=== PATIENT | male | born 1950 | race Caucasian/White ===

== ENCOUNTER → 2018-12-06 15:51 | Outpatient (CLI) | payer OTHER, SELFPAY ==
--- NOTE | 2018-12-06 15:56 | DI.RAD.S_ITS ---
PROCEDURE: XR CHEST 2V INDICATIONS: shortness of breath TECHNIQUE: 2 views of the chest were acquired. COMPARISON: [facility], , CHEST 1 VIEW, 09/29/2017, 18:44. None. FINDINGS: Surgical changes and devices: Dual-lead cardiac pacer is unchanged. Lungs and pleura: No pleural effusions or pneumothorax. Lungs are clear. Mediastinum: Mediastinal contours are normal. Heart size is normal. Bones and chest wall: No suspicious bony abnormalities. Soft tissues appear unremarkable. IMPRESSION: No acute cardiopulmonary findings. Dictated by: Marisabel Blue M.D. on 12/06/2018 at 16:39 Approved by: Marisabel Blue M.D. on 12/06/2018 at 16:39
== END ==
PROVIDERS: Family Provider Internal Medicine; PCP Internal Medicine; Visit Provider Physician Assistant
DX: R06.02 Shortness of breath (principal); R05 Cough; Z95.0 Presence of cardiac pacemaker
CPT/HCPCS: 71046

== ENCOUNTER → 2019-02-05 17:10 | Outpatient (CLI) | payer OTHER, SELFPAY | PROVIDERS: Family Provider Internal Medicine; PCP Internal Medicine; Visit Provider Orthopaedic Surgery | DX: M23.91 Unspecified internal derangement of right knee (principal) ==

== ENCOUNTER → 2019-02-12 10:03 | Outpatient (CLI) | payer OTHER, SELFPAY ==
--- NOTE | 2019-02-12 | DI.CT.S_ITS ---
PROCEDURE: CT LE RT WO CON INDICATIONS: Right knee pain TECHNIQUE: Noncontrast 1-1.5 mm axial sections acquired from the mid-patella to the proximal tibia, with coronal and sagittal reformats. COMPARISON: [facility], CR, XR KNEE ARTHRITIC SERIES RT, 01/30/2019, 10:38. FINDINGS: Image quality: Excellent. Bones: There is moderate tricompartmental periarticular osteophyte formation. Soft tissues: Several intra-articular loose bodies are present within the intercondylar notch, largest of which measures roughly 9 mm. Anterior posterior cruciate ligaments are grossly intact. Extensor mechanism is grossly intact. Medial and lateral collateral ligaments are grossly intact. Small knee joint effusion. Small Edwards's cyst. IMPRESSION: 1. Osteoarthritis. 2. Knee joint effusion and Edwards's cyst. Intra-articular loose bodies. 3. Grossly intact cruciate ligaments. Dictated by: Cherie Holm M.D. on 02/12/2019 at 10:40 Approved by: Cherie Holm M.D. on 02/12/2019 at 10:43
== END ==
PROVIDERS: Family Provider Internal Medicine; PCP Internal Medicine; Visit Provider Orthopaedic Surgery
DX: M25.561 Pain in right knee (principal); M17.11 Unilateral primary osteoarthritis, right knee; M71.21 Synovial cyst of popliteal space [Baker], right knee; M25.461 Effusion, right knee; M23.41 Loose body in knee, right knee
CPT/HCPCS: 73700

== ENCOUNTER → 2019-03-23 08:17 | Outpatient (CLI) | payer OTHER, SELFPAY ==
[2019-03-23 08:59] LABS: Hematocrit 48.7 % (41-53); Hemoglobin 17.1 g/dL (13.5-17.5); Mean Corpuscular HGB Conc 35.1 % (30-36); Mean Corpuscular Hemoglobin 31.5 PG (26-34); Mean Corpuscular Volume 89.8 fL (80-100); Platelet Count 166 X10^3/uL (150-400); Red Blood Cell Count 5.43 X10^6/uL (4.5-5.9); Red Cell Distribution Width 13.3 % (11.6-14.8); White Blood Cell Count 4.8 X10^3/uL (4.5-11.0)
[2019-03-23 09:35] LABS: Blood Urea Nitrogen 24 mg/dL (9-20); Calcium 8.9 mg/dL (8.4-10.2); Carbon Dioxide 26 mmol/L (22-32); Chloride 102 mmol/L (98-107); Estimated Glomerular Filt Rate > 60.0 mL/min (>60); Glucose 105 mg/dL (80-110); HEMOLYSIS < 15 (0-50); Potassium 4.1 mmol/L (3.4-5.1); Sodium 138 mmol/L (137-145)
[2019-03-23 09:42] LABS: Transferrin 240 mg/dL (206-381)
[2019-03-23 09:53] LABS: Bacteria Urine None Seen; RBC Urine None Seen (0-5/HPF); WBC Urine None Seen (0-5/HPF)
[2019-03-23 10:18] LABS: Appearance Urine UA CLEAR; Bilirubin Urine UA NEGATIVE (NEGATIVE); Color Urine UA YELLOW; Glucose Urine UA NEGATIVE (Negative); Ketones Urine UA NEGATIVE (NEGATIVE); Leukocyte Esterase Urine UA NEGATIVE (NEGATIVE); Nitrite Urine UA NEGATIVE (Negative); Occult Blood Urine UA NEGATIVE (Negative); Protein Urine UA NEGATIVE (Negative); Urobilinogen Urine UA 0.2 E.U./dL (0.2); pH Urine UA 5.5 (4.5-8.0)
[2019-03-23 10:32] LABS: Urine Comments Microscopic Normal
== END ==
PROVIDERS: Family Provider Internal Medicine; PCP Internal Medicine; Visit Provider Orthopaedic Surgery
DX: E61.1 Iron deficiency (principal); N39.0 Urinary tract infection, site not specified; R73.9 Hyperglycemia, unspecified; Z01.818 Encounter for other preprocedural examination
CPT/HCPCS: 36415; 80048; 81001; 83036; 84466; 85027

== ENCOUNTER 2019-04-13 07:46 | Inpatient (IN) | payer OTHER, SELFPAY ==
[2019-03-30 09:57] VITALS: BMI 33.3
[2019-04-13] VITALS (15 sets, daily range): BP systolic 101–134; BP diastolic 60–79; PULSE 54–56; RESP 12–16; TEMP 36.1–36.9; O2SAT 92–96; BMI 31.1
--- NOTE | 2019-04-13 08:02 | DI.RAD.S_ITS ---
PROCEDURE: XR KNEE RT 1TO2V INDICATIONS: post operative right total knee TECHNIQUE: 2 view(s) of the knee acquired. COMPARISON: [facility], , KNEE 3V RIGHT, 03/25/2018, 15:59. FINDINGS: Bones: Patient is status post knee joint arthroplasty. Hardware components are in expected positions. Visualized bony structures are intact. Soft tissues: Overlying postoperative changes are noted. IMPRESSION: Expected postoperative appearance. Dictated by: Sandip Antony M.D. on 04/13/2019 at 12:30 Approved by: Sandip Antony M.D. on 04/13/2019 at 12:32
[2019-04-13] MEDS: ACETAMINOPHEN 325 MG TABLET 975 MG PO ×3 (08:44→21:43)
[2019-04-13] MEDS: LACTATED RINGERS 1,000 ML 42 ML IV (08:44)
[2019-04-13] MEDS: PREGABALIN 75 MG CAPSULE PO (08:44)
--- NOTE | 2019-04-13 09:36 | PM.PREOP ---
Pre-operative Note Interval Note History & Physical reviewed/Exam performed by Physician: Yes Changes to H&P: No H&P completed within 30 days and has changed as indicated here:: Recent bout of a fib. Has had this diagnosis previously.
--- NOTE | 2019-04-13 09:42 | PM.OP.1 ---
Operative Date/Time/Diagnoses Date of procedure: 04/13/19 Time of procedure: 11:25 Pre-op diagnosis: Right knee osteoarthritis Post-op diagnosis: same Procedure & Clinicians Procedure: Right total knee replacement Same procedure as scheduled: Yes Indications: The patient has had progressively worsening right knee pain with radiographic changes consistent with arthritis. Non-operative management has failed and the patient has requested total knee replacement. The risks, benefits and alternatives to surgery were discussed with the patient prior to proceeding. Risks discussed included, but were not limited to, failure to relieve pain, stiffness, infection, nerve damage, deep venous thrombosis, pulmonary embolism, stroke, coma, heart attack, permanent paralysis and , as well as the potential need for eventual revision of the prosthetic. Surgeon: Sony Sommer Irrigation Tax Assessor Collector: Nydia Andrews Click Yes if Unassisted: No Anesthesia Type: General, Peripheral nerve block and Local Operative Notes Findings: Severe patellofemoral osteoarthritis with relative preservation of the medial lateral compartments. The patient appeared to have moderately osteoporotic bone and a stable nondisplaced medial tibial plateau fracture was noted after cement setting. Closure Type: primary Specimen(s): none sent Prosthetic devices, grafts, tissues, transplants, or devices: Implants used in this procedure were manufactured by the [employer] and included the BCS II Journey total knee replacement with a size 5 Oxinium femoral component, a size 5 non porous tibial base plate, a 9 mm cross-linked polyethylene tibial insert and a 35 mm oval Rosa Maria II patellar component. Applied: implant(s) Estimated Blood Loss (mL): 50 Blood products transfused: none Tourniquet time (min): 47 Procedure in detail: The patient was seen in the pre-operative area, where the patient identified the right knee as the operative site and this was marked with my initials. The patient received pre-operative antibiotics, and was taken to the operating room and placed on the operative table in the supine position. After satisfactory anesthesia, a dural mechanic out was performed. The right leg was encircled with a tourniquet about the proximal thigh, and the leg was prepared from the toes to the tourniquet with ChloroPrep in the usual fashion and draped through sterile drapes. The leg was elevated and exsanguinated with Eschmark bandage and the tourniquet inflated to 250 mmHg pressure. The knee was approached through an approximately 18 cm incision centered over the patella and carried into the knee through a medial parapatellar arthrotomy. The anterior osteophytes and soft tissues were removed. The rotational landmarks of Jeff's line and the transepicondylar axis were marked on the femur with electrocautery, and intramedullary guide holes for the femur and tibia were created. The distal femoral cut was made in 6 degrees of valgus using the intramedullary guide at the primary cut setting. The proximal tibial cut was then made using the intramedullary guide, taking 9 mm of bone off the less involved side. The extension gap was checked and the rotation of the femoral component confirmed with the gap balancing system. The anterior, posterior and chamfer cuts were then made. The posterior osteophytes and soft tissues were then removed. The posterior capsule was injected with part of a mixture of 60 ml 0.25% Marcaine mixed with 20 ml Exparel and 4 mg of morphine for post-operative pain control. The remainder of this mixture was injected into the capsule and subcutaneous tissues during cement curing. The tibia was prepared with the rotation set by an extra medullary guide. Trial tibial and femoral components were then placed and the intercondylar notch cut through the femoral trial. Range of motion was 0-135 degrees, with good stability throughout the range. The patella was then cut to accommodate the patellar prosthetic. There was no need for a lateral release. The trials were then removed, and the femoral hole plugged with a bone plug. The bone was prepared with pulsatile lavage, and dried with a sponge. Cement was applied and the final prosthetics placed. Excess cement was removed during and after cement curing. During the removal of the cement we noticed a nondisplaced incomplete crack of the medial tibial plateau. This was probed extensively and appeared to be stable. After confirming there was no extruded cement posteriorly, the final tibial insert was placed. The knee was copiously irrigated and the tourniquet deflated. Hemostasis was obtained. The capsule was closed with interrupted # 2 polyester suture. The subcutaneous layer was closed with 3-0 Vicryl, and the skin with a running 3-0 V-Lock suture and SteriStrips. An Aquacel Ag dressing was applied and the patient was taken to recovery having tolerated the procedure well. Complications: other (Nondisplaced stable partial medial tibial plateau fracture.) Condition: stable Disposition: PACU Plan for aftercare: The patient will be maintained on a standard total knee replacement protocol with weight bearing as tolerated. The patient will receive his Xarelto and sequential compression devices for DVT prophylaxis. The patient will be discharged home when safe for the home environment.
[2019-04-13] MEDS: CEFAZOLIN 2 GM/100 ML FROZ.PIGGY IV (10:12)
--- NOTE | 2019-04-13 10:40 | SUR.OPER ---
Supine on padded OR bed. Pillow under head, arms secured on padded armboards <90 degree abduction. Safety belt across torso. Non-operative leg secured with tape over blanket over lower leg. Operative leg secured in DeMayo positioner.
--- NOTE | 2019-04-13 10:44 | PM.PROC.1 ---
Procedures Date/Time Date of procedure: 04/13/19 Time of procedure: 09:10 General Procedure description: Ultrasound guided adductor canal nerve block for post op pain control afterright total knee arthroplasty by . Risk and benefits of procedure discussed with patient. ASA monitoring applied to patient. O2 given via nasal cannula. 1 mg Versed and 50 mcg fentanyl given for procedural sedation. Skin site was prepped with chlorhexidine and allowed to fully dry. Sterile gloves, mask, hat and probe cover were used to maintain sterility. 2% lidocaine and 30ga needle was used to make a small skin wheal at needle insertion site. Under ultrasound guidance, a 21ga 100mm Pajunk needle was directed into the adductor canal near femoral artery and saphenous nerve at the level of mid thigh. Patient reported no parasthesias. After negative aspiration, 20 mL 0.5% ropivicaine and 10mg dexamethasone were injected around saphenous nerve. Patient tolerated procedure well.
[2019-04-13] MEDS: BUPIVACAINE 0.25% W/ EPI 30 ML VIAL 60 ML INJ (10:45)
[2019-04-13] MEDS: BUPIVACAINE LIPOSOME 266 MG/20 ML VIAL INJ (10:45)
[2019-04-13] MEDS: MORPHINE 4 MG/ML INJ INJ (10:46)
[2019-04-13] MEDS: TRANEXAMIC ACID 1,000 MG VIAL 1000 MG INJ ×2 (10:47→11:22)
--- NOTE | 2019-04-13 11:57 | SUR.PREOP ---
Block start time [18] . Monitoring initiated and maintained throughout procedure. Oxygen given per anesthesiologist instructions. Pt medicated by Dr. Roth. Patient remained stable throughout procedure, no adverse reactions noted. Block end time [929].
[2019-04-13] MEDS: LACTATED RINGERS 1,000 ML 125 ML IV ×2 (13:28→19:28)
[2019-04-13] MEDS: RIVAROXABAN 10 MG TABLET 20 MG PO (17:14)
[2019-04-13] MEDS: METOCLOPRAMIDE 10 MG/2 ML INJ IV ×2 (19:23→23:27)
--- NOTE | 2019-04-13 19:31 | PC.NURSE ---
Addendum entered by Elodia Paige, R.N. 04/13/19 22:01: Straight cath done by Janis castelan RN, 450 ml urine output. Patient denies further nausea, has been sleeping since last assessment. Ice cream and crackers provided tonight, he denies further needs/concerns. Call button in reach/alarm active/fall precautions in place. Addendum entered by Elodia Paige R.N. 04/13/19 19:43: Still no void. An hour ago bladder scan done = 575 ml. Since then patient trying to use urinal with no success. 2 person assist to stand him at bedside, he is very unsteady and dizzy, able to bear some weight on right leg. Still no void. Assisted him back into bed. Plan: in & out cath per standing orders. Original Note: Evening note: 1700: O[place]als has complained of dizziness since earlier when physical therapy attempted to sit hip up at side of bed. Pt positioned back into bed. Sat up and ate meal, denied nausea with dizziness. Visited with for a while. Just now sat up and had 900 ml of emesis, brown liquid with some undigested food. IV Reglan given. Instructed patient to call if nausea returns, fresh emesis bag at his side. He is Ox3, VS are stable. RA oxygen 98% Drsg to R knee is CDI, wearing bilateral SCD's. Reports numbness/tingling to RLE, wiggling toes, doing foot pumps 20 times an hour. Pulses are present.
[2019-04-13] MEDS: SOTALOL 80 MG TABLET PO (21:43)
[2019-04-13] MEDS: DOCUSATE 100 MG CAPSULE PO (21:43)
[2019-04-14] VITALS (7 sets, daily range): BP systolic 108–141; BP diastolic 58–71; PULSE 55–58; RESP 16–18; TEMP 36.1–37.2; O2SAT 94–98
--- NOTE | 2019-04-14 | DI.RAD.S_ITS ---
PROCEDURE: XR CHEST 2V INDICATIONS: shortness of breath, crackles TECHNIQUE: 2 views of the chest were acquired. COMPARISON: [facility], CHEST 1 VIEW, 09/29/2017, 18:44. [facility], CHEST 1 VIEW, 05/29/2017, 10:19. [facility], CHEST 2 VIEW, 05/07/2017, 12:20. [facility], XR CHEST 2V, 12/06/2018, 15:58. FINDINGS: Surgical changes and devices: A pacer device is seen. The leads are seen in stable positions. Lungs and pleura: An incomplete inspiratory result is noted, causing a crowded appearance to the lung markings. No focal infiltrates are seen. No pneumothorax or significant pleural effusions are seen. Mediastinum: The cardiac contours are at the upper limits of normal. The aorta demonstrates calcification and tortuosity. Bones and chest wall: Age-appropriate bony degenerative changes are seen. No suspicious bony abnormalities. Soft tissues appear unremarkable. IMPRESSION: Limited study demonstrating no acute abnormality. If there is clinical concern for a developing pulmonary process, a short-term followup chest series (with PA and lateral views, performed in deep inspiration) is suggested for further evaluation. Dictated by: Sabas Glass M.D. on 04/14/2019 at 8:03 Approved by: Sabas Glass M.D. on 04/14/2019 at 8:04
--- NOTE | 2019-04-14 00:41 | PC.NURSE ---
Addendum entered by Deepa Valdes R.N. 04/14/19 06:41: Pt unable to void greater than 20ml, straight cath'd him for 500ml of clear yellow urine. Pt tolerated procedure well, reports that he has a history of needing to go frequently for small volumes, encouraged pt to talk to him doctor. Educated pt that he will still need to be able to void on his own to discharge. Pt acknowledged all teaching. Addendum entered by Deepa Valdes R.N. 04/14/19 06:06: Had another DATABASE TESTER verify bladder scan and determined that the wrong setting had been used. New scan indicated 500ml of urine, pt urinated 40ml out and is attempting to get more out at this time. Addendum entered by Deepa Valdes R.N. 04/14/19 05:18: Second bladder scan revealed a max of 47ml, encouraged pt to continue to drink fluids, prefers cranberry juice and Diamond Oksana to water. Addendum entered by Deepa Valdes R.N. 04/14/19 04:08: Pt has been unable to meet 8 hour post cath void. Bladder scan revealed no urine in the bladder despite multiple views. Encourage pt to drink more fluids, will recheck in an hour. Original Note: Called workers compensation adjuster surgeon Dr Rainey in regards to pt not having any post op antibiotics, new order for 2gm Cefazolin times 2 doses.
[2019-04-14] MEDS: CEFAZOLIN 2 GM/100 ML FROZ.PIGGY IV ×2 (01:26→09:42)
[2019-04-14] MEDS: LACTATED RINGERS 1,000 ML 125 ML IV (04:13)
[2019-04-14] MEDS: OXYCODONE IR 5 MG TABLET PO ×2 (04:16→11:14)
[2019-04-14 05:53] LABS: Hematocrit 46.9 % (41-53); Hemoglobin 15.9 g/dL (13.5-17.5)
[2019-04-14] MEDS: PANTOPRAZOLE 20 MG TABLET PO (06:13)
--- NOTE | 2019-04-14 07:46 | PM.PNPO.1 ---
Subjective Date Patient Seen: 04/14/19 Time Patient Seen: 07:46 Interval history: The patient reports reasonable pain control this morning however he has had significant nausea and has been unable to void, requiring 2 straight caths. Exam Vital Signs (past 8 hours): - 04/14/19 00:00 04/14/19 05:20 Temperature 98.0 F 97.0 F L Pulse Rate 56 L 58 L Respiratory Rate 16 16 Blood Pressure 109/60 118/70 Pulse Oximetry 94 95 Oxygen Delivery Method Room Air Oxygen Flow Rate 0 Narrative Exam Narrative: Right knee wound is dressed with no drainage on the bandage. Calf is soft. Light touch and motion are intact in the right lower extremity. Objective Labs Result Diagrams: 04/14/19 05:33 Labs: Laboratory Results - last 24 hr 04/14/19 05:33 Hgb 15.9 Hct 46.9 Assessment & Plan Post-op Postoperative Procedures Operation Date: 04/13/19 09:45 Actual Procedures Side Surgeon p Total Knee Arthroplasty Right Sony Sommer MD Postoperative day: 1 Postoperative status: doing well, urinary retention and other Postoperative status narrative: From the standpoint of his total knee, the patient is doing well. He does however have urinary retention and significant postoperative nausea. At this point it is unlikely he will be able to go home today. Postoperative plan: routine post-op care, ambulate, advance diet and voiding trials Time Spent With Patient less than 15 minutes Quality VTE Deep Vein Thrombosis/Pulmonary Embolism Present on Admission: No
[2019-04-14] MEDS: SOTALOL 80 MG TABLET PO ×2 (09:42→21:34)
[2019-04-14] MEDS: MELOXICAM 7.5 MG TABLET 15 MG PO (09:42)
[2019-04-14] MEDS: ACETAMINOPHEN 325 MG TABLET 975 MG PO ×3 (09:43→21:34)
[2019-04-14] MEDS: DOCUSATE 100 MG CAPSULE PO ×2 (09:43→21:34)
--- NOTE | 2019-04-14 10:46 | CM.DANOTE ---
DCP/Assessment: Reviewed chart. Patient is a 68yr old male admitted to [facility] for right TKA performed on 04-13-[address] Sommer. PCP is Dr. Lassiter. Primary payor is 1)[facility]. Met with patient explained CM/SW role. Patient reports that he hopes to d/c home today. Patient resides with his spouse and has supportive family/friends. Patient has 4 stairs at residence. Patient followed by therapy and most likely will be doing stair training prior to d/c. Patient has outpatient therapy scheduled and does not anticipate any d/c planning needs. P: Home when medically stable. ROULA Vanessa Discharge Planning/Care Management CM Discharge Assessment Start: 04/14/19 10:44 Freq: Status: Active Protocol: Document 04/14/19 10:44 KJS (Rec: 04/14/19 10:46 KJS [id number]) Discharge Planning Assessment Assigned Activity Director ROULA Vanessa Contact Information Neli Saunders (spouse) [phone] Advance Directives? No: Has paperwork History Provided By Patient Friend Medical Record Prior Living Arrangements House Household Members spouse Type of transporation used prior to Drives own vehicle admit Independent with ADL's Yes Is patient alert and oriented? Yes Caregiver for Another No DME Already Rented / Owned FWW / Walker Cane Bedside Commode Patient/Family Preference OP PT Therapy Barriers to Discharge No Discharge Plan Home Transportation Arrangement Family to provide transport Referrals Initiated None needed Whiteboard Updated in Patient Room with Yes name and ext. # of Activity Director Review Status In Process Next Review Type Continued Stay Review Pre-Anesthesia Assessment Start: 03/30/19 09:57 Freq: Status: Complete Protocol: Document 03/30/19 09:57 CAB (Rec: 03/30/19 10:43 CAB [id number]) Pre-Anesthesia Assessment Patient Also Known As (AKA) [place] Patient Information Reviewed Via Phone Assessment Assessment Completed With Patient Diagnostic Results BMP/CMP CBC Urinalysis Comment Labs 03/23/19 @[facility], EKG w/PCP office scanned to record Primary Care Provider Tino Lassiter Medical Clearance Received Yes Seen Specialist in Last 12 Months Yes Specialist Seen Import Dispatcher Orthopedist Primary Language Latvian Automatic Print Developer Required No Height 172.72 cm Weight 99.337 kg Body Mass Index (BMI) 33.3 Hearing Ability Normal Visual Assist Magnifying Glass Dentition Type Teeth, Natural Present Teeth, Missing Barriers to Learning None Other Aids No Hx Anesthesia Reactions No Hx Family Anesthesia Reaction No Hx Malignant Hyperthermia No Hx Blood Transfusions No Comment History of esophageal spasms Anesthesia Review Requested No Seam Rubber No alcohol intake current alcohol intake frequency a few times a month Smoking Status Never smoker Substance Use Type does not use Pain Present Pain Reported Musculoskeletal Symptoms Abnormal Gait Back Pain Difficulty Walking Joint Pain Muscle Cramps Muscle Spasms History of Falling (Recent or History of No ) Patient is completely paralyzed or No completely immobile Mental Status Oriented to own ability Is patient on oxygen? No Does patient have DUCWKORTH/SOB No Hx Sleep Apnea No Currently Taking a Beta Michael Yes: Sotalol Can You Climb a Flight of Stairs Without No SOB Hx Chest Pain No Hx SOB No Hx Syncope or Dizziness Yes: lightheadedness w/Afib episodes Anti-Coagulant Therapy Yes: Xarelto-pt will hold 5 days prior per PCP Has a Import Dispatcher Yes: Dr. Wang-visit 04/01/19 scanned to record Cardiac Testing Yes: Last ECHO 2016 scanned to record Hx Pacemaker/ICD Yes: SSS, bradycardia. Last device check 01/20/19 scanned to record Pacemaker Rep Required? No: Pacemaker form to surgery folder and scanned to record Diet Type At Home Regular dysphagia No Comment Hx of esophageal spasm Bladder Pattern Nocturia Urinary Catheter Present No Hx Urinary Self Catheterization No Diabetes No HgbA1C 5.0 Date 03/23/19 Hx Drug Resistant Organism No Presence of External or Internal Medical Yes: Pacemaker Devices Have you traveled outside the [facility] in the last 30 days? Marital Status Lives With spouse Prior Living Arrangements House Number of Floors (Floors) 3 or More Floors Support System Spouse Patient Discharge Plan Description Return Home Comment Pt not advised on length of stay per surgeon's office presently Feels Safe in Current Environment Yes Been Physically Hurt or Threatened By a No Person in Current Environment Do you have thoughts of harming yourself None or others? Are you currently considering suicide? No Do you have a plan to hurt yourself or No Plan others? Do You Have Any Spiritual Beliefs That No May Affect Your HC Choices? Do You Have Any Cultural Practices That No May Affect Your HC Choices? Who Can We Speak to About Patient's Care Family, friends Identifying Code for Release of Patient Declines to issue Information Health Care Proxy/Next of Kin Neli () Health Care Proxy Emergency Contact Name Neli () Emergency Contact Advance Directives? No: Has paperwork PAC Instructions Durable medical equipment Medications to take/avoid Nasal antibiotic No ETOH/petroleum product on skin DOS NPO Post-op transportation Pre-surgical wash Sturdy shoes/comfortable clothes Do not bring valuables and remove jewelry
--- NOTE | 2019-04-14 11:20 | PC.NURSE ---
Tawanda reported feeling short of breath this am after taking bedside rescue inhaler without relief. VSS, and O2 sat on RA 95%. Noted to have faint crackles R base, a new finding. IV fluids halted. DIANA Andrews informed. She ordered CXR and RT consult for EKG. CXR unremarkable and EKG showed SR with first degree block. Tawanda states he did not feel any chest pain or feel as if he was in A-Fib during this time. Since then he has been able to participate in PT and sit in the chair. He now reports his breathing feels Better. He is smiling and cracking jokes. He is able to void in amounts of 250 or more each and has not needed to be cathed. His R knee aquacel is clean/dry/intact. He states he has some residual numb feeling in david. feet such as what he had pre-op. He has had no further N/V and is taking a general diet slowly, occasionally plagued by bouts of hiccoughs.
--- NOTE | 2019-04-14 12:06 | PT.IIE ---
Current Diagnoses Unilateral primary osteoarthritis, right knee (04/13/19) Surgery Performed Operation Date: 04/13/19 09:45 Actual Procedures p Total Knee Arthroplasty(Right) - Sony Sommer MD Surgical History (Last Updated 03/30/19 @ 10:15 by Pamela James RN) H/O vasectomy (Acute ~1984) Status post hernia repair Medical History (Last Updated 03/30/19 @ 10:14 by Pamela James RN) Mild intermittent asthma without complication (Chronic 12/04/11) Paroxysmal atrial fibrillation (Chronic) Gastroesophageal reflux disease without esophagitis (Chronic 12/04/11) Diverticulosis of large intestine without perforation or abscess without bleeding (Chronic) 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) H/O acute myocardial infarction (Inactive ~1984) Hemorrhoids (Inactive 12/29/15) Cardiac pacemaker in situ (Inactive ~09/2017) Kidney stone (Acute) Physical Therapy Inpatient Evaluation/Re-Eval M1 PT/OT-IP Prior Functional Status Start: 04/13/19 17:03 Freq: NEEDED Status: Active Protocol: Document 04/14/19 09:41 TIMOTEO (Rec: 04/14/19 09:46 EA [id number]) Medical Review Prior Functional Status Medical History Reviewed Yes Diet/Fluid Consistency Regular Communication normal Mobility and Gait Indep in all mobility with single fall in the last six months due to missed step on his boat. No used of any AD Activities of Daily Living and IADL's Indep Prior Functional Level (Other details) Retired Social History Household Members spouse Living Arrangements House Number of Stairs To Enter/Railing? 4 steps to get up to the masters BR with rail to left side Home Environment Standard Height Toilet Home Equipment Front Wheel Walker Straight Cane Additional Social History Comment Lives with her who would look after him. M2 PT-IP Current Condition Start: 04/13/19 17:03 Freq: NEEDED Status: Active Protocol: Document 04/14/19 09:41 EA (Rec: 04/14/19 09:46 EA [id number]) Physical Therapy Current Condition Current Condition Evaluation Date 04/14/19 Treatment Diagnosis s/p R TKA Onset Date 04/13/19 Weight Bearing Status Weight Bearing Status Weight Bear as Tolerated M3 PT-IP Subjective Start: 04/13/19 17:03 Freq: NEEDED Status: Active Protocol: Document 04/14/19 09:41 EA (Rec: 04/14/19 09:46 EA [id number]) Subjective Physical Therapy Visit Type Type Initial Evaluation Visit Start Time 09:00 Visit Stop Time 09:40 Total Visit Minutes 40 Number of HOTEL MAID Visits 0 Physical Therapy Visit Comments Patient Comments Patient agreeable to mobilize and perform mobility assessment. Therapy Pain Assessment Pain When Pain Assessed At Rest Pain Present Pain Present Pain Reported Location Rt Knee Intensity 3 Scale Used Numeric (1 - 10) Description Acute M4 PT-IP Mobility and Gait Start: 04/13/19 17:03 Freq: NEEDED Status: Active Protocol: Document 04/14/19 09:41 EA (Rec: 04/14/19 09:46 EA [id number]) PT-Bed Mobility Assessment Supine to Sit Supine to Sit Standby Assistance Sit to Supine Sit to Supine Standby Assistance Scooting Scooting to Edge of Bed Standby Assistance PT-Transfer Assessment Sit to and From Stand Sit to and from Stand Contact Guard Assistance Equipment Transfer Assistive Device Gait Belt Front Wheeled Walker Transfers Transfer Destination Bed Chair Toilet Transfer Technique stepping Transfer Ability Level of Assist Contact Guard Assistance Gait Assessment Gait Gait Assistance Required: Contact Guard Assist Distance (Feet) 20 Able to Maintain Weight Bearing Status Yes During Gait Assistive Devices Assistive Device Front Wheeled Walker Gait Deviations General Gait Pattern Antalgic Decreased Stride Length Step-to Gait Factors Limiting Gait Function Factors Limiting Gait Function Decreased Activity Tolerance Decreased Strength Limited Range of Motion Pain Respiratory Distress Comments Gait Comments Requires VC's to ensure foot flat or right foot as patient tends to tip toe step. Requires rest due to SOB. PT-Balance Assessment Sitting Balance and Reactions Static Sitting Balance Ability Normal Dynamic Sitting Balance Ability Good Standing Balance and Reactions Static Standing Balance Ability Good Dynamic Standing Balance Ability Fair M5 PT-IP Objective Assessments Start: 04/13/19 17:03 Freq: NEEDED Status: Active Protocol: Document 04/14/19 09:41 EA (Rec: 04/14/19 09:46 EA [id number]) Orientation Orientation/Cognition Level of Alertness Alert Orientation Name Language Function Ability No Deficits Noted Memory Description No Deficits Noted Gross Range of Motion Upper Extremity ROM Assessment Within Functional Limits Lower Extremity ROM Assessment Right Impaired Impairments 0- 90 knee flexion-ext Strength Upper Extremity Strength Assessment Within Functional Limits Lower Extremity Strength Assessment Right Impaired Knee at least 3+/5 Coordination Assessment Gross Coordination Gross Coordination WNL Sensation Assessment Sensation Gross Sensation WNL Light Touch Intact M6 PT-IP Treatment Start: 04/13/19 17:03 Freq: NEEDED Status: Active Protocol: Document 04/14/19 09:41 EA (Rec: 04/14/19 09:46 EA [id number]) Physical Therapy Treatment Exercises Exercises Ankle Pumps Gluteal Sets Quad Sets Heel Slides Straight Leg Raises Short Arc Quads Passive Knee Extension Hang Seated Knee Flexion/Extension Education Education Provided Precautions Weight Bearing Status Post-Op Packet M7 PT-IP Assessment and Plan Start: 04/13/19 17:03 Freq: NEEDED Status: Active Protocol: Document 04/14/19 09:41 EA (Rec: 04/14/19 09:46 EA [id number]) PT Summary Assessment and Plan Potential Rehabilitation Potential Good Status of Condition at Evaluation Evolving Summary Impairments Pain ROM Strength Balance Bed Mobility Transfers Gait Activity Tolerance Assessment Summary Patient demonstrates decreased tolerance to mobility with slight instability in dynamic mobility due to RLE weakness, pain and respiratory distress. Patent requires assistance in all functional transfers and ambulation at this time. He would benefit with skilled PT to reach functional goals prior to discharge. Goals Bed Mobility Goal Independent Transfer Goal Independent Front Wheeled Walker Gait Goal Independent Front Wheel Walker Gait Distance 100 ft Other Goals 4 steps with SBA using Left handrail Days to Meet Goals 2 Frequency of Treatment Frequency Of Treatment Twice a Day Treatment Plan Physical Therapy Treatment Plan Bed Mobility Training Transfer Training Gait Training Therapeutic Exercise Recommendations To Nursing Amount of Assist Needed 1 Person Assist Discharge Recommendations PT Discharge Recommendations Home with Assistance
--- NOTE | 2019-04-14 14:48 | PT.IPTN ---
Current Diagnoses Unilateral primary osteoarthritis, right knee (04/13/19) Surgery Performed Operation Date: 04/13/19 09:45 Actual Procedures p Total Knee Arthroplasty(Right) - Sony Sommer MD Physical Therapy Treatment Note M2 PT-IP Current Condition Start: 04/13/19 17:03 Freq: NEEDED Status: Active Protocol: Document 04/14/19 09:41 EA (Rec: 04/14/19 09:46 EA [id number]) Physical Therapy Current Condition Current Condition Evaluation Date 04/14/19 Treatment Diagnosis s/p R TKA Onset Date 04/13/19 Weight Bearing Status Weight Bearing Status Weight Bear as Tolerated M3 PT-IP Subjective Start: 04/13/19 17:03 Freq: NEEDED Status: Active Protocol: Document 04/14/19 14:10 CLB (Rec: 04/14/19 14:48 CLB [id number]) Subjective Physical Therapy Visit Type Type Treatment Note Visit Start Time 14:10 Visit Stop Time 14:35 Total Visit Minutes 25 Number of DIRECTOR IT Visits 1 Physical Therapy Visit Comments Patient Comments pt agreeable to do therapy. Therapy Pain Assessment Pain When Pain Assessed At Rest Pain Present Pain Present Pain Reported Location Rt Knee Intensity 2 Scale Used Numeric (1 - 10) M4 PT-IP Mobility and Gait Start: 04/13/19 17:03 Freq: NEEDED Status: Active Protocol: Document 04/14/19 14:10 CLB (Rec: 04/14/19 14:48 CLB [id number]) PT-Bed Mobility Assessment Sit to Supine Sit to Supine Standby Assistance Scooting Scooting to Edge of Bed Standby Assistance PT-Transfer Assessment Sit to and From Stand Sit to and from Stand Contact Guard Assistance Equipment Transfer Assistive Device Gait Belt Front Wheeled Walker Transfers Transfer Destination Bed Chair Transfer Technique stepping Transfer Ability Level of Assist Contact Guard Assistance Comments Mobility Comments Pt able to hook LLE under RLE to assist leg onto bed. Gait Assessment Gait Gait Assistance Required: Contact Guard Assist Distance (Feet) 200 Able to Maintain Weight Bearing Status Yes During Gait Assistive Devices Assistive Device Gait Belt Front Wheeled Walker Gait Deviations General Gait Pattern Antalgic Decreased Stride Length Step-to Gait Factors Limiting Gait Function Factors Limiting Gait Function Decreased Activity Tolerance Decreased Strength Limited Range of Motion Pain Respiratory Distress Comments Gait Comments Pt improved with foot placement with gait. Stair Climbing Assessment Evaluation Level of Assist On Stairs Contact Guard Assistance 1 Person Assistance Devices Stair Climbing Assistive Devices Left Railing Technique/Endurance Stair Climbing Direction Ascend and Descend Stair Climbing Technique Step to Step Number of Steps Climbed 3 Query Text: Stair Climbing Set # Repetitions (reps) 2 Comments Stair Climbing Comments Pt able to climb stairs CGA x2 . M5 PT-IP Objective Assessments Start: 04/13/19 17:03 Freq: NEEDED Status: Active Protocol: Document 04/14/19 09:41 EA (Rec: 04/14/19 09:46 EA [id number]) Orientation Orientation/Cognition Level of Alertness Alert Orientation Name Language Function Ability No Deficits Noted Memory Description No Deficits Noted Gross Range of Motion Upper Extremity ROM Assessment Within Functional Limits Lower Extremity ROM Assessment Right Impaired Impairments 0- 90 knee flexion-ext Strength Upper Extremity Strength Assessment Within Functional Limits Lower Extremity Strength Assessment Right Impaired Knee at least 3+/5 Coordination Assessment Gross Coordination Gross Coordination WNL Sensation Assessment Sensation Gross Sensation WNL Light Touch Intact M6 PT-IP Treatment Start: 04/13/19 17:03 Freq: NEEDED Status: Active Protocol: Document 04/14/19 14:10 CLB (Rec: 04/14/19 14:48 CLB [id number]) Physical Therapy Treatment Exercises Exercises Gluteal Sets Quad Sets Heel Slides Straight Leg Raises Short Arc Quads Passive Knee Extension Hang Education Education Provided Precautions Weight Bearing Status Safety M7 PT-IP Assessment and Plan Start: 04/13/19 17:03 Freq: NEEDED Status: Active Protocol: Document 04/14/19 14:10 CLB (Rec: 04/14/19 14:48 CLB [id number]) PT Summary Assessment and Plan Summary Impairments Pain ROM Strength Balance Bed Mobility Transfers Gait Activity Tolerance Assessment Summary Pt improving with gait quality using flat foot and step to gait pattern. Pt able to climb 3 steps x2. Goals Bed Mobility Goal Independent Transfer Goal Independent Front Wheeled Walker Gait Goal Independent Front Wheel Walker Gait Distance 100 ft Other Goals 4 steps with SBA Days to Meet Goals 2 Frequency of Treatment Frequency Of Treatment Twice a Day Treatment Plan Physical Therapy Treatment Plan Bed Mobility Training Transfer Training Gait Training Therapeutic Exercise Other Recommendations and Next Treatment gait, ther ex., stairs with L Focus rail and SPC on right. Recommendations To Nursing Amount of Assist Needed 1 Person Assist Discharge Recommendations PT Discharge Recommendations Home with Assistance
[2019-04-14] MEDS: OXYCODONE IR 10 MG TABLET PO ×3 (15:37→21:34)
[2019-04-15 00:35] VITALS: BP 113/66; PULSE 55; RESP 16; TEMP 36.6; O2SAT 95
[2019-04-15] MEDS: OXYCODONE IR 10 MG TABLET PO ×3 (01:14→10:08)
[2019-04-15 04:55] VITALS: BP 115/73; PULSE 55; RESP 16; TEMP 36.5; O2SAT 95
[2019-04-15] MEDS: PANTOPRAZOLE 20 MG TABLET PO (06:05)
--- NOTE | 2019-04-15 06:55 | PM.DS.1 ---
History of Present Illness Date Patient Seen: 04/15/19 Time Patient Seen: 06:55 Chief complaint: [id number] Narrative: The history and physical examination are contained in the chart in a previously completed note. Please refer to that note for this information. Discharge Providers Date of admission: 04/13/19 07:46 Discharge Date: 04/15/19 Primary care physician: Tino Lassiter MD Consults: 04/13/19 12:49 Consult to Discharge Planning Routine Comment: Consult to Physical Therapy Evaluate & Treat Comment: Physician Instructions: postop TKA protocol 04/14/19 08:45 Consult to Respiratory Therapy Evaluate & Treat Comment: Physician Instructions: Evaluate and treat Discharge provider: Sony Sommer MD Summary Discharge Diagnosis: 1. Right knee osteoarthritis 2. Nondisplaced medial tibial plateau fracture 3. Postoperative nausea 4. Urinary retention Hospital Course: The patient was admitted to the hospital and taken directly to the operating room on April 13, 2019 where he underwent a right total knee replacement which was complicated by a nondisplaced medial tibial plateau fracture which was stable. Postoperatively he had significant nausea and urinary retention requiring that he remain until postoperative day 2 in the hospital. On postoperative day 2 he was stable and had made excellent progress in physical therapy. Exam Vital Signs (past 8 hours): - 04/15/19 00:35 04/15/19 04:55 Temperature 97.9 F 97.7 F Pulse Rate 55 L 55 L Respiratory Rate 16 16 Blood Pressure 113/66 115/73 Pulse Oximetry 95 95 Oxygen Delivery Method Room Air Oxygen Flow Rate 0 Narrative Exam Narrative: Right knee wound is dressed with no drainage on the bandage. Calf is soft. Light touch and motion are intact in the right lower extremity. Objective Labs Result Diagrams: 04/14/19 05:33 Discharge Plan Discharge Plan Patient Disposition: Home Discharge Med Rec/Prescriptions Prescriptions: New acetaminophen 325 mg Tablet 975 mg PO TID 30 Days Qty: 270 RF: 0 oxycodone 5 mg Tablet 5 mg PO Q3HR PRN (Reason: Pain, Moderate (4-6)) Qty: 40 RF: 0 hydroxyzine pamoate 25 mg Capsule 25 mg PO Q6HR PRN (Reason: Nausea) Qty: 40 RF: 0 Continued albuterol sulfate 90 mcg/actuation HFA aerosol inhaler 1 inh INHALATION Q4-6H PRN (Reason: shortness of breath) Qty: 18 RF: 0 omeprazole 20 MG capsule,delayed release(DR/EC) 20 mg PO QDAY Qty: 0 RF: 0 sotalol 80 mg tablet 80 mg PO BID RF: 0 rivaroxaban [Xarelto] 20 mg tablet 20 mg PO SEEINSTR RF: 0 ibuprofen [Advil Liqui-Gel] 200 mg Capsule 600 mg PO BEDTIME PRN (Reason: pain, sleep) RF: 0 Follow up/Referrals: Tino Lassiter MD [Primary Care Provider] - Sony Sommer MD [Physician] - 3-5 Days Provider Discharge Instructions Diet: Diet as Tolerated and Regular Activity: You may bear weight as tolerated on your right leg. Skin/Wound/Dressing Care Report to your healthcare provider any signs of infection, such as:: chills, fever, night sweats, increased pain, unusual drainage and unusual redness Dressing: You may remove the Param wrap 3 days after surgery and shower normally with the deeper dressing in place. Do not submerge the deeper dressing under water. If the central strip of the deeper dressing gets saturated with either water or blood call the office to have it changed. Visit Report/Discharge Packet Instructions: DI for Knee Replacement Stand Alone Forms: Surgery Discharge Discharge Data Primary Care Provider: Tino Lassiter Attending Provider: Sony Sommer Admit Date/Time: 04/13/19 07:46 Quality VTE Deep Vein Thrombosis/Pulmonary Embolism Present on Admission: No
[2019-04-15 08:00] VITALS: BP 125/69; PULSE 55; RESP 16; TEMP 36.8; O2SAT 95
[2019-04-15] MEDS: DOCUSATE 100 MG CAPSULE PO (09:41)
[2019-04-15] MEDS: SOTALOL 80 MG TABLET PO (09:41)
[2019-04-15] MEDS: POLYETHYLENE GLYCOL 3350 17 GM POWD.PACK PO (09:41)
[2019-04-15] MEDS: MELOXICAM 7.5 MG TABLET 15 MG PO (09:41)
[2019-04-15] MEDS: ACETAMINOPHEN 325 MG TABLET 975 MG PO (09:42)
--- NOTE | 2019-04-15 09:52 | PT.IPTN ---
Current Diagnoses Unilateral primary osteoarthritis, right knee (04/13/19) Surgery Performed Operation Date: 04/13/19 09:45 Actual Procedures p Total Knee Arthroplasty(Right) - Sony Sommer MD Physical Therapy Treatment Note M2 PT-IP Current Condition Start: 04/13/19 17:03 Freq: NEEDED Status: Active Protocol: Document 04/14/19 09:41 EA (Rec: 04/14/19 09:46 EA [id number]) Physical Therapy Current Condition Current Condition Evaluation Date 04/14/19 Treatment Diagnosis s/p R TKA Onset Date 04/13/19 Weight Bearing Status Weight Bearing Status Weight Bear as Tolerated M3 PT-IP Subjective Start: 04/13/19 17:03 Freq: NEEDED Status: Active Protocol: Document 04/15/19 09:45 SA (Rec: 04/15/19 09:52 SA [id number]) Subjective Physical Therapy Visit Type Type Treatment Note Visit Start Time 09:02 Visit Stop Time 09:40 Total Visit Minutes 38 Number of MOTEL KEEPER Visits 2 Physical Therapy Visit Comments Patient Comments Pt up in chair, present and agreeable to PT. Therapy Pain Assessment Pain When Pain Assessed During Mobility Pain Present Pain Present Pain Reported Location Rt Knee Intensity 5 Scale Used Numeric (1 - 10) Pain Management Techniques Apply Cold Re-positioning Timing of Activity with Medications M4 PT-IP Mobility and Gait Start: 04/13/19 17:03 Freq: NEEDED Status: Active Protocol: Document 04/15/19 09:45 SA (Rec: 04/15/19 09:52 SA [id number]) PT-Bed Mobility Assessment Supine to Sit Supine to Sit Standby Assistance Sit to Supine Sit to Supine Standby Assistance Scooting Scooting to Edge of Bed Standby Assistance PT-Transfer Assessment Sit to and From Stand Sit to and from Stand Standby Assistance Contact Guard Assistance 1 Person Assistance Equipment Transfer Assistive Device Gait Belt Front Wheeled Walker Transfers Transfer Destination Bed Chair Transfer Technique stepping Transfer Ability Level of Assist Contact Guard Assistance Comments Mobility Comments CGA-SBa with stand pivot txs using FWW. SBA for bed mobility. Pt reports increased pain today at 5-6/10 with WBing. Gait Assessment Gait Gait Assistance Required: Contact Guard Assist Distance (Feet) 225 Able to Maintain Weight Bearing Status Yes During Gait Assistive Devices Assistive Device Gait Belt Front Wheeled Walker Gait Deviations General Gait Pattern Antalgic Decreased Stride Length Step-to Gait Factors Limiting Gait Function Factors Limiting Gait Function Decreased Activity Tolerance Decreased Strength Limited Range of Motion Pain Respiratory Distress Comments Gait Comments Pt very stiff initially with step to gait pattern and WBing heavily through UEs, able to transition to step through gait with increased WBing on RLE. Stair Climbing Assessment Evaluation Level of Assist On Stairs Minimal Assistance 1 Person Assistance Devices Stair Climbing Assistive Devices Left Railing Right Railing Technique/Endurance Stair Climbing Direction Ascend and Descend Stair Climbing Technique Step to Step Number of Steps Climbed 3 Query Text: Stair Climbing Set # Repetitions (reps) 1 Comments Stair Climbing Comments Pt to use SPC at home in RUE rather than B rails as he only has L ascending rail. Pt reports increased pain/ difficulty with stairs today vs yesterday. Functional Assessments Other Functional Tests Performed Standing postural correction with R leaning to increase RLE Wbing and decreased WBing through UEs/FWW. M5 PT-IP Objective Assessments Start: 04/13/19 17:03 Freq: NEEDED Status: Active Protocol: Document 04/14/19 09:41 EA (Rec: 04/14/19 09:46 EA [id number]) Orientation Orientation/Cognition Level of Alertness Alert Orientation Name Language Function Ability No Deficits Noted Memory Description No Deficits Noted Gross Range of Motion Upper Extremity ROM Assessment Within Functional Limits Lower Extremity ROM Assessment Right Impaired Impairments 0- 90 knee flexion-ext Strength Upper Extremity Strength Assessment Within Functional Limits Lower Extremity Strength Assessment Right Impaired Knee at least 3+/5 Coordination Assessment Gross Coordination Gross Coordination WNL Sensation Assessment Sensation Gross Sensation WNL Light Touch Intact M6 PT-IP Treatment Start: 04/13/19 17:03 Freq: NEEDED Status: Active Protocol: Document 04/15/19 09:45 SA (Rec: 04/15/19 09:52 [id number]) Physical Therapy Treatment Exercises Exercises Gluteal Sets Quad Sets Heel Slides Straight Leg Raises Short Arc Quads Passive Knee Extension Hang Education Education Provided Precautions Weight Bearing Status Safety Equipment Issued Equipment Type and Company Pt has all needed equipment for d/c. M7 PT-IP Assessment and Plan Start: 04/13/19 17:03 Freq: NEEDED Status: Active Protocol: Document 04/15/19 09:45 SA (Rec: 04/15/19 09:52 [id number]) PT Summary Assessment and Plan Summary Impairments Pain ROM Strength Balance Bed Mobility Transfers Gait Activity Tolerance Assessment Summary PT to d/c home today with supportive to assist, has all needed equipment and OP PT set up. Frequency of Treatment Frequency Of Treatment Twice a Day Treatment Plan Physical Therapy Treatment Plan Bed Mobility Training Transfer Training Gait Training Therapeutic Exercise Other Recommendations and Next Treatment gait, ther ex., stairs with L Focus rail and SPC on right. Recommendations To Nursing Amount of Assist Needed 1 Person Assist Discharge Recommendations PT Discharge Recommendations Home with Assistance
[2019-04-15 10:45] VITALS: BP 107/76; PULSE 55; RESP 16; TEMP 37; O2SAT 96
--- NOTE | 2019-04-15 11:24 | PC.NURSE ---
[place] has continued to improve and is ready for disch. to home with . VSS. No complaints this AM of breathing or shortness of air. RA O2 sat 95%. He is eating and drinking and able to void. His aquacel drsg. is clean/dry/intact. No change in neurovascular status.
== END 2019-04-15 11:15 | disposition home or self-care (01) | DRG 470 ==
PROVIDERS: Admitting Provider Orthopaedic Surgery; Family Provider Internal Medicine; PCP Internal Medicine; Visit Provider Orthopaedic Surgery
PROC: 0SRC0JZ Replacement of Right Knee Joint with Synthetic Substitute, Open Approach (ICD-10-PCS; CPT 27447; principal; 2019-04-13 09:45)
DX: M17.11 Unilateral primary osteoarthritis, right knee (principal); M80.861A Other osteoporosis with current pathological fracture, right lower leg, initial encounter for fracture; M96.89 Other intraoperative and postprocedural complications and disorders of the musculoskeletal system; Z95.0 Presence of cardiac pacemaker; R00.1 Bradycardia, unspecified; I48.0 Paroxysmal atrial fibrillation; J45.909 Unspecified asthma, uncomplicated; R11.0 Nausea; R33.9 Retention of urine, unspecified
CPT/HCPCS: 36415; 64447; 71046; 73560; 85014; 85018; 93005; 93010; 94762; 97110; 97116; 97162; 97530; 97535; C1776; C9290; J0690; J1100; J2250; J2270; J2274; J2405; J2704; J2765; J2795; J3010

== ENCOUNTER 2019-04-18 13:57 | Emergency (ER) | payer OTHER, SELFPAY ==
[2019-04-14 16:06] VITALS: BMI 31.1
[2019-04-18 14:10] VITALS: BP 146/92; PULSE 60; RESP 16; TEMP 36.7; O2SAT 96
--- NOTE | 2019-04-18 14:38 | ED.EXTPRO ---
HPI - Extremity Problem General Chief complaint: Extremity Problem,Nontraumatic Stated complaint: RIGHT LEG BLOOD CLOT Time Seen by Provider: 04/18/19 14:21 Source: patient Mode of arrival: ambulatory Limitations: no limitations History of Present Illness HPI Narrative: Patient is a 68-year-old male who presents postoperative day number 5 presenting with increased thigh swelling and pain. He is also complaining of weakness in that leg. His he cannot lift it. He also is having of black tarry stools. He had 1 episode this morning. He was previously on Xarelto for atrial fibrillation. He was taken off Xarelto 2 days ago and started on aspirin. He and state that they have been trying to get him off the Xarelto for the atrial fibrillation. He has not been in atrial fibrillation for some time. He has no shortness of breath with exertion he occasionally has some abdominal cramping but nothing too bad. No nausea or vomiting. He was prescribed meloxicam postoperatively he took 3 doses total occluding 1 today. MD Complaint: extremity pain, extremity swelling and other (GI bleed) Location: right Related Data Home Medications Medication Instructions Recorded Confirmed omeprazole 20 mg PO QDAY #0 06/07/17 04/13/19 rivaroxaban 20 mg tablet 20 mg PO SEEINSTR 12/11/18 04/13/19 sotalol 80 mg tablet 80 mg PO BID 03/06/19 04/13/19 ibuprofen [Advil Liqui-Gel] 600 mg PO BEDTIME PRN 03/30/19 04/13/19 Previous Rx's Medication Instructions Recorded albuterol sulfate HFA 90 1 inh INHALATION Q4-6H PRN #18 gram 12/06/18 mcg/actuation aerosol inhaler acetaminophen 975 mg PO TID 30 Days #270 tab 04/15/19 hydroxyzine pamoate 25 mg PO Q6HR PRN #40 cap 04/15/19 oxycodone 5 mg PO Q3HR PRN #40 tab 04/15/19 omeprazole 40 mg PO BID #30 cap 04/18/19 oxycodone 5 mg PO Q4-6H PRN #10 tab 04/18/19 Allergies Allergy/AdvReac Type Severity Reaction Status Date / Time nifedipine [From Procardia] AdvReac Severe Hypotensive Verified 04/18/19 14:15 Review of Systems Review of Systems ROS Unobtainable: All systems reviewed & are unremarkable except as noted in HPI and below Constitutional Denies chills, Denies fever(s), Denies lethargy and Denies weakness Eyes Denies change in vision, Denies eye discharge, Denies irritation and Denies loss of vision ENT Ears, Nose, Mouth, and Throat: Denies change in voice, Denies neck pain and Denies sore throat Cardiovascular Denies chest pain, Denies irregular heart rhythm, Denies lightheadedness, Denies palpitations, Denies dyspnea, Denies dyspnea on exertion and Denies orthopnea Respiratory Denies cough, Denies dyspnea, Denies dyspnea on exertion and Denies wheezing Gastrointestinal Gastrointestinal: Reports abdominal pain, Reports melena, Denies loose stools, Denies nausea and Denies vomiting Genitourinary Denies hematuria, Denies flank pain, Denies urinary incontinence and Denies urinary urgency Musculoskeletal Reports muscle weakness (Right leg) and Denies neck pain Integumentary/Breasts Denies pruritus, Denies erythema, Denies rash and Denies wounds Neurologic Denies loss of vision and Denies weakness Endocrine Denies palpitations Allergic/Immunologic Denies wheezing [facility] Medical History Mild intermittent asthma without complication (Chronic 12/04/11) Paroxysmal atrial fibrillation (Chronic) Gastroesophageal reflux disease without esophagitis (Chronic 12/04/11) Diverticulosis of large intestine without perforation or abscess without bleeding (Chronic) 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) H/O acute myocardial infarction (Inactive ~1984) Hemorrhoids (Inactive 12/29/15) Cardiac pacemaker in situ (Inactive ~09/2017) Kidney stone (Acute) Surgical History H/O vasectomy (Acute ~1984) Status post hernia repair Social History Smoking Status: Never smoker Social History Smoking Status: Never smoker Exam Initial Vital Signs Initial Vital Signs: Vital Signs Temperature 98.1 F 04/18/19 14:10 Pulse Rate 60 04/18/19 14:10 Respiratory Rate 16 04/18/19 14:10 Blood Pressure 146/92 H 04/18/19 14:10 Pulse Oximetry 96 04/18/19 14:10 GENERAL: Well-appearing, well-nourished and in no acute distress. HEENT: Head atraumatic,EOMI, pupils reactive, face symmetric, moist mucous membranes CARDIOVASCULAR: Regular rate and rhythm without murmurs, rubs or gallops. RESPIRATORY: Breath sounds equal bilaterally, no wheezes rales or rhonchi. ABDOMEN: Soft, nontender. Normoactive bowel sounds all 4 quadrants. No guarding or rebound. RECTAL: Dark brown stool, guaiac positive EXTREMITIES: Normal range of motion, no clubbing or edema. Neurovascularly intact Right leg dressing in place no significant erythema he does have swelling and tenderness in his upper medial thigh. His right leg is weak he is unable to all within offer her NEUROLOGICAL: Alert and oriented x4.Normal gait and speech. Cranial nerves II through XII grossly intact. SKIN: Warm, dry, no laceration, no petechiae, no rashes or lesions. Course Orders Ordered: ED Orders 04/18/19 14:46 US perip venous low extrem rt Stat EKG-12 Lead Stat 04/18/19 15:00 Complete Blood Count AUTO DIFF Stat Comprehensive Metabolic Panel Stat Partial Thromboplastin Time Stat Prothrombin Time INR Stat Discontinued Medications Hydromorphone HCl (Dilaudid) 1 mg IV NOW ONE Stop: 04/18/19 17:09 Last Admin: 04/18/19 17:13 Dose: 1 mg Pantoprazole Sodium (Protonix) 40 mg IV NOW ONE Stop: 04/18/19 16:50 Last Admin: 04/18/19 16:57 Dose: 40 mg Consultations Consultation #1: Dr. Dueñas, surgery, updated patient's symptoms and test results. Would admit her and get scoped. However if patient has good outpatient and close follow-up this can be managed as outpatient Time: 16:00 Consultation #2: Dr. Sommer, ortho has been updated on patient's test results. The patient will need physical therapy to get strength in his legs. Will see patient in clinic for follow-up Time: 16:35 Consultation #3: Dr. Lassiter, patient's PCP, has been updated patient's symptoms and test results. We talked about possible admission versus close outpatient follow-up. At this time patient's hemoglobin hematocrit, is minimally decreased from his preoperative lab. He agrees with close outpatient follow-up. He will see patient on Saturday morning. Time: 16:45 Vital Signs - 8 hr 04/18/19 14:10 04/18/19 15:39 04/18/19 16:44 Temperature 98.1 F Pulse Rate 60 57 L 55 L Respiratory Rate 16 18 16 Blood Pressure 146/92 H Blood Pressure [Left Arm] 126/67 145/74 H Pulse Oximetry 96 97 98 04/18/19 17:26 Temperature Pulse Rate 55 L Respiratory Rate 16 Blood Pressure 139/71 Blood Pressure [Left Arm] Pulse Oximetry 97 MDM - Extremity (Nontraumatic) Lab Data Result diagrams: 04/18/19 15:00 04/18/19 15:00 Lab Results 04/18/19 04/18/19 04/18/19 Range/Units 15:00 15:00 15:00 WBC 6.8 (4.5-11.0) X10^3/uL RBC 4.49 L (4.5-5.9) X10^6/uL Hgb 14.0 (13.5-17.5) g/dL Hct 40.9 L (41-53) % MCV 91.2 (80-100) fL MCH 31.1 (26-34) PG MCHC 34.1 (30-36) % RDW 13.1 (11.6-14.8) % Plt Count 179 (150-400) X10^3/uL Neut % (Auto) 70.5 (50-75) % Lymph % (Auto) 15.5 L (25-40) % [place] % (Auto) 9.9 (3-14) % Eos % (Auto) 3.5 (2-4) % Baso % (Auto) 0.6 (0-2) % Neut # (Auto) 4800 (4899-0454) /uL Lymph # (Auto) 1100 (8982-2161) /uL [place] # (Auto) 700 (0-900) /uL Eos # (Auto) 200 (0-450) /uL Baso # (Auto) 0 (0-100) /uL PT 16.6 H (10.1-12.7) SECONDS INR 1.4 H (0.9-1.3) APTT 31 (26.4-36.2) SECONDS Sodium 137 (137-145) mmol/L Potassium 4.0 (3.4-5.1) mmol/L Chloride 99 (98-107) mmol/L Carbon Dioxide 29 (22-32) mmol/L BUN 23 H (9-20) mg/dL Creatinine 0.90 (0.66-1.25) mg/dL Estimated GFR > 60.0 (>60) mL/min BUN/Creatinine Ratio 25.6 H (6-22) Glucose 98 (80-110) mg/dL Calcium 8.7 (8.4-10.2) mg/dL Total Bilirubin 2.0 H (0.2-1.3) mg/dL AST 28 (17-59) IU/L ALT 38 (21-72) IU/L Alkaline Phosphatase 84 (38-126) U/L Total Protein 6.4 (6.3-8.2) g/dL Albumin 3.5 (3.5-5.0) g/dL Globulin 2.9 (1.7-4.1) g/dL Albumin/Globulin Ratio 1.2 (1.0-2.8) MDM Narrative Medical decision making narrative: I have discussed with patient very specific instructions on when to return to the ED. I have gone over with multiple times and on her paperwork and on discharge instructions which medications to stop and which was to continue. At this time even though he is postop with a knee replacement he is guaiac positive. I would stop his aspirin until he follows up with PCP in 2 days. Recommended omeprazole twice a day he is given a dose with IV in the ED. He overall looks well he has had no further episodes of stool. Hemodynamically stable. Minimal change in hemoglobin and hematocrit. Discharge Plan Departure Patient Disposition: Home Clinical Impression: Acute GI bleeding, Post-operative pain Discharge Date/Time: 04/18/19 17:29 Interventions: ED Discharge Assessment Last Done: 04/18/19 17:26 Activity Restrictions/Additional Instructions: *You have been diagnosed with GI bleeding *What to do: Elevate leg ice, this will help with swelling. You may have 1 or 2 more episodes of black tarry stool however it should decrease. *Continue to take medications as directed STOPPED TAKING MELOXICAM STOPPED TAKING XARELTO STOPPED TAKING ASPIRIN OMEPRAZOLE 40 MG TWICE A DAY OxyContin 5 mg every 4 hours if needed for severe pain-try to taper this medication down *Follow up with your primary care provider in 2-3 days *Return to ER if you should have more than 4 episodes of black tarry stool, increasing abdominal pain, weakness, shortness of breath, fever more than 100.4F or any new, worsening or concerning symptoms Prescriptions: New oxycodone 5 mg tablet 5 mg PO Q4-6H PRN (Reason: pain) Qty: 10 RF: 0 omeprazole 40 mg capsule,delayed release(DR/EC) 40 mg PO BID Qty: 30 RF: 0 No Action albuterol sulfate 90 mcg/actuation HFA aerosol inhaler 1 inh INHALATION Q4-6H PRN (Reason: shortness of breath) Qty: 18 RF: 0 omeprazole 20 MG capsule,delayed release(DR/EC) 20 mg PO QDAY Qty: 0 RF: 0 sotalol 80 mg tablet 80 mg PO BID RF: 0 rivaroxaban [Xarelto] 20 mg tablet 20 mg PO SEEINSTR RF: 0 ibuprofen [Advil Liqui-Gel] 200 mg Capsule 600 mg PO BEDTIME PRN (Reason: pain, sleep) RF: 0 acetaminophen 325 mg Tablet 975 mg PO TID 30 Days Qty: 270 RF: 0 oxycodone 5 mg Tablet 5 mg PO Q3HR PRN (Reason: Pain, Moderate (4-6)) Qty: 40 RF: 0 hydroxyzine pamoate 25 mg Capsule 25 mg PO Q6HR PRN (Reason: Nausea) Qty: 40 RF: 0 Referrals: Tino Lassiter MD [Primary Care Provider] - Sony Sommer MD [Physician] -
--- NOTE | 2019-04-18 14:46 | DI.US.S_ITS ---
PROCEDURE: US PERIPH VENOUS LOW EXTREM RT INDICATIONS: swelling post totatl knee TECHNIQUE: Real-time imaging, as well as color and pulse Doppler interrogation, were performed of the lower extremity deep veins from the inguinal ligament to the popliteal fossa. COMPARISON: None. FINDINGS: The common femoral, femoral and popliteal veins are normally compressible, and free of intraluminal thrombus. Color and pulse Doppler demonstrate normal phasic intraluminal flow. There is normal augmentation response to distal compression maneuver. However, please note that a small portion of the superficial femoral vein within the mid to lower thigh was not adequately seen. Normal augmentation is identified below this region. A Edwards's cyst is noted within the popliteal fossa. IMPRESSION: No evidence of occlusive deep vein thrombosis within the right lower extremity. (A small portion of the lower superficial femoral vein was not adequately visualized and the possibility of a nonocclusive thrombus cannot be excluded.) Dictated by: Jared Chisholm M.D. on 04/18/2019 at 15:00 Approved by: Jared Chisholm M.D. on 04/18/2019 at 15:01
[2019-04-18 15:11] LABS: Add Manual Diff / Slide Review NO; Basophils Absolute Auto 0 /uL (0-100); Basophils Percent Auto 0.6 % (0-2); Eosinophils Absolute Auto 200 /uL (0-450); Eosinophils Percent Auto 3.5 % (2-4); Hematocrit 40.9 % (41-53); Lymphocytes Absolute Auto 1100 /uL (1100-4500); Lymphocytes Percent Auto 15.5 % (25-40); Mean Corpuscular HGB Conc 34.1 % (30-36); Mean Corpuscular Hemoglobin 31.1 PG (26-34); Mean Corpuscular Volume 91.2 fL (80-100); Monocytes Absolute Auto 700 /uL (0-900); Monocytes Percent Auto 9.9 % (3-14); Neutrophils Absolute Auto 4800 /uL (1500-7000); Neutrophils Percent Auto 70.5 % (50-75); Platelet Count 179 X10^3/uL (150-400); Red Blood Cell Count 4.49 X10^6/uL (4.5-5.9); Red Cell Distribution Width 13.1 % (11.6-14.8); White Blood Cell Count 6.8 X10^3/uL (4.5-11.0)
[2019-04-18 15:21] LABS: INR 1.4 (0.9-1.3); Prothrombin Time 16.6 SECONDS (10.1-12.7)
[2019-04-18 15:23] LABS: PTT Partial Thromboplastin Tim 31 SECONDS (26.4-36.2)
[2019-04-18 15:25] LABS: Alanine Aminotransferase 38 IU/L (21-72); Albumin 3.5 g/dL (3.5-5.0); Albumin Globulin Ratio 1.2 (1.0-2.8); Alkaline Phosphatase 84 U/L (38-126); Aspartate Aminotransferase 28 IU/L (17-59); BUN Creatinine Ratio 25.6 (6-22); Blood Urea Nitrogen 23 mg/dL (9-20); Calcium 8.7 mg/dL (8.4-10.2); Carbon Dioxide 29 mmol/L (22-32); Chloride 99 mmol/L (98-107); Estimated Glomerular Filt Rate > 60.0 mL/min (>60); Globulin 2.9 g/dL (1.7-4.1); Glucose 98 mg/dL (80-110); HEMOLYSIS < 15 (0-50); Sodium 137 mmol/L (137-145); Total Protein 6.4 g/dL (6.3-8.2)
[2019-04-18 15:39] VITALS: BP 126/67; PULSE 57; RESP 18; O2SAT 97
[2019-04-18 16:44] VITALS: BP 145/74; PULSE 55; RESP 16; O2SAT 98
[2019-04-18] MEDS: PANTOPRAZOLE 40 MG VIAL IV (16:57)
[2019-04-18] MEDS: HYDROMORPHONE 1 MG INJ IV (17:13)
[2019-04-18 17:26] VITALS: BP 139/71; PULSE 55; RESP 16; O2SAT 97
== END 2019-04-18 17:29 | disposition home or self-care (01) ==
PROVIDERS: Emergency Provider Emergency Medicine; PCP Internal Medicine
DX: K92.2 Gastrointestinal hemorrhage, unspecified (principal); G89.18 Other acute postprocedural pain; R06.02 Shortness of breath; M62.81 Muscle weakness (generalized); Z96.651 Presence of right artificial knee joint
CPT/HCPCS: 36591; 80053; 85025; 85610; 85730; 93005; 93010; 93971; 96374; 96375; 99282; 99285; C9113; J1170

== ENCOUNTER → 2019-04-20 11:35 | Outpatient (CLI) | payer OTHER, SELFPAY ==
[2019-04-14 16:06] VITALS: BMI 31.1
[2019-04-20 12:16] LABS: Hematocrit 43.6 % (41-53); Hemoglobin 14.7 g/dL (13.5-17.5)
== END ==
PROVIDERS: PCP Internal Medicine; Visit Provider Internal Medicine
DX: K92.2 Gastrointestinal hemorrhage, unspecified (principal)
CPT/HCPCS: 36415; 85014; 85018

== ENCOUNTER → 2019-05-19 09:38 | Outpatient (CLI) | payer OTHER, SELFPAY ==
[2019-04-14 16:06] VITALS: BMI 31.1
== END ==
PROVIDERS: PCP Internal Medicine; Visit Provider Internal Medicine
DX: M85.851 Other specified disorders of bone density and structure, right thigh (principal)
CPT/HCPCS: 77080

== ENCOUNTER → 2019-10-28 13:07 | Outpatient (CLI) | payer OTHER, SELFPAY ==
[2019-04-14 16:06] VITALS: BMI 31.1
[2019-10-28 13:37] LABS: Add Manual Diff / Slide Review NO; Basophils Absolute Auto 0 /uL (0-100); Basophils Percent Auto 0.7 % (0-2); Eosinophils Absolute Auto 300 /uL (0-450); Eosinophils Percent Auto 4.6 % (2-4); Hematocrit 45.7 % (41-53); Lymphocytes Absolute Auto 1300 /uL (1100-4500); Lymphocytes Percent Auto 22.8 % (25-40); Mean Corpuscular HGB Conc 34.9 % (30-36); Mean Corpuscular Hemoglobin 31.9 PG (26-34); Mean Corpuscular Volume 91.5 fL (80-100); Monocytes Absolute Auto 600 /uL (0-900); Monocytes Percent Auto 10.2 % (3-14); Neutrophils Absolute Auto 3600 /uL (1500-7000); Neutrophils Percent Auto 61.7 % (50-75); Platelet Count 167 X10^3/uL (150-400); Red Blood Cell Count 4.99 X10^6/uL (4.5-5.9); White Blood Cell Count 5.9 X10^3/uL (4.5-11.0)
[2019-10-28 14:07] LABS: Alanine Aminotransferase 23 IU/L (<50); Albumin Globulin Ratio 1.4 (1.0-2.8); Alkaline Phosphatase 98 U/L (38-126); Aspartate Aminotransferase 26 IU/L (17-59); Bilirubin Total 0.8 mg/dL (0.2-1.3); Bilirubin Unconjugated 0.6 mg/dL (0.0-1.1); Globulin 2.8 g/dL (1.7-4.1); HEMOLYSIS < 15 (0-50); Total Protein 6.8 g/dL (6.3-8.2)
[2019-10-28 14:39] LABS: Thyroid Stimulating Hormone 1.54 uIU/mL (0.47-4.68)
[2019-10-28 15:05] LABS: Free T4, Direct Thyroxine 1.01 ng/dL (0.78-2.19)
[2019-10-28 17:17] LABS: Hep C Virus Ab w/Reflex Quant NEGATIVE s/c (NEGATIVE)
[2019-11-02 17:29] LABS: Anti Gliadin IgG Ab 2 Units (<20); Gliadin Gluten IgA 8 Units (<20)
== END ==
PROVIDERS: Family Provider Internal Medicine; PCP Internal Medicine; Visit Provider Dermatology
DX: L30.9 Dermatitis, unspecified (principal)
CPT/HCPCS: 36415; 80076; 83516; 84439; 84443; 85025; 86255; 86803

== ENCOUNTER → 2020-02-25 11:31 | Outpatient (CLI) | payer OTHER, SELFPAY ==
[2019-04-14 16:06] VITALS: BMI 31.1
[2020-02-25 12:21] LABS: Add Manual Diff / Slide Review NO; Basophils Absolute Auto 100 /uL (0-100); Eosinophils Absolute Auto 400 /uL (0-450); Eosinophils Percent Auto 6.8 % (2-4); Hemoglobin 16.9 g/dL (13.5-17.5); Lymphocytes Absolute Auto 1200 /uL (1100-4500); Lymphocytes Percent Auto 22.1 % (25-40); Mean Corpuscular HGB Conc 34.5 % (30-36); Mean Corpuscular Hemoglobin 31.3 PG (26-34); Mean Corpuscular Volume 90.5 fL (80-100); Monocytes Absolute Auto 500 /uL (0-900); Monocytes Percent Auto 9.5 % (3-14); Neutrophils Absolute Auto 3400 /uL (1500-7000); Neutrophils Percent Auto 60.6 % (50-75); Platelet Count 162 X10^3/uL (150-400); Red Blood Cell Count 5.41 X10^6/uL (4.5-5.9); Red Cell Distribution Width 13.7 % (11.6-14.8); White Blood Cell Count 5.6 X10^3/uL (4.5-11.0)
[2020-02-25 13:03] LABS: Erythrocyte Sedimentation Rate 2 MM/HR (0-15)
[2020-02-25 13:08] LABS: Alanine Aminotransferase 23 IU/L (<50); Albumin 4.3 g/dL (3.5-5.0); Albumin Globulin Ratio 1.5 (1.0-2.8); Alkaline Phosphatase 81 U/L (38-126); Aspartate Aminotransferase 28 IU/L (17-59); BUN Creatinine Ratio 27.5 (6-22); Bilirubin Total 0.8 mg/dL (0.2-1.3); Blood Urea Nitrogen 25 mg/dL (9-20); C-Reactive Protein Quant 0.9 mg/dL (<1.0); Calcium 9.7 mg/dL (8.4-10.2); Carbon Dioxide 25 mmol/L (22-32); Chloride 105 mmol/L (98-107); Estimated Glomerular Filt Rate > 60.0 mL/min (>60); Globulin 2.9 g/dL (1.7-4.1); Glucose 90 mg/dL (80-110); HEMOLYSIS 16 (0-50); Potassium 4.5 mmol/L (3.4-5.1); Sodium 139 mmol/L (137-145); Total Protein 7.2 g/dL (6.3-8.2)
[2020-02-25 13:22] LABS: Free T4, Direct Thyroxine 1.01 ng/dL (0.78-2.19)
[2020-02-25 13:36] LABS: Thyroid Stimulating Hormone 0.72 uIU/mL (0.47-4.68)
== END ==
PROVIDERS: Family Provider Internal Medicine; PCP Internal Medicine; Referring Provider Internal Medicine; Visit Provider Internal Medicine
DX: I10 Essential (primary) hypertension (principal); I48.0 Paroxysmal atrial fibrillation; K22.4 Dyskinesia of esophagus
CPT/HCPCS: 36415; 80053; 84439; 84443; 85025; 85651; 86140

== ENCOUNTER → 2020-09-28 14:22 | Outpatient (CLI) | payer OTHER, SELFPAY ==
[2019-04-14 16:06] VITALS: BMI 31.1
[2020-09-28 14:39] LABS: Add Manual Diff / Slide Review NO; Basophils Absolute Auto 100 /uL (0-100); Basophils Percent Auto 0.9 % (0-2); Eosinophils Absolute Auto 200 /uL (0-450); Eosinophils Percent Auto 2.6 % (2-4); Hematocrit 51.9 % (41-53); Hemoglobin 17.4 g/dL (13.5-17.5); Lymphocytes Absolute Auto 1500 /uL (1100-4500); Lymphocytes Percent Auto 21.5 % (25-40); Mean Corpuscular HGB Conc 33.5 % (30-36); Mean Corpuscular Hemoglobin 30.8 PG (26-34); Monocytes Absolute Auto 500 /uL (0-900); Monocytes Percent Auto 7.8 % (3-14); Neutrophils Absolute Auto 4600 /uL (1500-7000); Neutrophils Percent Auto 67.2 % (50-75); Platelet Count 194 X10^3/uL (150-400); Red Blood Cell Count 5.65 X10^6/uL (4.5-5.9); Red Cell Distribution Width 14.1 % (11.6-14.8); White Blood Cell Count 6.8 X10^3/uL (4.5-11.0)
[2020-09-28 15:20] LABS: Alanine Aminotransferase 30 IU/L (<50); Albumin 4.3 g/dL (3.5-5.0); Albumin Globulin Ratio 1.4 (1.0-2.8); Alkaline Phosphatase 81 U/L (38-126); Aspartate Aminotransferase 36 IU/L (17-59); BUN Creatinine Ratio 24.2 (6-22); Bilirubin Total 0.7 mg/dL (0.2-1.3); Blood Urea Nitrogen 22 mg/dL (9-20); Calcium 9.1 mg/dL (8.4-10.2); Carbon Dioxide 27 mmol/L (22-32); Chloride 105 mmol/L (98-107); Estimated Glomerular Filt Rate > 60.0 mL/min (>60); Globulin 3.1 g/dL (1.7-4.1); Glucose 101 mg/dL (80-110); HEMOLYSIS 18 (0-50); Potassium 3.9 mmol/L (3.4-5.1); Sodium 141 mmol/L (137-145); Total Protein 7.4 g/dL (6.3-8.2)
== END ==
PROVIDERS: Family Provider Internal Medicine; PCP Internal Medicine; Referring Provider Internal Medicine Cardiovascular Disease; Visit Provider Internal Medicine Cardiovascular Disease
DX: Z79.01 Long term (current) use of anticoagulants (principal)
CPT/HCPCS: 36415; 80053; 85025

== ENCOUNTER → 2021-01-16 14:03 | Outpatient (CLI) | payer OTHER, SELFPAY ==
[2019-04-14 16:06] VITALS: BMI 31.1
--- NOTE | 2021-01-16 14:19 | DI.RAD.S_ITS ---
PROCEDURE: XR CHEST 2V INDICATIONS: SOB TECHNIQUE: 2 views of the chest were acquired. COMPARISON: [facility], CR, XR CHEST 2V, 04/14/2019, 8:49. [facility], CR, XR CHEST 2V, 12/06/2018, 15:58. FINDINGS: Surgical changes and devices: Pacemaker in normal position. Lungs and pleura: Lungs are clear. No pleural effusions or pneumothorax. Mediastinum: Mediastinal contours are normal. Heart size is normal. Bones and chest wall: No suspicious bony abnormalities. Soft tissues appear unremarkable. IMPRESSION: Pacemaker in normal position, reduced inspiratory volume on the frontal view, no source of shortness of breath is seen. Dictated by: Cuco Das M.D. on 01/16/2021 at 15:00 Approved by: Cuco Das M.D. on 01/16/2021 at 15:00
[2021-01-16 14:25] LABS: Add Manual Diff / Slide Review NO; Basophils Absolute Auto 100 /uL (0-100); Basophils Percent Auto 0.7 % (0-2); Eosinophils Absolute Auto 0 /uL (0-450); Eosinophils Percent Auto 0.3 % (2-4); Hematocrit 50.5 % (41-53); Hemoglobin 17.2 g/dL (13.5-17.5); Lymphocytes Absolute Auto 700 /uL (1100-4500); Lymphocytes Percent Auto 8.4 % (25-40); Mean Corpuscular HGB Conc 34.1 % (30-36); Mean Corpuscular Hemoglobin 31.6 PG (26-34); Mean Corpuscular Volume 92.7 fL (80-100); Monocytes Absolute Auto 300 /uL (0-900); Monocytes Percent Auto 2.8 % (3-14); Neutrophils Absolute Auto 7800 /uL (1500-7000); Neutrophils Percent Auto 87.8 % (50-75); Platelet Count 165 X10^3/uL (150-400); Red Blood Cell Count 5.45 X10^6/uL (4.5-5.9); Red Cell Distribution Width 13.8 % (11.6-14.8); White Blood Cell Count 8.9 X10^3/uL (4.5-11.0)
[2021-01-16 14:35] LABS: D Dimer 247 ng/mL (<230)
[2021-01-16 14:36] LABS: Alanine Aminotransferase 34 IU/L (<50); Albumin 4.3 g/dL (3.5-5.0); Albumin Globulin Ratio 1.4 (1.0-2.8); Alkaline Phosphatase 89 U/L (38-126); Aspartate Aminotransferase 29 IU/L (17-59); BUN Creatinine Ratio 32.3 (6-22); Bilirubin Total 0.6 mg/dL (0.2-1.3); Blood Urea Nitrogen 31 mg/dL (9-20); Calcium 9.1 mg/dL (8.4-10.2); Carbon Dioxide 24 mmol/L (22-32); Chloride 105 mmol/L (98-107); Estimated Glomerular Filt Rate > 60.0 mL/min (>60); Glucose 181 mg/dL (80-110); HEMOLYSIS < 15 (0-50); Potassium 4.5 mmol/L (3.4-5.1); Sodium 137 mmol/L (137-145); Total Protein 7.3 g/dL (6.3-8.2)
[2021-01-16 14:45] LABS: NT-proBNP (BNP-Adult 18+) 194 pg/mL (<125)
== END ==
PROVIDERS: Family Provider Internal Medicine; PCP Internal Medicine; Referring Provider Internal Medicine; Visit Provider Internal Medicine
DX: I48.0 Paroxysmal atrial fibrillation (principal); R06.02 Shortness of breath; J45.20 Mild intermittent asthma, uncomplicated
CPT/HCPCS: 36415; 71046; 80053; 83880; 85025; 85379

== ENCOUNTER → 2021-01-27 08:38 | Outpatient (CLI) | payer OTHER, SELFPAY ==
[2019-04-14 16:06] VITALS: BMI 31.1
--- NOTE | 2021-01-27 08:39 | DI.CT.S_ITS ---
PROCEDURE: CT ANGIO CHEST PE PROTOCOL INDICATIONS: Dyspnea TECHNIQUE: After the administration of intravenous contrast, 2 mm thick sections acquired from the pulmonary apices to the posterior costophrenic angles. 3-dimensional maximum intensity projection (MIP) coronal and sagittal reformats were then acquired through the thorax. For radiation dose reduction, the following was used: automated exposure control, adjustment of mA and/or kV according to patient size. COMPARISON: [facility], CR, XR CHEST 2V, 04/14/2019, 8:49. [facility], CR, XR CHEST 2V, 01/16/2021, 14:28. FINDINGS: Image quality: Excellent. Pulmonary arteries: Pulmonary arteries are normal in size, and demonstrate no intraluminal filling defects to suggest central pulmonary embolism. Lungs and pleura: There are a few lung nodules as listed below: Nodule 1: 4 mm; right lower lobe; image 6/165. Nodule 2: 3 mm; left upper lobe; series 6, image 76. Nodule 3: 2 mm; lingula; series 6, image 137. Lungs are otherwise clear. No pleural effusions or pneumothorax. Central and peripheral airways are patent. Mediastinum: Heart size is mildly increased, without pericardial effusion. There is mild coronary artery calcification. A cardiac pacemaker is noted. No mediastinal or hilar adenopathy. Thoracic aorta is normal in caliber and enhancement. Esophagus is normal in caliber, without hiatal hernia. Bones and chest wall: There is a cardiac pacemaker. No suspicious bony lesions. Ribs and thoracic spine appear intact throughout. Thyroid gland is normal. No axillary or supraclavicular adenopathy. Abdomen: Visualized upper abdominal solid organs appear normal in the early arterial phase of enhancement. IMPRESSION: 1. No evidence for pulmonary embolism. 2. Mild cardiomegaly. 3. A few small lung nodules. Please see enclosed follow-up recommendation. Fleischner Society criteria for SOLID lung nodule followup. Nodule size (mm)Low-risk patientHigh-risk patient?4No follow-up neededFollow-up at 12 mo; if no change, no further follow-up>8-3Arffjz-za CT at 12 mo; if no change, no further follow-up needed.Initial follow-up CT at 6-12 mo, then 18-24 mo if no change. >6-8Initial follow-up CT at 6-12 mo, then 18-24 mo if no change. Initial follow-up CT at 3-6 mo, then 9-12 mo and 24 mo if no change. >8Follow-up CT at 3, 9, 24 mo. Or PET and/or biopsy.Same as for low-risk pts. Dictated by: Jonathan Hogan M.D. on 01/27/2021 at 11:03 Approved by: Jonathan Hogan M.D. on 01/27/2021 at 11:15
== END ==
PROVIDERS: Family Provider Internal Medicine; PCP Internal Medicine; Referring Provider Internal Medicine; Visit Provider Internal Medicine
DX: R06.00 Dyspnea, unspecified (principal); R91.8 Other nonspecific abnormal finding of lung field; I48.0 Paroxysmal atrial fibrillation; I25.10 Atherosclerotic heart disease of native coronary artery without angina pectoris; I51.7 Cardiomegaly; Z95.0 Presence of cardiac pacemaker
CPT/HCPCS: 71275; Q9967

== ENCOUNTER → 2021-02-13 07:39 | Outpatient (CLI) | payer MEDICARE, SELFPAY ==
[2019-04-14 16:06] VITALS: BMI 31.1
[2021-02-13] MEDS: COVID-19 VACC, Ad26(JANSSEN)/PF 0.5 ML IM (07:44)
== END ==
PROVIDERS: Family Provider Internal Medicine; PCP Internal Medicine; Visit Provider Internal Medicine
DX: Z23 Encounter for immunization (principal)
CPT/HCPCS: 0031A; 91303

== ENCOUNTER → 2021-02-22 08:02 | Outpatient (CLI) | payer OTHER, SELFPAY ==
[2019-04-14 16:06] VITALS: BMI 31.1
--- NOTE | 2021-02-22 08:03 | DI.ECHO.S_ITS ---
[facility] +---------+ : : [address] : [address] : : : : [id number] : : : : Phone: [phone]+ Echocardiogram Report + + :Name: KESHA HARVEY Study Date: 02/22/2021 Height: 69 in : :[facility] ReadingLocation: Weight: 206 lb : : Gender: Male BSA: 2.1 m2 : :: 1950 Age: 70 yrs BP: 139/85 mmHg: :Reason For Study: DYSPNEA : :Ordering Physician: SAMMIE, : :NUHA Self Performed By: Toma Alegria : :Referring: NUHA COCHRAN : + + Interpretation Summary The left ventricle is normal in size. Left ventricular systolic function is low normal. The ejection fraction is estimated to be 50-55%. Diastolic parameters suggest a relaxation abnormality of the left ventricle, consistent with probable normal filling pressures. The right ventricle is normal in size and function. There is a pacemaker lead in the right ventricle. Pulmonary artery pressures cannot be estimated because of the lack of a measurable TR jet velocity but the IVC suggests a CVP of around 3 mmHg. The left atrium is mildly dilated. Right atrial size is normal. There is no significant valvular heart disease. The aortic root is borderline dilated. Procedure: A two-dimensional transthoracic echocardiogram with color flow and Doppler was performed. The study quality was technically adequate. Comparison is made with the echocardiogram of 11/30/2019. A contrast injection of Definity was performed to improve assessment of LV function. The heart rate ranged between 55-60 bpm during the study. Left Ventricle: The left ventricle is normal in size. There is moderate asymmetric left ventricular hypertrophy. Left ventricular systolic function is low normal. The ejection fraction is estimated to be 50-55%. Diastolic parameters suggest a relaxation abnormality of the left ventricle, consistent with probable normal filling pressures. Right Ventricle: The right ventricle is normal in size and function. There is a pacemaker lead in the right ventricle. Atria: The left atrium is mildly dilated. Right atrial size is normal. There is a catheter/pacemaker lead seen in the right atrium. There is no Doppler evidence for an interatrial shunt. Mitral Valve: The mitral valve is normal in structure and function. There is trace mitral regurgitation. Aortic Valve: The aortic valve is trileaflet. The aortic valve is slightly calcified. The aortic valve opens well. There is no aortic valve stenosis. No aortic regurgitation is present. Tricuspid Valve: The tricuspid valve is not well visualized, but is grossly normal. There is trace tricuspid regurgitation. Pulmonary artery pressures cannot be estimated because of the lack of a measurable TR jet velocity but the IVC suggests a CVP of around 3 mmHg. Pulmonic Valve: The pulmonic valve leaflets are thin and pliable; valve motion is normal. There is no pulmonic valvular regurgitation. There is no significant valvular heart disease. Great Vessels: The aortic root is borderline dilated. The dimensions of the ascending aorta are normal. The IVC is of normal diameter and collapses greater than 50% with a sniff. This suggests a low right atrial pressure of 3 mm Hg. Pericardium/ Pleura There is no pericardial effusion. There is no pleural effusion. MMode/2D Measurements & Calculations LVIDd: 4.4 cm LVOT diam: 1.9 cm LVIDs: 2.9 cm Ao root diam: 3.9 cm FS: 34.0 % Ao Arch Diam (Prox Trans): 3.3 cm EPSS: 0.86 cm IVSd: 1.6 cm LVPWd: 0.89 cm LV agrawal. diameter/BSA (cm/m^2): 2.1 LV sys. diameter/BSA (cm/m^2): 1.4 LA A2 area: 25.2 cm2 RA long axis: 5.2 cm LA A4 area: 21.3 cm2 RA area: 18.9 cm2 LA length (vol): 6.3 cm RA vol: 58.3 ml LA vol: 72.2 ml RA : 27.9 ml/m2 LA vol index: 34.5 ml/m2 IVC diam: 1.4 cm RVD1 (basal): 3.2 cm TAPSE: 1.7 cm Doppler Measurements & Calculations Ao V2 max: 109.1 cm/sec LVOT Max Theron: 103.8 cm/sec Ao V2 mean: 77.6 cm/sec LV V1 max P.3 mmHg Ao max P.8 mmHg LV V1 VTI: 20.2 cm Ao mean P.7 mmHg LAURA(I,D): 2.2 cm2 Ao V2 VTI: 25.4 cm LAURA(V,D): 2.7 cm2 sev ratio: 0.79 LAURA indexed to BSA (cm^2/m^2): 1.1 MV E max theron: 45.2 cm/sec PA V2 max: 85.8 cm/sec MV A max theron: 51.5 cm/sec PA V2 mean: 55.8 cm/sec MV E/A: 0.88 PA mean P.5 mmHg Med Peak E' Theron: 4.0 cm/sec PA pr(Accel): 44.7 mmHg E/E' med: 11.2 Lat Peak E' Theron: 6.9 cm/sec E/E' lat: 6.5 E/e' average: 8.9 MV dec time: 0.37 sec SV(LVOT): 56.9 ml Reading Physician:04:52 PM
== END ==
PROVIDERS: Family Provider Internal Medicine; PCP Internal Medicine; Referring Provider Internal Medicine; Visit Provider Internal Medicine
DX: I48.0 Paroxysmal atrial fibrillation (principal); R06.00 Dyspnea, unspecified; Z95.0 Presence of cardiac pacemaker
CPT/HCPCS: 93306; Q9957

== ENCOUNTER → 2021-06-21 15:28 | Outpatient (CLI) | payer OTHER, SELFPAY ==
[2019-04-14 16:06] VITALS: BMI 31.1
[2021-06-21 16:21] LABS: Add Manual Diff / Slide Review NO; Basophils Absolute Auto 0 /uL (0-100); Basophils Percent Auto 0.6 % (0-2); Eosinophils Absolute Auto 600 /uL (0-450); Eosinophils Percent Auto 7.5 % (2-4); Hematocrit 50.5 % (41-53); Hemoglobin 17.4 g/dL (13.5-17.5); Lymphocytes Absolute Auto 1200 /uL (1100-4500); Lymphocytes Percent Auto 15.4 % (25-40); Mean Corpuscular HGB Conc 34.5 % (30-36); Mean Corpuscular Hemoglobin 31.3 PG (26-34); Mean Corpuscular Volume 90.7 fL (80-100); Monocytes Absolute Auto 600 /uL (0-900); Monocytes Percent Auto 8.5 % (3-14); Neutrophils Absolute Auto 5100 /uL (1500-7000); Platelet Count 170 X10^3/uL (150-400); Red Blood Cell Count 5.57 X10^6/uL (4.5-5.9); Red Cell Distribution Width 13.4 % (11.6-14.8); White Blood Cell Count 7.5 X10^3/uL (4.5-11.0)
[2021-06-21 16:38] LABS: Alanine Aminotransferase 34 IU/L (<50); Albumin 4.2 g/dL (3.5-5.0); Albumin Globulin Ratio 1.3 (1.0-2.8); Alkaline Phosphatase 96 U/L (38-126); Aspartate Aminotransferase 39 IU/L (17-59); BUN Creatinine Ratio 22.1 (6-22); Bilirubin Total 0.9 mg/dL (0.2-1.3); Blood Urea Nitrogen 21 mg/dL (9-20); Calcium 8.9 mg/dL (8.4-10.2); Carbon Dioxide 25 mmol/L (22-32); Chloride 105 mmol/L (98-107); Estimated Glomerular Filt Rate > 60.0 mL/min (>60); Globulin 3.2 g/dL (1.7-4.1); Glucose 110 mg/dL (80-110); HEMOLYSIS 31 (0-50); Potassium 4.3 mmol/L (3.4-5.1); Sodium 140 mmol/L (137-145); Total Protein 7.4 g/dL (6.3-8.2)
== END ==
PROVIDERS: Family Provider Internal Medicine; PCP Internal Medicine; Referring Provider Internal Medicine Cardiovascular Disease; Visit Provider Internal Medicine Cardiovascular Disease
DX: Z79.01 Long term (current) use of anticoagulants (principal)
CPT/HCPCS: 36415; 80053; 85025

== ENCOUNTER → 2021-07-17 09:16 | Outpatient (CLI) | payer OTHER, SELFPAY ==
[2019-04-14 16:06] VITALS: BMI 31.1
[2021-07-17 10:18] LABS: Add Manual Diff / Slide Review NO; Basophils Absolute Auto 0 /uL (0-100); Basophils Percent Auto 0.5 % (0-2); Eosinophils Absolute Auto 400 /uL (0-450); Eosinophils Percent Auto 5.1 % (2-4); Hematocrit 49.5 % (41-53); Hemoglobin 16.7 g/dL (13.5-17.5); Lymphocytes Absolute Auto 1100 /uL (1100-4500); Lymphocytes Percent Auto 14.2 % (25-40); Mean Corpuscular HGB Conc 33.7 % (30-36); Mean Corpuscular Hemoglobin 31.1 PG (26-34); Mean Corpuscular Volume 92.4 fL (80-100); Monocytes Absolute Auto 500 /uL (0-900); Neutrophils Absolute Auto 5800 /uL (1500-7000); Neutrophils Percent Auto 74.2 % (50-75); Platelet Count 140 X10^3/uL (150-400); Red Blood Cell Count 5.36 X10^6/uL (4.5-5.9); Red Cell Distribution Width 14.6 % (11.6-14.8); White Blood Cell Count 7.9 X10^3/uL (4.5-11.0)
[2021-07-17 10:52] LABS: Alanine Aminotransferase 29 IU/L (<50); Albumin 3.8 g/dL (3.5-5.0); Albumin Globulin Ratio 1.4 (1.0-2.8); Alkaline Phosphatase 78 U/L (38-126); Aspartate Aminotransferase 25 IU/L (17-59); BUN Creatinine Ratio 20.6 (6-22); Bilirubin Total 0.9 mg/dL (0.2-1.3); Blood Urea Nitrogen 21 mg/dL (9-20); Carbon Dioxide 28 mmol/L (22-32); Chloride 105 mmol/L (98-107); Estimated Glomerular Filt Rate > 60.0 mL/min (>60); Globulin 2.8 g/dL (1.7-4.1); Glucose 111 mg/dL (80-110); HEMOLYSIS < 15 (0-50); Potassium 3.3 mmol/L (3.4-5.1); Sodium 138 mmol/L (137-145); Total Protein 6.6 g/dL (6.3-8.2)
== END ==
PROVIDERS: Family Provider Internal Medicine; PCP Internal Medicine; Referring Provider Dermatology; Visit Provider Dermatology
DX: L30.9 Dermatitis, unspecified (principal); I48.0 Paroxysmal atrial fibrillation
CPT/HCPCS: 36415; 80053; 85025

== ENCOUNTER → 2021-08-11 11:51 | Outpatient (CLI) | payer OTHER, SELFPAY ==
[2019-04-14 16:06] VITALS: BMI 31.1
[2021-08-14 09:41] LABS: Cat Dander IgE 1.69 kU/L (Class III)
[2021-08-15 01:51] LABS: Immunoglobulin E 364 IU/mL (6-495)
== END ==
PROVIDERS: Family Provider Internal Medicine; PCP Internal Medicine; Referring Provider Internal Medicine Critical Care Medicine; Visit Provider Internal Medicine Critical Care Medicine
DX: J45.40 Moderate persistent asthma, uncomplicated (principal)
CPT/HCPCS: 36415; 82785; 86003

== ENCOUNTER → 2021-08-18 10:48 | Outpatient (CLI) | payer OTHER, SELFPAY ==
[2019-04-14 16:06] VITALS: BMI 31.1
[2021-08-18 13:28] LABS: Alanine Aminotransferase 25 IU/L (<50); Albumin 4.3 g/dL (3.5-5.0); Albumin Globulin Ratio 1.5 (1.0-2.8); Alkaline Phosphatase 89 U/L (38-126); Aspartate Aminotransferase 26 IU/L (17-59); Bilirubin Total 0.7 mg/dL (0.2-1.3); Blood Urea Nitrogen 20 mg/dL (9-20); Calcium 9.4 mg/dL (8.4-10.2); Carbon Dioxide 28 mmol/L (22-32); Chloride 103 mmol/L (98-107); Estimated Glomerular Filt Rate > 60.0 mL/min (>60); Globulin 2.8 g/dL (1.7-4.1); Glucose 123 mg/dL (80-110); HEMOLYSIS < 15 (0-50); Potassium 4.1 mmol/L (3.4-5.1); Sodium 138 mmol/L (137-145); Total Protein 7.1 g/dL (6.3-8.2)
== END ==
PROVIDERS: Family Provider Internal Medicine; PCP Internal Medicine; Referring Provider Dermatology; Visit Provider Dermatology
DX: L20.89 Other atopic dermatitis (principal)
CPT/HCPCS: 36415; 80053

== ENCOUNTER → 2021-08-18 10:59 | Outpatient (CLI) | payer OTHER, SELFPAY ==
[2019-04-14 16:06] VITALS: BMI 31.1
--- NOTE | 2021-08-18 11:00 | DI.RAD.S_ITS ---
PROCEDURE: XR KNEE RT 3V INDICATIONS: Right Knee Pain TECHNIQUE: 3 views of the knee were acquired. COMPARISON: [facility], , XR KNEE RT 1TO2V, 04/13/2019, 11:58. FINDINGS: Bones: There is prior right total knee arthroplasty with anatomic right knee alignment. No gross hardware loosening or failure. No fractures or dislocations. No suspicious bony lesions. Soft tissues: No joint effusion. No suspicious soft tissue calcifications. IMPRESSION: Anatomic right knee alignment. No evidence of hardware complication. No fracture or dislocation. No significant joint effusion. Dictated by: Narayan Forde M.D. on 08/18/2021 at 12:02 Approved by: Narayan Forde M.D. on 08/18/2021 at 12:03
== END ==
PROVIDERS: Family Provider Internal Medicine; PCP Internal Medicine; Referring Provider Internal Medicine; Visit Provider Internal Medicine
DX: M25.561 Pain in right knee (principal)
CPT/HCPCS: 73562

== ENCOUNTER → 2021-09-09 09:37 | Outpatient (CLI) | payer OTHER, SELFPAY ==
[2019-04-14 16:06] VITALS: BMI 31.1
[2021-09-09 10:10] LABS: Hematocrit 51.1 % (41-53); Hemoglobin 17.1 g/dL (13.5-17.5); Mean Corpuscular HGB Conc 33.4 % (30-36); Mean Corpuscular Hemoglobin 30.7 PG (26-34); Platelet Count 161 X10^3/uL (150-400); Red Blood Cell Count 5.56 X10^6/uL (4.5-5.9); Red Cell Distribution Width 13.9 % (11.6-14.8)
[2021-09-09 10:40] LABS: Monocytes Percent Auto 6.3 % (3-14); Neutrophils Percent Auto 74.9 % (50-75)
[2021-09-09 10:41] LABS: Add Manual Diff / Slide Review NO; Basophils Absolute Auto 0 /uL (0-100); Basophils Percent Auto 0.8 % (0-2); Eosinophils Absolute Auto 0 /uL (0-450); Lymphocytes Absolute Auto 1 /uL (1100-4500); Monocytes Absolute Auto 0 /uL (0-900); Neutrophils Absolute Auto 4 /uL (1500-7000)
== END ==
PROVIDERS: Family Provider Internal Medicine; PCP Internal Medicine; Referring Provider Dermatology; Visit Provider Dermatology
DX: L20.89 Other atopic dermatitis (principal)
CPT/HCPCS: 85025

== ENCOUNTER 2021-10-17 21:16 | Inpatient (IN) | payer OTHER, SELFPAY ==
[2019-04-14 16:06] VITALS: BMI 31.1
[2021-10-17] VITALS (7 sets, daily range): BP systolic 134–178; BP diastolic 63–92; PULSE 86–97; RESP 15–25; TEMP 36.9; O2SAT 93–98; BMI 38.4
--- NOTE | 2021-10-17 21:31 | DI.RAD.S_ITS ---
PROCEDURE: XR CHEST 1V INDICATIONS: suspected sepsis TECHNIQUE: One view of the chest was acquired. COMPARISON: [facility], CR, XR CHEST 2V, 01/16/2021, 14:28. FINDINGS: Surgical changes and devices: Dual lead cardiac pacer. Lungs and pleura: Scattered subsegmental atelectasis and/or scarring. No focal consolidation. No pleural effusion or pneumothorax. Mediastinum: Mediastinal contours appear normal. Heart size is normal. Bones and chest wall: No suspicious bony lesions. Overlying soft tissues appear unremarkable. IMPRESSION: Scattered subsegmental atelectasis and/or scarring. No focal consolidation. Dictated by: Sandip Antony M.D. on 10/17/2021 at 21:48 Approved by: Sandip Antony M.D. on 10/17/2021 at 21:49
[2021-10-17 21:46] LABS: COVID19 -Nasal RAPID Negative (Negative)
[2021-10-17] MEDS: SODIUM CHLORIDE 0.9% 1,000 ML 1000 ML IV (21:58)
[2021-10-17 22:13] LABS: Alanine Aminotransferase 33 IU/L (<50); Albumin 4.6 g/dL (3.5-5.0); Albumin Globulin Ratio 1.4 (1.0-2.8); Alkaline Phosphatase 100 U/L (38-126); Aspartate Aminotransferase 38 IU/L (17-59); BUN Creatinine Ratio 25.5 (6-22); Blood Urea Nitrogen 28 mg/dL (9-20); Calcium 9.3 mg/dL (8.4-10.2); Carbon Dioxide 30 mmol/L (22-32); Chloride 101 mmol/L (98-107); Estimated Glomerular Filt Rate > 60.0 mL/min (>60); Globulin 3.2 g/dL (1.7-4.1); Glucose 114 mg/dL (80-110); HEMOLYSIS 19 (0-50); Lactate (Lactic Acid) 1.4 mmol/L (0.7-2.1); Lipase 35 U/L (23-300); Potassium 3.8 mmol/L (3.4-5.1); Sodium 141 mmol/L (137-145); Total Protein 7.8 g/dL (6.3-8.2)
[2021-10-17 22:16] LABS: Add Manual Diff / Slide Review NO; Basophils Absolute Auto 0 /uL (0-100); Basophils Percent Auto 0.3 % (0-2); Eosinophils Absolute Auto 100 /uL (0-450); Eosinophils Percent Auto 0.8 % (2-4); Hematocrit 52.3 % (41-53); Hemoglobin 17.6 g/dL (13.5-17.5); Lymphocytes Absolute Auto 500 /uL (1100-4500); Lymphocytes Percent Auto 3.9 % (25-40); Mean Corpuscular HGB Conc 33.6 % (30-36); Mean Corpuscular Hemoglobin 30.1 PG (26-34); Mean Corpuscular Volume 89.4 fL (80-100); Monocytes Absolute Auto 200 /uL (0-900); Monocytes Percent Auto 1.7 % (3-14); Neutrophils Absolute Auto 11500 /uL (1500-7000); Neutrophils Percent Auto 93.3 % (50-75); Platelet Count 160 X10^3/uL (150-400); Red Blood Cell Count 5.85 X10^6/uL (4.5-5.9); Red Cell Distribution Width 13.7 % (11.6-14.8); White Blood Cell Count 12.3 X10^3/uL (4.5-11.0)
[2021-10-17] MEDS: ALBUTEROL/IPRATROPIUM 3 ML AMPUL INH (22:21)
[2021-10-17 22:30] LABS: Procalcitonin 0.42 ng/mL (<0.5)
[2021-10-17 22:44] LABS: Bacteria Urine Occasional (0-1); Culture Indicated Urine Cult Not Indicated; RBC Urine None Seen (0-5/HPF); Squamous Epithelial Cell Urine 0-1 /HPF (0-5/HPF); WBC Urine None Seen (0-5/HPF)
[2021-10-18] VITALS (22 sets, daily range): BP systolic 89–130; BP diastolic 50–81; PULSE 75–102; RESP 12–26; TEMP 36–38; O2SAT 92–98; BMI 32.0
--- NOTE | 2021-10-18 01:08 | ED.SEPSIS ---
HPI - Sepsis General Chief Complaint: Shortness of Breath/Dyspnea Mode of arrival: Ambulatory Source: patient Limitations: no limitations Evaluation Sepsis Screen: No Definite Risk Sepsis Infection Criteria Present: None Narrative: This is a 71-year-old male who states this evening he just started feeling cold in his legs, shaky generally unwell that started suddenly today.. He states he had a little bit chest pain, some shortness of breath. Some nausea but no vomiting. He denies any diarrhea constipation. No new low back pain but has had chronic back pain. He denies any cough cold or congestion. He has had myalgias. Patient has not had any urinary symptoms. No dysuria urgency or frequency. No severe headaches. No fevers he is aware of. 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 He is on Xarelto as well as flecainide b.i.d. and has a pacemaker for slow heart rate. He is on omeprazole for esophageal spasms and medications for asthma. He has a daily inhaler as well as daily steroid inhaler. 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 He has 1 other allergy to a cardiac medications make some hypotensive. His primary care is Dr. Lassiter. No tobacco but quite a bit of secondhand exposure as a child growing up in his parent's home. Rare ETOH. No illicit. 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) Gastroesophageal reflux disease without esophagitis (12/04/11) H/O acute myocardial infarction (~1984) Hemorrhoids (12/29/15) Kidney stone Mild intermittent asthma without complication (12/04/11) Paroxysmal atrial fibrillation Surgical History H/O vasectomy (~1984) Status post hernia repair Social History household members: spouse Smoking Status: Never smoker alcohol intake: current Smoking Status: Never smoker alcohol intake frequency: holidays/special occasions only Substance Use Type: does not use Exam Narrative Exam Narrative: GEN: well nourished, well appearing male, alert and oriented x 3, patient appears to be in mild distress. HEENT: Atraumatic, pupils are equal round reactive to light, extraocular movements are intact, nares are clear, TMs are clear with no fluid, there is no conjunctival pallor. Throat is clear without any exudates, erythema, tonsillar enlargement or uvular deviation HEART: Regular rate and rhythm without murmur, clicks, rubs. No JVD. Mild bilateral 1+ edema. LUNGS:Lungs clear to auscultation, no wheezes, rales, crackles, chest moves symmetrically, no tachypnea accessory muscle use. Patient has received DuoNeb prior to evaluation. ABD:bowel sounds normal, soft, non-tender, no guarding, rebound, rigidity, no masses noted, no hepatosplenomegaly :No CVA tenderness MSCL: Non-tender, no muscle atrophy, full range of motion, normal gait NEURO:CN 2-12 intact, sensation normal Initial Vital Signs Initial Vital Signs: Vital Signs Temperature 98.5 F 10/17/21 21:22 Pulse Rate 95 H 10/17/21 21:22 Respiratory Rate 25 H 10/17/21 21:22 Blood Pressure 178/92 H 10/17/21 21:22 Pulse Oximetry 95 10/17/21 21:22 Course Orders Ordered: ED Orders 10/18/21 01:09 BNP [NT-proBNP (BNP-Adult 18+)] Stat Troponin & CK Cardiac Panel Stat 10/18/21 01:28 D Dimer Stat 10/18/21 02:11 Troponin I Stat 10/18/21 03:48 Respiratory Panel (Film Array) Stat Acetaminophen (Acetaminophen 325 Mg Tablet) 650 mg PO Q6HR PRN PRN Reason: Fever/Mild Pain (1-3) Last Admin: 10/18/21 06:14 Dose: 650 mg Documented by: LETY Acetaminophen (Acetaminophen 325 Mg Tablet) 650 mg PO Q4H PRN PRN Reason: Pain, Mild (1-3) Albuterol (Albuterol 2.5 Mg/3 Ml Neb (Adult)) 2.5 mg INH Q4H PRN PRN Reason: shortness of breath Flecainide Acetate (Flecainide 100 Mg Tablet) 50 mg PO DAILY [facility] Sodium Chloride (Normal Saline 0.9%) 1,000 mls @ 125 mls/hr IV CONT GÓMEZ Last Admin: 10/18/21 06:16 Dose: 125 mls/hr Documented by: LETY Ondansetron HCl (Ondansetron 4 Mg/2 Ml Inj) 4 mg IV Q4HR PRN PRN Reason: Nausea And Vomiting Pantoprazole Sodium (Pantoprazole Dr 40 Mg Tablet) 40 mg PO 0600 GÓMEZ Last Admin: 10/18/21 07:03 Dose: 40 mg Documented by: LETY Rivaroxaban (Rivaroxaban 10 Mg Tablet) 20 mg PO DAILY [facility] Discontinued Medications Albuterol/Ipratropium (Albuterol/Ipratropium 3 Ml Ampul) 3 ml INH NOW ONE Stop: 10/17/21 22:20 Last Admin: 10/17/21 22:21 Dose: 3 ml Documented by: [email or web address] Albuterol/Ipratropium (Albuterol/Ipratropium 3 Ml Ampul) 3 ml INH NOW ONE Stop: 10/18/21 01:08 Last Admin: 10/18/21 01:09 Dose: 3 ml Documented by: [email or web address] Sodium Chloride (Normal Saline 0.9%) 1,000 mls @ 1,000 mls/hr IV BOLUS ONE Stop: 10/17/21 22:30 Last Infusion: 10/17/21 23:53 Dose: 0 mls/hr Documented by: Admin: 10/17/21 21:58 Dose: 1,000 mls/hr Documented by: TREY Sodium Chloride (Normal Saline 0.9%) 1,000 mls @ 1,000 mls/hr IV BOLUS ONE Stop: 10/18/21 03:37 Last Infusion: 10/18/21 05:20 Dose: 0 mls/hr Documented by: Admin: 10/18/21 02:55 Dose: 1,000 mls/hr Documented by: OLE Methylprednisolone (Methylprednisolone 125 Mg/2 Ml Vial) 125 mg IV NOW ONE Stop: 10/18/21 03:34 Last Admin: 10/18/21 04:00 Dose: 125 mg Documented by: CRISPIN Vital Signs Vital signs: Vital Signs - 8 hr 10/17/21 23:30 10/18/21 00:00 10/18/21 00:30 Pulse Rate 97 H 92 H 101 H Respiratory Rate 26 H 23 Blood Pressure 142/70 H 119/58 L 125/70 Pulse Oximetry 93 92 97 10/18/21 01:00 10/18/21 01:12 10/18/21 01:30 Pulse Rate 97 H 102 H Respiratory Rate 19 15 Blood Pressure 130/69 106/57 L Pulse Oximetry 95 96 96 10/18/21 02:00 10/18/21 02:30 10/18/21 02:35 Pulse Rate 101 H 93 H 95 H Respiratory Rate 25 H 20 16 Blood Pressure 112/81 92/50 L 95/50 L Pulse Oximetry 93 96 96 10/18/21 03:00 10/18/21 03:30 10/18/21 04:00 Pulse Rate 94 H 96 H 91 H Respiratory Rate 15 16 12 Blood Pressure 102/58 L 93/58 L 101/59 L Pulse Oximetry 94 93 96 Sepsis Guideline Criteria Level 1 - Infection Sepsis Infection Criteria Present: None Treatment Initiated Antibiotics:: IV antimicrobials will be initiated as soon as possible after recognition of sepsis state and within one hour for both sepsis and septic shock. MDM - Sepsis Lab Data Result diagrams: 10/17/21 21:50 10/17/21 21:50 Labs: Lab Results 10/17/21 10/17/21 10/17/21 Range/Units 21:28 21:50 21:50 WBC 12.3 H (4.5-11.0) X10^3/uL RBC 5.85 (4.5-5.9) X10^6/uL Hgb 17.6 H (13.5-17.5) g/dL Hct 52.3 (41-53) % MCV 89.4 (80-100) fL MCH 30.1 (26-34) PG MCHC 33.6 (30-36) % RDW 13.7 (11.6-14.8) % Plt Count 160 (150-400) X10^3/uL Neut % (Auto) 93.3 H (50-75) % Lymph % (Auto) 3.9 L (25-40) % [place] % (Auto) 1.7 L (3-14) % Eos % (Auto) 0.8 L (2-4) % Baso % (Auto) 0.3 (0-2) % Neut # (Auto) 27547 H (8146-4007) /uL Lymph # (Auto) 500 L (5966-3512) /uL [place] # (Auto) 200 (0-900) /uL Eos # (Auto) 100 (0-450) /uL Baso # (Auto) 0 (0-100) /uL D-Dimer (<230) ng/mL Sodium 141 (137-145) mmol/L Potassium 3.8 (3.4-5.1) mmol/L Chloride 101 (98-107) mmol/L Carbon Dioxide 30 (22-32) mmol/L BUN 28 H (9-20) mg/dL Creatinine 1.10 (0.66-1.25) mg/dL Estimated GFR > 60.0 (>60) mL/min BUN/Creatinine Ratio 25.5 H (6-22) Glucose 114 H (80-110) mg/dL Lactate (0.7-2.1) mmol/L Calcium 9.3 (8.4-10.2) mg/dL Total Bilirubin 1.0 (0.2-1.3) mg/dL AST 38 (17-59) IU/L ALT 33 (<50) IU/L Alkaline Phosphatase 100 (38-126) U/L Total Creatine Kinase (55-170) U/L CK-MB (CK-2) (<2.37) ng/mL CK-MB (CK-2) Rel Index (1.5-5.0) % Troponin I (0.01-0.034) ng/mL NT-Pro-B Natriuret Pep (<125) pg/mL Total Protein 7.8 (6.3-8.2) g/dL Albumin 4.6 (3.5-5.0) g/dL Globulin 3.2 (1.7-4.1) g/dL Albumin/Globulin Ratio 1.4 (1.0-2.8) Lipase 35 (23-300) U/L Procalcitonin 0.42 (<0.5) ng/mL Urine RBC (0-5/HPF) Urine WBC (0-5/HPF) Ur Squamous Epith Cells (0-5/HPF) Urine Bacteria (None) Ur Culture Indicated? Chlamy pneumoniae PCR (Not Detect) Adenovirus (PCR) (Not Detect) B. pertussis DNA (PCR) (Not Detecte) B.parapertussis DNA PCR (Not Detecte) Coronavirus OC43 (PCR) (Not Detect) Coronavirus HKU1 (PCR) (Not Detect) Coronavirus 229E (PCR) (Not Detect) SARS-CoV-2 (PCR) Negative (Negative) Coronavirus NL63 (PCR) (Not Detect) Human Metapneumovir PCR (Not Detect) Influenza Type A (PCR) (Not Detect) Influenza Type B (PCR) (Not Detect) M. pneumoniae (PCR) (Not Detect) Parainfluenza 1 (PCR) (Not Detect) Parainfluenza 2 (PCR) (Not Detect) Parainfluenza 3 (PCR) (Not Detect) Parainfluenza 4 (PCR) (Not Detect) RSV (PCR) (Not Detect) Entero/Rhino (PCR) (Not Detect) 10/17/21 10/17/21 10/17/21 Range/Units 21:50 21:50 21:50 WBC (4.5-11.0) X10^3/uL RBC (4.5-5.9) X10^6/uL Hgb (13.5-17.5) g/dL Hct (41-53) % MCV (80-100) fL MCH (26-34) PG MCHC (30-36) % RDW (11.6-14.8) % Plt Count (150-400) X10^3/uL Neut % (Auto) (50-75) % Lymph % (Auto) (25-40) % [place] % (Auto) (3-14) % Eos % (Auto) (2-4) % Baso % (Auto) (0-2) % Neut # (Auto) (7699-8671) /uL Lymph # (Auto) (8961-6046) /uL [place] # (Auto) (0-900) /uL Eos # (Auto) (0-450) /uL Baso # (Auto) (0-100) /uL D-Dimer 298 H (<230) ng/mL Sodium (137-145) mmol/L Potassium (3.4-5.1) mmol/L Chloride (98-107) mmol/L Carbon Dioxide (22-32) mmol/L BUN (9-20) mg/dL Creatinine (0.66-1.25) mg/dL Estimated GFR (>60) mL/min BUN/Creatinine Ratio (6-22) Glucose (80-110) mg/dL Lactate 1.4 (0.7-2.1) mmol/L Calcium (8.4-10.2) mg/dL Total Bilirubin (0.2-1.3) mg/dL AST (17-59) IU/L ALT (<50) IU/L Alkaline Phosphatase (38-126) U/L Total Creatine Kinase 225 H (55-170) U/L CK-MB (CK-2) 6.98 H (<2.37) ng/mL CK-MB (CK-2) Rel Index 3.1 (1.5-5.0) % Troponin I 0.016 (0.01-0.034) ng/mL NT-Pro-B Natriuret Pep 233 H (<125) pg/mL Total Protein (6.3-8.2) g/dL Albumin (3.5-5.0) g/dL Globulin (1.7-4.1) g/dL Albumin/Globulin Ratio (1.0-2.8) Lipase (23-300) U/L Procalcitonin (<0.5) ng/mL Urine RBC (0-5/HPF) Urine WBC (0-5/HPF) Ur Squamous Epith Cells (0-5/HPF) Urine Bacteria (None) Ur Culture Indicated? Chlamy pneumoniae PCR (Not Detect) Adenovirus (PCR) (Not Detect) B. pertussis DNA (PCR) (Not Detecte) B.parapertussis DNA PCR (Not Detecte) Coronavirus OC43 (PCR) (Not Detect) Coronavirus HKU1 (PCR) (Not Detect) Coronavirus 229E (PCR) (Not Detect) SARS-CoV-2 (PCR) (Negative) Coronavirus NL63 (PCR) (Not Detect) Human Metapneumovir PCR (Not Detect) Influenza Type A (PCR) (Not Detect) Influenza Type B (PCR) (Not Detect) M. pneumoniae (PCR) (Not Detect) Parainfluenza 1 (PCR) (Not Detect) Parainfluenza 2 (PCR) (Not Detect) Parainfluenza 3 (PCR) (Not Detect) Parainfluenza 4 (PCR) (Not Detect) RSV (PCR) (Not Detect) Entero/Rhino (PCR) (Not Detect) 10/17/21 10/18/21 10/18/21 Range/Units 22:25 02:11 03:48 WBC (4.5-11.0) X10^3/uL RBC (4.5-5.9) X10^6/uL Hgb (13.5-17.5) g/dL Hct (41-53) % MCV (80-100) fL MCH (26-34) PG MCHC (30-36) % RDW (11.6-14.8) % Plt Count (150-400) X10^3/uL Neut % (Auto) (50-75) % Lymph % (Auto) (25-40) % [place] % (Auto) (3-14) % Eos % (Auto) (2-4) % Baso % (Auto) (0-2) % Neut # (Auto) (9028-3983) /uL Lymph # (Auto) (9597-3101) /uL [place] # (Auto) (0-900) /uL Eos # (Auto) (0-450) /uL Baso # (Auto) (0-100) /uL D-Dimer (<230) ng/mL Sodium (137-145) mmol/L Potassium (3.4-5.1) mmol/L Chloride (98-107) mmol/L Carbon Dioxide (22-32) mmol/L BUN (9-20) mg/dL Creatinine (0.66-1.25) mg/dL Estimated GFR (>60) mL/min BUN/Creatinine Ratio (6-22) Glucose (80-110) mg/dL Lactate (0.7-2.1) mmol/L Calcium (8.4-10.2) mg/dL Total Bilirubin (0.2-1.3) mg/dL AST (17-59) IU/L ALT (<50) IU/L Alkaline Phosphatase (38-126) U/L Total Creatine Kinase (55-170) U/L CK-MB (CK-2) (<2.37) ng/mL CK-MB (CK-2) Rel Index (1.5-5.0) % Troponin I 0.025 (0.01-0.034) ng/mL NT-Pro-B Natriuret Pep (<125) pg/mL Total Protein (6.3-8.2) g/dL Albumin (3.5-5.0) g/dL Globulin (1.7-4.1) g/dL Albumin/Globulin Ratio (1.0-2.8) Lipase (23-300) U/L Procalcitonin (<0.5) ng/mL Urine RBC None seen (0-5/HPF) Urine WBC None seen (0-5/HPF) Ur Squamous Epith Cells 0-1 /hpf (0-5/HPF) Urine Bacteria Occasional (0-1) (None) Ur Culture Indicated? Cult not indicated Chlamy pneumoniae PCR Not detected (Not Detect) Adenovirus (PCR) Not detected (Not Detect) B. pertussis DNA (PCR) Not detected (Not Detecte) B.parapertussis DNA PCR Not detected (Not Detecte) Coronavirus OC43 (PCR) Not detected (Not Detect) Coronavirus HKU1 (PCR) Not detected (Not Detect) Coronavirus 229E (PCR) Not detected (Not Detect) SARS-CoV-2 (PCR) Not detected (Negative) Coronavirus NL63 (PCR) Not detected (Not Detect) Human Metapneumovir PCR Not detected (Not Detect) Influenza Type A (PCR) Not detected (Not Detect) Influenza Type B (PCR) Not detected (Not Detect) M. pneumoniae (PCR) Not detected (Not Detect) Parainfluenza 1 (PCR) Not detected (Not Detect) Parainfluenza 2 (PCR) Not detected (Not Detect) Parainfluenza 3 (PCR) Not detected (Not Detect) Parainfluenza 4 (PCR) Not detected (Not Detect) RSV (PCR) Not detected (Not Detect) Entero/Rhino (PCR) Not detected (Not Detect) Urine Dip Bedside Urine Glucose Negative Bedside Urine Bilirubin - Negative Bedside Urine Ketone - Negative Urine Specific [place] 1.020 Bedside Urine Occult Blood - Negative Bedside Urine pH 6.0 Bedside Urine Protein +/- 15 Bedside Urine Urobilinogen +/- 1mg Bedside Urine Nitrite - Negative Bedside Urine Leukocytes - Negative Esterase Imaging Data Chest x-ray: Radiologist's Impression: [place] [id number] [place] [id number] XRay Report Signed Patient: Goldy Brennan MR#: [id number] : 1950 Acct:[id number] Age/Sex: 71 / M Date of Service: 10/17/21 Loc: ED Accession Number: [id number] ?? Procedure: XR chest 1V Ordering Provider: Shirley Lomeli D.O. PROCEDURE:? XR CHEST 1V ? INDICATIONS:? suspected sepsis ? TECHNIQUE:? One view of the chest was acquired.? ? COMPARISON:? [facility], CR, XR CHEST 2V, 01/16/2021, 14:28. ? FINDINGS:? ? Surgical changes and devices:? Dual lead cardiac pacer. ? Lungs and pleura:? Scattered subsegmental atelectasis and/or scarring. No focal consolidation.? No pleural effusion or pneumothorax.? ? Mediastinum:? Mediastinal contours appear normal.? Heart size is normal.? ? Bones and chest wall:? No suspicious bony lesions.? Overlying soft tissues appear unremarkable.? ? IMPRESSION:? Scattered subsegmental atelectasis and/or scarring. No focal consolidation.? Dictated by: Sandip Antony M.D. on 10/17/2021 at 21:48 ? ? Approved by: Sandip Antony M.D. on 10/17/2021 at 21:49?? ECG Data Attestation: I personally reviewed and interpreted this ECG as follows: Prior ECG tracings: available for review Interpretation: Rate 83, P are 268 QRS of 90 QTC of 411. No acute ST elevation or depression appreciated. Patient has prior from 04/18/2019 which appears similar. MDM Narrative Medical decision making narrative: 71-year-old male who comes in with multiple complaints seem most consistent with infection. No clear source was found patient has been intermittently hypotensive, slightly tachycardic in the 90s to 100 range. And appears unwell. Discussed with hospitalist service who kindly accepts for admission. We discussed COVID as a possibility as patient's symptoms have been short ranging but initial swabs are both negative. As well as possible bacteremia or other causes cultures are pending. Discharge Plan Departure Patient Disposition: Admitted as Observation Clinical Impression: Chest pain, Leukocytosis Admit Date/Time: 10/18/21 04:15 Admit Provider: Tino Lassiter
[2021-10-18] MEDS: ALBUTEROL/IPRATROPIUM 3 ML AMPUL INH (01:09)
[2021-10-18 01:24] LABS: Creatine Kinase 225 U/L (55-170)
[2021-10-18 01:38] LABS: NT-proBNP (BNP-Adult 18+) 233 pg/mL (<125); Troponin I 0.016 ng/mL (0.01-0.034)
[2021-10-18 01:39] LABS: D Dimer 298 ng/mL (<230)
[2021-10-18 01:40] LABS: CKMB % Relative Index 3.1 % (1.5-5.0); Creatine Kinase MB 6.98 ng/mL (<2.37)
[2021-10-18 02:51] LABS: Troponin I 0.025 ng/mL (0.01-0.034)
[2021-10-18] MEDS: SODIUM CHLORIDE 0.9% 1,000 ML 1000 ML IV (02:55)
[2021-10-18] MEDS: methylPREDNISolone 125 MG/2 ML VIAL IV (04:00)
[2021-10-18 04:52] LABS: Adenovirus Not Detected (Not Detect); B. parapertussis Not Detected (Not Detecte); Bordetella pertussis Not Detected (Not Detecte); Chlamydophila pneumoniae Not Detected (Not Detect); Coronavirus 229E Not Detected (Not Detect); Coronavirus HKU1 Not Detected (Not Detect); Coronavirus NL 63 Not Detected (Not Detect); Coronavirus OC43 Not Detected (Not Detect); Human Metapneumovirus Not Detected (Not Detect); Human Rhinovirus/Enterovirus Not Detected (Not Detect); Influenza A Not Detected (Not Detect); Influenza B Not Detected (Not Detect); Mycoplasma pneumoniae Not Detected (Not Detect); Parainfluenza Virus 1 Not Detected (Not Detect); Parainfluenza Virus 2 Not Detected (Not Detect); Parainfluenza Virus 3 Not Detected (Not Detect); Parainfluenza Virus 4 Not Detected (Not Detect); Respiratory Syncytial Virus Not Detected (Not Detect); SARS- CoV-2 Not Detected (Not Detecte)
[2021-10-18] MEDS: ACETAMINOPHEN 325 MG TABLET 650 MG PO (06:14)
[2021-10-18] MEDS: SODIUM CHLORIDE 0.9% 1,000 ML 125 ML IV ×3 (06:16→22:07)
--- NOTE | 2021-10-18 06:50 | PC.ADMIT ---
Patient admitted to room 208 from ER per stretcher. Assisted into bed and complained of dizziness during transfer and was very weak and unsteady. Is alert and oriented. Breath sounds diminished but CTA with RA sat of 94%. Patient complains of feeling SOB both at rest and with activity so placed on oxygen at 2L/min per NC for comfort. HR irregular w/hx of afib and telemetry reading was afib CVR; has a pacemaker. BP is low at 94/55. Denied nausea. BT hypoactive but abdomen is soft and non tender. Does have area around umbilicus that is outpouched; possible hernia. States he has chronic urinary urgency and frequency but denies dysuria. Is able to turn himself in bed. 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 States it causes a lot of itchiness and he has been seeing a site superintendent and attempted several different medications with minimal success. Temp elevated at 100.4 so medicated with Tylenol. States he has chronic back and bilateral shoulder pain but states he is able to tolerate up to 8/10 pain. SCD's not ordered at this time. States he has chronic numbness in bilateral feet but is able to feel pain. Reports having fallen several times in past 3 months most recently in September so fall risk score is high and bed alarm is activated. Oriented to call light and bed controls. Reviewed plan of care with patient. [id number] [facility] [address] Admission Note: The patient,Goldy Brennan,71 y/o, was given written information regarding hospital policies, unit procedures and contact persons. Patient's smoking status: Never smoker. Vital Signs - 8 hr 10/17/21 23:00 10/17/21 23:30 10/18/21 00:00 Temperature Pulse Rate 91 H 97 H 92 H Respiratory Rate 15 26 H Blood Pressure 136/68 142/70 H 119/58 L Pulse Oximetry 95 93 92 10/18/21 00:30 10/18/21 01:00 10/18/21 01:12 Temperature Pulse Rate 101 H 97 H Respiratory Rate 23 19 Blood Pressure 125/70 130/69 Pulse Oximetry 97 95 96 10/18/21 01:30 10/18/21 02:00 10/18/21 02:30 Temperature Pulse Rate 102 H 101 H 93 H Respiratory Rate 15 25 H 20 Blood Pressure 106/57 L 112/81 92/50 L Pulse Oximetry 96 93 96 10/18/21 02:35 10/18/21 03:00 10/18/21 03:30 Temperature Pulse Rate 95 H 94 H 96 H Respiratory Rate 16 15 16 Blood Pressure 95/50 L 102/58 L 93/58 L Pulse Oximetry 96 94 93 10/18/21 04:00 10/18/21 04:30 10/18/21 05:00 Temperature Pulse Rate 91 H 93 H 92 H Respiratory Rate 12 25 H 23 Blood Pressure 101/59 L 108/62 89/53 L Pulse Oximetry 96 95 93 10/18/21 05:11 10/18/21 06:14 Temperature 100.4 F H Pulse Rate 96 H Respiratory Rate 24 Blood Pressure 94/55 L Pulse Oximetry 94
[2021-10-18] MEDS: PANTOPRAZOLE DR 40 MG TABLET PO (07:03)
--- NOTE | 2021-10-18 08:36 | P.HP_ITS ---
History of Present Illness History of Present Illness Date Patient Seen: 10/18/21 Time Patient Seen: 08:37 Chief complaint: cold, shakey Narrative: 71-year-old male who presented to the [facility] Emergency Department with ongoing rigors. Was in his normal state health as he got up and left the home on the morning of the 17 of October. Had been experiencing a sense of coldness in both legs from the knee down. This had been occurring over several days prior to this. Upon returning home in the afternoon/evening of October 17 had much more s ignificant coldness of his lower extremities to the point where he felt like they were ?freezing ?. Then developed ongoing rigors. Went into the house had something to eat got into a hot bath tub but under the warm covers and seemed to help a little bit than the rigors return. Finally just began to feel so miserable he came to emergency department He also has been experiencing some increased shortness of breath consistent with his asthma which has a tightness and or pressure sensation across his chest. He got a couple of nebulizer treatments in the ED which made a big difference on his sense of dyspnea and also relieve the chest tightness at the same time. Denies any real cough follows had a tiny bit of a cough since admission. No headache. No GI symptoms maybe some mild nausea when he was having severe rigors. No diarrhea. Chest pain is central and sort of a squeezing since it seems to him to be associated with his breathing difficulty as it got worse when his breathing got worse and got better when his breathing got better. No urinary tract symptoms whatsoever ER evaluation [place] [address] with a slight left shift. Lactate and procalcitonin are normal. Chemistries are normal. Testing for COVID 19 is negative x2 and patient is fully vaccinated. He was also found to be somewhat hypotensive in seem to respond some to IV fluids. M inimally tachycardic at times but in a sinus rhythm. (does have a history of atrial tachycardia/atrial fibrillation) CPK elevated but troponin negative x2 and MB fraction actually normal. Negative D-dimer negative BNP chest x-ray unremarkable Patient has struggled with right knee pain ever since knee replacement surgery and he has also had significant rashes. There is a general sense the maybe reacting to 1 of the components of his total knee. He has been on off various immunosuppressive drugs including Dupixent and CellCept. Most recently was on CellCept but has been off of that for probably a month. Knee continues to be swollen painful and there is some evidence of malalignment now in the lower foot etcetera. Seeing multiple orthopedic and Allergy and Dermatology and Rheumatol ogy specialist. 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) Gastroesophageal reflux disease without esophagitis (12/04/11) H/O acute myocardial infarction (~1984) Hemorrhoids (12/29/15) Kidney stone Mild intermittent asthma without complication (12/04/11) Paroxysmal atrial fibrillation Surgical History H/O vasectomy (~1984) Status post hernia repair Family & Social History Social History: household members spouse Prior Living Arrangements House Safety & Behavioral: Feels Safe in Current Yes Environment Been Physically Hurt or No Threatened By a Person Suicidal Ideation Description None Suicide Plan Description No Plan Tobacco & Substance use: Smoking Status Never smoker alcohol intake current alcohol intake frequency holiday/special occasion Substance Use Type does not use Meds Home Medications and Allergies Home Medications Medication Instructions Recorded Confirmed Type clindamycin phosphate 1 % lotion 1 applictn TOP DAILY 10/23/19 09/05/21 History clobetasol 0.05 % topical ointment 1 applictn TOP BID 10/23/19 09/05/21 History rivaroxaban 20 mg tablet (Xarelto) 20 mg PO DAILY 10/23/19 09/05/21 History acetaminophen 325 mg tablet 650 mg PO Q4-6H PRN tab 02/25/20 09/05/21 History (Tylenol) flecainide 50 mg tablet 50 mg PO DAILY tab 03/21/20 09/05/21 History triamcinolone acetonide 0.1 % 1 applictn TOP DAILY PRN gram 09/29/20 09/05/21 History topical cream omeprazole 40 mg capsule,delayed 40 mg PO .QOTHERDAY cap 01/16/21 09/05/21 History release albuterol sulfate 90 mcg/actuation 1 inh INHALATION Q4-6H PRN #18 gram 02/14/21 09/05/21 Rx aerosol inhaler mycophenolate mofetil 500 mg tablet 1,000 mg PO BID tab 09/05/21 09/05/21 History Allergies Allergy/AdvReac Type Severity Reaction Status Date / Time nifedipine [From Procardia] AdvReac Severe Hypotensive Verified 09/05/21 13:43 Review of Systems Constitutional Constitutional: Denies excessive sweating, Denies fever(s), Denies headache(s), Reports weakness, Denies weight gain and Denies weight loss Eyes Eyes: Denies change in vision, Denies itchy eyes, Denies loss of vision and Denies other visual disturbances ENT Ears, Nose, Mouth, and Throat: No change in voice, No dysphagia, No dizziness, No otalgia, No headache(s), No hoarseness, No lip swelling, No neck pain, No sore throat, No throat swelling and No tongue swelling Cardiovascular Cardiovascular: Reports chest pain, Denies syncope, Denies rapid heart rate, Denies irregular heart rhythm, Denies palpitations, Reports dyspnea, Denies dyspnea on exertion and Denies slow heart rate Respiratory Respiratory: Denies chest congestion, Denies cough, Denies hemoptysis, Reports dyspnea, Denies dyspnea on exertion, Denies stridor and Reports wheezing Gastrointestinal Gastrointestinal: Denies abdominal pain, Denies bloating, Denies change in bowel habits, Denies change in stool character, Denies dysphagia, Reports nausea, Denies vomiting and Denies hematemesis Genitourinary Genitourinary: Denies hematuria, Denies difficulty urinating and Denies urinary frequency Musculoskeletal Musculoskeletal: Denies abnormal gait, Denies myalgias, Denies arthralgias, Denies limited range of motion and Denies neck pain Integumentary/Breasts Skin/Breast: Denies bleeding lesions, Denies change in pigmentation, Denies changing lesions, Denies new lesions, Denies rash, Denies skin swelling, Denies sores and Denies jaundice Neurologic Neurologic: Denies abnormal speech, Denies abnormal gait, Denies behavioral changes, Denies confusion, Denies dizziness, Denies syncope, Denies headache(s), Denies loss of vision, Denies memory loss, Denies seizure-like activity, Denies paresthesias and Reports weakness Psychiatric Psychiatric: Denies behavioral changes, Denies change in appetite, Denies confusion, Denies difficulty concentrating, Denies auditory hallucinations, Denies memory loss, Denies mood swings and Denies suicidal ideation Endocrine Endocrine: Denies excessive sweating, Denies flushing, Denies polyuria and Denies palpitations Hematologic/Lymphatic Hematologic/Lymphatic: Denies easy bleeding, Denies easy bruising and Denies l ymphadenopathy Allergic/Immunologic Allergic/Immunologic: Denies urticaria, Denies itchy eyes, Denies lip swelling, Denies throat swelling, Denies tongue swelling and Reports wheezing Exam Vital Signs (past 8 hours): - 10/18/21 01:00 10/18/21 01:12 10/18/21 01:30 Temperature Pulse Rate 97 H 102 H Respiratory Rate 19 15 Blood Pressure 130/69 106/57 L Pulse Oximetry 95 96 96 10/18/21 02:00 10/18/21 02:30 10/18/21 02:35 Temperature Pulse Rate 101 H 93 H 95 H Respiratory Rate 25 H 20 16 Blood Pressure 112/81 92/50 L 95/50 L Pulse Oximetry 93 96 96 10/18/21 03:00 10/18/21 03:30 10/18/21 04:00 Temperature Pulse Rate 94 H 96 H 91 H Respiratory Rate 15 16 12 Blood Pressure 102/58 L 93/58 L 101/59 L Pulse Oximetry 94 93 96 10/18/21 04:30 10/18/21 05:00 10/18/21 05:11 Temperature Pulse Rate 93 H 92 H 96 H Respiratory Rate 25 H 23 24 Blood Pressure 108/62 89/53 L 94/55 L Pulse Oximetry 95 93 94 10/18/21 05:45 10/18/21 06:14 Temperature 100.4 F H 100.4 F H Pulse Rate 98 H Respiratory Rate 19 Blood Pressure 112/65 Pulse Oximetry 95 Oxygen Delivery Method Room Air Oxygen Flow Rate 0 Narrative Exam Narrative: Middle-aged elderly male in no obvious distress lying in hospital bed but obvio us diaphoresis specially of his lower extremities HEENT-normocephalic atraumatic Neck-no lymphadenopathy no bruits Lungs-good breath sounds no wheezes no crackles Heart-regular rate and rhythm no murmur Abdomen-soft nontender nondistended Extremities-good capillary refill diaphoresis noted in lower extremities, no rashes present, and minimal to trace edema at the ankles Objective Imaging Chest x-ray: Radiologist's impression: PROCEDURE:? XR CHEST 1V ? INDICATIONS:? suspected sepsis ? TECHNIQUE:? One view of the chest was acquired.? ? COMPARISON:? [facility], CR, XR CHEST 2V, 01/16/2021, 14:28. ? FINDINGS:? ? Surgical changes and devices:? Dual lead cardiac pacer. ? Lungs and pleura:? Scattered subsegmental atelectasis and/or scarring. No focal consolidation.? No pleural effusion or pneumothorax.? ? Mediastinum:? Mediastinal contours appear normal.? Heart size is normal.? ? Bones and chest wall:? No suspicious bony lesions.? Overlying soft tissues appear unremarkable.? ? IMPRESSION:? Scattered subsegmental atelectasis and/or scarring. No focal consolidation.? Labs Result Diagrams: 10/17/21 21:50 10/17/21 21:50 Labs: Laboratory Results - last 24 hr 10/17/21 10/17/21 10/17/21 21:28 21:50 21:50 WBC 12.3 H RBC 5.85 Hgb 17.6 H Hct 52.3 MCV 89.4 MCH 30.1 MCHC 33.6 RDW 13.7 Plt Count 160 Neut % (Auto) 93.3 H Lymph % (Auto) 3.9 L [place] % (Auto) 1.7 L Eos % (Auto) 0.8 L Baso % (Auto) 0.3 Neut # (Auto) 80899 H Lymph # (Auto) 500 L [place] # (Auto) 200 Eos # (Auto) 100 Baso # (Auto) 0 D-Dimer Sodium 141 Potassium 3.8 Chloride 101 Carbon Dioxide 30 BUN 28 H Creatinine 1.10 Estimated GFR > 60.0 BUN/Creatinine Ratio 25.5 H Glucose 114 H Lactate Calcium 9.3 Total Bilirubin 1.0 AST 38 ALT 33 Alkaline Phosphatase 100 Total Creatine Kinase CK-MB (CK-2) CK-MB (CK-2) Rel Index Troponin I NT-Pro-B Natriuret Pep Total Protein 7.8 Albumin 4.6 Globulin 3.2 Albumin/Globulin Ratio 1.4 Lipase 35 Procalcitonin 0.42 Urine RBC Urine WBC Ur Squamous Epith Cells Urine Bacteria Ur Culture Indicated? Chlamy pneumoniae PCR Adenovirus (PCR) B. pertussis DNA (PCR) B.parapertussis DNA PCR Coronavirus OC43 (PCR) Coronavirus HKU1 (PCR) Coronavirus 229E (PCR) SARS-CoV-2 (PCR) Negative Coronavirus NL63 (PCR) Human Metapneumovir PCR Influenza Type A (PCR) Influenza Type B (PCR) M. pneumoniae (PCR) Parainfluenza 1 (PCR) Parainfluenza 2 (PCR) Parainfluenza 3 (PCR) Parainfluenza 4 (PCR) RSV (PCR) Entero/Rhino (PCR) 10/17/21 10/17/21 10/17/21 21:50 21:50 21:50 WBC RBC Hgb Hct MCV MCH MCHC RDW Plt Count Neut % (Auto) Lymph % (Auto) [place] % (Auto) Eos % (Auto) Baso % (Auto) Neut # (Auto) Lymph # (Auto) [place] # (Auto) Eos # (Auto) Baso # (Auto) D-Dimer 298 H Sodium Potassium Chloride Carbon Dioxide BUN Creatinine Estimated GFR BUN/Creatinine Ratio Glucose Lactate 1.4 Calcium Total Bilirubin AST ALT Alkaline Phosphatase Total Creatine Kinase 225 H CK-MB (CK-2) 6.98 H CK-MB (CK-2) Rel Index 3.1 Troponin I 0.016 NT-Pro-B Natriuret Pep 233 H Total Protein Albumin Globulin Albumin/Globulin Ratio Lipase Procalcitonin Urine RBC Urine WBC Ur Squamous Epith Cells Urine Bacteria Ur Culture Indicated? Chlamy pneumoniae PCR Adenovirus (PCR) B. pertussis DNA (PCR) B.parapertussis DNA PCR Coronavirus OC43 (PCR) Coronavirus HKU1 (PCR) Coronavirus 229E (PCR) SARS-CoV-2 (PCR) Coronavirus NL63 (PCR) Human Metapneumovir PCR Influenza Type A (PCR) Influenza Type B (PCR) M. pneumoniae (PCR) Parainfluenza 1 (PCR) Parainfluenza 2 (PCR) Parainfluenza 3 (PCR) Parainfluenza 4 (PCR) RSV (PCR) Entero/Rhino (PCR) 10/17/21 10/18/21 10/18/21 22:25 02:11 03:48 WBC RBC Hgb Hct MCV MCH MCHC RDW Plt Count Neut % (Auto) Lymph % (Auto) [place] % (Auto) Eos % (Auto) Baso % (Auto) Neut # (Auto) Lymph # (Auto) [place] # (Auto) Eos # (Auto) Baso # (Auto) D-Dimer Sodium Potassium Chloride Carbon Dioxide BUN Creatinine Estimated GFR BUN/Creatinine Ratio Glucose Lactate Calcium Total Bilirubin AST ALT Alkaline Phosphatase Total Creatine Kinase CK-MB (CK-2) CK-MB (CK-2) Rel Index Troponin I 0.025 NT-Pro-B Natriuret Pep Total Protein Albumin Globulin Albumin/Globulin Ratio Lipase Procalcitonin Urine RBC None seen Urine WBC None seen Ur Squamous Epith Cells 0-1 /hpf Urine Bacteria Occasional (0-1) Ur Culture Indicated? Cult not indicated Chlamy pneumoniae PCR Not detected Adenovirus (PCR) Not detected B. pertussis DNA (PCR) Not detected B.parapertussis DNA PCR Not detected Coronavirus OC43 (PCR) Not detected Coronavirus HKU1 (PCR) Not detected Coronavirus 229E (PCR) Not detected SARS-CoV-2 (PCR) Not detected Coronavirus NL63 (PCR) Not detected Human Metapneumovir PCR Not detected Influenza Type A (PCR) Not detected Influenza Type B (PCR) Not detected M. pneumoniae (PCR) Not detected Parainfluenza 1 (PCR) Not detected Parainfluenza 2 (PCR) Not detected Parainfluenza 3 (PCR) Not detected Parainfluenza 4 (PCR) Not detected RSV (PCR) Not detected Entero/Rhino (PCR) Not detected Assessment & Plan Assessment & Plan narrative: 1. ID-patient with symptoms consistent with some sort of infection with rigors now low-grade fever minimal leukocytosis with left shift. Source of infection not at all clear at this point. Patient has a negative chest x-ray negative urinalysis etcetera. Has had exposure to immunosuppressive drugs but has been off of that for least a month. I would suppose his most active symptoms really does have to do with his respiratory tract and I am concerned about pneumonia atypical pneumonias etcetera. 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 May be worth repeating COVID testing tomorrow Cultures have been drawn. I have held off on giving antibiotics at this point. Plan to repeat CBC and check cultures in the next 24 hours. 2. Cardiovascular-patient is somewhat hypotensive upon presentation. Continue with IV fluids for now. His rhythm is stable continue him on his usual meds including his flecainide. Continue to monitor for his supraventricular dysrhythmias. 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 Elevated CPK but normal troponin and CK MB fraction and EKG. 3. Asthma-continue with intermittent nebulizers. Did receive a single dose of IV steroids in the emergency department. Do not plan to continue that at this time. Patient does report shortness of breath but he has never been hypoxic despite the fact the oxygen does seem to make a difference in helping with his breathing 4. Orthopedic-patient with significant issues with her right knee that have been long-term chronic. Does not appear to be acutely different at this time. Doubt this is involved except perhaps maybe 1 of the treatments for his potential allergic reaction to knee components etcetera. 5. VTE prophylaxis-patient is chronically anticoagulated with a direct oral anticoagulant due to his paroxysmal atrial fibrillation. No need for any additional anticoagulation for VTE risk reduction. 6. Code status-patient should be full code in the event of a sudden cardiac or r espiratory arrest which is not anticipated but patient is in agreement as is his spouse is with him in the room this morning Time Spent With Patient Critical Care time: I spent a total of [] minutes of critical care time on this patient's care today; this time is exclusive of procedural time.
[2021-10-18] MEDS: RIVAROXABAN 10 MG TABLET 20 MG PO (10:02)
[2021-10-18] MEDS: FLECAINIDE 100 MG TABLET 50 MG PO ×2 (10:02→22:15)
[2021-10-18 11:26] LABS: Acinetobacter baumannii Not Detected (Not Detect); Candida albicans Not Detected (Not Detect); Candida glabrata Not Detected (Not Detect); E. coli Not Detected (Not Detect); Enterobacter cloacae complex Not Detected (Not Detect); Enterobacteriaceae species Not Detected (Not Detect); Enterococcus species Not Detected (Not Detect); Haemophilus influenzae Not Detected (Not Detect); Listeria monocytogenes Not Detected (Not Detect); Neisseria meningitidis Not Detected (Not Detect); Proteus species Not Detected (Not Detect); Pseudomonas aeruginosa Not Detected (Not Detect); Serratia marcescens Not Detected (Not Detect); Staphylococcus species Not Detected (Not Detect); Streptococcus agalactiae (Gr B Detected (Not Detect); Streptococcus pneumonia Not Detected (Not Detect); Streptococcus pyogenes (Gr A) Not Detected (Not Detect); Streptococcus species Detected (Not Detect)
[2021-10-18 11:27] LABS: Candida krusei Not Detected (Not Detect); Candida parapsilosis Not Detected (Not Detect); Candida tropicalis Not Detected (Not Detect)
[2021-10-18] MEDS: CEFAZOLIN 1 GM VIAL 2 GM IV ×2 (12:50→22:07)
--- NOTE | 2021-10-18 15:33 | CM.IDA ---
Initial DCP Assessment Note Pt is a 71 yo male, resident of [place], arrives to the ER d/t ongoing shakiness, rigors, and a sense of coldness in both legs from the knee down. H/o knee replacement and complication including full body rash. Seeing multiple orthopedic and Allergy and Dermatology and migration specialist. According to Dr Lassiter's notes; patient growing group B strep from blood cultures done in the ED and has been started on IV cephalosporin. Source of infection unknown at this time. PCP: Tino Lassiter Payer: Tay RUBIN Reviewed chart, met w/patient this morning, introduced role. Patient lives w/supportive spouse and has two adult daughters, both of whom visit patient/spouse often. Patient anticipates returning home w/family when medically cleared. Patient reviews past medical complications, dating back to his 30s and becomes tearful. Patient admits to this SUSTAINABILITY ENGINEER that he has been struggling w/depression and wonders what to do about it. Provided listening support and suggested that patient may be suffering from situational depression, which should be discussed w/PCP. Explained further that if medication management is not right for patient; one to one therapy is a very effective intervention in treating mild/mod anxiety and depression, for most people. This SUSTAINABILITY ENGINEER agreed to assist patient in next steps, investigate counseling options w/Tay RUBIN and report back to patient, patient appreciative Plan: DC home w/supportive family is expected when medically cleared. Following closely in case any DC needs or concerns arise. ROULA Avila Discharge Planning/Care Management CM Discharge Assessment Start: 10/18/21 15:25 Freq: Status: Active Protocol: Document 10/18/21 15:25 JASON (Rec: 10/18/21 15:36 [id number]) Discharge Planning Assessment Assigned Environmental Professional ROULA Rollins DPOA/Assigned Designee Name Neli Saunders, Contact Information [phone], cell , home Advance Directives? No: Has paperwork History Provided By Patient Prior Living Arrangements House Household Members spouse Type of transporation used prior to Drives own vehicle admit Independent with ADL's Yes Is patient alert and oriented? 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 Tearful, admits to struggling for awhile d/t multiple medical complications that has diminished quality of life Discharge Plan Home Transportation Arrangement Family to provide transport Referrals Initiated None needed Additional Comment At this time Whiteboard Updated in Patient Room with Yes name and ext. # of Environmental Professional
[2021-10-18] MEDS: ALBUTEROL 2.5 MG/3 ML NEB (ADULT) INH (19:13)
[2021-10-19] VITALS (8 sets, daily range): BP systolic 117–146; BP diastolic 69–100; PULSE 67–84; RESP 18–69; TEMP 36.5–37.7; O2SAT 94–98
[2021-10-19] MEDS: CEFAZOLIN 1 GM VIAL 2 GM IV ×3 (03:53→20:14)
[2021-10-19] MEDS: PANTOPRAZOLE DR 40 MG TABLET PO (05:25)
[2021-10-19 06:36] LABS: Add Manual Diff / Slide Review NO; Basophils Absolute Auto 0 /uL (0-100); Basophils Percent Auto 0.1 % (0-2); Eosinophils Absolute Auto 0 /uL (0-450); Hematocrit 44.1 % (41-53); Hemoglobin 14.7 g/dL (13.5-17.5); Lymphocytes Absolute Auto 600 /uL (1100-4500); Lymphocytes Percent Auto 4.9 % (25-40); Mean Corpuscular HGB Conc 33.3 % (30-36); Mean Corpuscular Volume 90.1 fL (80-100); Monocytes Absolute Auto 700 /uL (0-900); Monocytes Percent Auto 5.8 % (3-14); Neutrophils Absolute Auto 10100 /uL (1500-7000); Neutrophils Percent Auto 89.2 % (50-75); Platelet Count 122 X10^3/uL (150-400); Red Cell Distribution Width 14.3 % (11.6-14.8); White Blood Cell Count 11.3 X10^3/uL (4.5-11.0)
[2021-10-19] MEDS: SODIUM CHLORIDE 0.9% 1,000 ML 125 ML IV (06:42)
[2021-10-19 06:48] LABS: Alanine Aminotransferase 21 IU/L (<50); Albumin 3.3 g/dL (3.5-5.0); Albumin Globulin Ratio 1.2 (1.0-2.8); Alkaline Phosphatase 59 U/L (38-126); Aspartate Aminotransferase 20 IU/L (17-59); BUN Creatinine Ratio 24.7 (6-22); Bilirubin Total 0.4 mg/dL (0.2-1.3); Blood Urea Nitrogen 23 mg/dL (9-20); Calcium 8.1 mg/dL (8.4-10.2); Carbon Dioxide 22 mmol/L (22-32); Chloride 107 mmol/L (98-107); Estimated Glomerular Filt Rate > 60.0 mL/min (>60); Globulin 2.8 g/dL (1.7-4.1); Glucose 127 mg/dL (80-110); HEMOLYSIS < 15 (0-50); Potassium 3.9 mmol/L (3.4-5.1); Sodium 138 mmol/L (137-145); Total Protein 6.1 g/dL (6.3-8.2)
--- NOTE | 2021-10-19 08:21 | PM.PN.1 ---
Subjective Subjective Date Patient Seen: 10/19/21 Time Patient Seen: 08:21 Interval history: Patient generally feeling better overall. Blood cultures began growing group B Streptococcus from all bottles yesterday. He was medially placed on IV antibiotics. Patient's maximum temperature after antibiotic therapy was instituted has been 100.1. Blood pressures been a bit more stable although still on the lower side for this patient. His asthma is still up and down although that is kind of his baseline. Patient does take antibiotic prophylaxis due to his artificial joint before going to the dentist which he did several weeks ago. Exam Vital Signs (past 8 hours): - 10/19/21 00:25 10/19/21 04:00 Temperature 98.3 F 99.8 F H Pulse Rate 69 Respiratory Rate 69 H Blood Pressure 117/69 Pulse Oximetry 94 Oxygen Delivery Method Nasal Cannula Oxygen Flow Rate 0 Objective Labs Result Diagrams: 10/19/21 06:08 10/19/21 06:08 Labs: Laboratory Results - last 24 hr 10/17/21 10/19/21 10/19/21 21:50 06:08 06:08 WBC 11.3 H RBC 4.90 Hgb 14.7 Hct 44.1 MCV 90.1 MCH 30.0 MCHC 33.3 RDW 14.3 Plt Count 122 L Neut % (Auto) 89.2 H Lymph % (Auto) 4.9 L [place] % (Auto) 5.8 Eos % (Auto) 0.0 L Baso % (Auto) 0.1 Neut # (Auto) 96939 H Lymph # (Auto) 600 L [place] # (Auto) 700 Eos # (Auto) 0 Baso # (Auto) 0 Sodium 138 Potassium 3.9 Chloride 107 Carbon Dioxide 22 BUN 23 H Creatinine 0.93 Estimated GFR > 60.0 BUN/Creatinine Ratio 24.7 H Glucose 127 H Calcium 8.1 L Total Bilirubin 0.4 AST 20 ALT 21 Alkaline Phosphatase 59 Total Protein 6.1 L Albumin 3.3 L Globulin 2.8 Albumin/Globulin Ratio 1.2 A. baumannii (PCR) Not detected [place] albicans (PCR) Not detected C. glabrata (PCR) Not detected C. krusei (PCR) Not detected C. parapsilosis (PCR) Not detected C. tropicalis (PCR) Not detected Enterobacteriac sp PCR Not detected E. cloacae complex PCR Not detected Enterococcus sp PCR Not detected E. coli (PCR) Not detected H. influenzae (PCR) Not detected Klebsiella oxytoca PCR Not detected Klebsiella pneumoniae Not detected List. monocytogenes PCR Not detected N. meningitidis (PCR) Not detected Proteus species (PCR) Not detected Serratia marcescens PCR Not detected Staphylococcus sp PCR Not detected Staph aureus (PCR) Not detected mecA-Methicil Res Gene Not Reportable Streptococcus sp PCR Detected H Group A Strep (PCR) Not detected Strep agalactiae (PCR) Detected H Strep pneumoniae (PCR) Not detected P. aeruginosa (PCR) Not detected Marcos/B-Vanco Res Genes Not Reportable KPC-Carbap Res Gene PCR Not Reportable 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 ID-patient growing group B strep and was medially placed on a 1st generation cephalosporin intravenously. Would like to protect his total knee on the right side. Unclear as to etiology seems unlikely to be oral or dental in origin given his antibiotic prophylaxis around that and that was a few weeks in the past. Does have rash with open skin at times that he itches and scratches perhaps that is the source of infection In any event I think he should have at least if not perhaps longer 24 hours of parental antibiotics again in part because of his marked bacteremia and his total joint. Given the bacteremia it seems increasingly unlikely this is COVID or anything like that I do not think an additional test is necessary today even though I certainly mentioned it in my note yesterday 2. Asthma-patient's asthma is poorly controlled which is why he has been seen by Pulmonary Medicine. Some recent changes in his inhalers have started to make a difference he says and will continue with his usual inhalers and medications. I do not think he needs a burst of oral steroids at this time although that is a possibility that occurred to me as I was examining him 3. Cardiovascular-patient's rhythm is been stable. He is back on his usual meds. No changes for now. Blood pressures are somewhat improved and no need to make any changes in my opinion Patient likely ready for discharge home to continue course of outpatient oral antibiotic sometime in the next 24-48 hours Note: Greater than 20 minutes total time was spent on day of service, evaluating the patient on the floor, including examining the patient, discussing clinical course with clinical and nursing staff, reviewing clinical course in the computer, preparing documentation and writing orders for continued management of care, discussing status with family as appropriate, reviewing plans for the next 24 hours with both patient/family and nursing staff as appropriate. Time Spent With Patient Critical Care time: I spent a total of [] minutes of critical care time on this patient's care today; this time is exclusive of procedural time.
[2021-10-19] MEDS: ALBUTEROL 2.5 MG/3 ML NEB (ADULT) INH ×3 (08:23→19:53)
[2021-10-19] MEDS: RIVAROXABAN 10 MG TABLET 20 MG PO (09:09)
[2021-10-19] MEDS: FLECAINIDE 100 MG TABLET 50 MG PO ×2 (09:20→22:06)
--- NOTE | 2021-10-19 12:24 | DI.RAD.S_ITS ---
PROCEDURE: XR CHEST 2V INDICATIONS: dyspnea TECHNIQUE: 2 views of the chest were acquired. COMPARISON: [facility], CR, XR CHEST 1V, 10/17/2021, 21:26. [facility], CR, XR CHEST 2V, 01/16/2021, 14:28. FINDINGS: Surgical changes and devices: There is a cardiac pacemaker with leads in appropriate position. Lungs and pleura: Increased pulmonary vascularity. Small pleural effusions are present bilaterally. Left lower lobe opacity may be consolidation or atelectasis. No pneumothorax. Mediastinum: Mediastinal contours are normal. Heart size is normal. Bones and chest wall: No suspicious bony abnormalities. Soft tissues appear unremarkable. IMPRESSION: 1. Increased pulmonary vascularity and small bilateral pleural effusions, suspicious for CHF. 2. Left basilar consolidation or atelectasis. Dictated by: Jonathan Hogan M.D. on 10/19/2021 at 13:27 Approved by: Jonathan Hogan M.D. on 10/19/2021 at 13:29
--- NOTE | 2021-10-19 12:27 | DI.ECHO.S_ITS ---
[facility]---------+ [facility] +---------+ : : [address] : [address] : : : : [id number] : : : : Phone: [phone]+ Echocardiogram Report + + :Name: KESHA HARVEY Study Date: 10/19/2021 Height: 69 in : :[facility] ReadingLocation: Weight: 219 lb : : Gender: Male BSA: 2.1 m2 : :: 1950 Age: 71 yrs BP: 117/69 mmHg: :Reason For Study: ENDOCARDITIS/ DYSPNEA : :Ordering Physician: SAMMIE, : :NUHA Self Performed By: Toma Alegria : :Referring: NUHA COCHRAN : + + Interpretation Summary The left ventricle is normal in size. Left ventricular systolic function is mildly reduced. The ejection fraction is estimated to be 45-50%. Left ventricular function has slightly worsened compared to the previous exam. Regional wall motion abnormalities cannot be excluded due to limited visualization. Diastolic parameters suggest probable normal left ventricular diastolic function and normal filling pressures. The right ventricle is not well visualized. The right ventricular systolic function is normal. Pulmonary artery pressures cannot be estimated because of the lack of a measurable TR jet velocity but the IVC suggests a CVP of around 8 mmHg. The left atrium is moderately dilated. Right atrial size is normal. There is no significant valvular heart disease. No obvious endocarditis. The aortic root is normal size. Procedure: A two-dimensional transthoracic echocardiogram with color flow and Doppler was performed. The study quality was technically difficult. A contrast injection of Definity was performed to improve assessment of LV function. Comparison is made with the echocardiogram of 02/22/2021. The patient was in sinus rhythm with heart rates between 74-82 bpm during the exam. Left Ventricle: The left ventricle is normal in size. There is mild concentric left ventricular hypertrophy. Left ventricular systolic function is mildly reduced. The ejection fraction is estimated to be 45-50%. Left ventricular function has slightly worsened compared to the previous exam. Regional wall motion abnormalities cannot be excluded due to limited visualization. Diastolic parameters suggest probable normal left ventricular diastolic function and normal filling pressures. Right Ventricle: The right ventricle is not well visualized. The right ventricular systolic function is normal. Atria: The left atrium is moderately dilated. Right atrial size is normal. There is no Doppler evidence for an interatrial shunt. Mitral Valve: The mitral valve leaflets appear mildly thickened, but open well. There is mild mitral regurgitation. Aortic Valve: The aortic valve is slightly calcified. There is no aortic valve stenosis. No aortic regurgitation is present. Tricuspid Valve: The tricuspid valve is not well visualized, but is grossly normal. There is a trace or physiologic amount of tricuspid regurgitation. Pulmonary artery pressures cannot be estimated because of the lack of a measurable TR jet velocity but the IVC suggests a CVP of around 8 mmHg. Pulmonic Valve: The pulmonic valve leaflets are thin and pliable; valve motion is normal. There is no pulmonic valvular regurgitation. There is no significant valvular heart disease. Great Vessels: The aortic root is normal size. The ascending aorta is at the upper limits of normal in size. The IVC is dilated (diameter is greater than 2.1 cm) yet it collapses greater than 50% with a sniff. This suggests a right atrial pressure of 8 mm Hg. Pericardium/ Pleura There is no pericardial effusion. There is no pleural effusion. MMode/2D Measurements & Calculations LVIDd: 5.1 cm LVOT diam: 2.1 cm LVIDs: 3.9 cm Ao root diam: 3.9 cm FS: 22.7 % asc Aorta Diam: 3.6 cm IVSd: 1.1 cm Ao Arch Diam (Prox Trans): 3.6 cm LVPWd: 1.00 cm LV agrawal. diameter/BSA (cm/m^2): 2.4 LV sys. diameter/BSA (cm/m^2): 1.8 LA A2 area: 28.3 cm2 RA long axis: 5.9 cm LA A4 area: 26.5 cm2 RA area: 20.6 cm2 LA length (vol): 6.6 cm RA vol: 61.3 ml LA vol: 97.2 ml RA : 28.6 ml/m2 LA vol index: 45.3 ml/m2 IVC diam: 2.3 cm TAPSE: 2.7 cm Doppler Measurements & Calculations Ao V2 max: 125.1 cm/sec LVOT Max Theron: 92.2 cm/sec Ao V2 mean: 89.7 cm/sec LV V1 max P.4 mmHg Ao max P.3 mmHg LV V1 VTI: 19.3 cm Ao mean P.6 mmHg LAURA(I,D): 2.7 cm2 Ao V2 VTI: 25.6 cm LAURA(V,D): 2.6 cm2 sev ratio: 0.75 LAURA indexed to BSA (cm^2/m^2): 1.2 MV E max theron: 68.7 cm/sec PA V2 max: 96.7 cm/sec MV A max theron: 50.5 cm/sec PA V2 mean: 65.1 cm/sec MV E/A: 1.4 PA mean P.9 mmHg Med Peak E' Theron: 7.4 cm/sec PA pr(Accel): 19.1 mmHg E/E' med: 9.3 Lat Peak E' Theron: 10.2 cm/sec E/E' lat: 6.7 E/e' average: 8.0 MV dec time: 0.22 sec SV(LVOT): 68.4 ml Reading Physician:05:58 PM
[2021-10-19] MEDS: methylPREDNISolone 125 MG/2 ML VIAL 80 MG IV (12:47)
[2021-10-19] MEDS: FUROSEMIDE 20 MG/2 ML VIAL IV (14:24)
[2021-10-19] MEDS: LORazepam 2 MG/ML INJ 1 MG IV (15:20)
[2021-10-20] VITALS: BP 128/80; PULSE 70; RESP 16; TEMP 36.4; O2SAT 98
[2021-10-20] MEDS: CEFAZOLIN 1 GM VIAL 2 GM IV (03:28)
[2021-10-20 04:00] VITALS: BP 128/75; PULSE 63; RESP 18; TEMP 36.8; O2SAT 94
[2021-10-20] MEDS: PANTOPRAZOLE DR 40 MG TABLET PO (06:10)
[2021-10-20 06:36] LABS: BUN Creatinine Ratio 23.1 (6-22); Blood Urea Nitrogen 21 mg/dL (9-20); Calcium 8.8 mg/dL (8.4-10.2); Carbon Dioxide 26 mmol/L (22-32); Chloride 106 mmol/L (98-107); Estimated Glomerular Filt Rate > 60.0 mL/min (>60); Glucose 141 mg/dL (80-110); HEMOLYSIS < 15 (0-50); Magnesium 2.1 mg/dL (1.6-2.3); Potassium 4.3 mmol/L (3.4-5.1); Sodium 139 mmol/L (137-145)
[2021-10-20 06:44] LABS: NT-proBNP (BNP-Adult 18+) 3400 pg/mL (<125)
[2021-10-20 07:45] VITALS: BP 117/82; PULSE 63; RESP 16; TEMP 36.2; O2SAT 95
--- NOTE | 2021-10-20 08:14 | P.DS_ITS ---
History of Present Illness History of Present Illness Date Patient Seen: 10/20/21 Time Patient Seen: 08:14 Chief complaint: cold, shakey Narrative: 71-year-old male who presented to the [facility] Emergency Department with ongoing rigors. Was in his normal state health as he got up and left the home on the morning of the 17 of October. Had been experiencing a sense of coldness in both legs from the knee down. This had been occurring over several days prior to this. Upon returning home in the afternoon/evening of October 17 had much more s ignificant coldness of his lower extremities to the point where he felt like they were ?freezing ?. Then developed ongoing rigors. Went into the house had something to eat got into a hot bath tub but under the warm covers and seemed to help a little bit than the rigors return. Finally just began to feel so miserable he came to emergency department He also has been experiencing some increased shortness of breath consistent with his asthma which has a tightness and or pressure sensation across his chest. He got a couple of nebulizer treatments in the ED which made a big difference on his sense of dyspnea and also relieve the chest tightness at the same time. Denies any real cough follows had a tiny bit of a cough since admission. No headache. No GI symptoms maybe some mild nausea when he was having severe rigors. No diarrhea. Chest pain is central and sort of a squeezing since it seems to him to be associated with his breathing difficulty as it got worse when his breathing got worse and got better when his breathing got better. No urinary tract symptoms whatsoever ER evaluation [place] [address] with a slight left shift. Lactate and procalcitonin are normal. Chemistries are normal. Testing for COVID 19 is negative x2 and patient is fully vaccinated. He was also found to be somewhat hypotensive in seem to respond some to IV fluids. M inimally tachycardic at times but in a sinus rhythm. (does have a history of atrial tachycardia/atrial fibrillation) CPK elevated but troponin negative x2 and MB fraction actually normal. Negative D-dimer negative BNP chest x-ray unremarkable Patient has struggled with right knee pain ever since knee replacement surgery and he has also had significant rashes. There is a general sense the maybe reacting to 1 of the components of his total knee. He has been on off various immunosuppressive drugs including Dupixent and CellCept. Most recently was on CellCept but has been off of that for probably a month. Knee continues to be swollen painful and there is some evidence of malalignment now in the lower foot etcetera. Seeing multiple orthopedic and Allergy and Dermatology and Rheumatol ogy specialist. Discharge Providers Provider Date of admission: 10/19/21 11:07 Discharge Date: 10/20/21 Primary care physician: Tino Lassiter MD Discharge provider: Tino Lassiter MD Summary Hospital Course Discharge Diagnosis: 1. Bacteremia with group B strep 2. Leukocytosis 3. Pulmonary edema, resolved 4. Hypotension, resolved 5. Paroxysmal atrial fibrillation 6. Chronic long-term anticoagulation with direct oral anticoagulant 7. Cardiomyopathy, ischemic 8. Mild intermittent asthma Hospital Course: Patient was admitted to the hospital after being evaluated emergency department. Is felt as though he most likely had some sort of systemic infection and indeed blood cultures grew group B strep almost immediately. Source of this infection was not clearly identified. Patient had echocardiogram done looking for evidence of endocarditis which was not present on transthoracic echocardiogram. He also had this done because of evidence of volume overload and congestive heart failure. Indeed his left ventricular ejection fraction is minimally reduced which it has been in the past Patient was started on 1st generation cephalosporin parenterally when when blood cultures became positive, and subsequently switched to an oral 1st generation cephalosporin upon discharge. Patient had no recurrent fevers an vital signs etcetera stabilize Source of patient's infection was not clearly identified but most likely culprit would be skin as he has ongoing skin issues open lesions at times etcetera Patient also developed some element of volume overload. This is likely secondary to the fluid resuscitation he received emergency department because of his hypotension. He was treated with a single dose of IV Lasix with significant improvement in his respiratory status. Is also given a dose of IV corticosteroids in effort to reverse any sort inflammatory process related to asthma but in the and after imaging and response to Lasix it was felt as though he had more pulmonary edema than flare of an obstructive lung disease or asthma Patient was much much improved by time of discharge stable for discharge home off oxygen. Only new medication will be antibiotics for his bacteremia Exam Vital Signs (past 8 hours): - 10/20/21 04:00 Temperature 98.3 F Pulse Rate 63 Respiratory Rate 18 Blood Pressure 128/75 Pulse Oximetry 94 Oxygen Delivery Method Nasal Cannula Oxygen Flow Rate 2 Objective Labs Result Diagrams: 10/19/21 06:08 10/20/21 06:02 Labs: Laboratory Results - last 24 hr 10/20/21 06:02 Sodium 139 Potassium 4.3 Chloride 106 Carbon Dioxide 26 BUN 21 H Creatinine 0.91 Estimated GFR > 60.0 BUN/Creatinine Ratio 23.1 H Glucose 141 H Calcium 8.8 Magnesium 2.1 NT-Pro-B Natriuret Pep 3400 H [facility] Medical History Cardiac pacemaker in situ (~09/2017) Diverticulosis of large intestine without perforation or abscess without bleeding 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) Gastroesophageal reflux disease without esophagitis (12/04/11) H/O acute myocardial infarction (~1984) Hemorrhoids (12/29/15) Kidney stone Mild intermittent asthma without complication (12/04/11) Paroxysmal atrial fibrillation Surgical History H/O vasectomy (~1984) Status post hernia repair Social History household members: spouse Smoking Status: Never smoker alcohol intake: current Discharge Assessment & Plan Assessment and Plan Plan of Treatment: Home on usual meds plus cephalexin Follow-up with PCP in clinic in approximately 10-14 days time Discharge Plan Discharge Plan Patient Disposition: Home Discharge orders & Medications Prescriptions: New cephalexin 500 mg capsule 500 mg PO QID Qty: 40 0RF Continued albuterol sulfate 90 mcg/actuation HFA aerosol inhaler 1 inh INHALATION Q4-6H PRN (Reason: shortness of breath) Qty: 18 11RF acetaminophen [Tylenol] 325 mg tablet 650 mg PO Q4-6H PRN (Reason: Allergic Reaction) 0RF omeprazole 40 mg capsule,delayed release(DR/EC) 40 mg PO .QOTHERDAY 0RF clindamycin phosphate 1 % lotion 1 applictn TOP DAILY 0RF clobetasol 0.05 % ointment 1 applictn TOP BID 0RF Xarelto 20 mg tablet 20 mg PO DAILY 0RF flecainide 50 mg tablet 50 mg PO BID 0RF triamcinolone acetonide 0.1 % cream 1 applictn TOP DAILY PRN (Reason: Rash) 0RF Rx Instructions: Uses on lower legs as needed for itching occurs. fluticasone propion-salmeterol 500-50 mcg/dose blister with device See Rx Instructions .ROUTE .COMPLEX 0RF Label Comments: inhale 1 puff by mouth and INTO THE LUNGS every 12 hours Rinse mouth after use Rx Instructions: inhale into lungs every 12 hours-rinse mouth after use Follow up/Referrals: Tino Lassiter MD [Primary Care Provider] - 2 Weeks Discharge Health Status Multidrug resistant organism: No MDRO Diet/Activity/Treatments Diet: Diet as Tolerated Discharge Data Primary Care Provider: Tino Lassiter
[2021-10-20] MEDS: FLECAINIDE 100 MG TABLET 50 MG PO (08:51)
[2021-10-20] MEDS: RIVAROXABAN 10 MG TABLET 20 MG PO (08:52)
--- NOTE | 2021-10-20 10:59 | PC.NURSE ---
Pt is A&Ox3 this a.m. VSS, afebrile, weaned to RA and tolerating well with mobility. He reports feeling much better and denies feeling SOB with activity, some labored breathing with activity but he reports he feels back to baseline. MD at bedside clearing patient for discharge on po antibiotics at home. Pt denies any pain, or palpitations, or dizziness. He verbalizes understanding of medications, follow up instructions. An appointment made for 2 week follow up. He is discharged with all of his belongings and inhaler with RN via w/ch to private vehicle with . He informed RN they will sheepskin pickler cephalexin at [employer] on their transport home.
--- NOTE | 2021-10-21 08:58 | CM.DPNOTE ---
DC Note Late Entry Spoke w/patient and spouse upon DC; patient still interested in counselor/psychiatrist provider list, [facility] in network. Placed call to [facility] customer service; after multiple call transfers, was able to provide patient the following via email: As we discussed today; below you?ll see a link that takes you to the [facility] approved provider directory for Psychiatrists. These professionals can provide both medication management (if you become interested in this option) and talk therapy. [email or web address]:10,%22radius%22:%2250%22,%[email or web address]%22:%22is_gh_provider%20desc,%20distance%20asc,%20random%[email or web address]?network_[email or web address] In addition, the [facility] rep I spoke with suggested you contact their [facility] for additional questions and/or to get assistance in calling providers to help you get scheduled P# [phone] JW
--- NOTE | 2021-10-21 09:02 | CM.DPNOTE ---
Patient's email: [email or web address]
== END 2021-10-20 10:15 | disposition home or self-care (01) | DRG 871 ==
LOC: ED 10-18 03:34 → AC 10-18 04:17
PROVIDERS: Admitting Provider Internal Medicine; Emergency Provider Emergency Medicine; Family Provider Internal Medicine; PCP Internal Medicine; Referring Provider Emergency Medicine; Visit Provider Internal Medicine
DX: R78.81 Bacteremia (principal); J81.0 Acute pulmonary edema; B95.1 Streptococcus, group B, as the cause of diseases classified elsewhere; I48.0 Paroxysmal atrial fibrillation; I25.5 Ischemic cardiomyopathy; I95.9 Hypotension, unspecified; L08.9 Local infection of the skin and subcutaneous tissue, unspecified; K21.9 Gastro-esophageal reflux disease without esophagitis; J45.909 Unspecified asthma, uncomplicated; Z20.822 Contact with and (suspected) exposure to COVID-19; Z79.01 Long term (current) use of anticoagulants; Z95.0 Presence of cardiac pacemaker
CPT/HCPCS: 36415; 71045; 71046; 80048; 80053; 81003; 81015; 82550; 82553; 83605; 83690; 83735; 83880; 84145; 84484; 85025; 85379; 87040; 87150; 87186; 87205; 87633; 87635; 93005; 93010; 93306; 94640; 96361; 96374; 99219; 99232; 99238; 99285; C9803; G0378; J0690; J1940; J2060; J2930; J7613

== ENCOUNTER → 2022-03-28 11:20 | Outpatient (CLI) | payer OTHER, SELFPAY ==
[2021-10-18 05:44] VITALS: BMI 32.0
[2022-03-28 11:59] LABS: Specimen Label KIT TEST
== END ==
PROVIDERS: Family Provider Internal Medicine; PCP Internal Medicine; Referring Provider Internal Medicine; Visit Provider Internal Medicine
DX: Z13.89 Encounter for screening for other disorder (principal)
CPT/HCPCS: 36415

== ENCOUNTER → 2022-05-18 13:57 | Outpatient (CLI) | payer OTHER, SELFPAY ==
[2021-10-18 05:44] VITALS: BMI 32.0
--- NOTE | 2022-05-18 14:00 | DI.RAD.S_ITS ---
PROCEDURE: XR SHOULDER LT MIN 2V INDICATIONS: assess jt space, anticipate Ortho input TECHNIQUE: 3 views of the shoulder were acquired. COMPARISON: [facility], CR, XR CHEST 2V, 10/19/2021, 12:18. FINDINGS: Bones: No fractures or dislocations. No suspicious bony lesions. Mild acromioclavicular and glenohumeral joint degeneration. Downsloping acromion with narrowing of the subacromial space. Visualized ribs appear intact. Soft tissues: No suspicious soft tissue calcifications. A cardiac pacemaker is noted. IMPRESSION: 1. Mild degenerative joint disease. 2. Downsloping acromion and narrowing of the subacromial space. If there is clinical symptoms for rotator cuff tendon impingement, MRI would be helpful. Dictated by: Jonathan Hogan M.D. on 05/18/2022 at 17:27 Approved by: Jonathan Hogan M.D. on 05/18/2022 at 17:30
== END ==
PROVIDERS: Family Provider Internal Medicine; PCP Internal Medicine; Referring Provider Pediatrics; Visit Provider Pediatrics
DX: M19.012 Primary osteoarthritis, left shoulder (principal); M25.512 Pain in left shoulder; G89.29 Other chronic pain; I25.5 Ischemic cardiomyopathy; M35.3 Polymyalgia rheumatica; Z95.0 Presence of cardiac pacemaker
CPT/HCPCS: 73030

== ENCOUNTER → 2022-05-31 11:02 | Outpatient (CLI) | payer OTHER, SELFPAY ==
[2021-10-18 05:44] VITALS: BMI 32.0
--- NOTE | 2022-05-31 | DI.CT.S_ITS ---
PROCEDURE: CT UE LT WO CON INDICATIONS: Pain in left shoulder TECHNIQUE: Noncontrast 1-1.5 mm thick sections acquired from the acromioclavicular joint to the inferior scapula, with coronal and sagittal reformatting. COMPARISON: None. FINDINGS: Image quality: Excellent. Bones: Moderate acromioclavicular joint osteoarthritic changes are seen with joint space narrowing, subchondral sclerosis and downward osteophyte formation depressing the musculotendinous junction of supraspinatus. Mild to moderate glenohumeral joint osteoarthritic changes also seen with joint space narrowing and subchondral sclerosis. Slight superior migration of humeral head in relation to glenoid is seen with decreased subacromial space. No fracture or dislocation is seen. No suspicious intraosseous lesion. Visualized left upper ribs are intact. Soft tissues: There is no full-thickness rotator cuff tendon rupture. No abnormal soft tissue calcifications. No significant glenohumeral joint effusion is seen, no intra-articular loose bodies. Mild supraspinatus muscle atrophy is seen on sagittal images. IMPRESSION: 1. Moderate acromioclavicular joint osteoarthritis and [id number] glenohumeral joint osteoarthritis. No fracture or dislocation. No suspicious intraosseous lesion. 2. No full-thickness rotator cuff tendon rupture. Mild supraspinatus muscle atrophy is noted on sagittal images. 3. Slight superior migration of humeral head in relation to glenoid with narrowing of the subacromial space concerning for shoulder impingement. Dictated by: Narayan Forde M.D. on 05/31/2022 at 16:24 Approved by: Narayan Forde M.D. on 05/31/2022 at 16:27
== END ==
PROVIDERS: Family Provider Internal Medicine; PCP Internal Medicine; Referring Provider Pediatrics; Visit Provider Pediatrics
DX: M25.512 Pain in left shoulder (principal); M19.012 Primary osteoarthritis, left shoulder
CPT/HCPCS: 73200

== ENCOUNTER → 2022-08-09 08:35 | Outpatient (CLI) | payer OTHER, SELFPAY ==
[2021-10-18 05:44] VITALS: BMI 32.0
--- NOTE | 2022-08-09 08:37 | DI.CT.S_ITS ---
PROCEDURE: CT SHOULDER LEFT WITH CON INDICATIONS: poss tear on xray TECHNIQUE: After the intra-articular administration of 12 mL of dilute non-ionic contrast, 1-1.5 mm thick sections acquired from the acromioclavicular joint to the inferior scapula, with coronal and sagittal reformatting. COMPARISON: None. FINDINGS: Image quality: Excellent. Bones: Moderate acromioclavicular joint osteoarthritic changes are seen with joint space narrowing, subchondral sclerosis and prominent downward osteophyte formation depressing the musculotendinous junction of supraspinatus. Mild to moderate glenohumeral joint osteoarthritic changes also seen with joint space narrowing and subchondral sclerosis. No fracture or dislocation. No suspicious bony lesion. No gross abnormality is seen in visualized left upper ribs. Soft tissues: There is suggestion of full-thickness rupture of distal supraspinatus at its insertion on the humeral head with up to 4 cm medial retraction of torn tendon fibers to the level of acromioclavicular joint. Moderate grade articular surface partial-thickness tear involving distal infraspinatus is also seen. Distal subscapularis tendon is intact. Sagittal images shows moderate supraspinatus muscle atrophy. No intra-articular loose bodies. No definite focal labral tear is seen. IMPRESSION: 1. Full-thickness rupture of distal supraspinatus at its insertion on the humeral head with up to 4 cm medial retraction of torn tendon fibers to the level of acromioclavicular joint. Low to moderate grade articular surface partial-thickness tear involving distal infraspinatus. Moderate supraspinatus muscle atrophy. 2. Moderate acromioclavicular joint osteoarthritis and [id number] glenohumeral joint osteoarthritis. No fracture or dislocation. 3. No intra-articular loose bodies. No abnormal soft tissue calcifications. Dictated by: Narayan Forde M.D. on 08/09/2022 at 11:51 Approved by: Narayan Forde M.D. on 08/09/2022 at 11:54
--- NOTE | 2022-08-09 08:45 | DI.RAD.S_ITS ---
PROCEDURE: FL SHOULDER INJECTION MR/CT LT INDICATIONS: LEFT ROTATOR CUFF TEAR COMPARISON: [facility] [place], CR, XR SHOULDER 2+ VIEWS LEFT, 06/26/2022, 10:29. TECHNIQUE: The indications, alternatives, benefits, risks, and complications of the procedure were explained to the patient. Written informed consent was obtained and placed in the chart. The shoulder was examined fluoroscopically and a site for needle placement chosen for entry into the glenohumeral joint from an anterior approach. The skin was prepped and draped in a sterile fashion, and 1% lidocaine infiltrated from skin down to joint capsule. A spinal needle was inserted into the glenohumeral joint, and a small amount of iodinated contrast media injected to confirm intra-articular placement of the needle tip. This was followed by approximately 12 mL of iodinated contrast. The needle was removed and a dressing was applied. The patient was given postprocedural instructions and sent to the CT suite for imaging. FINDINGS: A single fluoroscopic spot image demonstrates intra-articular location of injected iodinated contrast. IMPRESSION: Successful fluoroscopically guided administration of iodinated contrast solution into the shoulder joint for CT arthrogram. Dictated by: Jonatahn Hogan M.D. on 08/09/2022 at 10:03 Approved by: Jonathan Hogan M.D. on 08/09/2022 at 10:04
== END ==
PROVIDERS: Family Provider Internal Medicine; PCP Internal Medicine; Referring Provider Orthopaedic Surgery; Visit Provider Orthopaedic Surgery
DX: M75.122 Complete rotator cuff tear or rupture of left shoulder, not specified as traumatic (principal); M25.512 Pain in left shoulder; M19.012 Primary osteoarthritis, left shoulder
CPT/HCPCS: 23350; 73201

== ENCOUNTER → 2022-10-02 12:18 | Outpatient (CLI) | payer OTHER, SELFPAY ==
[2021-10-18 05:44] VITALS: BMI 32.0
[2022-10-02 13:13] LABS: COVID19 -Nasal RAPID Negative (Negative)
== END ==
PROVIDERS: Family Provider Internal Medicine; PCP Internal Medicine; Referring Provider Orthopaedic Surgery; Visit Provider Orthopaedic Surgery
DX: Z20.822 Contact with and (suspected) exposure to COVID-19 (principal)
CPT/HCPCS: 87635; C9803

== ENCOUNTER 2022-10-04 06:10 | Day surgery (SDC) | payer OTHER, SELFPAY ==
[2021-10-18 05:44] VITALS: BMI 32.0
[2022-10-01 07:48] VITALS: BMI 31.8
[2022-10-04] VITALS (7 sets, daily range): BP systolic 133–157; BP diastolic 86–101; PULSE 56–86; RESP 12–17; TEMP 36.2–36.4; O2SAT 92–98; BMI 31.8
--- NOTE | 2022-10-04 07:26 | P.HP_ITS ---
History of Present Illness History of Present Illness Date Patient Seen: 10/04/22 Time Patient Seen: 07:20 Chief complaint: Lt Shoulder Arthroscopic Subacromial Decompressio Narrative: 72-year-old gentleman with left shoulder pain and weakness as well as a diagnosi s left rotator tear. 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) Gastroesophageal reflux disease without esophagitis (12/04/11) H/O acute myocardial infarction (~1984) Hemorrhoids (12/29/15) Ischemic cardiomyopathy Kidney stone Mild intermittent asthma without complication (12/04/11) Paroxysmal atrial fibrillation Surgical History H/O vasectomy (~1984) History of surgery History of total right knee replacement (04/13/19) Status post hernia repair Family & Social History Social History: household members spouse Tobacco & Substance use: Smoking Status Never smoker alcohol intake current alcohol intake frequency holiday/special occasion Substance Use Type does not use Meds Home Medications and Allergies Home Medications Medication Instructions Recorded Confirmed Type rivaroxaban 20 mg tablet (Xarelto) 20 mg PO DAILY 10/23/19 10/04/22 History flecainide 50 mg tablet 50 mg PO BID 03/21/20 10/04/22 History omeprazole 40 mg capsule,delayed 40 mg PO .QOTHERDAY 01/16/21 10/04/22 History release fluticasone 500 mcg-salmeterol 50 See Rx Instructions .Route 10/19/21 10/01/22 History mcg/dose blistr powdr for .COMPLEX asthma inhalation dupilumab 300 mg/2 mL subcutaneous 300 mg SUBCUT Q2W 01/30/22 10/04/22 History pen injector (Dupixent) albuterol sulfate 90 mcg/actuation 1 inh inhalation Q4-6H PRN 04/02/22 10/04/22 Rx aerosol inhaler shortness of breath #18 grams prednisone 10 mg tablet 10 mg PO DAILY 09/25/22 10/04/22 History Allergies Allergy/AdvReac Type Severity Reaction Status Date / Time nifedipine [From Procardia] AdvReac Severe Hypotensive Verified 10/04/22 06:51 Exam Narrative Exam Narrative: Physical exam, patient is alert and oriented x3. No apparent distress. Patient has difficulty with range of motion of the left shoulder due to a combination of pain as well as weakness. No sign of any glenohumeral joint instability or crepitus. Pain and weakness in supraspinatus strength testing but normal strength in infraspinatus and subscapularis. Assessment & Plan Assessment & Plan narrative: Patient with a left rotator cuff tear that is been unresponsive to conservative treatment. Due to this fact, patient is interested in surgical treatment. This would involve an arthroscopic as well as possibly open rotator cuff repair. All of the patient's questions and concerns were answered to his full satisfaction. Patient fully understands the risk and limitations associated with the procedure. The risk, benefits, alternatives, possible complications, operative course, and postop outcomes were discussed. Complications including but not limiting to bleeding, infection, fracture, nerve injury, continued pain postoperatively or instability postoperatively were discussed in detail. Medical complications including but not limited to deep venous thrombosis event, anesthesia complications with excessive bleeding, vascular events or cardiac events and other possible complications were discussed in detail. Need for postoperative rehabilitation and anticipated hospital stay and clinical course were discussed in detail. Patient acknowledges understanding and elects to proceed with surgery. Time Spent With Patient Critical Care time: I spent a total of [] minutes of critical care time on this patient's care today; this time is exclusive of procedural time.
--- NOTE | 2022-10-04 07:29 | PM.PREOP ---
Pre-operative Note Interval Note History & Physical reviewed/Exam performed by Physician: Yes Changes to H&P: No
[2022-10-04] MEDS: LACTATED RINGERS 1,000 ML 42 ML IV ×2 (07:33→10:06)
[2022-10-04] MEDS: CEFAZOLIN 2 GM/100 ML PREMIX 100 ML IV (08:40)
--- NOTE | 2022-10-04 09:07 | SUR.OPER ---
Addendum entered by Franca Steinberg R.N. 10/04/22 09:08: Gel pad under heels. Original Note: Beach chair with Maquet shoulder positioner. Lower body on padded OR bed. Head in foam padded head cradle, secured with straps. Non-operative arm secured <90 degrees abduction. Pillow under knees. Safety belt at thigh. Cloth tape over blanket over lower legs.
[2022-10-04] MEDS: BUPIVACAINE 0.5% W/ EPI (PF) 30 ML VIAL INJ (09:20)
[2022-10-04] MEDS: SODIUM CHLORIDE IRRIG SOLUTION 3,000 ML, EPINEPHrine 1 MG IRR (10:01)
--- NOTE | 2022-10-04 10:35 | P.OP_ITS ---
Operative Date/Time/Diagnoses Date of procedure: 10/04/22 Time of procedure: 08:45 Pre-op diagnosis: Left rotator cuff tear Post-op diagnosis: same Procedure & Clinicians Procedure: Left arthroscopic rotator cuff repair with distal clavicle excision and subacromial decompression as well as extensive debridement CPT code 88344, 71368, 30115, 59078. Same procedure as scheduled: Yes Indications: Large rotator cuff tear Surgeon: Usama Samuel Associate Merchandiser: Anisa Esteban Anesthesia Type: General and Peripheral nerve block Operative Notes Findings: Very large tear involving the supraspinatus with retraction to the rim of the glenoid. Arthritic changes to the glenohumeral joint with degenerative changes throughout the labrum. Some partial tearing to the infraspinatus but no sign of any high-grade partial tears or full-thickness tears. Synovitis and bursitis in the subacromial and subdeltoid space. Signs of AC joint arthritis as well as impingement. Closure Type: primary Specimen(s): none sent Applied: implant(s) (Arthrex SpeedBridge) Estimated Blood Loss (mL): 10 Procedure in detail: On date of service, Patient was met in the holding area. The operative site was signed and witnessed by the OR staff. The surgeries once again discussed with the patient and any remaining questions they had were answered fully. Patient was taken back to the operating theater and placed on the operating table in a supine position. Great care was taken to ensure that all bony prominences were properly padded. Patient was then placed into the beach chair position. The head and neck were properly positioned and secured. A timeout was performed verifying patient's name, procedure, and the operative site. The upper extremity was then prepped and draped in the normal sterile fashion. Previously, the bony anatomy and portal sites were marked out as well as injected with Marcaine with epinephrine. An 11 blade was used to make an incision in the posterior aspect of the shoulder. The camera was placed, and a diagnostic shoulder scope was performed. Findings listed above. Next under direct visualization, a anterior portal was made. Shaver was brought in and extensive debridement of the degenerative changes to the labrum was performed. Shaver was also used to debride the arthritic changes to both the glenoid as well as the humeral head. Shaver was also used to debride the articular surface of the infraspinatus which had some partial tearing. Biceps was free of any significant tearing or synovitis. Next the camera was placed into the subacromial space. A lateral portal was obtained under direct visualization. A combination of the shaver and vapor wand, a debridement of the inflamed tissue as well as inflamed bursa was performed. Shaver was used to remove inflamed bursal tissue as well as signs of synovitis in the subacromial as well as subdeltoid space. The lateral gutter was also cleaned out. There was a significant amount of bursitis and synovitis in both the subacromial and subdeltoid space. After this was all cleaned out, This gave us good visualization of the bursal aspect of the rotator cuff as well as the acromial arch. There was an obvious impingement lesion in the acromial arch. Next we turned our attention to the subacromial decompression. Next, a mechanical rasp was then used to do a subacromial decompression. This allowed us to convert the acromion to a type I acromial. This also allowed us to shave d own the bony lesion in the acromial space. The rasp was placed into the lateral portal as well as the anterior portal in order to do a complete subacromial decompression. We next turned our attention to the distal clavicle. Using the shaver in the vapor wand we were able to clean out all the soft tissue around the distal clavicle as well as into the a.c. joint. This gave us good visualization of the arthritic changes to the distal clavicle as well as good of the a.c. joint allowing us to assess our distal clavicle excision. Of the inferior osteophytes coming off the distal clavicle. Using the mechanical rasp in the anterior portal, we were able to remove the inferior osteophytes as well as do a distal clavicle excision. The camera was then placed into the anterior portal which gave us a direct visualization of the a.c. joint allowing us to assess the distal clavicle excision. We then turned our attention to the rotator cuff tear. Patient had a very large tear involving the rotator cuff. The entire supraspinatus extending some into the infraspinatus was torn with retraction to the glenoid rim. The tear was relatively chronic and a combination of the shaver and liberator were used to remove any scarring allowing us to improve the overall excursion of the tendon tissue.. Using the bur, the rotator cuff footprint was decorticated down to bleeding bone. Next, 2 medial anchors were placed. One anteriorly 1 posteriorly. Each anchor had 2 strands of fiber tape for a speed bridge repair. The sutures from the posterior anchor were passed through the posterior asp ect of the rotator cuff tear. Then the sutures from the anterior anchor was passed through the anterior aspect of the supraspinatus. When pulling on the sutures we were able to reduce the tear back to its footprint. Next, a punch was used to make a hole in the bone for the 2 medial anchors. This was done also anteriorly and posteriorly. A single suture from the anterior medial anchor and a single suture from the posterior medial anchor were placed into the anterior lateral anchor allowing us to tenodesis the rotator cuff across the rotator cuff footprint for the supraspinatus. This was then repeated with the remaining suture both anteriorly and posteriorly. And these 2 sutures were placed into the posterior medial anchor and tenodesis posteriorly providing a crisscross pattern providing a secure repair of the rotator cuff tear. Before the row repair most of the humeral head was exposed. After the repair there was good coverage of the entire humeral head and a very secure rep air of the rotator cuff. Shoulder was taken through range of motion and there was no sign of any other tearing. No sign of any impingement lesions. Camera and cannulas were removed. Portal sites were closed. Patient's shoulder was cleaned, dried, and dressed. Patient was extubated and taken to the PACU in stable condition. Complications: none Post-operative Condition: stable Disposition: PACU Plan for aftercare: Patient will follow our postoperative protocol for rotator cuff repair.
[2022-10-04] MEDS: OXYCODONE IR 5 MG TABLET PO (11:10)
== END 2022-10-04 11:50 | disposition home or self-care (01) ==
PROVIDERS: Family Provider Internal Medicine; PCP Internal Medicine; Referring Provider Orthopaedic Surgery; Visit Provider Orthopaedic Surgery
PROC: (CPT 29827; principal; 2022-10-04 07:45)
DX: M75.102 Unspecified rotator cuff tear or rupture of left shoulder, not specified as traumatic (principal); M75.42 Impingement syndrome of left shoulder; M19.012 Primary osteoarthritis, left shoulder; Z95.0 Presence of cardiac pacemaker; J45.909 Unspecified asthma, uncomplicated; I48.0 Paroxysmal atrial fibrillation; M65.812 Other synovitis and tenosynovitis, left shoulder; M75.52 Bursitis of left shoulder
CPT/HCPCS: 29827; 29826; 29824; 29823; 64415; J0171; J0690; J1100; J2250; J2405; J2704; J3010

== ENCOUNTER → 2023-05-31 10:18 | Outpatient (CLI) | payer OTHER, SELFPAY ==
[2021-10-18 05:44] VITALS: BMI 32.0
[2023-05-31 11:29] LABS: Alanine Aminotransferase 26 IU/L (<50); Albumin 3.9 g/dL (3.5-5.0); Albumin Globulin Ratio 1.3 (1.0-2.8); Alkaline Phosphatase 87 U/L (38-126); Aspartate Aminotransferase 28 IU/L (17-59); BUN Creatinine Ratio 26.4 (6-22); Bilirubin Total 1.2 mg/dL (0.2-1.3); Blood Urea Nitrogen 28 mg/dL (9-20); Calcium 8.6 mg/dL (8.4-10.2); Carbon Dioxide 24 mmol/L (22-32); Chloride 104 mmol/L (98-107); Cholesterol 214 mg/dL (140-199); Estimated Glomerular Filt Rate > 60 mL/min (>60); Glucose 123 mg/dL (80-110); HDL Cholesterol 40 mg/dL (40-60); HEMOLYSIS < 15 (0-50); LDL Cholesterol Calculated 132 mg/dL (<100); Sodium 138 mmol/L (137-145); Total Protein 6.9 g/dL (6.3-8.2); Triglycerides 209 mg/dL (35-150)
== END ==
PROVIDERS: Family Provider Internal Medicine; PCP Internal Medicine; Referring Provider Internal Medicine; Visit Provider Internal Medicine
DX: I25.10 Atherosclerotic heart disease of native coronary artery without angina pectoris (principal); I25.5 Ischemic cardiomyopathy
CPT/HCPCS: 36415; 80053; 80061

== ENCOUNTER 2023-11-11 15:50 | Emergency (ER) | payer OTHER, SELFPAY ==
[2021-10-18 05:44] VITALS: BMI 32.0
--- NOTE | 2023-11-11 16:35 | DI.US.S_ITS ---
PROCEDURE: US PERIP VENOUS LOW EXTREM RT INDICATIONS: PAIN TECHNIQUE: Real-time imaging, as well as color and pulse Doppler interrogation, were performed of the lower extremity deep veins from the inguinal ligament to the popliteal fossa, with documentation of the visualized calf veins. COMPARISON: [facility], , [facility] VENOUS LOW EXTREM RT, 04/18/2019, 15:19. FINDINGS: The common femoral, femoral, popliteal, and the visualized calf veins are normally compressible, and free of intraluminal thrombus. Color and pulse Doppler demonstrate normal phasic intraluminal flow. There is normal augmentation response to distal compression maneuver. IMPRESSION: No evidence of DVT in visualized right lower extremity veins. Dictated by: Narayan Forde M.D. on 11/11/2023 at 17:06 Approved by: Narayan Forde M.D. on 11/11/2023 at 17:06
[2023-11-11 16:36] VITALS: BP 152/76; PULSE 65; RESP 17; TEMP 36.6; O2SAT 95; BMI 31.8
--- NOTE | 2023-11-11 17:24 | ED.EXTPRO ---
HPI - Extremity Problem <Renae Sloan PA-C - Last Filed: 11/12/23 12:19> General Chief complaint: Extremity Problem,Nontraumatic Stated complaint: rule out DVT-was told to come by his doctor Time Seen by Provider: 11/11/23 16:55 History of Present Illness HPI Narrative: 73-year-old male with past medical history polymyalgia rheumatica, hyperlipidemia, CAD, asthma, AFib, GERD presents to the ED with right-sided knee pain. Patient recently had a right knee revision surgery on 10/31/2023. Patient's pain was poorly controlled initially, switched to hydrocodone with acetaminophen 2 days ago which was giving him sufficient relief. However, patient states that his pain flared up again today which caused him to come into the ED. Patient's orthopedic surgeon dislocated in [place] and patient has been able to contact him today. Patient's surgeon will see him tomorrow in the [place] office to potentially tap the knee for infectious sources. Patient's surgeon in the meanwhile wanted patient to get a DVT study of the right leg, which is why the patient is here in the ED today. In triage, nursing noted possible yellowing of the skin and eyes and patient noted dark urine. However, patient and patient's deny that there have been any changes in skin or eye color. Patient states that his urine has been dark, however denies dysuria, urinary frequency, urinary urgency. Patient also denies fever, chills, chest pain, shortness of breath. Related Data Home Medications Medication Instructions Recorded Confirmed rivaroxaban 20 mg tablet (Xarelto) 20 mg PO DAILY 10/23/19 08/12/23 flecainide 50 mg tablet 50 mg PO BID 03/21/20 08/12/23 omeprazole 40 mg capsule,delayed 40 mg PO .QOTHERDAY 01/16/21 08/12/23 release fluticasone 500 mcg-salmeterol 50 See Rx Instructions .Route 10/19/21 08/12/23 mcg/dose blistr powdr for .COMPLEX asthma inhalation dupilumab 300 mg/2 mL subcutaneous 300 mg SUBCUT Q2W 01/30/22 08/12/23 pen injector ([employer]) Previous Rx's Medication Instructions Recorded albuterol sulfate 90 mcg/actuation 1 inh inhalation Q4-6H PRN 04/02/22 aerosol inhaler shortness of breath #18 grams atorvastatin 20 mg tablet 20 mg PO DAILY #90 tabs 06/07/23 prednisone 10 mg tablet 5 - 10 mg (0.5 - 1 x 10 mg) PO 08/12/23 DAILY #90 tabs tramadol 50 mg tablet 50 mg PO TID PRN pain #90 tabs 08/12/23 Allergies Allergy/AdvReac Type Severity Reaction Status Date / Time nifedipine [From Procardia] AdvReac Severe Hypotensive Verified 11/11/23 16:40 Review of Systems <Renae Sloan PA-C - Last Filed: 11/12/23 12:19> Constitutional Constitutional: Denies chills, Denies fatigue, Denies fever(s), Denies frequent falls, Denies lethargy and Denies weakness Eyes Eyes: Denies change in vision, Denies eye discharge, Denies irritation and Denies loss of vision ENT Ears, Nose, Mouth, and Throat: Denies change in voice, Denies dizziness, Denies neck pain, Denies sore throat and Denies throat swelling Cardiovascular Cardiovascular: Denies chest pain, Denies irregular heart rhythm, Denies lightheadedness, Denies palpitations, Denies dyspnea, Denies dyspnea on exertion and Denies orthopnea Respiratory Respiratory: Denies cough, Denies dyspnea, Denies dyspnea on exertion and Denies wheezing Gastrointestinal Gastrointestinal: Denies abdominal pain, Denies change in bowel habits, Denies diarrhea, Denies nausea and Denies vomiting Musculoskeletal Musculoskeletal: Denies neck pain and Denies numbness Comments: Right knee pain and swelling Integumentary/Breasts Skin/Breast: Denies pruritus, Denies erythema, Denies rash and Denies wounds Neurologic Neurologic: Denies behavioral changes, Denies confusion, Denies dizziness, Denies frequent falls, Denies loss of vision, Denies numbness and Denies weakness Psychiatric Psychiatric: Denies anxiety, Denies behavioral changes, Denies confusion, Denies depression, Denies homicidal ideation and Denies suicidal ideation Endocrine Endocrine: Denies fatigue, Denies flushing and Denies palpitations Hematologic/Lymphatic Hematologic/Lymphatic: Denies easy bruising Allergic/Immunologic Allergic/Immunologic: Denies urticaria, Denies throat swelling and Denies wheezing Patient History <Renae Sloan PA-C - Last Filed: 11/12/23 12:19> Medical History (Updated 11/11/23 @ 18:24 by Renae Sloan PA-C) Polymyalgia rheumatica Mixed hyperlipidemia Coronary artery disease Colon polyp, hyperplastic Ischemic cardiomyopathy Kidney stone H/O acute myocardial infarction (~1984) Paroxysmal atrial fibrillation Cardiac pacemaker in situ (~09/2017) Hemorrhoids (12/29/15) 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) Diverticulosis of large intestine without perforation or abscess without bleeding Gastroesophageal reflux disease without esophagitis (12/04/11) Mild intermittent asthma without complication (12/04/11) Surgical History History of surgery History of total right knee replacement (04/13/19) H/O vasectomy (~1984) Status post hernia repair Social History household members: spouse Smoking Status: Never smoker alcohol intake: current Smoking Status: Never smoker alcohol intake frequency: holidays/special occasions only Substance Use Type: does not use Exam <Renae Sloan PA-C - Last Filed: 11/12/23 12:19> Narrative Exam Narrative: Const General:?cooperative, healthy appearing and comfortable [facility] Head:?normal to inspection Ears:?hearing grossly normal bilaterally Nose:?external nose normal Face and sinus:?normal facial exam and sinuses nontender Mouth:?oral mucosae normal Throat:?posterior oropharynx normal Eyes General:?appearance normal, both eyes and all related structures Neck Neck:?normal visual inspection and no lymphadenopathy noted Resp Effort & Inspection:?normal respiratory effort Auscultation:?clear to auscultation bilaterally Cardio Rate:?regular rate Rhythm:?regular rhythm Musculoskeletal Surgical incision covered with tape on the front of the right knee. There is some surrounding erythema, knee feels warm to touch. No discharge noted on exam. Range of motion is limited with pain. No new numbness, tingling, weakness. Patient appears neurovascularly intact. Neuro General:?patient alert, patient awake and patient oriented x3 Initial Vital Signs Initial Vital Signs: Vital Signs Temperature 98 F 11/11/23 16:36 Pulse Rate 65 11/11/23 16:36 Respiratory Rate 17 11/11/23 16:36 Blood Pressure 152/76 H 11/11/23 16:36 Pulse Oximetry 95 11/11/23 16:36 Oxygen Delivery Method Room Air 11/11/23 16:36 <Shirley Lomeli DO - Last Filed: 11/12/23 14:53> Initial Vital Signs Initial Vital Signs: Vital Signs Temperature 98 F 11/11/23 16:36 Pulse Rate 65 11/11/23 16:36 Respiratory Rate 17 11/11/23 16:36 Blood Pressure 152/76 H 11/11/23 16:36 Pulse Oximetry 95 11/11/23 16:36 Oxygen Delivery Method Room Air 11/11/23 16:36 Course <Renae Sloan PA-C - Last Filed: 11/12/23 12:19> Orders Ordered: Discontinued Medications Hydrocodone Bitart/Acetaminophen (Hydrocodone/Acet 10/325 Tablet) 1 tab PO NOW ONE Stop: 11/11/23 18:21 Last Admin: 11/11/23 18:27 Dose: 1 tab Documented By: TOOTIE Vital Signs Vital signs: Vital Signs - 8 hr 11/11/23 16:36 Temperature 98 F Pulse Rate 65 Respiratory Rate 17 Blood Pressure 152/76 H Pulse Oximetry 95 Oxygen Delivery Method Room Air <Shirley Lomeli DO - Last Filed: 11/12/23 14:53> Orders Ordered: Discontinued Medications Hydrocodone Bitart/Acetaminophen (Hydrocodone/Acet 10/325 Tablet) 1 tab PO NOW ONE Stop: 11/11/23 18:21 Last Admin: 11/11/23 18:27 Dose: 1 tab Documented By: TOOTIE Vital Signs Vital signs: Vital Signs - 8 hr 11/11/23 16:36 Temperature 98 F Pulse Rate 65 Respiratory Rate 17 Blood Pressure 152/76 H Pulse Oximetry 95 Oxygen Delivery Method Room Air MDM - Extremity (Nontraumatic) <Renae Sloan PA-C - Last Filed: 11/12/23 12:19> Lab Data 11/11/23 17:15 11/11/23 17:15 Labs: Lab Results 11/11/23 Range/Units 17:15 WBC 6.0 (4.5-11.0) X10^3/uL RBC 4.52 (4.5-5.9) X10^6/uL Hgb 14.1 (13.5-17.5) g/dL Hct 41.0 (41-53) % MCV 90.8 (80-100) fL MCH 31.2 (26-34) PG MCHC 34.4 (30-36) % RDW 13.5 (11.6-14.8) % Plt Count 219 (150-400) X10^3/uL Neut % (Auto) 68.3 (50-75) % Lymph % (Auto) 15.0 L (25-40) % Roberts % (Auto) 11.1 (3-14) % Eos % (Auto) 4.8 H (2-4) % Baso % (Auto) 0.8 (0-2) % Neut # (Auto) 4100 (8632-8147) /uL Lymph # (Auto) 900 L (4810-1705) /uL Roberts # (Auto) 700 (0-900) /uL Eos # (Auto) 300 (0-450) /uL Baso # (Auto) 100 (0-100) /uL Sodium 136 L (137-145) mmol/L Potassium 4.1 (3.4-5.1) mmol/L Chloride 102 (98-107) mmol/L Carbon Dioxide 27 (22-32) mmol/L BUN 25 H (9-20) mg/dL Creatinine 0.80 (0.66-1.25) mg/dL Estimated GFR > 60 (>60) mL/min BUN/Creatinine Ratio 31.3 H (6-22) Glucose 99 (80-110) mg/dL Calcium 9.1 (8.4-10.2) mg/dL Total Bilirubin 1.3 (0.2-1.3) mg/dL AST 29 (17-59) IU/L ALT 25 (<50) IU/L Alkaline Phosphatase 180 H (38-126) U/L Total Protein 6.7 (6.3-8.2) g/dL Albumin 3.5 (3.5-5.0) g/dL Globulin 3.2 (1.7-4.1) g/dL Albumin/Globulin Ratio 1.1 (1.0-2.8) MDM Narrative Medical decision making narrative: 73-year-old male with past medical history polymyalgia rheumatica, hyperlipidemia, CAD, asthma, AFib, GERD presents to the ED with right-sided knee pain. Ultrasound of the right leg was obtained with no acute findings. The knee does appear somewhat swollen and warm to touch. Labs were obtained, all within normal limits. AST 29, ALT 25 within normal limits. WBC 6.2 also within normal limits. It is reassuring that patient does not have any DVTs today, labs within normal limits. Patient was given a dose of the hydrocodone with acetaminophen in the ED. it is reassuring that patient has a appointment with his surgeon tomorrow for close follow-up. ED return precautions were discussed with patient. Patient verbalized understanding. Medical records reviewed: Yes <Shirley Lomeli DO - Last Filed: 11/12/23 14:53> Lab Data Labs: Lab Results 11/11/23 Range/Units 17:15 WBC 6.0 (4.5-11.0) X10^3/uL RBC 4.52 (4.5-5.9) X10^6/uL Hgb 14.1 (13.5-17.5) g/dL Hct 41.0 (41-53) % MCV 90.8 (80-100) fL MCH 31.2 (26-34) PG MCHC 34.4 (30-36) % RDW 13.5 (11.6-14.8) % Plt Count 219 (150-400) X10^3/uL Neut % (Auto) 68.3 (50-75) % Lymph % (Auto) 15.0 L (25-40) % Roberts % (Auto) 11.1 (3-14) % Eos % (Auto) 4.8 H (2-4) % Baso % (Auto) 0.8 (0-2) % Neut # (Auto) 4100 (7174-7180) /uL Lymph # (Auto) 900 L (0590-7136) /uL Roberts # (Auto) 700 (0-900) /uL Eos # (Auto) 300 (0-450) /uL Baso # (Auto) 100 (0-100) /uL Sodium 136 L (137-145) mmol/L Potassium 4.1 (3.4-5.1) mmol/L Chloride 102 (98-107) mmol/L Carbon Dioxide 27 (22-32) mmol/L BUN 25 H (9-20) mg/dL Creatinine 0.80 (0.66-1.25) mg/dL Estimated GFR > 60 (>60) mL/min BUN/Creatinine Ratio 31.3 H (6-22) Glucose 99 (80-110) mg/dL Calcium 9.1 (8.4-10.2) mg/dL Total Bilirubin 1.3 (0.2-1.3) mg/dL AST 29 (17-59) IU/L ALT 25 (<50) IU/L Alkaline Phosphatase 180 H (38-126) U/L Total Protein 6.7 (6.3-8.2) g/dL Albumin 3.5 (3.5-5.0) g/dL Globulin 3.2 (1.7-4.1) g/dL Albumin/Globulin Ratio 1.1 (1.0-2.8) Discharge Plan Departure Patient Disposition: Home Clinical Impression: Knee pain Qualifiers: Chronicity: acute Laterality: right Qualified Code(s): M25.561 - Pain in right knee Instructions: DI for Knee Pain Activity Restrictions/Additional Instructions: You were evaluated in the ED today for right-sided knee pain. The ultrasound of the knee did not show any blood clots or DVTs. Your labs were normal with no signs of infection. Please follow-up with your ortho specialist as scheduled tomorrow. You may continue to take the hydrocodone for pain relief as needed. Return to the ED if you have worsening symptoms, numbness, tingling, weakness. Prescriptions: No Action albuterol sulfate 90 mcg/actuation HFA aerosol inhaler 1 inh INHALATION Q4-6H PRN (Reason: shortness of breath) Qty: 18 11RF prednisone 10 mg tablet 5 - 10 mg PO DAILY Qty: 90 1RF omeprazole 40 mg capsule,delayed release(DR/EC) 40 mg PO .QOTHERDAY Xarelto 20 mg tablet 20 mg PO DAILY flecainide 50 mg tablet 50 mg PO BID Dupixent Pen 300 mg/2 mL pen injector 300 mg SUBCUT Q2W atorvastatin 20 mg tablet 20 mg PO DAILY Qty: 90 3RF tramadol 50 mg tablet 50 mg PO TID PRN (Reason: pain) Qty: 90 0RF fluticasone propion-salmeterol 500-50 mcg/dose blister with device See Rx Instructions .ROUTE .COMPLEX Patient Comments: inhale 1 puff by mouth and INTO THE LUNGS every 12 hours Rinse mouth after use Rx Instructions: inhale into lungs every 12 hours-rinse mouth after use Referrals: Tino Lassiter MD [Primary Care Provider] - Stand Alone Forms: Patient Portal/API ED Sign-out <Shirley Lomeli DO - Last Filed: 11/12/23 14:53> Cosign ED Attending Cosholdenature Attestation: I was immediately available in the department for consultation.
[2023-11-11 17:39] LABS: Add Manual Diff / Slide Review NO; Basophils Absolute Auto 100 /uL (0-100); Basophils Percent Auto 0.8 % (0-2); Eosinophils Absolute Auto 300 /uL (0-450); Eosinophils Percent Auto 4.8 % (2-4); Hemoglobin 14.1 g/dL (13.5-17.5); Lymphocytes Absolute Auto 900 /uL (1100-4500); Mean Corpuscular HGB Conc 34.4 % (30-36); Mean Corpuscular Hemoglobin 31.2 PG (26-34); Mean Corpuscular Volume 90.8 fL (80-100); Monocytes Absolute Auto 700 /uL (0-900); Monocytes Percent Auto 11.1 % (3-14); Neutrophils Absolute Auto 4100 /uL (1500-7000); Neutrophils Percent Auto 68.3 % (50-75); Platelet Count 219 X10^3/uL (150-400); Red Blood Cell Count 4.52 X10^6/uL (4.5-5.9); Red Cell Distribution Width 13.5 % (11.6-14.8)
[2023-11-11 17:51] LABS: Alanine Aminotransferase 25 IU/L (<50); Albumin 3.5 g/dL (3.5-5.0); Albumin Globulin Ratio 1.1 (1.0-2.8); Alkaline Phosphatase 180 U/L (38-126); Aspartate Aminotransferase 29 IU/L (17-59); BUN Creatinine Ratio 31.3 (6-22); Bilirubin Total 1.3 mg/dL (0.2-1.3); Blood Urea Nitrogen 25 mg/dL (9-20); Calcium 9.1 mg/dL (8.4-10.2); Carbon Dioxide 27 mmol/L (22-32); Chloride 102 mmol/L (98-107); Estimated Glomerular Filt Rate > 60 mL/min (>60); Globulin 3.2 g/dL (1.7-4.1); Glucose 99 mg/dL (80-110); HEMOLYSIS < 15 (0-50); Potassium 4.1 mmol/L (3.4-5.1); Sodium 136 mmol/L (137-145); Total Protein 6.7 g/dL (6.3-8.2)
[2023-11-11] MEDS: HYDROCODONE/ACET 10/325 TABLET 1 TAB PO (18:27)
[2023-11-11 18:30] VITALS: BP 157/72; PULSE 60; RESP 18; O2SAT 99
== END 2023-11-11 18:30 | disposition home or self-care (01) ==
PROVIDERS: Emergency Medicine; Emergency Provider Student in an Organized Health Care Education/Training Program; Family Provider Internal Medicine; PCP Internal Medicine
DX: M25.561 Pain in right knee (principal)
CPT/HCPCS: 36415; 80053; 85025; 93971; 99283; 99284

== ENCOUNTER 2024-02-07 19:51 | Observation (INO) | payer OTHER, SELFPAY ==
[2021-10-18 05:44] VITALS: BMI 32.0
[2024-02-07] VITALS (12 sets, daily range): BP systolic 120–152; BP diastolic 59–87; PULSE 60–87; RESP 13–19; TEMP 36.6–36.8; O2SAT 95–97; BMI 31.0; BMI 33.5
--- NOTE | 2024-02-07 20:50 | ED.DIZZY ---
HPI - Dizziness General Chief Complaint: Dizziness Stated Complaint: esophagus spasm, dizziness, weakness Time Seen by Provider: 02/07/24 20:14 Source: patient Mode of arrival: Ambulatory History of Present Illness HPI Narrative: 73-year-old female with history of esophageal stricture presents by private vehicle for esophageal spasm. Patient states that at noon today he was eating a cheese anterolateral with a friend when he felt it get stuck. He states that occasionally he will get food stuck in his throat, but he is usually able to drink a glass of cold water and that resolves the issue. He has tried multiple glasses of water but is unable to keep anything down. He was not even able to swallow his saliva without regurgitating it. Related Data Home Medications Medication Instructions Recorded Confirmed rivaroxaban 20 mg tablet (Xarelto) 10 mg PO DAILY 10/23/19 02/08/24 flecainide 50 mg tablet 50 mg PO BID 03/21/20 02/07/24 omeprazole 40 mg capsule,delayed 40 mg PO .QOTHERDAY 01/16/21 02/08/24 release fluticasone 500 mcg-salmeterol 50 See Rx Instructions .Route 10/19/21 02/08/24 mcg/dose blistr powdr for .COMPLEX PRN asthma inhalation montelukast 10 mg tablet 10 mg PO ONCE PM 02/07/24 02/07/24 albuterol sulfate 90 mcg/actuation 2 puff inhalation QID PRN asthma 02/08/24 02/08/24 aerosol inhaler (Ventolin HFA) Previous Rx's Medication Instructions Recorded albuterol sulfate 90 mcg/actuation 1 inh inhalation Q4-6H PRN 04/02/22 aerosol inhaler shortness of breath #18 grams atorvastatin 20 mg tablet 20 mg PO DAILY #90 tabs 06/07/23 furosemide 20 mg tablet 20 mg PO DAILY #90 tabs 12/10/23 potassium chloride 10 mEq 10 meq PO DAILY #90 tabs 12/10/23 tablet,extended release tramadol 50 mg tablet 50 mg PO TID PRN pain #90 tabs 12/10/23 Allergies Allergy/AdvReac Type Severity Reaction Status Date / Time nifedipine [From Procardia] AdvReac Severe Hypotensive Verified 12/10/23 13:33 Review of Systems Review of Systems Narrative: Otherwise negative Patient History Medical History Polymyalgia rheumatica Mixed hyperlipidemia Coronary artery disease Colon polyp, hyperplastic Ischemic cardiomyopathy Kidney stone H/O acute myocardial infarction (~1984) Paroxysmal atrial fibrillation Cardiac pacemaker in situ (~09/2017) Hemorrhoids (12/29/15) 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) Diverticulosis of large intestine without perforation or abscess without bleeding Gastroesophageal reflux disease without esophagitis (12/04/11) Mild intermittent asthma without complication (12/04/11) Surgical History History of surgery History of total right knee replacement (04/13/19) H/O vasectomy (~1984) Status post hernia repair Social History household members: spouse Smoking Status: Never smoker alcohol intake: current Smoking Status: Never smoker alcohol intake frequency: holidays/special occasions only Substance Use Type: does not use Exam Initial Vital Signs Initial Vital Signs: Vital Signs Temperature 98.2 F 02/07/24 19:56 Pulse Rate 77 02/07/24 19:56 Respiratory Rate 18 02/07/24 19:56 Blood Pressure 122/71 02/07/24 19:56 Pulse Oximetry 96 02/07/24 19:56 Oxygen Delivery Method Room Air 02/07/24 19:56 Const: Awake, alert, no acute distress, nontoxic appearing Cardiac: regular rate, regular rhythm RESP: unlabored, clear bilaterally, no wheezing GI: Atraumatic, soft, nontender, nondistended, no rebound, no guarding MSK: Atraumatic, full range of motion, pulses equal Skin: Warm, Dry, intact, no rashes Neuro: AO x3, CN II-XII grossly intact, moves all extremities Course Orders Ordered: ED Orders 02/07/24 20:30 CBC Auto Diff [Complete Blood Count AUTO DIFF] Stat CMP [Comprehensive Metabolic Panel] Stat 02/07/24 21:38 Chest [XR chest 1V] Stat 02/07/24 22:04 Consult to General Surgery Stat Albuterol (Albuterol Hfa Mdi 60 Puff/8 Gm Inhaler) 1 puff INH RTQ4HR PRN PRN Reason: Shortness Of Breath Albuterol (Albuterol 2.5 Mg/3 Ml Neb (Adult)) 2.5 mg INH Q4HRWA [facility] Budesonide (Budesonide 0.5 Mg/2 Ml Neb) 0.5 mg INH RTBID [facility] Lactated Ringer's (Lactated Ringers) 1,000 mls @ 75 mls/hr IV CONT [facility] Last Admin: 02/07/24 23:50 Dose: 75 mls/hr Documented By: SH Morphine Sulfate (Morphine 4 Mg/Ml Inj) 3 mg IV Q2HR [facility] Last Admin: 02/08/24 03:49 Dose: Not Given Documented By: Admin: 02/08/24 01:32 Dose: Not Given Documented By: Admin: 02/08/24 00:26 Dose: 3 mg Documented By: SH Naloxone HCl (Naloxone 0.4 Mg/Ml Vial) 0.2 mg IV Q2MIN PRN PRN Reason: Opiate Reversal Non-Formulary Medication (Dupilumab [Dupixent Pen]) 300 mg SUBCUT Q2W [facility] Last Admin: 02/08/24 01:26 Dose: Not Given Documented By: JONA Pantoprazole Sodium (Pantoprazole 40 Mg Vial) 20 mg IV DAILY [facility] Promethazine HCl (Promethazine 12.5 Mg Supp) 12.5 mg MI Q6HR PRN PRN Reason: Nausea And Vomiting Discontinued Medications Glucagon (Glucagon,Human Recombinant 1 Mg/Ml Vial) 2 mg IV NOW ONE Stop: 02/07/24 21:05 Last Admin: 02/07/24 21:26 Dose: 2 mg Documented By: ELIZABETH Nitroglycerin (Nitroglycerin 0.4 Mg Sl Tab) 0.4 mg SL [id number] PRN PRN Reason: Chest Pain Last Admin: 02/07/24 21:00 Dose: 0.4 mg Documented By: Admin: 02/07/24 20:55 Dose: 0.4 mg Documented By: JOSE E Non-Formulary Medication (Fluticasone Propion-Salmeterol) 0 inhalation .ROUTE .COMPLEX [facility] Vital Signs Vital signs: Vital Signs - 8 hr 02/07/24 20:30 02/07/24 20:33 02/07/24 20:33 Pulse Rate 81 77 Respiratory Rate 13 18 Blood Pressure 143/87 H Pulse Oximetry 96 96 02/07/24 20:54 02/07/24 20:54 02/07/24 20:58 Pulse Rate 74 80 Respiratory Rate 16 19 Blood Pressure 152/79 H Pulse Oximetry 97 96 02/07/24 20:58 02/07/24 21:00 02/07/24 21:00 Pulse Rate 82 Respiratory Rate 18 Blood Pressure 141/86 H 140/80 Pulse Oximetry 95 02/07/24 21:30 02/07/24 21:30 02/07/24 22:00 Pulse Rate 87 Respiratory Rate 16 Blood Pressure 120/73 120/66 Pulse Oximetry 95 02/07/24 22:00 02/07/24 22:30 02/07/24 22:30 Pulse Rate 78 73 Respiratory Rate 16 18 Blood Pressure 123/59 L Pulse Oximetry 96 96 MDM - Dizziness Lab Data 02/08/24 03:13 02/08/24 03:13 Labs: Lab Results 02/07/24 Range/Units 20:30 WBC 7.9 (4.5-11.0) X10^3/uL RBC 5.21 (4.5-5.9) X10^6/uL Hgb 16.5 (13.5-17.5) g/dL Hct 48.6 (41-53) % MCV 93.3 (80-100) fL MCH 31.7 (26-34) PG MCHC 34.0 (30-36) % RDW 14.5 (11.6-14.8) % Plt Count 163 (150-400) X10^3/uL Neut % (Auto) 76.1 H (50-75) % Lymph % (Auto) 12.7 L (25-40) % Divide % (Auto) 8.2 (3-14) % Eos % (Auto) 2.4 (2-4) % Baso % (Auto) 0.6 (0-2) % Neut # (Auto) 6000 (9225-6271) /uL Lymph # (Auto) 1000 L (6628-0191) /uL Divide # (Auto) 600 (0-900) /uL Eos # (Auto) 200 (0-450) /uL Baso # (Auto) 0 (0-100) /uL Sodium 140 (137-145) mmol/L Potassium 4.0 (3.4-5.1) mmol/L Chloride 108 H (98-107) mmol/L Carbon Dioxide 27 (22-32) mmol/L BUN 20 (9-20) mg/dL Creatinine 0.91 (0.66-1.25) mg/dL Estimated GFR > 60 (>60) mL/min BUN/Creatinine Ratio 22.0 (6-22) Glucose 105 (80-110) mg/dL Calcium 9.3 (8.4-10.2) mg/dL Total Bilirubin 1.3 (0.2-1.3) mg/dL AST 28 (17-59) IU/L ALT 30 (<50) IU/L Alkaline Phosphatase 116 (38-126) U/L Total Protein 7.5 (6.3-8.2) g/dL Albumin 4.2 (3.5-5.0) g/dL Globulin 3.3 (1.7-4.1) g/dL Albumin/Globulin Ratio 1.3 (1.0-2.8) MDM Narrative Medical decision making narrative: Nontoxic patient presenting for esophageal stricture versus food bolus. Patient unable to tolerate saliva. Attempted to give fussy soft drinks, glucagon, nitroglycerin to help pharmacologically alleviate the obstruction, however these measures were unsuccessful. Spoke with Dr. Freitas of General surgery, who requested admission to Medicine Service and oncoming surgeon can scope the patient in the morning. Discharge Plan Departure Patient Disposition: Admitted as Observation Clinical Impression: Food bolus obstruction of intestine Admit Date/Time: 02/07/24 22:39 Admit Provider: French Mao
[2024-02-07] MEDS: NITROGLYCERIN 0.4 MG SL TAB SL ×2 (20:55→21:00)
[2024-02-07] MEDS: GLUCAGON,HUMAN RECOMBINANT 1 MG/ML VIAL 2 MG IV (21:26)
--- NOTE | 2024-02-07 21:38 | DI.RAD.S_ITS ---
PROCEDURE: XR CHEST 1V INDICATIONS: FOOD BOLUS TECHNIQUE: One view of the chest was acquired. COMPARISON: [facility], , XR CHEST 2V, 10/19/2021, 12:18. FINDINGS: Surgical changes and devices: Left chest wall pacemaker leads are in the region of right atrium and right ventricle. Postsurgical changes are seen in left shoulder joint. Lungs and pleura: Blunting of left costophrenic angle is seen suggestive of trace left pleural effusion. No definite focal infiltrate. No pneumothorax.. Mediastinum: Mediastinal contours appear normal. Heart size is enlarged. Bones and chest wall: No suspicious bony lesions. Overlying soft tissues appear unremarkable. IMPRESSION: Trace left pleural effusion and cardiomegaly. No definite focal infiltrate. No gross pneumothorax. Dictated by: Narayan Forde M.D. on 02/07/2024 at 22:05 Approved by: Narayan Forde M.D. on 02/07/2024 at 22:06
[2024-02-07 22:19] LABS: Add Manual Diff / Slide Review NO; Basophils Absolute Auto 0 /uL (0-100); Basophils Percent Auto 0.6 % (0-2); Eosinophils Absolute Auto 200 /uL (0-450); Eosinophils Percent Auto 2.4 % (2-4); Hematocrit 48.6 % (41-53); Hemoglobin 16.5 g/dL (13.5-17.5); Lymphocytes Absolute Auto 1000 /uL (1100-4500); Lymphocytes Percent Auto 12.7 % (25-40); Mean Corpuscular Hemoglobin 31.7 PG (26-34); Mean Corpuscular Volume 93.3 fL (80-100); Monocytes Absolute Auto 600 /uL (0-900); Monocytes Percent Auto 8.2 % (3-14); Neutrophils Absolute Auto 6000 /uL (1500-7000); Neutrophils Percent Auto 76.1 % (50-75); Platelet Count 163 X10^3/uL (150-400); Red Blood Cell Count 5.21 X10^6/uL (4.5-5.9); Red Cell Distribution Width 14.5 % (11.6-14.8); White Blood Cell Count 7.9 X10^3/uL (4.5-11.0)
[2024-02-07 22:23] LABS: Alanine Aminotransferase 30 IU/L (<50); Albumin 4.2 g/dL (3.5-5.0); Albumin Globulin Ratio 1.3 (1.0-2.8); Alkaline Phosphatase 116 U/L (38-126); Aspartate Aminotransferase 28 IU/L (17-59); Bilirubin Total 1.3 mg/dL (0.2-1.3); Blood Urea Nitrogen 20 mg/dL (9-20); Calcium 9.3 mg/dL (8.4-10.2); Carbon Dioxide 27 mmol/L (22-32); Chloride 108 mmol/L (98-107); Estimated Glomerular Filt Rate > 60 mL/min (>60); Globulin 3.3 g/dL (1.7-4.1); Glucose 105 mg/dL (80-110); HEMOLYSIS 23 (0-50); Sodium 140 mmol/L (137-145); Total Protein 7.5 g/dL (6.3-8.2)
--- NOTE | 2024-02-07 23:12 | PC.NURSE ---
Admission assessment completed in the emergency department.
[2024-02-07] MEDS: LACTATED RINGERS 1,000 ML 75 ML IV (23:50)
[2024-02-08] VITALS (19 sets, daily range): BP systolic 113–152; BP diastolic 50–91; PULSE 72–90; RESP 14–21; TEMP 36.5–36.8; O2SAT 93–99
--- NOTE | 2024-02-08 | PATH_ITS ---
[facility] Accession Number: [id number] No. of containers..01 Tissue . 01 Material submitted: . esophagus, E-G Junction - GE JUNCTION . 01 Diagnosis: GE JUNCTION: Gastroesophageal junction mucosa with ulceration. No goblet cell metaplasia, dysplasia, fungal organisms, or viral cytopathic changes identified. See comment. . Specimen Comments: Reflux or pill esophagitis are differential considerations. There is nonspecific bacterial colonization of the ulcer, but no other infectious organisms are seen. No fungal organisms are seen with an AB/PAS stain, and no HSV virus is seen with an immunostain. All controls stain appropriately. [facility] 02/13/2024 1707 Local . 01 Electronically signed: . Aron nAgulo MD, Pathologist NPI- [id number] . 01 Gross description: . GE JUNCTION: Received in formalin are 3 fragment(s) of jensen, soft tissue measuring 0.1 x 0.1 x 0.1 cm to 0.2 x 0.2 x 0.2 cm submitted entirely in 1 cassette(s) /TANESHA 02/13/2024 1701 Local . 01 Pathologist provided ICD-10: K22.10 . 01 CPT . 362973, [id number], [id number] Specimen Comment: A courtesy copy of this report has been sent to [phone] Performed at: 01 [facility] [address] [place] [address], [place], [place] [id number] MD Aron Angulo MD Phone: [phone]
[2024-02-08] MEDS: MORPHINE 4 MG/ML INJ 3 MG IV ×3 (00:26→11:43)
[2024-02-08 03:39] LABS: Add Manual Diff / Slide Review NO; Basophils Absolute Auto 0 /uL (0-100); Basophils Percent Auto 0.4 % (0-2); Eosinophils Absolute Auto 200 /uL (0-450); Eosinophils Percent Auto 2.4 % (2-4); Hematocrit 46.5 % (41-53); Hemoglobin 16.1 g/dL (13.5-17.5); Lymphocytes Absolute Auto 1000 /uL (1100-4500); Lymphocytes Percent Auto 13.7 % (25-40); Mean Corpuscular HGB Conc 34.6 % (30-36); Mean Corpuscular Hemoglobin 32.3 PG (26-34); Mean Corpuscular Volume 93.4 fL (80-100); Monocytes Absolute Auto 600 /uL (0-900); Monocytes Percent Auto 8.2 % (3-14); Neutrophils Absolute Auto 5300 /uL (1500-7000); Neutrophils Percent Auto 75.3 % (50-75); Platelet Count 152 X10^3/uL (150-400); Red Blood Cell Count 4.98 X10^6/uL (4.5-5.9); Red Cell Distribution Width 14.6 % (11.6-14.8)
[2024-02-08 03:58] LABS: Alanine Aminotransferase 25 IU/L (<50); Albumin Globulin Ratio 1.3 (1.0-2.8); Alkaline Phosphatase 106 U/L (38-126); Aspartate Aminotransferase 24 IU/L (17-59); BUN Creatinine Ratio 26.1 (6-22); Bilirubin Total 1.3 mg/dL (0.2-1.3); Blood Urea Nitrogen 23 mg/dL (9-20); Carbon Dioxide 29 mmol/L (22-32); Chloride 108 mmol/L (98-107); Estimated Glomerular Filt Rate > 60 mL/min (>60); Globulin 3.1 g/dL (1.7-4.1); Glucose 105 mg/dL (80-110); HEMOLYSIS < 15 (0-50); Potassium 3.9 mmol/L (3.4-5.1); Sodium 143 mmol/L (137-145); Total Protein 7.1 g/dL (6.3-8.2)
--- NOTE | 2024-02-08 05:55 | PC.ADMIT ---
[id number] [facility] Admission Note: Patient admitted to ACU from ED at 23:37, transferred by stretcher, and SBA to bed. Alert and oriented x 4, cooperative. Oriented to room and call light. Bed in low/locked position, bed alarm on and call light within reach. The patient,Goldy Brennan,73 y/o, was given written information regarding hospital policies, unit procedures and contact persons. Patient's smoking status: Never smoker. Vital Signs - 8 hr 02/07/24 22:00 02/07/24 22:00 02/07/24 22:30 Temperature Pulse Rate 78 73 Respiratory Rate 16 18 Blood Pressure 120/66 Pulse Oximetry 96 96 Oxygen Delivery Method 02/07/24 22:30 02/07/24 22:47 02/07/24 23:00 Temperature Pulse Rate Respiratory Rate Blood Pressure 123/59 L 147/72 H Pulse Oximetry Oxygen Delivery Method Room Air 02/07/24 23:00 02/07/24 23:37 02/08/24 04:28 Temperature 97.9 F 98.0 F Pulse Rate 70 60 72 Respiratory Rate 16 18 17 Blood Pressure 136/78 152/91 H Pulse Oximetry 95 97 95 Oxygen Delivery Method Room Air
[2024-02-08] MEDS: ALBUTEROL 2.5 MG/3 ML NEB (ADULT) INH ×5 (07:26→22:44)
[2024-02-08] MEDS: BUDESONIDE 0.5 MG/2 ML NEB INH ×2 (07:26→20:10)
--- NOTE | 2024-02-08 09:47 | PM.CN ---
History of Present Illness Consult details Date Patient Seen: 02/08/24 Time Patient Seen: 09:47 Chief complaint: esophagus spasm, dizziness, weakness Narrative: Goldy is a 73-year-old man who presented with a sensation of esophageal spasm after eating some cheese enchilada yesterday. He has been unable to swallow anything including his own secretions. He felt as if something broke loose a few times but he continues to be unable to swallow his saliva. He has never had an EGD before. Meds Home Medications and Allergies Home Medications Medication Instructions Recorded Confirmed Type rivaroxaban 20 mg tablet (Xarelto) 10 mg PO DAILY 10/23/19 02/08/24 History flecainide 50 mg tablet 50 mg PO BID 03/21/20 02/07/24 History omeprazole 40 mg capsule,delayed 40 mg PO .QOTHERDAY 01/16/21 02/08/24 History release fluticasone 500 mcg-salmeterol 50 See Rx Instructions .Route 10/19/21 02/08/24 History mcg/dose blistr powdr for .COMPLEX PRN asthma inhalation albuterol sulfate 90 mcg/actuation 1 inh inhalation Q4-6H PRN 04/02/22 02/07/24 Rx aerosol inhaler shortness of breath #18 grams atorvastatin 20 mg tablet 20 mg PO DAILY #90 tabs 06/07/23 02/07/24 Rx furosemide 20 mg tablet 20 mg PO DAILY #90 tabs 12/10/23 02/07/24 Rx potassium chloride 10 mEq 10 meq PO DAILY #90 tabs 12/10/23 02/08/24 Rx tablet,extended release tramadol 50 mg tablet 50 mg PO TID PRN pain #90 tabs 12/10/23 02/08/24 Rx montelukast 10 mg tablet 10 mg PO ONCE PM 02/07/24 02/07/24 History albuterol sulfate 90 mcg/actuation 2 puff inhalation QID PRN asthma 02/08/24 02/08/24 History aerosol inhaler (Ventolin HFA) Allergies Allergy/AdvReac Type Severity Reaction Status Date / Time nifedipine [From Procardia] AdvReac Severe Hypotensive Verified 12/10/23 13:33 Exam Vital Signs (past 8 hours): - 02/08/24 04:28 02/08/24 07:00 02/08/24 07:00 Temperature 98.0 F Pulse Rate 72 Respiratory Rate 17 Blood Pressure 152/91 H Pulse Oximetry 95 95 Oxygen Delivery Method Room Air Room Air Oxygen Flow Rate 0 Fraction of Inspired Oxygen 02/08/24 07:27 02/08/24 08:00 Temperature 98.3 F Pulse Rate 74 72 Respiratory Rate 16 16 Blood Pressure 149/83 H Pulse Oximetry 95 95 Oxygen Delivery Method Room Air Oxygen Flow Rate 0 0 Fraction of Inspired Oxygen 21 Fraction of Inspired Oxygen 21 SaO2/FiO2 Ratio 452 Oxygen Delivery Method Room Air Oxygen Flow Rate 0 Const General: No acute distress Resp Effort & Inspection: normal respiratory effort Objective Labs 02/08/24 03:13 02/08/24 03:13 Labs: Laboratory Results - last 24 hr 02/07/24 02/08/24 20:30 03:13 WBC 7.9 7.0 RBC 5.21 4.98 Hgb 16.5 16.1 Hct 48.6 46.5 MCV 93.3 93.4 MCH 31.7 32.3 MCHC 34.0 34.6 RDW 14.5 14.6 Plt Count 163 152 Neut % (Auto) 76.1 H 75.3 H Lymph % (Auto) 12.7 L 13.7 L [place] % (Auto) 8.2 8.2 Eos % (Auto) 2.4 2.4 Baso % (Auto) 0.6 0.4 Neut # (Auto) 6000 5300 Lymph # (Auto) 1000 L 1000 L [place] # (Auto) 600 600 Eos # (Auto) 200 200 Baso # (Auto) 0 0 Sodium 140 143 Potassium 4.0 3.9 Chloride 108 H 108 H Carbon Dioxide 27 29 BUN 20 23 H Creatinine 0.91 0.88 Estimated GFR > 60 > 60 BUN/Creatinine Ratio 22.0 26.1 H Glucose 105 105 Calcium 9.3 9.0 Total Bilirubin 1.3 1.3 AST 28 24 ALT 30 25 Alkaline Phosphatase 116 106 Total Protein 7.5 7.1 Albumin 4.2 4.0 Globulin 3.3 3.1 Albumin/Globulin Ratio 1.3 1.3 [facility] Medical History Polymyalgia rheumatica Mixed hyperlipidemia Coronary artery disease Colon polyp, hyperplastic Ischemic cardiomyopathy Kidney stone H/O acute myocardial infarction (~1984) Paroxysmal atrial fibrillation Cardiac pacemaker in situ (~09/2017) Hemorrhoids (12/29/15) 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) Diverticulosis of large intestine without perforation or abscess without bleeding Gastroesophageal reflux disease without esophagitis (12/04/11) Mild intermittent asthma without complication (12/04/11) Surgical History History of surgery History of total right knee replacement (04/13/19) H/O vasectomy (~1984) Status post hernia repair Social History household members: spouse Tobacco & Substance Use Smoking Status: Never smoker alcohol intake: current Assessment & Plan Assessment and plan (1) Esophageal obstruction due to food impaction: Status: Acute Plan We reviewed the risks and benefits of esophagogastroduodenoscopy for a suspected esophageal food bolus. It was also possible the food bolus has spontaneously dislodged but he continues to have mucosal edema making it hard to swallow. He would like to proceed.
[2024-02-08] MEDS: LACTATED RINGERS 1,000 ML 42 ML IV (10:39)
--- NOTE | 2024-02-08 10:42 | PM.OP.EGD ---
Operative Date/Time/Diagnoses Date of procedure: 02/08/24 Time of procedure: 10:43 Pre-op diagnosis: Esophageal food impaction Post-op diagnosis: other (Esophagitis) Procedure & Clinicians Study performed: Esophagogastroduodenoscopy Same procedure as scheduled: Yes Surgeon: David Hand Procedure Notes Procedure in detail: Surgeon: David Hand MD Anesthesia: Charlotte Tapia DO A timeout was performed. A bite blocked was placed. The patient was positioned in the left lateral decubitus position. Anesthesia was administered. The endoscope was inserted through the bite block and passed through the esophagus. There was no food impaction but there was some contusion, inflammation and edema in the distal esophagus near the GE junction. The scope was then advanced into the stomach and duodenum. The duodenal mucosa appeared normal. The scope was withdrawn into the stomach. No abnormalities were seen. The scope was retroflexed and inflammatory changes were seen around the GE junction. Biopsies were taken with cold forceps from the inflammatory change at the GE junction. The scope was withdrawn into the esophagus and no other abnormalities were seen. The remainder of the esophagus was normal. The scope was withdrawn. The patient was awakened and brought to recovery. Sedation time: 8 minutes Findings: Contusion, edema and inflammation at the GE junction consistent with the suspicion of an esophageal food impaction that recently passed. Plan: The patient can start clear liquids advance diet as tolerates. If he continues to have dysphagia the EGD should be repeated in a few weeks when the inflammation has down to make sure there is no underlying pathology of the distal esophagus.
--- NOTE | 2024-02-08 10:58 | P.HP_ITS ---
History of Present Illness History of Present Illness Date Patient Seen: 02/08/24 Time Patient Seen: 10:59 Date of Onset of Symptoms: 02/07/24 Chief complaint: esophagus spasm, dizziness, weakness Narrative: Patient is a 73-year-old male patient of Dr. Lassiter who I am cross covering for who presents with acute onset of unable to swallow. Patient apparently was eating a enchilada yesterday at lunch when he just felt like he could not swallow. He tried drinking he tried swallowing and was unable to get it up. Was unable to swallow his saliva. It persists and was not getting better and he was starting to feel somewhat lightheaded and basically came to the emergency room. He has never had anything like this before. Never had any problem with swallowing. Never had any previous EGD in the past. No history of stricture. Patient had no fevers no chills no cough. 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) Diverticulosis of large intestine without perforation or abscess without bleeding Gastroesophageal reflux disease without esophagitis (12/04/11) Mild intermittent asthma without complication (12/04/11) Surgical History History of surgery History of total right knee replacement (04/13/19) H/O vasectomy (~1984) Status post hernia repair Social History household members: spouse Smoking Status: Never smoker alcohol intake: current Meds Home Medications and Allergies Home Medications Medication Instructions Recorded Confirmed Type rivaroxaban 20 mg tablet (Xarelto) 10 mg PO DAILY 10/23/19 02/08/24 History flecainide 50 mg tablet 50 mg PO BID 03/21/20 02/07/24 History omeprazole 40 mg capsule,delayed 40 mg PO .QOTHERDAY 01/16/21 02/08/24 History release fluticasone 500 mcg-salmeterol 50 See Rx Instructions .Route 10/19/21 02/08/24 History mcg/dose blistr powdr for .COMPLEX PRN asthma inhalation albuterol sulfate 90 mcg/actuation 1 inh inhalation Q4-6H PRN 04/02/22 02/07/24 Rx aerosol inhaler shortness of breath #18 grams atorvastatin 20 mg tablet 20 mg PO DAILY #90 tabs 06/07/23 02/07/24 Rx furosemide 20 mg tablet 20 mg PO DAILY #90 tabs 12/10/23 02/07/24 Rx potassium chloride 10 mEq 10 meq PO DAILY #90 tabs 12/10/23 02/08/24 Rx tablet,extended release tramadol 50 mg tablet 50 mg PO TID PRN pain #90 tabs 12/10/23 02/08/24 Rx montelukast 10 mg tablet 10 mg PO ONCE PM 02/07/24 02/07/24 History albuterol sulfate 90 mcg/actuation 2 puff inhalation QID PRN asthma 02/08/24 02/08/24 History aerosol inhaler (Ventolin HFA) Allergies Allergy/AdvReac Type Severity Reaction Status Date / Time nifedipine [From Procardia] AdvReac Severe Hypotensive Verified 12/10/23 13:33 Review of Systems Review of Systems Narrative: All negative except above Exam Vital Signs (past 8 hours): - 02/08/24 04:28 02/08/24 07:00 02/08/24 07:00 Temperature 98.0 F Pulse Rate 72 Respiratory Rate 17 Blood Pressure 152/91 H Pulse Oximetry 95 95 Oxygen Delivery Method Room Air Room Air Oxygen Flow Rate 0 Fraction of Inspired Oxygen 02/08/24 07:27 02/08/24 08:00 02/08/24 10:22 Temperature 98.3 F 98 F Pulse Rate 74 72 82 Respiratory Rate 16 16 17 Blood Pressure 149/83 H 139/87 Pulse Oximetry 95 95 97 Oxygen Delivery Method Room Air Room Air Oxygen Flow Rate 0 0 Fraction of Inspired Oxygen 21 02/08/24 10:27 02/08/24 10:32 02/08/24 10:37 Temperature Pulse Rate 80 85 74 Respiratory Rate 21 17 16 Blood Pressure 138/86 143/82 H 143/82 H Pulse Oximetry 96 94 99 Oxygen Delivery Method Room Air Room Air Room Air Oxygen Flow Rate Fraction of Inspired Oxygen 02/08/24 10:50 Temperature 97.9 F Pulse Rate 82 Respiratory Rate 16 Blood Pressure 136/78 Pulse Oximetry 95 Oxygen Delivery Method Oxygen Flow Rate 0 Fraction of Inspired Oxygen Fraction of Inspired Oxygen 21 SaO2/FiO2 Ratio 452 Oxygen Delivery Method Room Air Oxygen Flow Rate 0 Narrative Exam Narrative: Alert elderly male fatigued in appearance in no acute distress. Mucous membranes moist. Neck supple without adenopathy. Lungs are clear heart is regular rate and rhythm without murmurs clicks rubs or gallops abdomen is soft positive bowel sounds nontender extremities right knee somewhat irritated secondary to previous surgery otherwise unremarkable. Skin without rash. Neurologic exam is nonfocal Objective Labs 02/08/24 03:13 02/08/24 03:13 Labs: Laboratory Results - last 24 hr 02/07/24 02/08/24 20:30 03:13 WBC 7.9 7.0 RBC 5.21 4.98 Hgb 16.5 16.1 Hct 48.6 46.5 MCV 93.3 93.4 MCH 31.7 32.3 MCHC 34.0 34.6 RDW 14.5 14.6 Plt Count 163 152 Neut % (Auto) 76.1 H 75.3 H Lymph % (Auto) 12.7 L 13.7 L [place] % (Auto) 8.2 8.2 Eos % (Auto) 2.4 2.4 Baso % (Auto) 0.6 0.4 Neut # (Auto) 6000 5300 Lymph # (Auto) 1000 L 1000 L [place] # (Auto) 600 600 Eos # (Auto) 200 200 Baso # (Auto) 0 0 Sodium 140 143 Potassium 4.0 3.9 Chloride 108 H 108 H Carbon Dioxide 27 29 BUN 20 23 H Creatinine 0.91 0.88 Estimated GFR > 60 > 60 BUN/Creatinine Ratio 22.0 26.1 H Glucose 105 105 Calcium 9.3 9.0 Total Bilirubin 1.3 1.3 AST 28 24 ALT 30 25 Alkaline Phosphatase 116 106 Total Protein 7.5 7.1 Albumin 4.2 4.0 Globulin 3.3 3.1 Albumin/Globulin Ratio 1.3 1.3 Assessment & Plan Assessment & Plan narrative: Esophageal obstruction secondary to food bolus. Actually resolve this morning. EGD was discussed with Dr. Hand. Patient had a lot of irritation but no definitive stricture and biopsies were done. At this point will continue his PPI. Clear liquids which can be advanced to full if the day goes well and will see how things go. Tomorrow can advance to a soft diet and if he does well he can go home. Will need possible repeat EGD in 6 weeks. Depending on biopsies. And how he does. Discussed with and him. No evidence of aspiration. But will watch closely. History of coronary artery disease. Appears stable with no significant symptoms. Asthma history. Breathing well. Has not been an issue throughout his course. Will continue his usual inhalers and montelukast. History of reflux. Patient has been taking every other day omeprazole. Probably needs to do daily. Secondary to above. Discussed with why she understands. Atrial fibrillation. Has been under well control. We would held his anticoagulation last night will start today and his flecainide follow from there. Code status full. Disposition. Hope tolerates clear liquids full liquids tonight and soft in the morning and he can go home. 60 minutes spent with patient consult nursing chart review orders dictation Quality VTE Deep Vein Thrombosis/Pulmonary Embolism Present on Admission: No
--- NOTE | 2024-02-08 16:19 | CM.DANOTE ---
DCP Assessment Note Pt is a 73yo M here following esophagus spasm/dizziness/weakness under OBS status. Had EGD with Dr. Hand Sat 3.9.24 for blockage- on clear liquid diet now. PCP Sravani RUBIN and self pay HORTICULTURAL MANAGER reviewed EMR. Per provider PN, if pt can tolerate advancing diet anticipate dc home tomorrow with spouse and no additional needs. Per RN, pt ambulating indep. Per chart review, pt lives with spouse in [place]. Per RN, no obvious or anticipated CM needs. Plan: anticipate home tomorrow with spouse if tolerate advancing diet. No CM needs identified from chart review/RN report. CM team will continue to follow as needed. ROULA Greenwood Discharge Planning/Care Management CM Discharge Assessment Start: 02/08/24 16:17 Freq: Status: Active Protocol: Document 02/08/24 16:17 (Rec: 02/08/24 16:18 SL [id number]) Discharge Planning Assessment Assigned Coating Technician ROULA Ruiz DPOA/Assigned Designee Name SpouseNeli Contact Information [phone] Advance Directives? No History Provided By Patient,Medical Record Prior Living Arrangements House Household Members spouse Independent with ADL's Yes Is patient alert and oriented? Yes Discharge Plan Home Transportation Arrangement Family to provide transport Referrals Initiated None needed Additional Comment At this time Whiteboard Updated in Patient Room with No name and ext. # of Coating Technician Review Status In Process Next Review Type Continued Stay Review
[2024-02-08] MEDS: MONTELUKAST 10 MG TABLET PO (18:14)
[2024-02-08] MEDS: FLECAINIDE 100 MG TABLET 50 MG PO (20:41)
[2024-02-09] MEDS: LACTATED RINGERS 1,000 ML 42 ML IV (00:33)
[2024-02-09 05:00] VITALS: BP 114/56; PULSE 63; RESP 17; TEMP 36.6; O2SAT 95
[2024-02-09] MEDS: PANTOPRAZOLE DR 40 MG TABLET PO (05:20)
[2024-02-09 07:00] VITALS: O2SAT 94
[2024-02-09 08:00] VITALS: BP 130/66; PULSE 57; RESP 16; TEMP 36.1; O2SAT 94
[2024-02-09] MEDS: RIVAROXABAN 10 MG TABLET 20 MG PO (08:38)
[2024-02-09] MEDS: ATORVASTATIN 20 MG TABLET PO (08:38)
[2024-02-09] MEDS: FUROSEMIDE 20 MG TABLET PO (08:38)
[2024-02-09] MEDS: FLECAINIDE 100 MG TABLET 50 MG PO (08:38)
[2024-02-09] MEDS: POTASSIUM CHLORIDE 10 MEQ TAB PO (08:39)
--- NOTE | 2024-02-09 10:47 | P.DS_ITS ---
History of Present Illness History of Present Illness Chief complaint: esophagus spasm, dizziness, weakness Narrative: Patient is a 73-year-old male patient of Dr. Lassiter who I am cross covering for who presents with acute onset of unable to swallow. Patient apparently was eating a enchilada yesterday at lunch when he just felt like he could not swallow. He tried drinking he tried swallowing and was unable to get it up. Was unable to swallow his saliva. It persists and was not getting better and he was starting to feel somewhat lightheaded and basically came to the emergency room. He has never had anything like this before. Never had any problem with swallowing. Never had any previous EGD in the past. No history of stricture. Patient had no fevers no chills no cough. Discharge Providers Provider Date of admission: 02/07/24 22:39 Discharge Date: 02/09/24 Primary care physician: Tino Lassiter MD Consults: 02/07/24 22:04 Consult to General Surgery Stat Comment: Consulting Provider: Osman Freitas Reason for consultation: food bolus/stricture Has provider been notified: Yes 02/07/24 23:47 Consult to Physician Routine Comment: Consulting Provider: Osman Freitas Reason for consultation: esophogeal obtruction Has provider been notified: Yes Discharge provider: French Mao MD Summary Hospital Course Discharge Diagnosis: Esophageal obstruction History of coronary artery disease History of reflux Atrial fibrillation Hospital Course: Esophageal obstruction. Patient was admitted and was unable to swallow even his saliva until the morning when he felt like he could feel it pass. EGD was done by Dr. Hand which showed extremely irritated esophageal mucosa distal and biopsies were done. Patient was continued on PPI. Clear liquids then full liquids and patient was feeling fine on day of discharge. He will slowly increase his diet and he will follow up with Dr. Lassiter recommendation was be for a 2nd EGD at 6 weeks depending on biopsies patient is to take his PPI consistently daily. History of coronary artery disease. Not an issue at time of discharge. Asthma. Stable. Using usual inhalers. No other change. History of reflux. As above. Continue PPI. Atrial fibrillation stable throughout course. We did hold his anticoagulation and his amiodarone on admission but was restarted shortly after EGD. Patient has done well without problem. Patient will be sent home. 38 minutes spent with the patient and nursing social service discharge dictation and orders Exam Vital Signs (past 8 hours): - 02/09/24 05:00 02/09/24 07:00 02/09/24 08:00 Temperature 98 F 97.0 F L Pulse Rate 63 57 L Respiratory Rate 17 16 Blood Pressure 114/56 L 130/66 Pulse Oximetry 95 94 94 Oxygen Delivery Method Room Air Oxygen Flow Rate 0 0 Fraction of Inspired Oxygen 21 SaO2/FiO2 Ratio 457 Oxygen Delivery Method Room Air Oxygen Flow Rate 0 Objective Labs 02/08/24 03:13 02/08/24 03:13 [facility]LY [facility], LAT[facility] Medical History Polymyalgia rheumatica Mixed hyperlipidemia Coronary artery disease Colon polyp, hyperplastic Ischemic cardiomyopathy Kidney stone H/O acute myocardial infarction (~1984) Paroxysmal atrial fibrillation Cardiac pacemaker in situ (~09/2017) Hemorrhoids (12/29/15) 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) Diverticulosis of large intestine without perforation or abscess without bleeding Gastroesophageal reflux disease without esophagitis (12/04/11) Mild intermittent asthma without complication (12/04/11) Surgical History History of surgery History of total right knee replacement (04/13/19) H/O vasectomy (~1984) Status post hernia repair Social History household members: spouse Smoking Status: Never smoker alcohol intake: current Discharge Plan Discharge orders & Medications Discharge Orders: Discharge (Order); Ordered 02/09/24 Ordered By: French Mao Prescriptions: New dupilumab 300 mg/2 mL Pen Injector 300 mg SUBCUT Q2W Qty: 3 0RF Continued albuterol sulfate 90 mcg/actuation HFA aerosol inhaler 1 inh INHALATION Q4-6H PRN (Reason: shortness of breath) Qty: 18 11RF omeprazole 40 mg capsule,delayed release(DR/EC) 40 mg PO .QOTHERDAY Xarelto 20 mg tablet 10 mg PO DAILY flecainide 50 mg tablet 50 mg PO BID atorvastatin 20 mg tablet 20 mg PO DAILY Qty: 90 3RF furosemide 20 mg tablet 20 mg PO DAILY Qty: 90 3RF potassium chloride 10 mEq tablet extended release 10 meq PO DAILY Qty: 90 3RF tramadol 50 mg tablet 50 mg PO TID PRN (Reason: pain) Qty: 90 0RF fluticasone propion-salmeterol 500-50 mcg/dose blister with device See Rx Instructions .ROUTE .COMPLEX PRN (Reason: asthma) Patient Comments: inhale 1 puff by mouth and INTO THE LUNGS every 12 hours Rinse mouth after use Rx Instructions: inhale into lungs every 12 hours-rinse mouth after use montelukast 10 mg tablet 10 mg PO ONCE PM albuterol sulfate [Ventolin HFA] 90 mcg/actuation Hfa Aerosol Inhaler 2 puff INHALATION QID PRN (Reason: asthma) Follow up/Referrals: Tino Lassiter MD [Primary Care Provider] - 2 Weeks Discharge Health Status Multidrug resistant organism: No MDRO Diet/Activity/Treatments Diet: Diet as Tolerated Diet comment: Slowly increase diet. Start soft. Activity: As tolerated Skin/Wound/Dressing Care Report to your healthcare provider any signs of infection, such as:: chills, fever Visit Report/Discharge Packet Instructions: DI for Esophagitis Stand Alone Forms: Patient Portal/API, Stroke Signs & Symptoms Discharge Data Primary Care Provider: Tino Lassiter Attending Provider: French Mao Admit Date/Time: 02/07/24 22:39 Quality VTE Deep Vein Thrombosis/Pulmonary Embolism Present on Admission: No
== END 2024-02-09 11:00 | disposition home or self-care (01) ==
LOC: ED 22:20 → AC 22:40
PROVIDERS: Surgery; Admitting Provider Family Medicine; Emergency Provider Emergency Medicine; Family Provider Internal Medicine; PCP Internal Medicine; Visit Provider Family Medicine
PROC: 0DJ08ZZ Inspection of Upper Intestinal Tract, Via Natural or Artificial Opening Endoscopic (ICD-10-PCS; CPT 43235; principal; 2024-02-08 10:15)
DX: K20.90 Esophagitis, unspecified without bleeding (principal); R42 Dizziness and giddiness; R53.1 Weakness; I48.91 Unspecified atrial fibrillation
CPT/HCPCS: 43239; 36415; 71045; 80053; 85025; 94640; 94760; 94762; 96374; 96375; 96376; 99232; 99284; G0378; A9270; J1100; J1610; J2270; J2405; J2704; J7613

== ENCOUNTER 2024-04-20 13:15 | Day surgery (SDC) | payer OTHER, SELFPAY ==
--- NOTE | 2024-04-20 | PATH_ITS ---
[facility] Accession Number: [id number] No. of containers..04 Tissue . 01 Material submitted: . PART A: stomach - ANTRUM PART B: gastrointestinal site - GASTRIC POLYPS PART C: esophagus, E-G Junction - GEJ BIOPSY PART D: esophagus - MID ESOPHAGUS BIOPSY . 01 Diagnosis: Part A: ANTRUM: Gastric mucosa with mild chronic inflammation. No Helicobacter organisms identified. No intestinal metaplasia, dysplasia, or malignancy identified. . Part B: GASTRIC POLYPS: Fundic gland polyps. No Helicobacter organisms identified on H/E stain. No intestinal metaplasia, dysplasia, or malignancy identified. . Part C: GEJ BIOPSY: Gastroesophageal junction mucosa with mild chronic inflammation. No goblet cell metaplasia, dysplasia, or malignancy identified. . Part D: MID ESOPHAGUS BIOPSY: Squamous mucosa with no diagnostic alterations. Eosinophils are not increased. [facility] 04/24/2024 1749 Local . 01 Electronically signed: . Aron Angulo MD, Pathologist NPI- [id number] . 01 Gross description: . Part A: ANTRUM: Received in formalin is 1 fragment(s) of jensen, soft tissue measuring 0.3 x 0.2 x 0.2 cm submitted entirely in 1 cassette(s) . Part B: GASTRIC POLYPS: Received in formalin are 2 fragment(s) of jensen, soft tissue measuring 0.1 x 0.1 x 0.1 cm to 0.3 x 0.2 x 0.2 cm submitted entirely in 1 cassette(s) . Part C: GEJ BIOPSY: Received in formalin is 1 fragment(s) of jensen, soft tissue measuring 0.3 x 0.2 x 0.2 cm submitted entirely in 1 cassette(s) . Part D: MID ESOPHAGUS BIOPSY: Received in formalin is 1 fragment(s) of jensen, soft tissue measuring 0.3 x 0.2 x 0.2 cm submitted entirely in 1 cassette(s) /TANESHA 04/24/2024 1749 Local . 01 Microscopic: . Part A: ANTRUM: An immunohistochemical stain was performed to evaluate for Helicobacter organisms and is negative. The control stains appropriately. * This test was developed and its performance characteristics determined by [employer] ([facility]). It has not been cleared or approved by the U.S. Food and Drug Administration. The FDA has determined that such clearance or approval is not necessary. This test is used for clinical purposes. It should not be regarded as investigational or for research. . 01 Pathologist provided ICD-10: K20.90, K29.50, K31.7, R13.19 . 01 CPT . 497397, 890483, 891824, 117098, Q07908 Specimen Comment: A courtesy copy of this report has been sent to [phone] Performed at: [address] [address], [place], [place] [id number] MD Aron Angulo MD Phone: [phone]
--- NOTE | 2024-04-20 13:55 | P.HP_ITS ---
History of Present Illness History of Present Illness Date Patient Seen: 04/20/24 Time Patient Seen: 13:55 Chief complaint: EGD Narrative: 73-year-old male recently seen in clinic by . No significant changes. He feels asymptomatic at present. He is currently using omeprazole every other day. Denies any symptoms. He reiterated what is described in the recent clinic note which indeed sounds like intermittent spasm. The EGD from January of this year is noted. 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) Diverticulosis of large intestine without perforation or abscess without bleeding Gastroesophageal reflux disease without esophagitis (12/04/11) Mild intermittent asthma without complication (12/04/11) Surgical History History of surgery History of total right knee replacement (04/13/19) H/O vasectomy (~1984) Status post hernia repair Social History household members: spouse Smoking Status: Never smoker alcohol intake: current Meds Home Medications and Allergies Home Medications Medication Instructions Recorded Confirmed Type rivaroxaban 20 mg tablet (Xarelto) 10 mg PO DAILY 10/23/19 03/10/24 History flecainide 50 mg tablet 50 mg PO BID 03/21/20 04/20/24 History omeprazole 40 mg capsule,delayed 40 mg PO .QOTHERDAY 01/16/21 04/20/24 History release fluticasone 500 mcg-salmeterol 50 See Rx Instructions .Route 10/19/21 03/10/24 History mcg/dose blistr powdr for .COMPLEX PRN asthma inhalation albuterol sulfate 90 mcg/actuation 1 inh inhalation Q4-6H PRN 04/02/22 04/20/24 Rx aerosol inhaler shortness of breath #18 grams atorvastatin 20 mg tablet 20 mg PO DAILY #90 tabs 06/07/23 04/20/24 Rx potassium chloride 10 mEq 10 meq PO DAILY #90 tabs 12/10/23 03/10/24 Rx tablet,extended release montelukast 10 mg tablet 10 mg PO ONCE PM 02/07/24 04/20/24 History albuterol sulfate 90 mcg/actuation 2 puff inhalation QID PRN asthma 02/08/24 03/10/24 History aerosol inhaler (Ventolin HFA) tramadol 50 mg tablet 50 mg PO TID PRN pain #90 tabs 03/10/24 03/10/24 Rx Allergies Allergy/AdvReac Type Severity Reaction Status Date / Time nifedipine [From Procardia] AdvReac Severe Hypotensive Verified 03/10/24 13:30 Review of Systems Review of Systems ROS: Yes All systems reviewed with the patient and are negative except as otherwise documented Exam Const General: cooperative HENMT Head: normal to inspection Eyes General: appearance normal, both eyes and all related structures Neck Neck: normal visual inspection Chest Chest: normal inspection of the chest Resp Effort & Inspection: normal respiratory effort Cardio Rate: regular rate GI Inspection: normal to inspection Skin General: no rashes or lesions noted Neuro General: patient alert and patient awake Extrem General: normal to inspection and no pedal edema Psych Appearance: grossly normal Assessment & Plan Assessment & Plan narrative: 73-year-old male with intermittent reflux and dysphagia likely function of spasm going on for the last few years. He is off his Xarelto for 2 days. Diagnostic repeat EGD is pursued today.
--- NOTE | 2024-04-20 13:57 | PM.PREOP ---
Pre-operative Note Interval Note History & Physical reviewed/Exam performed by Physician: Yes Changes to H&P: No ASA Class (for procedural sedation): III
[2024-04-20 14:42] VITALS: BP 134/74; PULSE 77; RESP 16; O2SAT 98
--- NOTE | 2024-04-20 15:06 | P.OP.EGD_ITS ---
Operative Date/Time/Diagnoses Date of procedure: 04/20/24 Time of procedure: 15:06 Pre-op diagnosis: Dysphagia Post-op diagnosis: same Procedure & Clinicians Study performed: EGD with biopsies Same procedure as scheduled: Yes Indications: Dysphagia Surgeon: Braxton Lundberg Procedure Notes SCOAP/Timeout: Done Procedure in detail: After the risks and benefits were explained, written and verbal informed consent was obtained. The patient was brought into the procedure room and placed into the left lateral decubitus position. Please see anesthesia note for sedation details. The scope was introduced into the mouth through the bite block and advanced under direct visualization to the 2nd portion of the duodenum. The scope was slowly withdrawn carefully examining the mucosa for any defects or lesions. Retroflexed views were accomplished in the stomach. The stomach was decompressed, the scope was then removed from the patient who tolerated the procedure well. Sedation minutes: 9 Complications: none Impression: 1. Duodenal: No significant pathology appreciated from the bulb through to the 2nd portion. 2. Stomach: Patient had some mild scattered patchy erythema in the antrum and biopsies were acquired for exclusion of H pylori. There were several scattered small benign-appearing polyps in the gastric body. A couple of these were sampled for histopathologic analysis. Otherwise retroflexed views of the LES were unremarkable. 3. Esophagus: The squamocolumnar junction correlated with the top of the ximena martha folds. GEJ was at 39 cm from the incisors. There was no evidence of inflammation. No evidence of any stricture nor stenosis. I did not appreciate any significant spasm of the LES segment during our examination. Biopsy was acquired from the GE junction and then a separate set of biopsies from the midesophagus were acquired to exclude the possibility of eosinophilic esophagitis. That said, I did not appreciate any overt features of eosinophilic esophagitis visually. Endoscopic diagnosis 1. Mild gastropathy 2. Diminutive gastric polyps 3. Otherwise visually unremarkable EGD Post-procedure Plan for aftercare: 1. Await histology. 2. Continue anti-reflux therapy. Disposition: PACU
[2024-04-20 15:10] VITALS: BP 137/77; PULSE 65; RESP 16; TEMP 36.2; O2SAT 98
[2024-04-20 15:18] VITALS: BP 135/81; PULSE 64; RESP 16; TEMP 36.2; O2SAT 98
[2024-04-20 15:24] VITALS: BP 135/75; PULSE 68; RESP 16; O2SAT 98
[2024-04-20 15:30] VITALS: BP 135/74; PULSE 85; RESP 16; TEMP 36.8; O2SAT 98
== END 2024-04-20 15:38 | disposition home or self-care (01) ==
PROVIDERS: Family Provider Internal Medicine; PCP Internal Medicine; Referring Provider Internal Medicine Gastroenterology; Visit Provider Internal Medicine Gastroenterology
PROC: 0DJ08ZZ Inspection of Upper Intestinal Tract, Via Natural or Artificial Opening Endoscopic (ICD-10-PCS; CPT 43239; principal; 2024-04-20 14:00)
DX: R13.10 Dysphagia, unspecified (principal); K31.9 Disease of stomach and duodenum, unspecified; K31.7 Polyp of stomach and duodenum; K29.50 Unspecified chronic gastritis without bleeding
CPT/HCPCS: 43239; J2704

== ENCOUNTER 2024-06-12 09:11 | Emergency (ER) | payer OTHER, SELFPAY ==
[2024-06-12] VITALS (14 sets, daily range): BP systolic 121–176; BP diastolic 57–93; PULSE 87–95; RESP 14–29; TEMP 37.1–37.3; O2SAT 93–98; BMI 31.0
--- NOTE | 2024-06-12 09:29 | DI.RAD.S_ITS ---
PROCEDURE: XR CHEST 1V INDICATIONS: Shortness of breath TECHNIQUE: One view of the chest was acquired. COMPARISON: [facility], CR, XR CHEST 1V, 02/07/2024, 21:40. FINDINGS: Surgical changes and devices: Pacemaker Lungs and pleura: Lungs are clear. No pleural effusions or pneumothorax. Chronic elevation of left hemidiaphragm Mediastinum: Mediastinal contours appear normal. Heart size is normal. Bones and chest wall: No suspicious bony lesions. Overlying soft tissues appear unremarkable. IMPRESSION: Unchanged cardiomegaly. No evidence acute pulmonary process. Dictated by: Al Swann M.D. on 06/12/2024 at 10:04 Approved by: Al Swann M.D. on 06/12/2024 at 10:05
[2024-06-12 09:50] LABS: Add Manual Diff / Slide Review NO; Basophils Absolute Auto 0 /uL (0-100); Basophils Percent Auto 0.2 % (0-2); Eosinophils Absolute Auto 0 /uL (0-450); Eosinophils Percent Auto 0.4 % (2-4); Hemoglobin 17.2 g/dL (13.5-17.5); Lymphocytes Absolute Auto 500 /uL (1100-4500); Lymphocytes Percent Auto 4.2 % (25-40); Mean Corpuscular HGB Conc 33.8 % (30-36); Mean Corpuscular Volume 91.9 fL (80-100); Monocytes Absolute Auto 500 /uL (0-900); Neutrophils Absolute Auto 11600 /uL (1500-7000); Neutrophils Percent Auto 91.2 % (50-75); Platelet Count 145 X10^3/uL (150-400); Red Blood Cell Count 5.55 X10^6/uL (4.5-5.9); White Blood Cell Count 12.7 X10^3/uL (4.5-11.0)
--- NOTE | 2024-06-12 09:51 | EKG_ITS ---
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
--- NOTE | 2024-06-12 09:58 | PC.NURSE ---
SOB starting this a/m. Took inhaler w/ little to no relief. Lung sounds clear and equal bilaterally anteriorly and posteriorly.
[2024-06-12 09:59] LABS: INR 2.3 (0.9-1.3); Prothrombin Time 26.5 SECONDS (9.4-12.5)
[2024-06-12 10:08] LABS: Lactate (Lactic Acid) 3.2 mmol/L (0.7-2.1)
[2024-06-12 10:19] LABS: NT-proBNP (BNP-Adult 18+) 436 pg/mL (<450); Troponin I 0.033 ng/mL (0.01-0.034)
[2024-06-12 10:20] LABS: Alanine Aminotransferase 30 IU/L (<50); Albumin 4.5 g/dL (3.5-5.0); Albumin Globulin Ratio 1.4 (1.0-2.8); Alkaline Phosphatase 113 U/L (38-126); Aspartate Aminotransferase 30 IU/L (17-59); BUN Creatinine Ratio 22.8 (6-22); Bilirubin Total 1.7 mg/dL (0.2-1.3); Blood Urea Nitrogen 23 mg/dL (9-20); Calcium 9.1 mg/dL (8.4-10.2); Carbon Dioxide 24 mmol/L (22-32); Chloride 103 mmol/L (98-107); Estimated Glomerular Filt Rate > 60 mL/min (>60); Globulin 3.3 g/dL (1.7-4.1); Glucose 130 mg/dL (80-110); HEMOLYSIS 21 (0-50); Sodium 137 mmol/L (137-145); Total Protein 7.8 g/dL (6.3-8.2)
--- NOTE | 2024-06-12 10:42 | ED_ITS ---
HPI - SOB/Dyspnea General Chief Complaint: Shortness of Breath/Dyspnea Stated Complaint: leg swelling, low back pain, diff breathing, cold Time Seen by Provider: 06/12/24 10:37 Source: patient Mode of arrival: Family Vehicle Limitations: no limitations History of Present Illness HPI Narrative: Patient 73-year-old male history of hyperlipidemia coronary artery disease ischemic cardiomyopathy, EF 45-50% in 2020, pacemaker in 2016 mild intermittent asthma small presents today with increasing shortness of breath. He says he was doing well yesterday however in the middle of the night he felt like his legs were more swollen and today he has body aches all over. He denies any sort of fever. He says that his kidneys hurt. He thought it was most breath last night. He does continue to take Xarelto. Related Data Home Medications Medication Instructions Recorded Confirmed rivaroxaban 20 mg tablet (Xarelto) 10 mg PO DAILY 10/23/19 04/23/24 flecainide 50 mg tablet 50 mg PO BID 03/21/20 04/23/24 montelukast 10 mg tablet 10 mg PO ONCE PM 02/07/24 04/23/24 albuterol sulfate 90 mcg/actuation 2 puff inhalation QID PRN asthma 02/08/24 04/23/24 aerosol inhaler (Ventolin HFA) omeprazole 40 mg capsule,delayed 40 mg PO DAILY 04/23/24 04/23/24 release Previous Rx's Medication Instructions Recorded albuterol sulfate 90 mcg/actuation 1 inh inhalation Q4-6H PRN 04/02/22 aerosol inhaler shortness of breath #18 grams potassium chloride 10 mEq 10 meq PO DAILY #90 tabs 12/10/23 tablet,extended release tramadol 50 mg tablet 50 mg PO TID PRN pain #90 tabs 03/10/24 prednisone 10 mg tablet 10 mg PO DIRECTED #90 tabs 04/23/24 atorvastatin 20 mg tablet 20 mg PO DAILY #90 tabs 05/18/24 Allergies Allergy/AdvReac Type Severity Reaction Status Date / Time nifedipine [From Procardia] AdvReac Severe Hypotensive Verified 04/23/24 13:29 Patient History Medical History Polymyalgia rheumatica Mixed hyperlipidemia Coronary artery disease Colon polyp, hyperplastic Ischemic cardiomyopathy Kidney stone H/O acute myocardial infarction (~1984) Paroxysmal atrial fibrillation Cardiac pacemaker in situ (~09/2017) Hemorrhoids (12/29/15) 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) Diverticulosis of large intestine without perforation or abscess without bleeding Gastroesophageal reflux disease without esophagitis (12/04/11) Mild intermittent asthma without complication (12/04/11) Surgical History History of surgery History of total right knee replacement (04/13/19) H/O vasectomy (~1984) Status post hernia repair Social History household members: spouse Smoking Status: Never smoker alcohol intake: current Smoking Status: Never smoker alcohol intake frequency: holidays/special occasions only Substance Use Type: does not use Exam Initial Vital Signs Initial Vital Signs: Vital Signs Temperature 98.8 F 06/12/24 09:16 Pulse Rate 90 06/12/24 09:16 Respiratory Rate 24 06/12/24 09:16 Blood Pressure 163/93 H 06/12/24 09:16 Pulse Oximetry 97 06/12/24 09:16 Oxygen Delivery Method Room Air 06/12/24 09:16 GENERAL: Alert 73-year-old male appears to be weak and in no acute distress. HEENT: Head atraumatic,EOMI, pupils reactive, face symmetric, moist mucous membranes CARDIOVASCULAR: Regular rate and rhythm without murmurs, rubs or gallops. RESPIRATORY: Breath sounds equal bilaterally, no wheezes rales or rhonchi. ABDOMEN: Soft, nontender. Normoactive bowel sounds all 4 quadrants. No guarding or rebound. EXTREMITIES: Normal range of motion, no clubbing or edema. Neurovascularly intact NEUROLOGICAL: Alert and oriented x4.Normal gait and speech. SKIN: Right lower extremity erythematous with a small wound however patient says it was is that way not any worse. Wound is scabbed over no significant drainage Course Orders Ordered: ED Orders 06/12/24 10:40 Respiratory Panel (Film Array) Stat 06/12/24 10:55 Blood Culture Stat 06/12/24 12:20 Trop I [Troponin I] Stat Discontinued Medications Albuterol (Albuterol 2.5 Mg/3 Ml Neb (Adult)) 2.5 mg INH NOW ONE Stop: 06/12/24 10:46 Last Admin: 06/12/24 11:01 Dose: 2.5 mg Documented By: MONCHO Sodium Chloride (Normal Saline 0.9%) 500 mls @ 1,000 mls/hr IV BOLUS ONE Stop: 06/12/24 12:39 Last Infusion: 06/12/24 13:25 Dose: Infused Documented By: Admin: 06/12/24 12:16 Dose: 1,000 mls/hr Documented By: KRISTY Methylprednisolone (Methylprednisolone 125 Mg/2 Ml Vial) 125 mg IV NOW ONE Stop: 06/12/24 12:11 Last Admin: 06/12/24 12:16 Dose: 125 mg Documented By: KRISTY Vital Signs Vital signs: Vital Signs - 8 hr 06/12/24 11:00 06/12/24 11:03 06/12/24 11:30 Temperature Pulse Rate 89 92 H 91 H Respiratory Rate 20 22 Blood Pressure Pulse Oximetry 98 96 98 Oxygen Delivery Method Room Air 06/12/24 12:00 06/12/24 12:30 06/12/24 13:00 Temperature Pulse Rate 95 H 87 91 H Respiratory Rate 21 Blood Pressure Pulse Oximetry 96 96 95 Oxygen Delivery Method 06/12/24 13:22 06/12/24 13:22 Temperature 99.1 F Pulse Rate 90 Respiratory Rate 22 Blood Pressure 121/57 L Pulse Oximetry 93 Oxygen Delivery Method MDM - SOB/Dyspnea Lab Data 06/12/24 09:37 06/12/24 09:37 Labs: Lab Results 06/12/24 06/12/24 06/12/24 Range/Units 09:37 10:40 11:30 WBC 12.7 H (4.5-11.0) X10^3/uL RBC 5.55 (4.5-5.9) X10^6/uL Hgb 17.2 (13.5-17.5) g/dL Hct 51.0 (41-53) % MCV 91.9 (80-100) fL MCH 31.0 (26-34) PG MCHC 33.8 (30-36) % RDW 14.0 (11.6-14.8) % Plt Count 145 L (150-400) X10^3/uL Neut % (Auto) 91.2 H (50-75) % Lymph % (Auto) 4.2 L (25-40) % [place] % (Auto) 4.0 (3-14) % Eos % (Auto) 0.4 L (2-4) % Baso % (Auto) 0.2 (0-2) % Neut # (Auto) 81230 H (2756-7723) /uL Lymph # (Auto) 500 L (4738-6030) /uL [place] # (Auto) 500 (0-900) /uL Eos # (Auto) 0 (0-450) /uL Baso # (Auto) 0 (0-100) /uL PT 26.5 H (9.4-12.5) SECONDS INR 2.3 H (0.9-1.3) Sodium 137 (137-145) mmol/L Potassium 4.0 (3.4-5.1) mmol/L Chloride 103 (98-107) mmol/L Carbon Dioxide 24 (22-32) mmol/L BUN 23 H (9-20) mg/dL Creatinine 1.01 (0.66-1.25) mg/dL Estimated GFR > 60 (>60) mL/min BUN/Creatinine Ratio 22.8 H (6-22) Glucose 130 H (80-110) mg/dL Lactate 3.2 H 2.0 (0.7-2.1) mmol/L Calcium 9.1 (8.4-10.2) mg/dL Total Bilirubin 1.7 H (0.2-1.3) mg/dL AST 30 (17-59) IU/L ALT 30 (<50) IU/L Alkaline Phosphatase 113 (38-126) U/L Troponin I 0.033 (0.01-0.034) ng/mL NT-Pro-B Natriuret Pep 436 (<450) pg/mL Total Protein 7.8 (6.3-8.2) g/dL Albumin 4.5 (3.5-5.0) g/dL Globulin 3.3 (1.7-4.1) g/dL Albumin/Globulin Ratio 1.4 (1.0-2.8) Procalcitonin 0.147 (<0.5) ng/mL Chlamy pneumoniae PCR Not detected (Not Detect) Adenovirus (PCR) Not detected (Not Detect) B.parapertussis DNA PCR Not detected (Not Detecte) Coronavirus OC43 (PCR) Not detected (Not Detect) Coronavirus HKU1 (PCR) Not detected (Not Detect) Coronavirus 229E (PCR) Not detected (Not Detect) SARS-CoV-2 (PCR) Not detected (Not Detecte) Coronavirus NL63 (PCR) Not detected (Not Detect) Human Metapneumovir PCR Not detected (Not Detect) Influenza Type A (PCR) Not detected (Not Detect) Influenza Type B (PCR) Not detected (Not Detect) M. pneumoniae (PCR) Not detected (Not Detect) Parainfluenza 1 (PCR) Not detected (Not Detect) Parainfluenza 2 (PCR) Not detected (Not Detect) Parainfluenza 3 (PCR) Not detected (Not Detect) Parainfluenza 4 (PCR) Not detected (Not Detect) RSV (PCR) Not detected (Not Detect) Entero/Rhino (PCR) Not detected (Not Detect) 06/12/24 Range/Units 12:20 WBC (4.5-11.0) X10^3/uL RBC (4.5-5.9) X10^6/uL Hgb (13.5-17.5) g/dL Hct (41-53) % MCV (80-100) fL MCH (26-34) PG MCHC (30-36) % RDW (11.6-14.8) % Plt Count (150-400) X10^3/uL Neut % (Auto) (50-75) % Lymph % (Auto) (25-40) % [place] % (Auto) (3-14) % Eos % (Auto) (2-4) % Baso % (Auto) (0-2) % Neut # (Auto) (2283-3889) /uL Lymph # (Auto) (1009-7711) /uL [place] # (Auto) (0-900) /uL Eos # (Auto) (0-450) /uL Baso # (Auto) (0-100) /uL PT (9.4-12.5) SECONDS INR (0.9-1.3) Sodium (137-145) mmol/L Potassium (3.4-5.1) mmol/L Chloride (98-107) mmol/L Carbon Dioxide (22-32) mmol/L BUN (9-20) mg/dL Creatinine (0.66-1.25) mg/dL Estimated GFR (>60) mL/min BUN/Creatinine Ratio (6-22) Glucose (80-110) mg/dL Lactate (0.7-2.1) mmol/L Calcium (8.4-10.2) mg/dL Total Bilirubin (0.2-1.3) mg/dL AST (17-59) IU/L ALT (<50) IU/L Alkaline Phosphatase (38-126) U/L Troponin I 0.039 H (0.01-0.034) ng/mL NT-Pro-B Natriuret Pep (<450) pg/mL Total Protein (6.3-8.2) g/dL Albumin (3.5-5.0) g/dL Globulin (1.7-4.1) g/dL Albumin/Globulin Ratio (1.0-2.8) Procalcitonin (<0.5) ng/mL Chlamy pneumoniae PCR (Not Detect) Adenovirus (PCR) (Not Detect) B.parapertussis DNA PCR (Not Detecte) Coronavirus OC43 (PCR) (Not Detect) Coronavirus HKU1 (PCR) (Not Detect) Coronavirus 229E (PCR) (Not Detect) SARS-CoV-2 (PCR) (Not Detecte) Coronavirus NL63 (PCR) (Not Detect) Human Metapneumovir PCR (Not Detect) Influenza Type A (PCR) (Not Detect) Influenza Type B (PCR) (Not Detect) M. pneumoniae (PCR) (Not Detect) Parainfluenza 1 (PCR) (Not Detect) Parainfluenza 2 (PCR) (Not Detect) Parainfluenza 3 (PCR) (Not Detect) Parainfluenza 4 (PCR) (Not Detect) RSV (PCR) (Not Detect) Entero/Rhino (PCR) (Not Detect) Urine Dip Bedside Urine Glucose Negative Bedside Urine Bilirubin - Negative Bedside Urine Ketone - Negative Urine Specific [place] 1.015 Bedside Urine Occult Blood - Negative Bedside Urine pH 5.5 Bedside Urine Protein - Negative Bedside Urine Urobilinogen - Negative Bedside Urine Nitrite - Negative Bedside Urine Leukocytes - Negative Esterase Imaging Data Chest x-ray: Radiologist's Impression: PROCEDURE: XR CHEST 1V INDICATIONS: Shortness of breath TECHNIQUE: One view of the chest was acquired. COMPARISON: [facility], CR, XR CHEST 1V, 02/07/2024, 21:40. FINDINGS: Surgical changes and devices: Pacemaker Lungs and pleura: Lungs are clear. No pleural effusions or pneumothorax. Chronic elevation of left hemidiaphragm Mediastinum: Mediastinal contours appear normal. Heart size is normal. Bones and chest wall: No suspicious bony lesions. Overlying soft tissues appear unremarkable. IMPRESSION: Unchanged cardiomegaly. No evidence acute pulmonary process. Dictated by: Al Swann M.D. on 06/12/2024 at 10:04 Approved by: Al Swann M.D. on 06/12/2024 at 10:05 ECG Data Attestation: I personally reviewed and interpreted this ECG as follows: Prior ECG tracings: available for review Interpretation: Normal sinus rhythm rate 80 LA interval 266 QRS [address] changes MDM Narrative Medical decision making narrative: Patient 73-year-old male history of intermittent asthma, polymyalgia rheumatica chronically on prednisone he actually states that he is tapering down his prednisone presenting today with increasing shortness of breath and body aches. Blood work has been reviewed mild leukocytosis of 12.7 is currently on prednisone, lactate 3.2 with repeat of 2.0, INR 2.3, sodium 137, potassium 4.0 chloride 103 carbon dioxide 24 BUN 23, creatinine 1, T bili 1.7, AST 30, ALT 30, alk-phos 113, troponin 0.033, with repeat 0.039 thought to be in significant change, BNP 436, procalcitonin 0.147 Urinalysis negative Respiratory panel negative Chest x-ray reviewed no acute cardiopulmonary process EKGs does not show any acute ischemic changes Concerned that patient may have an underlying infection sounds like he has had some body aches and chills. He does have mild leukocytosis but unknown if this is due to prednisone he has not had a elevated lactate at 3.2 which actually resolved without fluids. No sores or evidence of infection no need for antibiotics at this time. Blood cultures are pending. Patient was having shortness of breath he does have a history of asthma he was given albuterol treatment Solu-Medrol and actually says that he feels significantly better. This time does not meet any admission criteria discussion with patient and about returning if symptoms continue or worsen Discharge Plan Departure Patient Disposition: Home Clinical Impression: Asthma Instructions: DI for Asthma -- Adult Activity Restrictions/Additional Instructions: *You have been diagnosed with asthma *What to do: At this time unclear exactly what is going on. I do think he might be coming down with some sort of viral illness. Your inhalers as needed *Continue to take medications as directed *Follow up with your primary care provider in 2-3 days or call [phone] *Return to ER if you should have increasing shortness of breath confusion body aches or any new, worsening or concerning symptoms Prescriptions: No Action albuterol sulfate 90 mcg/actuation HFA aerosol inhaler 1 inh INHALATION Q4-6H PRN (Reason: shortness of breath) Qty: 18 11RF atorvastatin 20 mg tablet 20 mg PO DAILY Qty: 90 3RF omeprazole 40 mg capsule,delayed release(DR/EC) 40 mg PO DAILY prednisone 10 mg tablet 10 mg PO DIRECTED Qty: 90 1RF Rx Instructions: see taper instructions Xarelto 20 mg tablet 10 mg PO DAILY flecainide 50 mg tablet 50 mg PO BID potassium chloride 10 mEq tablet extended release 10 meq PO DAILY Qty: 90 3RF tramadol 50 mg tablet 50 mg PO TID PRN (Reason: pain) Qty: 90 0RF montelukast 10 mg tablet 10 mg PO ONCE PM albuterol sulfate [Ventolin HFA] 90 mcg/actuation Hfa Aerosol Inhaler 2 puff INHALATION QID PRN (Reason: asthma) Referrals: Tino Lassiter MD [Primary Care Provider] - Stand Alone Forms: Patient Portal/API
[2024-06-12] MEDS: ALBUTEROL 2.5 MG/3 ML NEB (ADULT) INH (11:01)
[2024-06-12 11:08] LABS: Procalcitonin 0.147 ng/mL (<0.5)
[2024-06-12 11:17] LABS: Reflexed Lactate in 2 Hours Y
[2024-06-12 11:42] LABS: Adenovirus Not Detected (Not Detect); B. parapertussis Not Detected (Not Detecte); Bordetella pertussis Not Detected (Not Detect); Chlamydophila pneumoniae Not Detected (Not Detect); Coronavirus 229E Not Detected (Not Detect); Coronavirus HKU1 Not Detected (Not Detect); Coronavirus NL 63 Not Detected (Not Detect); Coronavirus OC43 Not Detected (Not Detect); Human Metapneumovirus Not Detected (Not Detect); Human Rhinovirus/Enterovirus Not Detected (Not Detect); Influenza A Not Detected (Not Detect); Influenza B Not Detected (Not Detect); Mycoplasma pneumoniae Not Detected (Not Detect); Parainfluenza Virus 1 Not Detected (Not Detect); Parainfluenza Virus 2 Not Detected (Not Detect); Parainfluenza Virus 3 Not Detected (Not Detect); Parainfluenza Virus 4 Not Detected (Not Detect); Respiratory Syncytial Virus Not Detected (Not Detect); SARS- CoV-2 Not Detected (Not Detecte)
[2024-06-12] MEDS: SODIUM CHLORIDE 0.9% 500 ML 1000 ML IV (12:16)
[2024-06-12] MEDS: methylPREDNISolone 125 MG/2 ML VIAL IV (12:16)
[2024-06-12 12:56] LABS: Troponin I 0.039 ng/mL (0.01-0.034)
--- NOTE | 2024-06-12 13:42 | PC.NURSE ---
Pt reports improvement in symptoms
== END 2024-06-12 13:43 | disposition home or self-care (01) ==
PROVIDERS: Emergency Provider Emergency Medicine; Family Provider Internal Medicine; PCP Internal Medicine
DX: J45.909 Unspecified asthma, uncomplicated (principal); D72.829 Elevated white blood cell count, unspecified; R60.9 Edema, unspecified; Z95.0 Presence of cardiac pacemaker; Z79.01 Long term (current) use of anticoagulants
CPT/HCPCS: 36415; 71045; 80053; 81003; 83605; 83880; 84145; 84484; 85025; 85610; 87040; 87077; 87147; 87633; 93005; 94640; 99284; J2919; J7613

== ENCOUNTER 2024-06-14 10:49 | Inpatient (IN) | payer OTHER, SELFPAY ==
[2024-06-14] VITALS (19 sets, daily range): BP systolic 114–153; BP diastolic 57–103; PULSE 71–97; RESP 16–24; TEMP 36.2–37.4; O2SAT 92–98; BMI 31.7
--- NOTE | 2024-06-14 11:13 | ED_ITS ---
HPI - General Adult General Chief complaint: Recheck/Abnormal Lab/Rx Stated complaint: not feeling better Time Seen by Provider: 06/14/24 10:52 Source: patient Mode of arrival: Wheelchair Limitations: no limitations History of Present Illness HPI narrative: Patient is a 73-year-old male has a history of paroxysmal AFib. Is on anticoagulation. Also has a history of asthma. History of polymyalgia rheumatica and a history of coronary artery disease with ischemic cardiomyopathy. Was seen here in the emergency department approximately 48 hours ago after having about 12 hours of generally not feeling very well and chills and shortness of breath. Was seen here in the emergency department. Had a workup to include a leukocytosis and a lactate which improved without any fluids. Patient states that after his evaluation here in the ER he was feeling somewhat better except for continued discomfort in his right knee and lower leg. He was discharged home without a definitive diagnosis. Was not placed on any antibiotics. Cultures resulted today showing a group G Streptococcus in 1 anaerobic bottle. The aerobic bottle and that set of cultures had no growth and the 2nd set of blood cultures had no growth. We contacted the patient. He stated that overall he was feeling somewhat better but he has had continued discomfort and swelling to his right knee and lower leg. He was advised to return to the emergency department. Here in the ER he reports no chest pain, shortness of breath, abdominal pain, headache, neck pain, sore throat. He was continued pain and swelling to his right knee and lower leg. He has had 2 right knee total replacement done. The last surgery was in September of 2023. He reports no trauma. Related Data Home Medications Medication Instructions Recorded Confirmed rivaroxaban 20 mg tablet (Xarelto) 10 mg PO DAILY 10/23/19 04/23/24 flecainide 50 mg tablet 50 mg PO BID 03/21/20 04/23/24 montelukast 10 mg tablet 10 mg PO ONCE PM 02/07/24 04/23/24 albuterol sulfate 90 mcg/actuation 2 puff inhalation QID PRN asthma 02/08/24 04/23/24 aerosol inhaler (Ventolin HFA) omeprazole 40 mg capsule,delayed 40 mg PO DAILY 04/23/24 04/23/24 release Previous Rx's Medication Instructions Recorded albuterol sulfate 90 mcg/actuation 1 inh inhalation Q4-6H PRN 04/02/22 aerosol inhaler shortness of breath #18 grams potassium chloride 10 mEq 10 meq PO DAILY #90 tabs 12/10/23 tablet,extended release tramadol 50 mg tablet 50 mg PO TID PRN pain #90 tabs 03/10/24 prednisone 10 mg tablet 10 mg PO DIRECTED #90 tabs 04/23/24 atorvastatin 20 mg tablet 20 mg PO DAILY #90 tabs 05/18/24 Allergies Allergy/AdvReac Type Severity Reaction Status Date / Time nifedipine [From Procardia] AdvReac Severe Hypotensive Verified 06/14/24 11:14 Review of Systems Review of Systems ROS Unobtainable: All systems reviewed & are unremarkable except as noted in HPI and below Patient History Medical History Polymyalgia rheumatica Mixed hyperlipidemia Coronary artery disease Colon polyp, hyperplastic Ischemic cardiomyopathy Kidney stone H/O acute myocardial infarction (~1984) Paroxysmal atrial fibrillation Cardiac pacemaker in situ (~09/2017) Hemorrhoids (12/29/15) 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) Diverticulosis of large intestine without perforation or abscess without bleeding Gastroesophageal reflux disease without esophagitis (12/04/11) Mild intermittent asthma without complication (12/04/11) Surgical History History of surgery History of total right knee replacement (04/13/19) H/O vasectomy (~1984) Status post hernia repair Social History household members: spouse Smoking Status: Never smoker alcohol intake: current Smoking Status: Never smoker alcohol intake frequency: holidays/special occasions only Substance Use Type: does not use Exam Initial Vital Signs Initial Vital Signs: Vital Signs Temperature 99.3 F 06/14/24 10:50 Pulse Rate 87 06/14/24 10:50 Respiratory Rate 16 06/14/24 10:50 Blood Pressure 145/78 H 06/14/24 10:50 Pulse Oximetry 96 06/14/24 10:50 Oxygen Delivery Method Room Air 06/14/24 10:50 Const General: cooperative, comfortable and No ill appearing HENMT Head: normal to inspection and normocephalic Resp Effort & Inspection: normal respiratory effort Auscultation: clear to auscultation bilaterally Cardio Rate: regular rate Rhythm: regular rhythm GI Inspection: normal to inspection and non-distended Skin Other: Patient with redness with what appears to be petechiae in his right lower extremity from his knee down to his ankle. His right foot is unremarkable. He does have swelling with some erythema over the right knee. No vesicles. No pustules. Neuro General: patient alert, patient awake and patient oriented x3 Sensory Exam: no sensory deficits noted Extrem Other: Has significant swelling to the right knee with an effusion. Procedures Joint Aspiration Joint Asp./Inject. 1: Side of body: right Joint Aspirated: knee Ultrasound Guidance: No Skin Prep: Chlorhexidine Local Anesthetic: lidocaine 1% and with epi Amount of anesthesia used (mL): 2 Needle Size Used: 18G Fluid Obtained: bloody Total fluid obtained (mL): 50 Patient Tolerated Procedure: Well Complications: none Course Orders Ordered: ED Orders 06/14/24 11:00 Complete Blood Count AUTO DIFF Stat Erythrocyte Sedimentation Rate Stat Lactate (Lactic Acid) Stat 06/14/24 11:14 Body Fluid Culture Stat Cell Count w Diff Body Fluid Stat 06/14/24 11:17 XR knee RT 3V Stat 06/14/24 11:21 Blood Culture Stat 06/14/24 12:00 C-Reactive Protein Quant Stat Comprehensive Metabolic Panel Stat Lipase Stat Procalcitonin Stat 06/14/24 16:36 Consult to Orthopedic Surgery Stat Acetaminophen (Acetaminophen 325 Mg Tablet) 650 mg PO Q6H PRN PRN Reason: Fever/Mild Pain (1-3) Al Hydrox/Mg Hydrox/Simethicone (Mag Hydrox/Alum/Simeth 30 Ml Udc) 30 ml PO Q6HR PRN PRN Reason: Dyspepsia Albuterol (Albuterol 2.5 Mg/3 Ml Neb (Adult)) 2.5 mg INH [id number] GÓMEZ Albuterol (Albuterol 2.5 Mg/3 Ml Neb (Adult)) 2.5 mg INH RTQ2HR PRN PRN Reason: shortness of breath Atorvastatin Calcium (Atorvastatin 20 Mg Tablet) 20 mg PO DAILY GÓMEZ Bisacodyl (Bisacodyl 10 Mg Supp) 10 mg ME DAILY PRN PRN Reason: Constipation Calcium Carbonate (Calcium Carbonate 500 Mg Tab) 1,000 mg PO Q4HR PRN PRN Reason: Dyspepsia Flecainide Acetate (Flecainide 100 Mg Tablet) 50 mg PO BID GÓMEZ Sodium Chloride (Normal Saline 0.9%) 1,000 mls @ 125 mls/hr IV CONT GÓMEZ Last Admin: 06/14/24 12:15 Dose: 125 mls/hr Documented By: KRISTY Vancomycin HCl (Vancomycin) 1,250 mg in 250 mls @ 250 mls/hr IV Q18H GÓMEZ Ceftriaxone Sodium 1,000 mg/ (Sodium Chloride) 100 mls @ 200 mls/hr IV Q24H GMÓEZ Magnesium Hydroxide (Magnesium Hydroxide 30 Ml Udc) 30 ml PO DAILY PRN PRN Reason: Constipation Montelukast Sodium (Montelukast 10 Mg Tablet) 10 mg PO BEDTIME [facility] Naloxone HCl (Naloxone 0.4 Mg/Ml Vial) 0.2 mg IV Q2MIN PRN PRN Reason: Opiate Reversal Non-Formulary Medication (Prednisone) 10 mg PO DIRECTED [facility] Ondansetron HCl (Ondansetron 4 Mg/2 Ml Inj) 4 mg IV Q8HR PRN PRN Reason: Nausea And Vomiting Oxycodone HCl (Oxycodone Ir 5 Mg Tablet) 5 mg PO Q3H PRN PRN Reason: Pain, Moderate (4-6) Pantoprazole Sodium (Pantoprazole Dr 40 Mg Tablet) 40 mg PO 0600 [facility] Potassium Chloride (Potassium Chloride 10 Meq Tab) 10 meq PO DAILY [facility] Vancomycin HCl (Vancomycin Trough) 1 request MISC NOW ONE Stop: 06/16/24 19:31 Vancomycin HCl (Vancomycin Peak) 1 request MISC NOW ONE Stop: 06/16/24 22:01 Discontinued Medications Hydrocodone Bitart/Acetaminophen (Hydrocodone/Acet 5/325 Tablet) 1 tab PO NOW ONE Stop: 06/14/24 11:41 Last Admin: 06/14/24 12:15 Dose: 1 tab Documented By: KRISTY Albuterol (Albuterol Hfa Mdi 60 Puff/8 Gm Inhaler) 2 puff INH QID PRN PRN Reason: asthma Ceftriaxone Sodium 1,000 mg/ (Sodium Chloride) 100 mls @ 200 mls/hr IV NOW ONE Stop: 06/14/24 13:26 Last Infusion: 06/14/24 14:00 Dose: Infused Documented By: Admin: 06/14/24 13:39 Dose: 200 mls/hr Documented By: MASON Vancomycin HCl (Vancomycin) 1,000 mg in 200 mls @ 200 mls/hr IV NOW ONE Stop: 06/14/24 14:24 Last Infusion: 06/14/24 15:05 Dose: Infused Documented By: Admin: 06/14/24 14:01 Dose: 200 mls/hr Documented By: MASON Vancomycin HCl (Vancomycin) 1,250 mg in 250 mls @ 250 mls/hr IV Q18H [facility] Vancomycin HCl (Vancomycin Per Pharmacy) 1 request MISC NOW ONE Stop: 06/14/24 17:31 Vital Signs Vital signs: Vital Signs - 8 hr 06/14/24 10:50 06/14/24 10:58 06/14/24 11:00 Temperature 99.3 F Pulse Rate 87 97 H 87 Respiratory Rate 16 Blood Pressure 145/78 H Pulse Oximetry 96 92 96 Oxygen Delivery Method Room Air 06/14/24 11:00 06/14/24 11:30 06/14/24 11:30 Temperature Pulse Rate 82 Respiratory Rate 24 Blood Pressure 148/78 H 141/71 H Pulse Oximetry 96 Oxygen Delivery Method 06/14/24 12:00 06/14/24 12:00 06/14/24 12:30 Temperature Pulse Rate 84 86 Respiratory Rate Blood Pressure 131/102 H Pulse Oximetry 95 94 Oxygen Delivery Method 06/14/24 12:30 06/14/24 13:00 06/14/24 13:00 Temperature Pulse Rate 82 Respiratory Rate Blood Pressure 134/103 H 118/57 L Pulse Oximetry 95 Oxygen Delivery Method 06/14/24 13:30 06/14/24 13:30 06/14/24 14:00 Temperature Pulse Rate 93 H 82 Respiratory Rate Blood Pressure 118/62 Pulse Oximetry 94 94 Oxygen Delivery Method 06/14/24 14:00 06/14/24 14:30 06/14/24 14:30 Temperature Pulse Rate 85 Respiratory Rate Blood Pressure 114/62 123/74 Pulse Oximetry 95 Oxygen Delivery Method 06/14/24 15:00 06/14/24 15:00 06/14/24 15:30 Temperature Pulse Rate 88 83 Respiratory Rate Blood Pressure 121/58 L Pulse Oximetry 96 95 Oxygen Delivery Method 06/14/24 15:30 06/14/24 16:00 06/14/24 16:01 Temperature Pulse Rate 77 79 Respiratory Rate Blood Pressure 153/73 H Pulse Oximetry 94 94 Oxygen Delivery Method 06/14/24 16:01 06/14/24 16:30 06/14/24 16:30 Temperature Pulse Rate 82 Respiratory Rate Blood Pressure 126/69 130/68 Pulse Oximetry 95 Oxygen Delivery Method Medical Decision Making Lab Data Lab results reviewed: Yes I reviewed the patient's lab results. 06/14/24 11:00 06/14/24 12:00 Labs: Lab Results 06/14/24 06/14/24 06/14/24 Range/Units 11:00 11:14 12:00 WBC 11.9 H (4.5-11.0) X10^3/uL RBC 5.21 (4.5-5.9) X10^6/uL Hgb 16.5 (13.5-17.5) g/dL Hct 48.5 (41-53) % MCV 92.9 (80-100) fL MCH 31.6 (26-34) PG MCHC 34.0 (30-36) % RDW 14.2 (11.6-14.8) % Plt Count 163 (150-400) X10^3/uL Neut % (Auto) 89.8 H (50-75) % Lymph % (Auto) 4.7 L (25-40) % [place] % (Auto) 5.0 (3-14) % Eos % (Auto) 0.3 L (2-4) % Baso % (Auto) 0.2 (0-2) % Neut # (Auto) 04021 H (5100-2965) /uL Lymph # (Auto) 600 L (9828-7344) /uL [place] # (Auto) 600 (0-900) /uL Eos # (Auto) 0 (0-450) /uL Baso # (Auto) 0 (0-100) /uL ESR 4 (0-15) MM/HR Sodium 133 L (137-145) mmol/L Potassium 4.0 (3.4-5.1) mmol/L Chloride 100 (98-107) mmol/L Carbon Dioxide 29 (22-32) mmol/L BUN 36 H (9-20) mg/dL Creatinine 1.22 (0.66-1.25) mg/dL Estimated GFR > 60 (>60) mL/min BUN/Creatinine Ratio 29.5 H (6-22) Glucose 125 H (80-110) mg/dL Lactate 2.4 H (0.7-2.1) mmol/L Calcium 8.4 (8.4-10.2) mg/dL Total Bilirubin 2.0 H (0.2-1.3) mg/dL AST 23 (17-59) IU/L ALT 20 (<50) IU/L Alkaline Phosphatase 93 (38-126) U/L C-Reactive Protein 29.7 H (<1.0) mg/dL Total Protein 6.8 (6.3-8.2) g/dL Albumin 3.6 (3.5-5.0) g/dL Globulin 3.2 (1.7-4.1) g/dL Albumin/Globulin Ratio 1.1 (1.0-2.8) Lipase 20 L (23-300) U/L Procalcitonin 3.28 H (<0.5) ng/mL Fluid Color Yellow Fluid Appearance Turbid Fluid RBC < 1000 /uL Fld Tot Nucleated Cell 519145 /uL Fluid Neutrophils % 70 % Fluid Lymphocytes % 13 % Fluid Meso/Macro/[place] % 17 % Body Fluid Clot No clots present 06/14/24 Range/Units 13:02 WBC (4.5-11.0) X10^3/uL RBC (4.5-5.9) X10^6/uL Hgb (13.5-17.5) g/dL Hct (41-53) % MCV (80-100) fL MCH (26-34) PG MCHC (30-36) % RDW (11.6-14.8) % Plt Count (150-400) X10^3/uL Neut % (Auto) (50-75) % Lymph % (Auto) (25-40) % [place] % (Auto) (3-14) % Eos % (Auto) (2-4) % Baso % (Auto) (0-2) % Neut # (Auto) (7440-6172) /uL Lymph # (Auto) (8567-2879) /uL [place] # (Auto) (0-900) /uL Eos # (Auto) (0-450) /uL Baso # (Auto) (0-100) /uL ESR (0-15) MM/HR Sodium (137-145) mmol/L Potassium (3.4-5.1) mmol/L Chloride (98-107) mmol/L Carbon Dioxide (22-32) mmol/L BUN (9-20) mg/dL Creatinine (0.66-1.25) mg/dL Estimated GFR (>60) mL/min BUN/Creatinine Ratio (6-22) Glucose (80-110) mg/dL Lactate 1.0 (0.7-2.1) mmol/L Calcium (8.4-10.2) mg/dL Total Bilirubin (0.2-1.3) mg/dL AST (17-59) IU/L ALT (<50) IU/L Alkaline Phosphatase (38-126) U/L C-Reactive Protein (<1.0) mg/dL Total Protein (6.3-8.2) g/dL Albumin (3.5-5.0) g/dL Globulin (1.7-4.1) g/dL Albumin/Globulin Ratio (1.0-2.8) Lipase (23-300) U/L Procalcitonin (<0.5) ng/mL Fluid Color Fluid Appearance Fluid RBC /uL Fld Tot Nucleated Cell /uL Fluid Neutrophils % % Fluid Lymphocytes % % Fluid Meso/Macro/[place] % % Body Fluid Clot Imaging Data Extremity x-ray #1: Radiologist's Impression: PROCEDURE: XR KNEE RT 3V INDICATIONS: swelling and pain TECHNIQUE: 3 views of the knee were acquired. COMPARISON: [facility], , XR KNEE RT 1TO2V, 04/13/2019, 11:58. [facility], , XR KNEE RT 3V, 08/18/2021, 10:56. FINDINGS: Bones: No fractures or dislocations. No suspicious bony lesions. Right knee arthroplasty hardware is seen, without susan findings of failure or loosening. Soft tissues: Generalized soft tissue swelling is seen. There is a moderate right knee joint effusion. No suspicious soft tissue calcifications. IMPRESSION: Generalized soft tissue swelling, with a moderate joint effusion. No over complication of the right knee arthroplasty hardware can be seen. [facility] Narrative Medical decision making narrative: Concern for septic joint/bursitis given his presentation today. Labs were reordered. Lactate initially elevated but then improved. X-ray is relatively unremarkable. I did discuss the case with Dr. Samuel on-call for Orthopedic surgery who recommended that the patient be transferred back to facility that did his initial knee revision. This was done with [facility]. I did discuss the case with the [facility] provider. There are no beds available. Patient reports improvement of symptoms after the arthrocentesis and he was nontoxic appearing. I then discussed the case again with Dr. Samuel. The plan will be to admit to our hospital. [facility] is aware and will continue to follow on and potentially help transfer if needed. I then discussed the case with Dr. Crockett hospitalist on-call for the patient's primary doctor who will admit. Discussed the need for admission with the patient. He expressed understanding and agreement with plan. Discharge Plan Departure Patient Disposition: Admitted As Inpatient Clinical Impression: Septic joint, Bacteremia Admit Date/Time: 06/14/24 16:51 Admit Provider: Kim Crockett
--- NOTE | 2024-06-14 11:17 | DI.RAD.S_ITS ---
PROCEDURE: XR KNEE RT 3V INDICATIONS: swelling and pain TECHNIQUE: 3 views of the knee were acquired. COMPARISON: Located [facility], CR, XR KNEE RT 1TO2V, 04/13/2019, 11:58. Located Within [facility], CR, XR KNEE RT 3V, 08/18/2021, 10:56. FINDINGS: Bones: No fractures or dislocations. No suspicious bony lesions. Right knee arthroplasty hardware is seen, without susan findings of failure or loosening. Soft tissues: Generalized soft tissue swelling is seen. There is a moderate right knee joint effusion. No suspicious soft tissue calcifications. IMPRESSION: Generalized soft tissue swelling, with a moderate joint effusion. No over complication of the right knee arthroplasty hardware can be seen. Dictated by: Sabas Glass M.D. on 06/14/2024 at 10:33 Approved by: Sabas Glass M.D. on 06/14/2024 at 10:34
[2024-06-14 11:31] LABS: Add Manual Diff / Slide Review NO; Basophils Absolute Auto 0 /uL (0-100); Basophils Percent Auto 0.2 % (0-2); Eosinophils Absolute Auto 0 /uL (0-450); Eosinophils Percent Auto 0.3 % (2-4); Hematocrit 48.5 % (41-53); Hemoglobin 16.5 g/dL (13.5-17.5); Lymphocytes Absolute Auto 600 /uL (1100-4500); Lymphocytes Percent Auto 4.7 % (25-40); Mean Corpuscular Hemoglobin 31.6 PG (26-34); Mean Corpuscular Volume 92.9 fL (80-100); Monocytes Absolute Auto 600 /uL (0-900); Neutrophils Absolute Auto 10700 /uL (1500-7000); Neutrophils Percent Auto 89.8 % (50-75); Platelet Count 163 X10^3/uL (150-400); Red Blood Cell Count 5.21 X10^6/uL (4.5-5.9); Red Cell Distribution Width 14.2 % (11.6-14.8); White Blood Cell Count 11.9 X10^3/uL (4.5-11.0)
[2024-06-14 11:51] LABS: Lactate (Lactic Acid) 2.4 mmol/L (0.7-2.1)
[2024-06-14 11:54] LABS: Body Fluid Tot Nucleated Cells 190621 /uL
[2024-06-14 11:58] LABS: Erythrocyte Sedimentation Rate 4 MM/HR (0-15)
[2024-06-14 12:11] LABS: Body Fluid Appearance TURBID; Body Fluid Clotted? NO CLOTS PRESENT; Body Fluid Color YELLOW
[2024-06-14 12:12] LABS: Body Fluid Red Blood Cells < 1000 /uL
[2024-06-14] MEDS: SODIUM CHLORIDE 0.9% 1,000 ML 125 ML IV ×2 (12:15→20:31)
[2024-06-14] MEDS: HYDROCODONE/ACET 5/325 TABLET 1 TAB PO (12:15)
[2024-06-14 12:25] LABS: Alanine Aminotransferase 20 IU/L (<50); Albumin 3.6 g/dL (3.5-5.0); Albumin Globulin Ratio 1.1 (1.0-2.8); Alkaline Phosphatase 93 U/L (38-126); Aspartate Aminotransferase 23 IU/L (17-59); BUN Creatinine Ratio 29.5 (6-22); Blood Urea Nitrogen 36 mg/dL (9-20); Calcium 8.4 mg/dL (8.4-10.2); Carbon Dioxide 29 mmol/L (22-32); Chloride 100 mmol/L (98-107); Estimated Glomerular Filt Rate > 60 mL/min (>60); Globulin 3.2 g/dL (1.7-4.1); Glucose 125 mg/dL (80-110); Lipase 20 U/L (23-300); Sodium 133 mmol/L (137-145); Total Protein 6.8 g/dL (6.3-8.2)
[2024-06-14 12:38] LABS: Procalcitonin 3.28 ng/mL (<0.5)
[2024-06-14 12:39] LABS: Lymphocytes Body Fluid 13 %; MESO/MACRO/MONO Body Fluid 17 %; Neutrophils Body Fluid 70 %
[2024-06-14 12:46] LABS: Reflexed Lactate in 2 Hours Y
[2024-06-14 13:05] LABS: HEMOLYSIS 17 (0-50)
[2024-06-14 13:07] LABS: C-Reactive Protein Quant 29.7 mg/dL (<1.0)
[2024-06-14] MEDS: cefTRIAXone 1,000 MG in SODIUM CHLORIDE 0.9% 100 ML 200 MG IV (13:39)
[2024-06-14] MEDS: VANCOMYCIN 1,000 MG/200 ML PIGGYBACK 200 MG IV (14:01)
[2024-06-14] MEDS: ACETAMINOPHEN 325 MG TABLET 650 MG PO (18:16)
[2024-06-14] MEDS: OXYCODONE IR 5 MG TABLET PO (18:17)
--- NOTE | 2024-06-14 18:30 | ED.RECABL ---
HPI - Recheck/Abnormal Lab/Rx General Chief Complaint: Recheck/Abnormal Lab/Rx Stated Complaint: not feeling better Time Seen by Provider: 06/14/24 10:52 Source: patient Mode of arrival: Wheelchair Limitations: no limitations History of Present Illness HPI narrative: Patient is a 73 yo M with PMH a fib, PMR, asthma, CAD who presented to the ER for bacteremia. He presented to ER 06/12 for general unwell feeling. Daisy SOB and LE swelling as well as myalgias. Work up largely reassuring including CBC, CMP, troponin, UA, CXR and EKG. WBC was 12.7 and lactate initially 3.2 but repeat down to 2.0 with IVF. Blood cultures collected and patient sent home. Patient called back today for + blood cultures for group G Strep. Patient's inital symptoms had resolved but started to note R LE swelling of knee and erythema of lower leg and knee. No fevers at home. Pain mostly with WB and movement. H/o right knee replacement 2018, revision Presented to the ER - Labs - WBC 11.9, lactate 2.4 Arthrocentesis performed and repeat blood cultures collected. XRay showed - generalized soft tissue swelling, with a moderate joint effusion. Discussed with ortho - Dr. Samuel, recommended transfer back to [place] Related Data Home Medications Medication Instructions Recorded Confirmed rivaroxaban 20 mg tablet (Xarelto) 10 mg PO DAILY 10/23/19 06/14/24 flecainide 50 mg tablet 50 mg PO BID 03/21/20 06/14/24 montelukast 10 mg tablet 10 mg PO ONCE PM 02/07/24 06/14/24 albuterol sulfate 90 mcg/actuation 2 puff inhalation QID PRN asthma 02/08/24 06/14/24 aerosol inhaler (Ventolin HFA) omeprazole 40 mg capsule,delayed 40 mg PO DAILY 04/23/24 06/14/24 release Previous Rx's Medication Instructions Recorded albuterol sulfate 90 mcg/actuation 1 inh inhalation Q4-6H PRN 04/02/22 aerosol inhaler shortness of breath #18 grams potassium chloride 10 mEq 10 meq PO DAILY #90 tabs 12/10/23 tablet,extended release tramadol 50 mg tablet 50 mg PO TID PRN pain #90 tabs 03/10/24 prednisone 10 mg tablet 10 mg PO DIRECTED #90 tabs 04/23/24 atorvastatin 20 mg tablet 20 mg PO DAILY #90 tabs 05/18/24 Allergies Allergy/AdvReac Type Severity Reaction Status Date / Time nifedipine [From Procardia] AdvReac Severe Hypotensive Verified 06/14/24 11:14 Patient History Medical History Polymyalgia rheumatica Mixed hyperlipidemia Coronary artery disease Colon polyp, hyperplastic Ischemic cardiomyopathy Kidney stone H/O acute myocardial infarction (~1984) Paroxysmal atrial fibrillation Cardiac pacemaker in situ (~09/2017) Hemorrhoids (12/29/15) 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) Diverticulosis of large intestine without perforation or abscess without bleeding Gastroesophageal reflux disease without esophagitis (12/04/11) Mild intermittent asthma without complication (12/04/11) Surgical History History of surgery History of total right knee replacement (04/13/19) H/O vasectomy (~1984) Status post hernia repair Social History household members: spouse Smoking Status: Never smoker alcohol intake: current Smoking Status: Never smoker alcohol intake frequency: holidays/special occasions only Substance Use Type: does not use Exam Initial Vital Signs Initial Vital Signs: Vital Signs Temperature 99.3 F 06/14/24 10:50 Pulse Rate 87 06/14/24 10:50 Respiratory Rate 16 06/14/24 10:50 Blood Pressure 145/78 H 06/14/24 10:50 Pulse Oximetry 96 06/14/24 10:50 Oxygen Delivery Method Room Air 06/14/24 10:50 Course Orders Ordered: ED Orders 06/14/24 11:00 Complete Blood Count AUTO DIFF Stat Erythrocyte Sedimentation Rate Stat Lactate (Lactic Acid) Stat 06/14/24 11:14 Body Fluid Culture Stat Cell Count w Diff Body Fluid Stat 06/14/24 11:17 XR knee RT 3V Stat 06/14/24 11:21 Blood Culture Stat 06/14/24 12:00 C-Reactive Protein Quant Stat Comprehensive Metabolic Panel Stat Lipase Stat Procalcitonin Stat 06/14/24 16:36 Consult to Orthopedic Surgery Stat Acetaminophen (Acetaminophen 325 Mg Tablet) 650 mg PO Q6H PRN PRN Reason: Fever/Mild Pain (1-3) Last Admin: 06/14/24 18:16 Dose: 650 mg Documented By: SWETA Al Hydrox/Mg Hydrox/Simethicone (Mag Hydrox/Alum/Simeth 30 Ml Udc) 30 ml PO Q6HR PRN PRN Reason: Dyspepsia Albuterol (Albuterol 2.5 Mg/3 Ml Neb (Adult)) 2.5 mg INH [id number] GÓMEZ Albuterol (Albuterol 2.5 Mg/3 Ml Neb (Adult)) 2.5 mg INH RTQ2HR PRN PRN Reason: shortness of breath Atorvastatin Calcium (Atorvastatin 20 Mg Tablet) 20 mg PO DAILY GÓMEZ Bisacodyl (Bisacodyl 10 Mg Supp) 10 mg AK DAILY PRN PRN Reason: Constipation Calcium Carbonate (Calcium Carbonate 500 Mg Tab) 1,000 mg PO Q4HR PRN PRN Reason: Dyspepsia Flecainide Acetate (Flecainide 100 Mg Tablet) 50 mg PO BID [facility] Sodium Chloride (Normal Saline 0.9%) 1,000 mls @ 125 mls/hr IV CONT GÓMEZ Last Admin: 06/14/24 12:15 Dose: 125 mls/hr Documented By: KRISTY Vancomycin HCl (Vancomycin) 1,250 mg in 250 mls @ 250 mls/hr IV Q18H GÓMEZ Ceftriaxone Sodium 1,000 mg/ (Sodium Chloride) 100 mls @ 200 mls/hr IV Q24H GÓMEZ Magnesium Hydroxide (Magnesium Hydroxide 30 Ml Udc) 30 ml PO DAILY PRN PRN Reason: Constipation Montelukast Sodium (Montelukast 10 Mg Tablet) 10 mg PO BEDTIME [facility] Naloxone HCl (Naloxone 0.4 Mg/Ml Vial) 0.2 mg IV Q2MIN PRN PRN Reason: Opiate Reversal Non-Formulary Medication (Prednisone) 10 mg PO DIRECTED [facility] Ondansetron HCl (Ondansetron 4 Mg/2 Ml Inj) 4 mg IV Q8HR PRN PRN Reason: Nausea And Vomiting Oxycodone HCl (Oxycodone Ir 5 Mg Tablet) 5 mg PO Q3H PRN PRN Reason: Pain, Moderate (4-6) Last Admin: 06/14/24 18:17 Dose: 5 mg Documented By: SWETA Pantoprazole Sodium (Pantoprazole Dr 40 Mg Tablet) 40 mg PO 0600 [facility] Potassium Chloride (Potassium Chloride 10 Meq Tab) 10 meq PO DAILY GÓMEZ Vancomycin HCl (Vancomycin Trough) 1 request MISC NOW ONE Stop: 06/16/24 19:31 Vancomycin HCl (Vancomycin Peak) 1 request MISC NOW ONE Stop: 06/16/24 22:01 Discontinued Medications Hydrocodone Bitart/Acetaminophen (Hydrocodone/Acet 5/325 Tablet) 1 tab PO NOW ONE Stop: 06/14/24 11:41 Last Admin: 06/14/24 12:15 Dose: 1 tab Documented By: KRISTY Albuterol (Albuterol Hfa Mdi 60 Puff/8 Gm Inhaler) 2 puff INH QID PRN PRN Reason: asthma Ceftriaxone Sodium 1,000 mg/ (Sodium Chloride) 100 mls @ 200 mls/hr IV NOW ONE Stop: 06/14/24 13:26 Last Infusion: 06/14/24 14:00 Dose: Infused Documented By: Admin: 06/14/24 13:39 Dose: 200 mls/hr Documented By: MASON Vancomycin HCl (Vancomycin) 1,000 mg in 200 mls @ 200 mls/hr IV NOW ONE Stop: 06/14/24 14:24 Last Infusion: 06/14/24 15:05 Dose: Infused Documented By: Admin: 06/14/24 14:01 Dose: 200 mls/hr Documented By: MASON Vancomycin HCl (Vancomycin) 1,250 mg in 250 mls @ 250 mls/hr IV Q18H GÓMEZ Vancomycin HCl (Vancomycin Per Pharmacy) 1 request MISC NOW ONE Stop: 06/14/24 17:31 Vital Signs Vital signs: Vital Signs - 8 hr 06/14/24 10:50 06/14/24 10:58 06/14/24 11:00 Temperature 99.3 F Pulse Rate 87 97 H 87 Respiratory Rate 16 Blood Pressure 145/78 H Pulse Oximetry 96 92 96 Oxygen Delivery Method Room Air 06/14/24 11:00 06/14/24 11:30 06/14/24 11:30 Temperature Pulse Rate 82 Respiratory Rate 24 Blood Pressure 148/78 H 141/71 H Pulse Oximetry 96 Oxygen Delivery Method 06/14/24 12:00 06/14/24 12:00 06/14/24 12:30 Temperature Pulse Rate 84 86 Respiratory Rate Blood Pressure 131/102 H Pulse Oximetry 95 94 Oxygen Delivery Method 06/14/24 12:30 06/14/24 13:00 06/14/24 13:00 Temperature Pulse Rate 82 Respiratory Rate Blood Pressure 134/103 H 118/57 L Pulse Oximetry 95 Oxygen Delivery Method 06/14/24 13:30 06/14/24 13:30 06/14/24 14:00 Temperature Pulse Rate 93 H 82 Respiratory Rate Blood Pressure 118/62 Pulse Oximetry 94 94 Oxygen Delivery Method 06/14/24 14:00 06/14/24 14:30 06/14/24 14:30 Temperature Pulse Rate 85 Respiratory Rate Blood Pressure 114/62 123/74 Pulse Oximetry 95 Oxygen Delivery Method 06/14/24 15:00 06/14/24 15:00 06/14/24 15:30 Temperature Pulse Rate 88 83 Respiratory Rate Blood Pressure 121/58 L Pulse Oximetry 96 95 Oxygen Delivery Method 06/14/24 15:30 06/14/24 16:00 06/14/24 16:01 Temperature Pulse Rate 77 79 Respiratory Rate Blood Pressure 153/73 H Pulse Oximetry 94 94 Oxygen Delivery Method 06/14/24 16:01 06/14/24 16:30 06/14/24 16:30 Temperature Pulse Rate 82 Respiratory Rate Blood Pressure 126/69 130/68 Pulse Oximetry 95 Oxygen Delivery Method MDM - Recheck/Abnormal Lab/Rx Lab Data 06/14/24 11:00 06/14/24 12:00 Labs: Lab Results 06/14/24 06/14/24 06/14/24 Range/Units 11:00 11:14 12:00 WBC 11.9 H (4.5-11.0) X10^3/uL RBC 5.21 (4.5-5.9) X10^6/uL Hgb 16.5 (13.5-17.5) g/dL Hct 48.5 (41-53) % MCV 92.9 (80-100) fL MCH 31.6 (26-34) PG MCHC 34.0 (30-36) % RDW 14.2 (11.6-14.8) % Plt Count 163 (150-400) X10^3/uL Neut % (Auto) 89.8 H (50-75) % Lymph % (Auto) 4.7 L (25-40) % [place] % (Auto) 5.0 (3-14) % Eos % (Auto) 0.3 L (2-4) % Baso % (Auto) 0.2 (0-2) % Neut # (Auto) 46733 H (6243-7242) /uL Lymph # (Auto) 600 L (4210-1146) /uL Owen # (Auto) 600 (0-900) /uL Eos # (Auto) 0 (0-450) /uL Baso # (Auto) 0 (0-100) /uL ESR 4 (0-15) MM/HR Sodium 133 L (137-145) mmol/L Potassium 4.0 (3.4-5.1) mmol/L Chloride 100 (98-107) mmol/L Carbon Dioxide 29 (22-32) mmol/L BUN 36 H (9-20) mg/dL Creatinine 1.22 (0.66-1.25) mg/dL Estimated GFR > 60 (>60) mL/min BUN/Creatinine Ratio 29.5 H (6-22) Glucose 125 H (80-110) mg/dL Lactate 2.4 H (0.7-2.1) mmol/L Calcium 8.4 (8.4-10.2) mg/dL Total Bilirubin 2.0 H (0.2-1.3) mg/dL AST 23 (17-59) IU/L ALT 20 (<50) IU/L Alkaline Phosphatase 93 (38-126) U/L C-Reactive Protein 29.7 H (<1.0) mg/dL Total Protein 6.8 (6.3-8.2) g/dL Albumin 3.6 (3.5-5.0) g/dL Globulin 3.2 (1.7-4.1) g/dL Albumin/Globulin Ratio 1.1 (1.0-2.8) Lipase 20 L (23-300) U/L Procalcitonin 3.28 H (<0.5) ng/mL Fluid Color Yellow Fluid Appearance Turbid Fluid RBC < 1000 /uL Fld Tot Nucleated Cell [id number] /uL Fluid Neutrophils % 70 % Fluid Lymphocytes % 13 % Fluid Meso/Macro/Owen % 17 % Body Fluid Clot No clots present 06/14/24 Range/Units 13:02 WBC (4.5-11.0) X10^3/uL RBC (4.5-5.9) X10^6/uL Hgb (13.5-17.5) g/dL Hct (41-53) % MCV (80-100) fL MCH (26-34) PG MCHC (30-36) % RDW (11.6-14.8) % Plt Count (150-400) X10^3/uL Neut % (Auto) (50-75) % Lymph % (Auto) (25-40) % Owen % (Auto) (3-14) % Eos % (Auto) (2-4) % Baso % (Auto) (0-2) % Neut # (Auto) (8130-8350) /uL Lymph # (Auto) (5066-8995) /uL Owen # (Auto) (0-900) /uL Eos # (Auto) (0-450) /uL Baso # (Auto) (0-100) /uL ESR (0-15) MM/HR Sodium (137-145) mmol/L Potassium (3.4-5.1) mmol/L Chloride (98-107) mmol/L Carbon Dioxide (22-32) mmol/L BUN (9-20) mg/dL Creatinine (0.66-1.25) mg/dL Estimated GFR (>60) mL/min BUN/Creatinine Ratio (6-22) Glucose (80-110) mg/dL Lactate 1.0 (0.7-2.1) mmol/L Calcium (8.4-10.2) mg/dL Total Bilirubin (0.2-1.3) mg/dL AST (17-59) IU/L ALT (<50) IU/L Alkaline Phosphatase (38-126) U/L C-Reactive Protein (<1.0) mg/dL Total Protein (6.3-8.2) g/dL Albumin (3.5-5.0) g/dL Globulin (1.7-4.1) g/dL Albumin/Globulin Ratio (1.0-2.8) Lipase (23-300) U/L Procalcitonin (<0.5) ng/mL Fluid Color Fluid Appearance Fluid RBC /uL Fld Tot Nucleated Cell /uL Fluid Neutrophils % % Fluid Lymphocytes % % Fluid Meso/Macro/Owen % % Body Fluid Clot Discharge Plan Departure Patient Disposition: Admitted As Inpatient Clinical Impression: Septic joint, Bacteremia Admit Date/Time: 06/14/24 16:51 Admit Provider: Kim Crockett
--- NOTE | 2024-06-14 18:43 | PM.HP.1 ---
History of Present Illness History of Present Illness Chief complaint: not feeling better Narrative: Patient is a 73 yo M with PMH a fib, PMR, asthma, CAD who presented to the ER for bacteremia. He presented to ER 06/12 for general unwell feeling. [place] SOB and LE swelling as well as myalgias. Work up largely reassuring including CBC, CMP, troponin, UA, CXR and EKG. WBC was 12.7 and lactate initially 3.2 but repeat down to 2.0 with IVF. Blood cultures collected and patient sent home. Patient called back today for + blood cultures for group G Strep. Patient's inital symptoms had resolved but started to note R LE swelling of knee and erythema of lower leg and knee. No fevers at home. Pain mostly with WB and movement. H/o right knee replacement 2018, revision in Oct 2023. Presented to the ER - Labs - WBC 11.9, lactate 2.4 Arthrocentesis performed and repeat blood cultures collected. XRay showed - generalized soft tissue swelling, with a moderate joint effusion. Discussed with ortho - Dr. 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) Diverticulosis of large intestine without perforation or abscess without bleeding Gastroesophageal reflux disease without esophagitis (12/04/11) Mild intermittent asthma without complication (12/04/11) Surgical History History of surgery History of total right knee replacement (04/13/19) H/O vasectomy (~1984) Status post hernia repair Social History household members: spouse Smoking Status: Never smoker alcohol intake: current Meds Home Medications and Allergies Home Medications Medication Instructions Recorded Confirmed Type rivaroxaban 20 mg tablet (Xarelto) 10 mg PO DAILY 10/23/19 06/14/24 History flecainide 50 mg tablet 50 mg PO BID 03/21/20 06/14/24 History albuterol sulfate 90 mcg/actuation 1 inh inhalation Q4-6H PRN 04/02/22 06/14/24 Rx aerosol inhaler shortness of breath #18 grams potassium chloride 10 mEq 10 meq PO DAILY #90 tabs 12/10/23 06/14/24 Rx tablet,extended release montelukast 10 mg tablet 10 mg PO ONCE PM 02/07/24 06/14/24 History albuterol sulfate 90 mcg/actuation 2 puff inhalation QID PRN asthma 02/08/24 06/14/24 History aerosol inhaler (Ventolin HFA) tramadol 50 mg tablet 50 mg PO TID PRN pain #90 tabs 03/10/24 06/14/24 Rx omeprazole 40 mg capsule,delayed 40 mg PO DAILY 04/23/24 06/14/24 History release prednisone 10 mg tablet 10 mg PO DIRECTED #90 tabs 04/23/24 06/14/24 Rx atorvastatin 20 mg tablet 20 mg PO DAILY #90 tabs 05/18/24 06/14/24 Rx Allergies Allergy/AdvReac Type Severity Reaction Status Date / Time nifedipine [From Procardia] AdvReac Severe Hypotensive Verified 06/14/24 11:14 Review of Systems Review of Systems Narrative: as above Exam Vital Signs (past 8 hours): - 06/14/24 10:50 06/14/24 10:58 06/14/24 11:00 Temperature 99.3 F Pulse Rate 87 97 H 87 Respiratory Rate 16 Blood Pressure 145/78 H Pulse Oximetry 96 92 96 Oxygen Delivery Method Room Air Oxygen Flow Rate 06/14/24 11:00 06/14/24 11:30 06/14/24 11:30 Temperature Pulse Rate 82 Respiratory Rate 24 Blood Pressure 148/78 H 141/71 H Pulse Oximetry 96 Oxygen Delivery Method Oxygen Flow Rate 06/14/24 12:00 06/14/24 12:00 06/14/24 12:30 Temperature Pulse Rate 84 86 Respiratory Rate Blood Pressure 131/102 H Pulse Oximetry 95 94 Oxygen Delivery Method Oxygen Flow Rate 06/14/24 12:30 06/14/24 13:00 06/14/24 13:00 Temperature Pulse Rate 82 Respiratory Rate Blood Pressure 134/103 H 118/57 L Pulse Oximetry 95 Oxygen Delivery Method Oxygen Flow Rate 06/14/24 13:30 06/14/24 13:30 06/14/24 14:00 Temperature Pulse Rate 93 H 82 Respiratory Rate Blood Pressure 118/62 Pulse Oximetry 94 94 Oxygen Delivery Method Oxygen Flow Rate 06/14/24 14:00 06/14/24 14:30 06/14/24 14:30 Temperature Pulse Rate 85 Respiratory Rate Blood Pressure 114/62 123/74 Pulse Oximetry 95 Oxygen Delivery Method Oxygen Flow Rate 06/14/24 15:00 06/14/24 15:00 06/14/24 15:30 Temperature Pulse Rate 88 83 Respiratory Rate Blood Pressure 121/58 L Pulse Oximetry 96 95 Oxygen Delivery Method Oxygen Flow Rate 06/14/24 15:30 06/14/24 16:00 06/14/24 16:01 Temperature Pulse Rate 77 79 Respiratory Rate Blood Pressure 153/73 H Pulse Oximetry 94 94 Oxygen Delivery Method Oxygen Flow Rate 06/14/24 16:01 06/14/24 16:30 06/14/24 16:30 Temperature Pulse Rate 82 Respiratory Rate Blood Pressure 126/69 130/68 Pulse Oximetry 95 Oxygen Delivery Method Oxygen Flow Rate 06/14/24 17:00 06/14/24 17:00 06/14/24 17:32 Temperature Pulse Rate 83 80 Respiratory Rate 18 Blood Pressure 122/69 138/74 Pulse Oximetry 96 95 Oxygen Delivery Method Room Air Oxygen Flow Rate 06/14/24 17:33 06/14/24 17:45 Temperature 97.2 F L Pulse Rate 74 Respiratory Rate 16 Blood Pressure 125/75 Pulse Oximetry 98 Oxygen Delivery Method Room Air Oxygen Flow Rate 0 Oxygen Delivery Method Room Air Oxygen Flow Rate 0 Psych Other: GEN: NAD, well appearing, pleasant CV: RRR Pulm:normal WOB, CTAB Abd: soft, non TTP, + BS MSK: R knee with moderate effusion, +warmth and erythema, erythema extending into [place] (per patient improved today) Skin: no visible rashes, WWP Psych: normal affect Neuro: normal gait, symmetric movement Objective Labs 06/14/24 11:00 06/14/24 12:00 Labs: Laboratory Results - last 24 hr 06/14/24 06/14/24 06/14/24 11:00 11:14 12:00 WBC 11.9 H RBC 5.21 Hgb 16.5 Hct 48.5 MCV 92.9 MCH 31.6 MCHC 34.0 RDW 14.2 Plt Count 163 Neut % (Auto) 89.8 H Lymph % (Auto) 4.7 L [place] % (Auto) 5.0 Eos % (Auto) 0.3 L Baso % (Auto) 0.2 Neut # (Auto) 39603 H Lymph # (Auto) 600 L [place] # (Auto) 600 Eos # (Auto) 0 Baso # (Auto) 0 ESR 4 Sodium 133 L Potassium 4.0 Chloride 100 Carbon Dioxide 29 BUN 36 H Creatinine 1.22 Estimated GFR > 60 BUN/Creatinine Ratio 29.5 H Glucose 125 H Lactate 2.4 H Calcium 8.4 Total Bilirubin 2.0 H AST 23 ALT 20 Alkaline Phosphatase 93 C-Reactive Protein 29.7 H Total Protein 6.8 Albumin 3.6 Globulin 3.2 Albumin/Globulin Ratio 1.1 Lipase 20 L Procalcitonin 3.28 H Fluid Color Yellow Fluid Appearance Turbid Fluid RBC < 1000 Fld Tot Nucleated Cell [id number] Fluid Neutrophils % 70 Fluid Lymphocytes % 13 Fluid Meso/Macro/[place] % 17 Body Fluid Clot No clots present 06/14/24 13:02 WBC RBC Hgb Hct MCV MCH MCHC RDW Plt Count Neut % (Auto) Lymph % (Auto) [place] % (Auto) Eos % (Auto) Baso % (Auto) Neut # (Auto) Lymph # (Auto) [place] # (Auto) Eos # (Auto) Baso # (Auto) ESR Sodium Potassium Chloride Carbon Dioxide BUN Creatinine Estimated GFR BUN/Creatinine Ratio Glucose Lactate 1.0 Calcium Total Bilirubin AST ALT Alkaline Phosphatase C-Reactive Protein Total Protein Albumin Globulin Albumin/Globulin Ratio Lipase Procalcitonin Fluid Color Fluid Appearance Fluid RBC Fld Tot Nucleated Cell Fluid Neutrophils % Fluid Lymphocytes % Fluid Meso/Macro/[place] % Body Fluid Clot Assessment & Plan Assessment and plan (1) Bacteremia: Status: Acute (2) Septic joint: Qualifiers: Laterality: right Septic arthritis location: knee Septic arthritis organism: streptococcal Qualified Code(s): M00.261 - Other streptococcal arthritis, right knee Status: Acute (3) Asthma: Qualifiers: Asthma complication type: uncomplicated Asthma persistence: intermittent Asthma severity: mild Qualified Code(s): J45.20 - Mild intermittent asthma, uncomplicated Status: Acute (4) Polymyalgia rheumatica: Status: Chronic (5) Ischemic cardiomyopathy: Problem details: EF 45% October 2021 Status: Chronic Plan Patient is a 73 yo M with PMH a fib, PMR, asthma, CAD who presented to the ER for bacteremia from R septic knee. R septic knee, bacteremia -Repeat blood cultures collected, aspiration performed in ER -Ortho consulted, will see in AM -Vanc and Ceftriaxone per ortho -Holding Eliquis overnight in event of surgery, Dr. Samuel hoping to transfer back to [place] to original surgery team but no beds available Mild intermittent asthma - stable -Continue albuterol PRN, montelukast HLD, CAD - stable -Continue statin A fib - stable -Holding AC as above -Continue Flecainide GERD - stable -Continue PPI PMR - stable -Continue prednisone - relatively low dose so not stress dosing yet but consider prior to surgery CODE: full Diet: NPO midnight DVT prophylaxis: holding as above Dispo: pending ortho consult, possible transfer if beds become available Time-Based Coding :: [TOTAL MINUTES] spent with patient and on the chart (including review of chart, obtaining history, exam, reviewing outside data, placing orders, documenting exam and treatment plan, and counseling patient) on [DATE].
[2024-06-14] MEDS: FLECAINIDE 100 MG TABLET 50 MG PO (20:26)
[2024-06-14] MEDS: MONTELUKAST 10 MG TABLET PO (20:26)
[2024-06-15] VITALS (9 sets, daily range): BP systolic 111–136; BP diastolic 63–82; PULSE 61–83; RESP 16–20; TEMP 36–37.4; O2SAT 96–99
[2024-06-15 02:16] LABS: Acinetobacter calcoa-baumannii Not Detected (Not Detect); Bacteroides fragilis Not Detected (Not Detect); Candida albicans Not Detected (Not Detect); Candida auris Not Detected (Not Detect); Candida glabrata Not Detected (Not Detect); Candida krusei Not Detected (Not Detect); Candida parapsilosis Not Detected (Not Detect); Candida tropicalis Not Detected (Not Detect); Cryptococcus neoformans/gatti Not Detected (Not Detect); Enterobacter cloacae complex Not Detected (Not Detect); Enterobacterales Not Detected (Not Detect); Enterococcus faecalis Not Detected (Not Detect); Enterococcus faecium Not Detected (Not Detect); Haemophilus influenzae Not Detected (Not Detect); Klebsiella aerogenes Not Detected (Not Detect); Listeria monocytogenes Not Detected (Not Detect); Neisseria meningitidis Not Detected (Not Detect); Proteus species Not Detected (Not Detect); Pseudomonas aeruginosa Not Detected (Not Detect); Salmonella species Not Detected (Not Detect); Serratia marcescens Not Detected (Not Detect); Staphylococcus epidermidis Not Detected (Not Detect); Staphylococcus lugdunensis Not Detected (Not Detect); Staphylococcus species Not Detected (Not Detect); Stenotrophomonas maltophilia Not Detected (Not Detect); Streptococcus agalactiae (Gr B Not Detected (Not Detect); Streptococcus pneumonia Not Detected (Not Detect); Streptococcus pyogenes (Gr A) Not Detected (Not Detect); Streptococcus species Detected (Not Detect)
[2024-06-15] MEDS: OXYCODONE IR 10 MG TABLET PO ×3 (03:30→15:18)
[2024-06-15] MEDS: SODIUM CHLORIDE 0.9% 1,000 ML 125 ML IV ×2 (05:35→15:32)
[2024-06-15] MEDS: ALBUTEROL 2.5 MG/3 ML NEB (ADULT) INH ×2 (07:21→10:58)
[2024-06-15 07:36] LABS: Add Manual Diff / Slide Review NO; Basophils Absolute Auto 0 /uL (0-100); Basophils Percent Auto 0.5 % (0-2); Eosinophils Absolute Auto 100 /uL (0-450); Eosinophils Percent Auto 0.7 % (2-4); Hematocrit 42.9 % (41-53); Hemoglobin 14.3 g/dL (13.5-17.5); Lymphocytes Absolute Auto 700 /uL (1100-4500); Lymphocytes Percent Auto 8.1 % (25-40); Mean Corpuscular HGB Conc 33.3 % (30-36); Mean Corpuscular Hemoglobin 30.9 PG (26-34); Mean Corpuscular Volume 92.8 fL (80-100); Monocytes Absolute Auto 500 /uL (0-900); Monocytes Percent Auto 6.3 % (3-14); Neutrophils Absolute Auto 6900 /uL (1500-7000); Neutrophils Percent Auto 84.4 % (50-75); Platelet Count 136 X10^3/uL (150-400); Red Blood Cell Count 4.62 X10^6/uL (4.5-5.9); Red Cell Distribution Width 14.5 % (11.6-14.8); White Blood Cell Count 8.2 X10^3/uL (4.5-11.0)
--- NOTE | 2024-06-15 07:48 | P.PN_ITS ---
Subjective Subjective Date Patient Seen: 06/15/24 Time Patient Seen: 07:48 Interval history: Discussed with Dr. Crockett, patient admitted with probable septic knee. He had been evaluated in the ER with elevated lactate but negative procalcitonin. Was feeling unwell. Blood cultures eventually grew a strep species and he was called back to the ER for evaluation. Still having increased pain and discomfort in his knee which was tapped showing probable evidence of an intra- articular infection. Did have a mild leukocytosis as well. Attempts were made to transfer him back to the orthopedic surgeons who performed his knee replacement most recently however bed availability prohibitive that. He has been admitted to [facility] is on broad-spectrum IV antibiotics with local ortho to consult for next steps on treatment Patient also with asthma, coronary disease, ischemic cardiomyopathy (which has been asymptomatic recently) as well as an element PMR Exam Vital Signs (past 8 hours): - 06/15/24 00:00 06/15/24 04:00 06/15/24 07:22 Temperature 97.2 F L 98.0 F Pulse Rate 65 63 61 Respiratory Rate 16 17 18 Blood Pressure 118/74 111/63 Pulse Oximetry 97 99 97 Oxygen Delivery Method Room Air Oxygen Flow Rate 0 0 0 Fraction of Inspired Oxygen 21 Fraction of Inspired Oxygen 21 SaO2/FiO2 Ratio 461 Oxygen Delivery Method Room Air Oxygen Flow Rate 0 Objective Labs 06/15/24 07:18 06/15/24 07:18 Labs: Laboratory Results - last 24 hr 06/14/24 06/14/24 06/14/24 11:00 11:14 12:00 WBC 11.9 H RBC 5.21 Hgb 16.5 Hct 48.5 MCV 92.9 MCH 31.6 MCHC 34.0 RDW 14.2 Plt Count 163 Neut % (Auto) 89.8 H Lymph % (Auto) 4.7 L [place] % (Auto) 5.0 Eos % (Auto) 0.3 L Baso % (Auto) 0.2 Neut # (Auto) 06678 H Lymph # (Auto) 600 L Tate # (Auto) 600 Eos # (Auto) 0 Baso # (Auto) 0 ESR 4 Sodium 133 L Potassium 4.0 Chloride 100 Carbon Dioxide 29 BUN 36 H Creatinine 1.22 Estimated GFR > 60 BUN/Creatinine Ratio 29.5 H Glucose 125 H Lactate 2.4 H Calcium 8.4 Total Bilirubin 2.0 H AST 23 ALT 20 Alkaline Phosphatase 93 C-Reactive Protein 29.7 H Total Protein 6.8 Albumin 3.6 Globulin 3.2 Albumin/Globulin Ratio 1.1 Lipase 20 L Procalcitonin 3.28 H Fluid Color Yellow Fluid Appearance Turbid Fluid RBC < 1000 Fld Tot Nucleated Cell [id number] Fluid Neutrophils % 70 Fluid Lymphocytes % 13 Fluid Meso/Macro/Tate % 17 Body Fluid Clot No clots present A.calcoaceticus-baumannii cmplx PCR Not detected Bacteroides fragilis Not detected [place] albicans (PCR) Not detected [place] auris (PCR) Not detected C. glabrata (PCR) Not detected C. krusei (PCR) Not detected C. parapsilosis (PCR) Not detected C. tropicalis (PCR) Not detected C. neoform/gattii (PCR) Not detected Enterobacterales (PCR) Not detected E. cloacae complex PCR Not detected Enterococc faecalis PCR Not detected Enterococc faecium PCR Not detected E. coli (PCR) Not detected H. influenzae (PCR) Not detected Klebsiella aerogenes (PCR) Not detected Klebsiella oxytoca PCR Not detected Klebsiella pneumoniae Not detected List. monocytogenes PCR Not detected N. meningitidis (PCR) Not detected Proteus species (PCR) Not detected Salmonella spp. (PCR) Not detected Serratia marcescens PCR Not detected Staphylococcus sp PCR Not detected Staph aureus (PCR) Not detected mecA/C & MREJ Resist Gene Not applicable mecA/C-Methicil Resis Gene Not applicable mcr-1 Colistin Res Gene PCR Not applicable Staph epidermidis (PCR) Not detected Staph lugdunensis PCR Not detected S. maltophilia (PCR) Not detected Streptococcus sp PCR Detected Group A Strep (PCR) Not detected Strep agalactiae (PCR) Not detected Strep pneumoniae (PCR) Not detected P. aeruginosa (PCR) Not detected Marcos/B-Vanco Res Genes Not applicable blaIMP Car res Gene PCR Not applicable KPC-Carbap Res Gene PCR Not applicable blaNDM Car Res Gene PCR Not applicable OXA-48 Carbapenem Resis Gene (PCR) Not applicable blaVIM Car Res Gene PCR Not applicable CTX-M Gene Resistance (PCR) Not applicable 06/14/24 13:02 WBC RBC Hgb Hct MCV MCH MCHC RDW Plt Count Neut % (Auto) Lymph % (Auto) Tate % (Auto) Eos % (Auto) Baso % (Auto) Neut # (Auto) Lymph # (Auto) Tate # (Auto) Eos # (Auto) Baso # (Auto) ESR Sodium Potassium Chloride Carbon Dioxide BUN Creatinine Estimated GFR BUN/Creatinine Ratio Glucose Lactate 1.0 Calcium Total Bilirubin AST ALT Alkaline Phosphatase C-Reactive Protein Total Protein Albumin Globulin Albumin/Globulin Ratio Lipase Procalcitonin Fluid Color Fluid Appearance Fluid RBC Fld Tot Nucleated Cell Fluid Neutrophils % Fluid Lymphocytes % Fluid Meso/Macro/Tate % Body Fluid Clot A.calcoaceticus-baumannii cmplx PCR Bacteroides fragilis [place] albicans (PCR) [place] auris (PCR) C. glabrata (PCR) C. krusei (PCR) C. parapsilosis (PCR) C. tropicalis (PCR) C. neoform/gattii (PCR) Enterobacterales (PCR) E. cloacae complex PCR Enterococc faecalis PCR Enterococc faecium PCR E. coli (PCR) H. influenzae (PCR) Klebsiella aerogenes (PCR) Klebsiella oxytoca PCR Klebsiella pneumoniae List. monocytogenes PCR N. meningitidis (PCR) Proteus species (PCR) Salmonella spp. (PCR) Serratia marcescens PCR Staphylococcus sp PCR Staph aureus (PCR) mecA/C & MREJ Resist Gene mecA/C-Methicil Resis Gene mcr-1 Colistin Res Gene PCR Staph epidermidis (PCR) Staph lugdunensis PCR S. maltophilia (PCR) Streptococcus sp PCR Group A Strep (PCR) Strep agalactiae (PCR) Strep pneumoniae (PCR) P. 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 Septic knee-continue current antibiotics. Further workup etcetera as per Orthopedic surgery. Unclear whether patient will need a procedure to flush his knee etcetera. Culture still pending from his arthrocentesis. Repeat blood cultures growing bacteria, probably original organism. 2. Asthma-not an active issue. Continue as needed albuterol 3. Coronary disease-not active at this time. Continue patient's home medications 4. Paroxysmal atrial fibrillation-patient normally anticoagulated with holding this until decision on need for surgical intervention has been made. Continue flecainide for now. 5. PMR-patient continues on low-dose prednisone for his PMR. Okay to continue that for now in my opinion. Time-Based Coding :: [TOTAL MINUTES] spent with patient and on the chart (including review of chart, obtaining history, exam, reviewing outside data, placing orders, documenting exam and treatment plan, and counseling patient) on [DATE]. PROFEE Charge codes Subsequent inpatient/observation care: 21762
--- NOTE | 2024-06-15 08:05 | P.CONS_ITS ---
History of Present Illness Consult details Date Patient Seen: 06/15/24 Time Patient Seen: 08:06 Chief complaint: not feeling better Narrative: 73-year-old gentleman who was admitted yesterday due to possible right total knee infection. Patient gives a history of having a total knee replacement [place] [address] Sommer. Patient states that he had the knee revised last year. Was doing well up until Saturday when he started to develop pain and swelling to the knee. Was seen in the emergency room and was sent home. He was called back in due to positive blood cultures. In that interim had increased pain and swelling to the knee had the knee aspirated which significantly improved his pain. Aspirate did grow positive cultures. Due to the fact that his surgery was done at [facility] attempts were made to transfer him there so he could be treated by his operative surgeon but no beds were available. Patient does give a history of edema to the right leg that drains. States that that was an issue before his surgery. So possibly seeded his knee from the chronic drainage from his right lower leg edema. Meds Home Medications and Allergies Home Medications Medication Instructions Recorded Confirmed Type rivaroxaban 20 mg tablet (Xarelto) 10 mg PO DAILY 10/23/19 06/14/24 History flecainide 50 mg tablet 50 mg PO BID 03/21/20 06/14/24 History albuterol sulfate 90 mcg/actuation 1 inh inhalation Q4-6H PRN 04/02/22 06/14/24 Rx aerosol inhaler shortness of breath #18 grams potassium chloride 10 mEq 10 meq PO DAILY #90 tabs 12/10/23 06/14/24 Rx tablet,extended release montelukast 10 mg tablet 10 mg PO ONCE PM 02/07/24 06/14/24 History albuterol sulfate 90 mcg/actuation 2 puff inhalation QID PRN asthma 02/08/24 06/14/24 History aerosol inhaler (Ventolin HFA) tramadol 50 mg tablet 50 mg PO TID PRN pain #90 tabs 03/10/24 06/14/24 Rx omeprazole 40 mg capsule,delayed 40 mg PO DAILY 04/23/24 06/14/24 History release prednisone 10 mg tablet 10 mg PO DIRECTED #90 tabs 04/23/24 06/14/24 Rx atorvastatin 20 mg tablet 20 mg PO DAILY #90 tabs 05/18/24 06/14/24 Rx Allergies Allergy/AdvReac Type Severity Reaction Status Date / Time nifedipine [From Procardia] AdvReac Severe Hypotensive Verified 06/14/24 11:14 Exam Vital Signs (past 8 hours): - 06/15/24 04:00 06/15/24 07:22 Temperature 98.0 F Pulse Rate 63 61 Respiratory Rate 17 18 Blood Pressure 111/63 Pulse Oximetry 99 97 Oxygen Delivery Method Room Air Oxygen Flow Rate 0 0 Fraction of Inspired Oxygen 21 Fraction of Inspired Oxygen 21 SaO2/FiO2 Ratio 461 Oxygen Delivery Method Room Air Oxygen Flow Rate 0 Narrative Exam Narrative: On exam patient has redness and swelling to the knee as well as a positive effusion. No pain at rest but does have discomfort with both active and passive range of motion of the knee. Does have signs edema to the lower leg that is chronic. One can see a heel over area where he has his on and off again drainage. No sign of any obvious drainage on today's exam. Positive dorsiflexion and plantar flexion of his toes and ankle and palpable pedal pulses. No sign of any significant tracking cellulitis or erythema. All really localized mainly just to the knee. Objective Labs 06/14/24 11:00 06/14/24 12:00 Labs: Laboratory Results - last 24 hr 06/14/24 06/14/24 06/14/24 11:00 11:14 12:00 WBC 11.9 H RBC 5.21 Hgb 16.5 Hct 48.5 MCV 92.9 MCH 31.6 MCHC 34.0 RDW 14.2 Plt Count 163 Neut % (Auto) 89.8 H Lymph % (Auto) 4.7 L [place] % (Auto) 5.0 Eos % (Auto) 0.3 L Baso % (Auto) 0.2 Neut # (Auto) 23726 H Lymph # (Auto) 600 L [place] # (Auto) 600 Eos # (Auto) 0 Baso # (Auto) 0 ESR 4 Sodium 133 L Potassium 4.0 Chloride 100 Carbon Dioxide 29 BUN 36 H Creatinine 1.22 Estimated GFR > 60 BUN/Creatinine Ratio 29.5 H Glucose 125 H Lactate 2.4 H Calcium 8.4 Total Bilirubin 2.0 H AST 23 ALT 20 Alkaline Phosphatase 93 C-Reactive Protein 29.7 H Total Protein 6.8 Albumin 3.6 Globulin 3.2 Albumin/Globulin Ratio 1.1 Lipase 20 L Procalcitonin 3.28 H Fluid Color Yellow Fluid Appearance Turbid Fluid RBC < 1000 Fld Tot Nucleated Cell [id number] Fluid Neutrophils % 70 Fluid Lymphocytes % 13 Fluid Meso/Macro/[place] % 17 Body Fluid Clot No clots present A.calcoaceticus-baumannii cmplx PCR Not detected Bacteroides fragilis Not detected [place] albicans (PCR) Not detected [place] auris (PCR) Not detected C. glabrata (PCR) Not detected C. krusei (PCR) Not detected C. parapsilosis (PCR) Not detected C. tropicalis (PCR) Not detected C. neoform/gattii (PCR) Not detected Enterobacterales (PCR) Not detected E. cloacae complex PCR Not detected Enterococc faecalis PCR Not detected Enterococc faecium PCR Not detected E. coli (PCR) Not detected H. influenzae (PCR) Not detected Klebsiella aerogenes (PCR) Not detected Klebsiella oxytoca PCR Not detected Klebsiella pneumoniae Not detected List. monocytogenes PCR Not detected N. meningitidis (PCR) Not detected Proteus species (PCR) Not detected Salmonella spp. (PCR) Not detected Serratia marcescens PCR Not detected Staphylococcus sp PCR Not detected Staph aureus (PCR) Not detected mecA/C & MREJ Resist Gene Not applicable mecA/C-Methicil Resis Gene Not applicable mcr-1 Colistin Res Gene PCR Not applicable Staph epidermidis (PCR) Not detected Staph lugdunensis PCR Not detected S. maltophilia (PCR) Not detected Streptococcus sp PCR Detected Group A Strep (PCR) Not detected Strep agalactiae (PCR) Not detected Strep pneumoniae (PCR) Not detected P. aeruginosa (PCR) Not detected Marcos/B-Vanco Res Genes Not applicable blaIMP Car res Gene PCR Not applicable KPC-Carbap Res Gene PCR Not applicable blaNDM Car Res Gene PCR Not applicable OXA-48 Carbapenem Resis Gene (PCR) Not applicable blaVIM Car Res Gene PCR Not applicable CTX-M Gene Resistance (PCR) Not applicable 06/14/24 13:02 WBC RBC Hgb Hct MCV MCH MCHC RDW Plt Count Neut % (Auto) Lymph % (Auto) [place] % (Auto) Eos % (Auto) Baso % (Auto) Neut # (Auto) Lymph # (Auto) [place] # (Auto) Eos # (Auto) Baso # (Auto) ESR Sodium Potassium Chloride Carbon Dioxide BUN Creatinine Estimated GFR BUN/Creatinine Ratio Glucose Lactate 1.0 Calcium Total Bilirubin AST ALT Alkaline Phosphatase C-Reactive Protein Total Protein Albumin Globulin Albumin/Globulin Ratio Lipase Procalcitonin Fluid Color Fluid Appearance Fluid RBC Fld Tot Nucleated Cell Fluid Neutrophils % Fluid Lymphocytes % Fluid Meso/Macro/[place] % Body Fluid Clot A.calcoaceticus-baumannii cmplx PCR Bacteroides fragilis [place] albicans (PCR) [place] auris (PCR) C. glabrata (PCR) C. krusei (PCR) C. parapsilosis (PCR) C. tropicalis (PCR) C. neoform/gattii (PCR) Enterobacterales (PCR) E. cloacae complex PCR Enterococc faecalis PCR Enterococc faecium PCR E. coli (PCR) H. influenzae (PCR) Klebsiella aerogenes (PCR) Klebsiella oxytoca PCR Klebsiella pneumoniae List. monocytogenes PCR N. meningitidis (PCR) Proteus species (PCR) Salmonella spp. (PCR) Serratia marcescens PCR Staphylococcus sp PCR Staph aureus (PCR) mecA/C & MREJ Resist Gene mecA/C-Methicil Resis Gene mcr-1 Colistin Res Gene PCR Staph epidermidis (PCR) Staph lugdunensis PCR S. maltophilia (PCR) Streptococcus sp PCR Group A Strep (PCR) Strep agalactiae (PCR) Strep pneumoniae (PCR) P. 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 As mentioned above attempts were made to transfer him back to [place] where his surgery was performed but no beds were available. If there are beds available today then we will try to get the patient transferred to the hospital so he can be treated by his operative surgeon. Time-Based Coding :: [TOTAL MINUTES] spent with patient and on the chart (including review of chart, obtaining history, exam, reviewing outside data, placing orders, documenting exam and treatment plan, and counseling patient) on [DATE].
[2024-06-15 08:09] LABS: Alanine Aminotransferase 18 IU/L (<50); Albumin 3.1 g/dL (3.5-5.0); Albumin Globulin Ratio 1.1 (1.0-2.8); Alkaline Phosphatase 83 U/L (38-126); Aspartate Aminotransferase 18 IU/L (17-59); BUN Creatinine Ratio 27.6 (6-22); Bilirubin Total 1.3 mg/dL (0.2-1.3); Blood Urea Nitrogen 27 mg/dL (9-20); Carbon Dioxide 28 mmol/L (22-32); Chloride 106 mmol/L (98-107); Estimated Glomerular Filt Rate > 60 mL/min (>60); Globulin 2.9 g/dL (1.7-4.1); Glucose 101 mg/dL (80-110); HEMOLYSIS < 15 (0-50); Potassium 4.1 mmol/L (3.4-5.1); Sodium 135 mmol/L (137-145)
[2024-06-15] MEDS: VANCOMYCIN 1,250 MG/250 ML PIGGYBACK 250 MG IV (08:10)
[2024-06-15 08:36] LABS: Vancomycin Trough < 5.0 ug/mL (10-20)
--- NOTE | 2024-06-15 12:04 | DI.ECHO.S_ITS ---
[place] [facility]+ [facility] : : [id number] : [place] : : [id number] : : Phone: [phone] Echocardiogram Report + + :Name: KESHA HARVEY Study Date: 06/15/2024 Height: 69 in : :[facility] ReadingLocation: Weight: 215 lb : : Gender: Male BSA: 2.1 m2 : :: 1950 Age: 73 yrs BP: 136/92 mmHg: :Reason For Study: SBE : :Ordering Physician: SAMMIE, : :NUHA Self Performed By: Phu Culp : :Referring: NUHA COCHRAN : + + Interpretation Summary A-fib with controlled ventricular response. Normal LV size; mild concentric LVH; mildly reduced LV systolic function estimated at 45-50% Mild RA enlargement. Aortic valve leaflets are characterized by degenerative changes with aortic sclerosis without stenosis. Bicuspid aortic valve cannot be definitively excluded. Borderline dilated aortic root measuring 3.9 cm. No definitive vegetation visualized. Compared to prior transthoracic echocardiogram obtained October 19, 2021, A- fib is new. Otherwise no changes have occurred. Procedure: A two-dimensional transthoracic echocardiogram with color flow and Doppler was performed. The study quality was technically difficult. Comparison is made with the echocardiogram of 10/19/2021. The patient was in atrial fibrillation with heart rates between 62-87 bpm during the exam. Left Ventricle: Left ventricular wall thickness is mildly increased. The left ventricle is normal in size. The ejection fraction is estimated to be 45- 50%. Right Ventricle: The right ventricle is normal size. The right ventricular systolic function is normal. Atria: The left atrial size is normal. Borderline right atrial enlargement. The interatrial septum grossly appears intact with no obvious evidence for an atrial septal defect. Mitral Valve: The mitral valve is grossly normal. There is no mitral valve stenosis. There is trace mitral regurgitation. Aortic Valve: The aortic valve is grossly normal. The aortic valve is moderately calcified. There is no aortic valve stenosis. No aortic regurgitation is present. Tricuspid Valve: The tricuspid valve is normal. There is no tricuspid stenosis. No tricuspid regurgitation. Pulmonic Valve: The pulmonic valve is not well visualized. There is no pulmonic valvular stenosis. There is no pulmonic valvular regurgitation. Great Vessels: The aortic root is borderline dilated. The ascending aorta is mildly enlarged. The IVC is dilated (diameter is greater than 2.1 cm) yet it collapses greater than 50% with a sniff. This suggests a right atrial pressure of 8 mm Hg. Pericardium/ Pleura There is no pericardial effusion. There is no pleural effusion. MMode/2D Measurements & Calculations LVIDd: 3.9 cm LVOT diam: 2.5 cm LVIDs: 3.1 cm Ao root diam: 3.9 cm FS: 19.3 % asc Aorta Diam: 3.8 cm IVSd: 1.2 cm Ao Arch Diam (Prox Trans): 2.7 cm LVPWd: 1.3 cm LV agrawal. diameter/BSA (cm/m^2): 1.8 LV sys. diameter/BSA (cm/m^2): 1.5 LA A2 area: 20.4 cm2 RA long axis: 5.7 cm LA A4 area: 18.9 cm2 RA area: 23.2 cm2 LA length (vol): 5.6 cm RA vol: 80.1 ml LA vol: 58.7 ml RA : 37.6 ml/m2 LA vol index: 27.5 ml/m2 IVC diam: 2.3 cm RVD1 (basal): 4.0 cm RVD2 (mid): 3.0 cm TAPSE: 2.0 cm Doppler Measurements & Calculations Ao V2 max: 96.0 cm/sec LVOT Max Theron: 62.0 cm/sec Ao V2 mean: 74.5 cm/sec LV V1 max P.5 mmHg Ao max P.7 mmHg LV V1 VTI: 10.1 cm Ao mean P.4 mmHg LAURA(I,D): 3.3 cm2 Ao V2 VTI: 15.1 cm LAURA(V,D): 3.2 cm2 sev ratio: 0.67 LAURA indexed to BSA (cm^2/m^2): 1.5 MV E max theron: 64.7 cm/sec PA V2 max: 112.5 cm/sec MV A max theron: 15.8 cm/sec PA V2 mean: 83.4 cm/sec MV E/A: 4.1 PA mean P.0 mmHg Med Peak E' Theron: 8.1 cm/sec PA pr(Accel): 56.7 mmHg E/E' med: 8.0 Lat Peak E' Theron: 9.5 cm/sec E/E' lat: 6.8 E/e' average: 7.4 MV dec time: 0.18 sec SV(LVOT): 49.9 ml Electronically signed by: Oliva Mcneal M.D. on Reading Physician:06/15/2024 04:51 PM
[2024-06-15] MEDS: cefTRIAXone 1,000 MG in SODIUM CHLORIDE 0.9% 100 ML 200 MG IV (13:35)
[2024-06-15] MEDS: OXYCODONE IR 5 MG TABLET PO ×2 (13:36→17:35)
--- NOTE | 2024-06-15 15:21 | PM.DS.1 ---
History of Present Illness History of Present Illness Date Patient Seen: 06/15/24 Time Patient Seen: 15:21 Chief complaint: not feeling better Narrative: Patient is a 73 yo M with PMH a fib, PMR, asthma, CAD who presented to the ER for bacteremia. He presented to ER 06/12 for general unwell feeling. Boyd SOB and LE swelling as well as myalgias. Work up largely reassuring including CBC, CMP, troponin, UA, CXR and EKG. WBC was 12.7 and lactate initially 3.2 but repeat down to 2.0 with IVF. Blood cultures collected and patient sent home. Patient called back today for + blood cultures for group G Strep. Patient's inital symptoms had resolved but started to note R LE swelling of knee and erythema of lower leg and knee. No fevers at home. Pain mostly with WB and movement. H/o right knee replacement 2018, revision in Oct 2023. Presented to the ER - Labs - WBC 11.9, lactate 2.4 Arthrocentesis performed and repeat blood cultures collected. XRay showed - generalized soft tissue swelling, with a moderate joint effusion. {from Dr. Crockett's H&P 06/14/2024} Discharge Providers Provider Date of admission: 06/14/24 16:51 Discharge Date: 06/15/24 Primary care physician: Tino Lassiter MD Consults: 06/14/24 16:36 Consult to Orthopedic Surgery Stat Comment: Consulting Provider: Usama Samuel Reason for consultation: septic joint Has provider been notified: Yes Discharge provider: Tino Lassiter MD Summary Hospital Course Discharge Diagnosis: 1. Septic right prosthetic joint, growing group G Streptococcus sensitive to ampicillin and cefotaxime 2. Paroxysmal atrial fibrillation 3. Chronic anticoagulation due to atrial fibrillation, held during this hospitalization 4. Asthma without exacerbation 5. Coronary artery disease without active symptoms 6. Polymyalgia rheumatica on low-dose prednisone 7. GERD without esophagitis Hospital Course: Patient was admitted as above because of positive blood cultures and significant pain in the right knee. Arthrocentesis was performed in the ER which subsequently has grown the same group G Streptococcus that was found in his blood stream on 2 occasions both with his initial ER visit and his ER visit resulting in his hospitalization He was placed initially on vancomycin plus ceftriaxone. Vancomycin was discontinued once his joint fluid demonstrated the group G Streptococcus organism. Ceftriaxone was continued Orthopedic surgery was consulted who felt as though patient should return to the care of his orthopedic surgeon who placed the prosthetic joint. Bed availability was identified at [facility] and patient was felt to be stable for transport Initially he had a bit of a leukocytosis of 12,000 this returned to normal day after admission Patient's vital signs are otherwise stable Exam Vital Signs (past 8 hours): - 06/15/24 07:22 06/15/24 08:00 06/15/24 10:59 Temperature 97.1 F L Pulse Rate 61 61 69 Respiratory Rate 18 17 18 Blood Pressure 112/65 Pulse Oximetry 97 96 97 Oxygen Delivery Method Room Air Room Air Oxygen Flow Rate 0 0 0 Fraction of Inspired Oxygen 21 21 06/15/24 12:00 Temperature 96.8 F L Pulse Rate 63 Respiratory Rate 18 Blood Pressure 117/79 Pulse Oximetry 98 Oxygen Delivery Method Oxygen Flow Rate 0 Fraction of Inspired Oxygen Fraction of Inspired Oxygen 21 SaO2/FiO2 Ratio 461 Oxygen Delivery Method Room Air Oxygen Flow Rate 0 Objective Labs 06/15/24 07:18 06/15/24 07:18 Labs: Laboratory Results - last 24 hr 06/14/24 06/15/24 11:00 07:18 WBC 8.2 RBC 4.62 Hgb 14.3 Hct 42.9 MCV 92.8 MCH 30.9 MCHC 33.3 RDW 14.5 Plt Count 136 L Neut % (Auto) 84.4 H Lymph % (Auto) 8.1 L Zavala % (Auto) 6.3 Eos % (Auto) 0.7 L Baso % (Auto) 0.5 Neut # (Auto) 6900 Lymph # (Auto) 700 L Zavala # (Auto) 500 Eos # (Auto) 100 Baso # (Auto) 0 Sodium 135 L Potassium 4.1 Chloride 106 Carbon Dioxide 28 BUN 27 H Creatinine 0.98 Estimated GFR > 60 BUN/Creatinine Ratio 27.6 H Glucose 101 Calcium 8.0 L Total Bilirubin 1.3 AST 18 ALT 18 Alkaline Phosphatase 83 Total Protein 6.0 L Albumin 3.1 L Globulin 2.9 Albumin/Globulin Ratio 1.1 Vancomycin Trough < 5.0 L A.calcoaceticus-baumannii cmplx PCR Not detected Bacteroides fragilis Not detected Paris albicans (PCR) Not detected [place] auris (PCR) Not detected C. glabrata (PCR) Not detected C. krusei (PCR) Not detected C. parapsilosis (PCR) Not detected C. tropicalis (PCR) Not detected C. neoform/gattii (PCR) Not detected Enterobacterales (PCR) Not detected E. cloacae complex PCR Not detected Enterococc faecalis PCR Not detected Enterococc faecium PCR Not detected E. coli (PCR) Not detected H. influenzae (PCR) Not detected Klebsiella aerogenes (PCR) Not detected Klebsiella oxytoca PCR Not detected Klebsiella pneumoniae Not detected List. monocytogenes PCR Not detected N. meningitidis (PCR) Not detected Proteus species (PCR) Not detected Salmonella spp. (PCR) Not detected Serratia marcescens PCR Not detected Staphylococcus sp PCR Not detected Staph aureus (PCR) Not detected mecA/C & MREJ Resist Gene Not applicable mecA/C-Methicil Resis Gene Not applicable mcr-1 Colistin Res Gene PCR Not applicable Staph epidermidis (PCR) Not detected Staph lugdunensis PCR Not detected S. maltophilia (PCR) Not detected Streptococcus sp PCR Detected Group A Strep (PCR) Not detected Strep agalactiae (PCR) Not detected Strep pneumoniae (PCR) Not detected P. aeruginosa (PCR) Not detected Marcos/B-Vanco Res Genes Not applicable blaIMP Car res Gene PCR Not applicable KPC-Carbap Res Gene PCR Not applicable blaNDM Car Res Gene PCR Not applicable OXA-48 Carbapenem Resis Gene (PCR) Not applicable blaVIM Car Res Gene PCR Not applicable CTX-M Gene Resistance (PCR) Not applicable [facility] Medical History Polymyalgia rheumatica Mixed hyperlipidemia Coronary artery disease Colon polyp, hyperplastic Ischemic cardiomyopathy Kidney stone H/O acute myocardial infarction (~1984) Paroxysmal atrial fibrillation Cardiac pacemaker in situ (~09/2017) Hemorrhoids (12/29/15) 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 Bert Mendes Discharge Health Status Multidrug resistant organism: No MDRO Precautions: [place] Diet/Activity/Treatments Diet: Diet as Tolerated Liquid consistency: Normal/Thin Food texture: Regular Discharge Data Primary Care Provider: Tino Lassiter Charge Codes Discharge inpatient/observation: [id number]
[2024-06-15] MEDS: ACETAMINOPHEN 325 MG TABLET 650 MG PO (15:32)
--- NOTE | 2024-06-15 15:33 | CM.DANOTE ---
Rob burrell a 73 yo male who was admitted INPT Status on 06/14/24 for Septic Knee. Pt has [facility] for insurance and his PCP is Dr. Tino Lassiter. EMR was reviewed. Per MD, pt with recent TKA at [facility] and now admitted for septic knee. Ortho Consult recommends transfer to [facility] for higher level of care needs. JAME received a call from [place] [employer] Isra [phone] stating that she has been working on approval of transfer to [facility] and pt has been approved but need MD to to complete the approval and requesting number for MD to provide to their provider. JAME called [facility] and left detailed msg for Dr. Samuel requesting he call Isra at the above number. JAME called Dr. Lassiter and left detailed msg regarding above as well in case Ortho unable to complete MD to for transfer. Spoke to [facility] again and she confirms Ortho Dr. Samuel called and that [facility] accepts transfer but do not have Ortho bed but a medical bed. JAME provided [place] with [place] commercial insulator direct number to call for ongoing coordination of hospital transfer and updated commercial insulator who kindly will continue to hospital transfer coordination with [place] and [facility]. ROULA Helms
[2024-06-15] MEDS: HYDROMORPHONE 2 MG INJ IV ×2 (15:50→17:36)
== END 2024-06-15 17:45 | disposition short-term general hospital (02) | DRG 560 ==
LOC: ED 16:36 → AC 16:53
PROVIDERS: Admitting Provider Family Medicine; Emergency Provider Emergency Medicine; Family Provider Internal Medicine; PCP Internal Medicine; Referring Provider Emergency Medicine; Visit Provider Internal Medicine
DX: T84.53XA Infection and inflammatory reaction due to internal right knee prosthesis, initial encounter (principal); M00.261 Other streptococcal arthritis, right knee; I25.5 Ischemic cardiomyopathy; B95.4 Other streptococcus as the cause of diseases classified elsewhere; J45.20 Mild intermittent asthma, uncomplicated; M35.3 Polymyalgia rheumatica; I10 Essential (primary) hypertension; I25.10 Atherosclerotic heart disease of native coronary artery without angina pectoris; K21.9 Gastro-esophageal reflux disease without esophagitis; I48.0 Paroxysmal atrial fibrillation; Z79.52 Long term (current) use of systemic steroids; Z79.01 Long term (current) use of anticoagulants
CPT/HCPCS: 20610; 36415; 71045; 73562; 80053; 80202; 81003; 83605; 83690; 83880; 84145; 84484; 85025; 85610; 85651; 86140; 87040; 87070; 87075; 87077; 87147; 87154; 87186; 87205; 87633; 89051; 93005; 93306; 94640; 96365; 96367; 99284; 99285; A9270; J0696; J1170; J2919; J7613

== ENCOUNTER → 2024-06-26 13:16 | Outpatient (ROUT) | payer OTHER, SELFPAY ==
[2024-06-14 17:33] VITALS: BMI 31.7
[2024-06-26 13:22] LABS: Add Manual Diff / Slide Review NO; Basophils Absolute Auto 0 /uL (0-100); Basophils Percent Auto 0.4 % (0-2); Eosinophils Absolute Auto 100 /uL (0-450); Eosinophils Percent Auto 1.1 % (2-4); Hemoglobin 13.6 g/dL (13.5-17.5); Lymphocytes Absolute Auto 900 /uL (1100-4500); Lymphocytes Percent Auto 10.5 % (25-40); Mean Corpuscular HGB Conc 33.1 % (30-36); Mean Corpuscular Hemoglobin 30.8 PG (26-34); Mean Corpuscular Volume 93.1 fL (80-100); Monocytes Absolute Auto 500 /uL (0-900); Monocytes Percent Auto 5.7 % (3-14); Neutrophils Absolute Auto 7300 /uL (1500-7000); Neutrophils Percent Auto 82.3 % (50-75); Platelet Count 236 X10^3/uL (150-400); Red Cell Distribution Width 14.3 % (11.6-14.8); White Blood Cell Count 8.9 X10^3/uL (4.5-11.0)
[2024-06-26 13:45] LABS: Alanine Aminotransferase 19 IU/L (<50); Albumin 3.4 g/dL (3.5-5.0); Albumin Globulin Ratio 1.1 (1.0-2.8); Alkaline Phosphatase 102 U/L (38-126); Aspartate Aminotransferase 20 IU/L (17-59); BUN Creatinine Ratio 20.9 (6-22); Blood Urea Nitrogen 18 mg/dL (9-20); C-Reactive Protein Quant 2.4 mg/dL (<1.0); Calcium 8.5 mg/dL (8.4-10.2); Carbon Dioxide 25 mmol/L (22-32); Chloride 104 mmol/L (98-107); Estimated Glomerular Filt Rate > 60 mL/min (>60); Globulin 3.2 g/dL (1.7-4.1); Glucose 111 mg/dL (80-110); HEMOLYSIS < 15 (0-50); Potassium 4.5 mmol/L (3.4-5.1); Sodium 136 mmol/L (137-145); Total Protein 6.6 g/dL (6.3-8.2)
== END ==
PROVIDERS: Family Provider Internal Medicine; PCP Internal Medicine; Visit Provider Internal Medicine Infectious Disease
DX: Z00.00 Encounter for general adult medical examination without abnormal findings (principal)
CPT/HCPCS: 80053; 85025; 86140

== ENCOUNTER 2024-07-11 10:37 | Emergency (ER) | payer OTHER, SELFPAY ==
[2024-06-14 17:33] VITALS: BMI 31.7
[2024-07-11 10:46] VITALS: PULSE 76; RESP 23; O2SAT 91
[2024-07-11 10:47] VITALS: BP 135/66; PULSE 74; RESP 18; O2SAT 98
[2024-07-11 10:51] VITALS: BP 135/66; PULSE 72; RESP 17; TEMP 36.9; O2SAT 99
[2024-07-11 11:00] VITALS: BP 121/60; PULSE 67; RESP 26; O2SAT 96
[2024-07-11 11:22] LABS: Add Manual Diff / Slide Review NO; Basophils Absolute Auto 0 /uL (0-100); Basophils Percent Auto 0.6 % (0-2); Eosinophils Absolute Auto 200 /uL (0-450); Eosinophils Percent Auto 3.4 % (2-4); Hematocrit 39.7 % (41-53); Hemoglobin 13.3 g/dL (13.5-17.5); Lymphocytes Absolute Auto 1100 /uL (1100-4500); Lymphocytes Percent Auto 19.6 % (25-40); Mean Corpuscular HGB Conc 33.5 % (30-36); Mean Corpuscular Hemoglobin 30.2 PG (26-34); Mean Corpuscular Volume 90.1 fL (80-100); Monocytes Absolute Auto 400 /uL (0-900); Monocytes Percent Auto 7.4 % (3-14); Neutrophils Absolute Auto 4000 /uL (1500-7000); Platelet Count 217 X10^3/uL (150-400); Red Cell Distribution Width 13.8 % (11.6-14.8); White Blood Cell Count 5.8 X10^3/uL (4.5-11.0)
[2024-07-11 11:30] VITALS: BP 143/65; PULSE 64; RESP 23; O2SAT 97
[2024-07-11 11:34] LABS: Alanine Aminotransferase 18 IU/L (<50); Albumin 3.4 g/dL (3.5-5.0); Albumin Globulin Ratio 0.9 (1.0-2.8); Alkaline Phosphatase 93 U/L (38-126); Aspartate Aminotransferase 21 IU/L (17-59); Bilirubin Total 0.9 mg/dL (0.2-1.3); Blood Urea Nitrogen 21 mg/dL (9-20); Calcium 8.7 mg/dL (8.4-10.2); Carbon Dioxide 22 mmol/L (22-32); Chloride 106 mmol/L (98-107); Estimated Glomerular Filt Rate > 60 mL/min (>60); Globulin 3.6 g/dL (1.7-4.1); Glucose 180 mg/dL (80-110); HEMOLYSIS 15 (0-50); Potassium 3.7 mmol/L (3.4-5.1); Sodium 138 mmol/L (137-145)
--- NOTE | 2024-07-11 11:44 | ED.RECABL ---
HPI - Recheck/Abnormal Lab/Rx General Chief Complaint: Recheck/Abnormal Lab/Rx Stated Complaint: Sent from his doctors Low potassium Time Seen by Provider: 07/11/24 11:11 Source: patient Mode of arrival: Ambulatory Limitations: no limitations History of Present Illness HPI narrative: Patient is a 73-year-old male who was sent in by his doctor for evaluation of low potassium. He stated that he would blood drawn yesterday through a right upper extremity PICC line. He stated that the nurse had a difficult time getting blood draw. He did not think that the nurse discarded any blood. He received a call today from the infusion company and also his primary doctor that his potassium was less than 3 and that he should come to the emergency department. He was asymptomatic. Related Data Home Medications Medication Instructions Recorded Confirmed rivaroxaban 20 mg tablet (Xarelto) 10 mg PO DAILY 10/23/19 06/26/24 flecainide 50 mg tablet 50 mg PO BID 03/21/20 06/26/24 montelukast 10 mg tablet 10 mg PO ONCE PM 02/07/24 06/26/24 omeprazole 40 mg capsule,delayed 40 mg PO DAILY 04/23/24 06/26/24 release furosemide 20 mg tablet 20 mg PO DAILY 06/26/24 06/26/24 Previous Rx's Medication Instructions Recorded potassium chloride 10 mEq 10 meq PO DAILY #90 tabs 12/10/23 tablet,extended release tramadol 50 mg tablet 50 mg PO TID PRN pain #90 tabs 03/10/24 prednisone 10 mg tablet 10 mg PO DIRECTED #90 tabs 04/23/24 atorvastatin 20 mg tablet 20 mg PO DAILY #90 tabs 05/18/24 albuterol sulfate 90 mcg/actuation 1 inh inhalation Q4-6H PRN 06/15/24 aerosol inhaler shortness of breath #18 grams nystatin 100,000 unit/mL oral 1 ml PO TID #250 mL 06/19/24 suspension fluticasone propionate 230 2 puff inhalation BID #12 grams 07/02/24 mcg-salmeterol 21 mcg/actuation HFA inhaler (Advair HFA) oxycodone 5 mg tablet 5 - 10 mg (1 - 2 x 5 mg) PO Q8H 07/02/24 PRN pain #45 tabs diltiazem HCl 60 mg 60 mg PO DAILY #90 caps 07/06/24 capsule,extended release 12 hr Allergies Allergy/AdvReac Type Severity Reaction Status Date / Time nifedipine [From Procardia] AdvReac Severe Hypotensive Verified 06/26/24 10:22 Review of Systems Review of Systems Narrative: See HPI Patient History Medical History Septic joint Polymyalgia rheumatica Mixed hyperlipidemia Coronary artery disease Colon polyp, hyperplastic Ischemic cardiomyopathy Kidney stone H/O acute myocardial infarction (~1984) Paroxysmal atrial fibrillation Cardiac pacemaker in situ (~09/2017) Hemorrhoids (12/29/15) 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) Diverticulosis of large intestine without perforation or abscess without bleeding Gastroesophageal reflux disease without esophagitis (12/04/11) Mild intermittent asthma without complication (12/04/11) Surgical History History of surgery History of total right knee replacement (04/13/19) H/O vasectomy (~1984) Status post hernia repair Social History household members: spouse Smoking Status: Never smoker alcohol intake: current Smoking Status: Never smoker alcohol intake frequency: holidays/special occasions only Substance Use Type: does not use Exam Initial Vital Signs Initial Vital Signs: Vital Signs Temperature 98.4 F 07/11/24 10:51 Pulse Rate 72 07/11/24 10:51 Respiratory Rate 17 07/11/24 10:51 Blood Pressure 135/66 07/11/24 10:51 Pulse Oximetry 99 07/11/24 10:51 Oxygen Delivery Method Room Air 07/11/24 10:51 Const General: cooperative and comfortable [facility] Head: normal to inspection Skin General: no rashes or lesions noted Neuro General: patient alert and patient awake Extrem Other: PICC line right upper extremity Course Orders Ordered: ED Orders 07/11/24 11:15 CMP [Comprehensive Metabolic Panel] Stat Complete Blood Count AUTO DIFF Stat Vital Signs Vital signs: Vital Signs - 8 hr 07/11/24 10:51 Temperature 98.4 F Pulse Rate 72 Respiratory Rate 17 Blood Pressure 135/66 Pulse Oximetry 99 Oxygen Delivery Method Room Air MDM - Recheck/Abnormal Lab/Rx Lab Data Attestation: I reviewed the patient's lab results. 07/11/24 11:15 07/11/24 11:15 Labs: Lab Results 07/11/24 Range/Units 11:15 WBC 5.8 (4.5-11.0) X10^3/uL RBC 4.40 L (4.5-5.9) X10^6/uL Hgb 13.3 L (13.5-17.5) g/dL Hct 39.7 L (41-53) % MCV 90.1 (80-100) fL MCH 30.2 (26-34) PG MCHC 33.5 (30-36) % RDW 13.8 (11.6-14.8) % Plt Count 217 (150-400) X10^3/uL Neut % (Auto) 69.0 (50-75) % Lymph % (Auto) 19.6 L (25-40) % Collin % (Auto) 7.4 (3-14) % Eos % (Auto) 3.4 (2-4) % Baso % (Auto) 0.6 (0-2) % Neut # (Auto) 4000 (7224-7006) /uL Lymph # (Auto) 1100 (1320-8617) /uL Collin # (Auto) 400 (0-900) /uL Eos # (Auto) 200 (0-450) /uL Baso # (Auto) 0 (0-100) /uL Sodium 138 (137-145) mmol/L Potassium 3.7 (3.4-5.1) mmol/L Chloride 106 (98-107) mmol/L Carbon Dioxide 22 (22-32) mmol/L BUN 21 H (9-20) mg/dL Creatinine 0.75 (0.66-1.25) mg/dL Estimated GFR > 60 (>60) mL/min BUN/Creatinine Ratio 28.0 H (6-22) Glucose 180 H (80-110) mg/dL Calcium 8.7 (8.4-10.2) mg/dL Total Bilirubin 0.9 (0.2-1.3) mg/dL AST 21 (17-59) IU/L ALT 18 (<50) IU/L Alkaline Phosphatase 93 (38-126) U/L Total Protein 7.0 (6.3-8.2) g/dL Albumin 3.4 L (3.5-5.0) g/dL Globulin 3.6 (1.7-4.1) g/dL Albumin/Globulin Ratio 0.9 L (1.0-2.8) MDM Narrative Medical decision making narrative: I do not have the labs that reported the low potassium from yesterday however his potassium today is normal. I suspect that the low potassium yesterday was most likely the technique care/delusional because he stated that there was no blood that was discarded. Reassured the patient. No indication to change any of his medications or put him on potassium supplementation. He was given return precautions. He expressed understanding and agreement with plan. Discharge Plan Departure Patient Disposition: Home Clinical Impression: Feared condition not demonstrated Activity Restrictions/Additional Instructions: Your potassium today was 3.7 which is normal. Continue to take all of your medications as directed and keep all of your scheduled medical appointments. Return to the emergency department for new symptoms Prescriptions: No Action atorvastatin 20 mg tablet 20 mg PO DAILY Qty: 90 3RF albuterol sulfate 90 mcg/actuation HFA aerosol inhaler 1 inh INHALATION Q4-6H PRN (Reason: shortness of breath) Qty: 18 11RF nystatin 100,000 unit/mL suspension 1 ml PO TID Qty: 250 0RF Rx Instructions: swish and spit for 10-14 days oxycodone 5 mg tablet 5 - 10 mg PO Q8H MDD 6 tabs PRN (Reason: pain) Qty: 45 0RF fluticasone propion-salmeterol [Advair HFA] 230-21 mcg/actuation HFA aerosol inhaler 2 puff inhalation BID Qty: 12 8RF Rx Instructions: administer with spacer diltiazem HCl 60 mg capsule,extended release 12 hr 60 mg PO DAILY Qty: 90 1RF omeprazole 40 mg capsule,delayed release(DR/EC) 40 mg PO DAILY prednisone 10 mg tablet 10 mg PO DIRECTED Qty: 90 1RF Rx Instructions: see taper instructions furosemide 20 mg tablet 20 mg PO DAILY Xarelto 20 mg tablet 10 mg PO DAILY flecainide 50 mg tablet 50 mg PO BID potassium chloride 10 mEq tablet extended release 10 meq PO DAILY Qty: 90 3RF tramadol 50 mg tablet 50 mg PO TID PRN (Reason: pain) Qty: 90 0RF montelukast 10 mg tablet 10 mg PO ONCE PM Referrals: Tino Lassiter MD [Primary Care Provider] - Stand Alone Forms: Patient Portal/API
[2024-07-11 12:00] VITALS: BP 131/64; PULSE 65; RESP 14; O2SAT 97
== END 2024-07-11 12:11 | disposition home or self-care (01) ==
PROVIDERS: Emergency Provider Emergency Medicine; Family Provider Internal Medicine; PCP Internal Medicine
DX: E87.6 Hypokalemia (principal)
CPT/HCPCS: 36415; 80053; 85025; 99283

== ENCOUNTER → 2024-08-12 11:35 | Outpatient (CLI) | payer OTHER, SELFPAY ==
[2024-06-14 17:33] VITALS: BMI 31.7
[2024-08-12 12:42] LABS: Add Manual Diff / Slide Review NO; Basophils Absolute Auto 0 /uL (0-100); Basophils Percent Auto 0.6 % (0-2); Eosinophils Absolute Auto 400 /uL (0-450); Eosinophils Percent Auto 6.5 % (2-4); Hematocrit 43.4 % (41-53); Hemoglobin 14.6 g/dL (13.5-17.5); Lymphocytes Absolute Auto 1200 /uL (1100-4500); Lymphocytes Percent Auto 18.3 % (25-40); Mean Corpuscular HGB Conc 33.5 % (30-36); Mean Corpuscular Hemoglobin 30.9 PG (26-34); Mean Corpuscular Volume 92.1 fL (80-100); Monocytes Absolute Auto 700 /uL (0-900); Monocytes Percent Auto 10.5 % (3-14); Neutrophils Absolute Auto 4100 /uL (1500-7000); Neutrophils Percent Auto 64.1 % (50-75); Platelet Count 206 X10^3/uL (150-400); Red Blood Cell Count 4.71 X10^6/uL (4.5-5.9); Red Cell Distribution Width 16.4 % (11.6-14.8); White Blood Cell Count 6.4 X10^3/uL (4.5-11.0)
[2024-08-12 13:50] LABS: Alanine Aminotransferase 20 IU/L (<50); Albumin 3.8 g/dL (3.5-5.0); Albumin Globulin Ratio 1.2 (1.0-2.8); Alkaline Phosphatase 119 U/L (38-126); Aspartate Aminotransferase 26 IU/L (17-59); BUN Creatinine Ratio 22.8 (6-22); Bilirubin Total 0.6 mg/dL (0.2-1.3); Blood Urea Nitrogen 21 mg/dL (9-20); Calcium 9.1 mg/dL (8.4-10.2); Carbon Dioxide 27 mmol/L (22-32); Chloride 105 mmol/L (98-107); Cholesterol 212 mg/dL (140-199); Estimated Glomerular Filt Rate > 60 mL/min (>60); Globulin 3.2 g/dL (1.7-4.1); Glucose 98 mg/dL (80-110); HDL Cholesterol 32 mg/dL (40-60); HEMOLYSIS < 15 (0-50); LDL Cholesterol Calculated 133 mg/dL (<100); Potassium 4.2 mmol/L (3.4-5.1); Sodium 138 mmol/L (137-145); Triglycerides 237 mg/dL (35-150)
== END ==
LOC: LAB 11:37
PROVIDERS: Family Provider Internal Medicine; PCP Internal Medicine; Referring Provider Internal Medicine Cardiovascular Disease; Visit Provider Internal Medicine Cardiovascular Disease
DX: I48.0 Paroxysmal atrial fibrillation (principal); Z79.899 Other long term (current) drug therapy; I47.10 Supraventricular tachycardia, unspecified; Z79.01 Long term (current) use of anticoagulants; Z51.81 Encounter for therapeutic drug level monitoring
CPT/HCPCS: 36415; 80053; 80061; 85025

== ENCOUNTER → 2024-12-14 09:14 | Outpatient (CLI) | payer OTHER, SELFPAY ==
[2024-06-14 17:33] VITALS: BMI 31.7
[2024-12-14 10:12] LABS: Add Manual Diff / Slide Review NO; Basophils Absolute Auto 0 /uL (0-100); Basophils Percent Auto 0.7 % (0-2); Eosinophils Absolute Auto 200 /uL (0-450); Eosinophils Percent Auto 2.5 % (2-4); Hematocrit 48.4 % (41-53); Hemoglobin 16.4 g/dL (13.5-17.5); Lymphocytes Absolute Auto 900 /uL (1100-4500); Lymphocytes Percent Auto 14.7 % (25-40); Mean Corpuscular HGB Conc 33.8 % (30-36); Mean Corpuscular Hemoglobin 31.1 PG (26-34); Monocytes Absolute Auto 600 /uL (0-900); Monocytes Percent Auto 8.7 % (3-14); Neutrophils Absolute Auto 4700 /uL (1500-7000); Neutrophils Percent Auto 73.4 % (50-75); Platelet Count 174 X10^3/uL (150-400); Red Blood Cell Count 5.26 X10^6/uL (4.5-5.9); Red Cell Distribution Width 13.9 % (11.6-14.8); White Blood Cell Count 6.4 X10^3/uL (4.5-11.0)
[2024-12-14 10:33] LABS: Alanine Aminotransferase 28 IU/L (<50); Albumin 4.2 g/dL (3.5-5.0); Albumin Globulin Ratio 1.8 (1.0-2.8); Alkaline Phosphatase 84 U/L (38-126); Aspartate Aminotransferase 28 IU/L (17-59); BUN Creatinine Ratio 21.8 (6-22); Blood Urea Nitrogen 24 mg/dL (9-20); C-Reactive Protein Quant 1.2 mg/dL (<1.0); Calcium 9.2 mg/dL (8.4-10.2); Carbon Dioxide 30 mmol/L (22-32); Chloride 103 mmol/L (98-107); Cholesterol 212 mg/dL (140-199); Estimated Glomerular Filt Rate > 60 mL/min (>60); Globulin 2.4 g/dL (1.7-4.1); Glucose 100 mg/dL (80-110); HDL Cholesterol 46 mg/dL (40-60); HEMOLYSIS < 15 (0-50); LDL Cholesterol Calculated 133 mg/dL (<100); Potassium 4.2 mmol/L (3.4-5.1); Sodium 139 mmol/L (137-145); Total Protein 6.6 g/dL (6.3-8.2); Triglycerides 164 mg/dL (35-150)
== END ==
PROVIDERS: Family Provider Internal Medicine; PCP Internal Medicine; Referring Provider Internal Medicine; Visit Provider Internal Medicine
DX: E78.2 Mixed hyperlipidemia (principal); J45.20 Mild intermittent asthma, uncomplicated; M35.3 Polymyalgia rheumatica
CPT/HCPCS: 36415; 80053; 80061; 84443; 85025; 86140

== ENCOUNTER → 2024-12-25 14:51 | Outpatient (CLI) | payer OTHER, SELFPAY ==
[2024-06-14 17:33] VITALS: BMI 31.7
[2024-12-25 15:19] LABS: Add Manual Diff / Slide Review NO; Basophils Absolute Auto 0 /uL (0-100); Basophils Percent Auto 0.6 % (0-2); Eosinophils Absolute Auto 200 /uL (0-450); Eosinophils Percent Auto 3.3 % (2-4); Hematocrit 49.2 % (41-53); Hemoglobin 16.7 g/dL (13.5-17.5); Lymphocytes Absolute Auto 800 /uL (1100-4500); Lymphocytes Percent Auto 11.9 % (25-40); Mean Corpuscular HGB Conc 34.1 % (30-36); Mean Corpuscular Hemoglobin 31.1 PG (26-34); Mean Corpuscular Volume 91.3 fL (80-100); Monocytes Absolute Auto 700 /uL (0-900); Monocytes Percent Auto 10.4 % (3-14); Neutrophils Absolute Auto 4800 /uL (1500-7000); Neutrophils Percent Auto 73.8 % (50-75); Platelet Count 186 X10^3/uL (150-400); Red Blood Cell Count 5.39 X10^6/uL (4.5-5.9); Red Cell Distribution Width 14.1 % (11.6-14.8); White Blood Cell Count 6.5 X10^3/uL (4.5-11.0)
[2024-12-25 15:37] LABS: INR 2.3 (0.9-1.3); Prothrombin Time 25.2 SECONDS (9.4-12.5)
[2024-12-25 19:20] LABS: Blood Urea Nitrogen 24 mg/dL (9-20); Calcium 9.1 mg/dL (8.4-10.2); Carbon Dioxide 25 mmol/L (22-32); Chloride 102 mmol/L (98-107); Estimated Glomerular Filt Rate > 60 mL/min (>60); Glucose 99 mg/dL (80-110); HEMOLYSIS 29 (0-50); Potassium 4.3 mmol/L (3.4-5.1); Sodium 137 mmol/L (137-145)
== END ==
PROVIDERS: Family Provider Internal Medicine; PCP Internal Medicine; Referring Provider Internal Medicine Cardiovascular Disease; Visit Provider Internal Medicine Cardiovascular Disease
DX: I20.0 Unstable angina (principal)
CPT/HCPCS: 36415; 80048; 85025; 85610

== ENCOUNTER → 2025-03-23 10:26 | Outpatient (CLI) | payer OTHER, SELFPAY ==
[2024-06-14 17:33] VITALS: BMI 31.7
[2025-03-23 11:41] LABS: Add Manual Diff / Slide Review NO; Basophils Absolute Auto 0 /uL (0-100); Basophils Percent Auto 0.7 % (0-2); Eosinophils Absolute Auto 100 /uL (0-450); Eosinophils Percent Auto 1.7 % (2-4); Hematocrit 46.1 % (41-53); Hemoglobin 15.4 g/dL (13.5-17.5); Lymphocytes Absolute Auto 600 /uL (1100-4500); Lymphocytes Percent Auto 10.3 % (25-40); Mean Corpuscular HGB Conc 33.4 % (30-36); Mean Corpuscular Hemoglobin 30.6 PG (26-34); Mean Corpuscular Volume 91.9 fL (80-100); Monocytes Absolute Auto 400 /uL (0-900); Monocytes Percent Auto 6.2 % (3-14); Neutrophils Absolute Auto 5000 /uL (1500-7000); Neutrophils Percent Auto 81.1 % (50-75); Platelet Count 169 X10^3/uL (150-400); Red Blood Cell Count 5.01 X10^6/uL (4.5-5.9); Red Cell Distribution Width 14.9 % (11.6-14.8); White Blood Cell Count 6.2 X10^3/uL (4.5-11.0)
[2025-03-23 12:17] LABS: Erythrocyte Sedimentation Rate 4 MM/HR (0-15)
[2025-03-23 12:36] LABS: Thyroid Stimulating Hormone 1.09 uIU/mL (0.47-4.68)
[2025-03-23 12:39] LABS: Ferritin 42 ng/mL (18-464)
[2025-03-23 15:41] LABS: Hepatitis B Surface Antigen NEGATIVE s/c (NEGATIVE)
[2025-03-23 16:34] LABS: Hep C Virus Ab w/Reflex Quant NEGATIVE s/c (NEGATIVE)
[2025-03-24 00:09] LABS: Hepatitis B Core Antibody Negative (Negative)
[2025-03-24 05:40] LABS: Hepatitis B Surf Ab Qualitativ Non Reactive (.)
[2025-03-25 14:41] LABS: Iron 100 ug/dL (49-181)
[2025-03-25 15:09] LABS: Alanine Aminotransferase 27 IU/L (<50); Albumin 4.1 g/dL (3.5-5.0); Albumin Globulin Ratio 1.8 (1.0-2.8); Alkaline Phosphatase 98 U/L (38-126); Aspartate Aminotransferase 27 IU/L (17-59); BUN Creatinine Ratio 23.7 (6-22); Blood Urea Nitrogen 23 mg/dL (9-20); Calcium 9.2 mg/dL (8.4-10.2); Carbon Dioxide 23 mmol/L (22-32); Chloride 104 mmol/L (98-107); Estimated Glomerular Filt Rate > 60 mL/min (>60); Globulin 2.3 g/dL (1.7-4.1); Glucose 94 mg/dL (70-99); HEMOLYSIS < 15 (0-50); Potassium 4.2 mmol/L (3.4-5.1); Sodium 138 mmol/L (137-145); Total Protein 6.4 g/dL (6.3-8.2)
[2025-03-29 15:10] LABS: Albumin 3.5 g/dL (2.9-4.4); Alpha-1-Globulin 0.2 g/dL (0.0-0.4); Alpha-2-Globulin 0.6 g/dL (0.4-1.0); Gamma Globulin 1.1 g/dL (0.4-1.8); Globulin Total 2.7 g/dL (2.2-3.9); Protein, Total 6.2 g/dL (6.0-8.5)
== END ==
PROVIDERS: Family Provider Internal Medicine; PCP Internal Medicine; Referring Provider Dermatology; Visit Provider Dermatology
DX: L29.89 Other pruritus (principal)
CPT/HCPCS: 36415; 80053; 82728; 83516; 83540; 84155; 84165; 84443; 85025; 85651; 86704; 86706; 86803; 87340

== ENCOUNTER → 2025-05-24 13:55 | Outpatient (CLI) | payer OTHER, SELFPAY ==
[2024-06-14 17:33] VITALS: BMI 31.7
--- NOTE | 2025-05-24 13:57 | DI.RAD.S_ITS ---
PROCEDURE: XR SHOULDER RT MIN 2V INDICATIONS: right shoulder pain TECHNIQUE: Three views of the right shoulder were acquired. COMPARISON: [facility], CR, XR SHOULDER LT MIN 2V, 05/18/2022, 13:49. FINDINGS: Bones: There are no osseous abnormalities. Acromioclavicular and glenohumeral joints: Moderate acromioclavicular and mild glenohumeral degeneration appreciated. Soft tissues: No soft tissue swelling, calcification or mass. IMPRESSION: Degeneration Dictated by: Tino Devlin M.D. on 05/25/2025 at 11:12 Approved by: Tino Devlin M.D. on 05/25/2025 at 11:13
== END ==
LOC: RAD 13:56
PROVIDERS: Family Provider Internal Medicine; PCP Internal Medicine; Referring Provider Internal Medicine; Visit Provider Internal Medicine
DX: M19.011 Primary osteoarthritis, right shoulder (principal); M25.519 Pain in unspecified shoulder
CPT/HCPCS: 73030

== ENCOUNTER → 2025-05-31 15:56 | Outpatient (CLI) | payer OTHER, SELFPAY ==
[2024-06-14 17:33] VITALS: BMI 31.7
[2025-05-31 16:29] LABS: Basophils Absolute Auto 0 /uL (0-100); Basophils Percent Auto 0.4 % (0-2); Eosinophils Absolute Auto 0 /uL (0-450); Hemoglobin 15.8 g/dL (13.5-17.5); Monocytes Absolute Auto 400 /uL (0-900)
[2025-05-31 16:46] LABS: Alanine Aminotransferase 296 IU/L (<50); Albumin 4.1 g/dL (3.5-5.0); Albumin Globulin Ratio 1.4 (1.0-2.8); Alkaline Phosphatase 166 U/L (38-126); Aspartate Aminotransferase 148 IU/L (17-59); BUN Creatinine Ratio 18.2 (6-22); Bilirubin Total 1.8 mg/dL (0.2-1.3); Blood Urea Nitrogen 18 mg/dL (9-20); Calcium 9.1 mg/dL (8.4-10.2); Carbon Dioxide 26 mmol/L (22-32); Chloride 101 mmol/L (98-107); Estimated Glomerular Filt Rate > 60 mL/min (>60); Globulin 2.9 g/dL (1.7-4.1); Glucose 128 mg/dL (70-99); HEMOLYSIS < 15 (0-50); Potassium 4.4 mmol/L (3.4-5.1); Sodium 137 mmol/L (137-145)
[2025-05-31 16:57] LABS: Add Manual Diff / Slide Review NO; Eosinophils Percent Auto 0.4 % (2-4); Hematocrit 47.4 % (41-53); Lymphocytes Absolute Auto 300 /uL (1100-4500); Lymphocytes Percent Auto 4.3 % (25-40); Mean Corpuscular HGB Conc 33.4 % (30-36); Mean Corpuscular Hemoglobin 30.6 PG (26-34); Mean Corpuscular Volume 91.6 fL (80-100); Monocytes Percent Auto 5.9 % (3-14); Neutrophils Absolute Auto 6100 /uL (1500-7000); Platelet Count 150 X10^3/uL (150-400); Red Blood Cell Count 5.18 X10^6/uL (4.5-5.9); Red Cell Distribution Width 14.3 % (11.6-14.8); White Blood Cell Count 6.9 X10^3/uL (4.5-11.0)
== END ==
PROVIDERS: Family Provider Internal Medicine; PCP Internal Medicine; Visit Provider Dermatology
DX: L30.9 Dermatitis, unspecified (principal)
CPT/HCPCS: 36415; 80053; 85025

== ENCOUNTER 2025-10-06 07:32 | Day surgery (SDC) | payer OTHER, SELFPAY ==
[2025-07-30 09:57] VITALS: BMI 31.7
[2025-10-06 08:02] VITALS: BP 152/78; PULSE 55; RESP 16; TEMP 36.4; O2SAT 98
[2025-10-06] MEDS: LACTATED RINGERS 1,000 ML 42 ML IV (08:18)
--- NOTE | 2025-10-06 08:21 | P.OP.PRE_ITS ---
Pre-operative Note
--- NOTE | 2025-10-06 08:21 | PM.PREOP ---
Pre-operative Note COVID-19 COVID-19 status: Not tested Result date/Date tested (Pos, Neg/Pending): 10/06/25 Interval Note History & Physical reviewed/Exam performed by Physician: Yes Changes to H&P: No
--- NOTE | 2025-10-06 08:43 | SUR.OPER ---
Beach chair with TRIMANO positioner. Lower body on padded OR bed. Head in foam padded head cradle, secured with straps. Non-operative arm secured <90 degrees ON PADDED ARM BOARD. Pillow under knees. Safety belt at thigh. Cloth tape over blanket over lower legs. BILATERAL HEELS PADDED WITH GEL PAD. ALL POSITIONING APPROVED AND DIRECTED BY SURGEON PRIOR TO START OF PROCEDURE.
--- NOTE | 2025-10-06 08:51 | SUR.PREOP ---
Block start time [0842] . Monitoring initiated and maintained throughout procedure. Oxygen and medications given by anesthesiologist. Patient remained stable throughout procedure, no adverse reactions noted. Block end time [0844].
[2025-10-06 10:39] VITALS: BP 141/72; PULSE 55; RESP 20; TEMP 36.2; O2SAT 95
[2025-10-06 10:48] VITALS: BP 137/79; PULSE 54; RESP 19; TEMP 36.2; O2SAT 95
--- NOTE | 2025-10-06 10:53 | P.OP_ITS ---
Operative Date/Time/Diagnoses
--- NOTE | 2025-10-06 10:53 | PM.OP.1 ---
Operative Date/Time/Diagnoses Date of procedure: 10/06/25 Time of procedure: 09:20 Pre-op diagnosis: right rotator cuff tear and biceps tendinitis Post-op diagnosis: same Procedure & Clinicians Procedure: 1. R shoulder arthroscopy with Rotator cuff repair 2. Open subpectoral biceps tenodesis Same procedure(s) as scheduled: Yes Surgeon: Valeria Peters Assisted?: Yes Genetics Nurse: Sangita Walker Anesthesia Type: General and Peripheral nerve block Operative Notes Findings: see below Closure Type: primary Specimen(s): none sent Applied: none Estimated Blood Loss (mL): 30 Blood products transfused: none Procedure in detail: Preoperative diagnosis: 1. R shoulder rotator cuff tear 2. Biceps tendonitis 3.? R shoulder ac joint arthritis Postoperative diagnosis: 1. Full thickness supraspinatus tendon tear 2.? Biceps tendinitis 3. R shoulder AC joint arthritis Procedure performed: 1. R shoulder arthroscopy with Rotator cuff repair 2. Open subpectoral biceps tenodesis Implants: 1. Arthrex knotless tension tight button implant system 2.)? Arthrex fibertape and 4.75 Swivelock The patient was met in the preoperative hold area the right upper extremity was signed as the correct extremity. The patient was taken back to the operating room after an interscalene block was performed by anesthesia. The patient was placed in the beach chair position. All bony prominences were padded. The patient was positioned in the beach chair ensuring his neck was in neutral alignment. The patient was prepped and draped in the standard sterile fashion. A time-out was performed confirming the correct patient, correct procedure, correct extremity, initials on the operative site and administration of IV antibiotics A standard posterolateral viewing portal was utilized. A diagnostic arthroscopy was performed. The patient had an inflamed biceps tendon. A Full thickness supraspinatus tear was identified and debrided.? It was also marked with a spinal needle to view from the subacromial space. The biceps tendon was cut and the stump was debrided. After finishing the diagnostic arthroscopy I then performed the open subpectoral biceps tenodesis. A 3 cm incision was made just inferior to the Pec major in the axillary fold. Dissection was taken down through the subcutaneous tissues. The biceps tendon was identified and retrieved from the wound. An Arthrex cortical button was utilized fix the biceps tendon in place.? As I was tightening the biceps down and reinforced knots were placed.? This maintained an excellent onlay technique. I then placed the arthroscopic instruments in the subacromial space and the subacromial space was debrided. There was very thick bursitis that was debrided. I identified the spinal needle and examined the rotator cuff.? There was a full thickness rotator cuff tear.? The footprint was debrided and the supraspinatus was repaired using a speed fix technique.? This was a tension free repair down to the footprint.? The rotator cuff moved in continuity. ? All as were copiously irrigated and the arthroscopy portals were closed with 3-0 nylon. The biceps tenodesis incision was closed with 2-0 Vicryl 3-0 Monocryl Steri-Strips. The distal clavicle fascia was closed with 0 Ethibond.? And the incision was closed with 2-0 vicryl and 3-0 Nylon.? A sterile dressing was applied of Xeroform, plain gauze, Medipore tape. At the end of the surgery a total of 25 cc of 0.25% Marcaine was placed into the incision sites. Patient was awoken and taken to the PACU in stable condition. Complications: none
[2025-10-06 10:54] VITALS: BP 144/77; PULSE 55; RESP 13; TEMP 36.2; O2SAT 96
[2025-10-06 12:33] VITALS: BP 127/70; PULSE 74; RESP 14; TEMP 36.2; O2SAT 98
== END 2025-10-06 12:34 | disposition home or self-care (01) ==
PROVIDERS: Family Provider Internal Medicine; PCP Internal Medicine; Referring Provider Orthopaedic Surgery; Visit Provider Orthopaedic Surgery
PROC: (CPT 29827; principal; 2025-10-06 08:45)
DX: M75.101 Unspecified rotator cuff tear or rupture of right shoulder, not specified as traumatic (principal); M75.21 Bicipital tendinitis, right shoulder; M19.011 Primary osteoarthritis, right shoulder; Z95.0 Presence of cardiac pacemaker; X50.9XXA Other and unspecified overexertion or strenuous movements or postures, initial encounter; I25.5 Ischemic cardiomyopathy; K21.9 Gastro-esophageal reflux disease without esophagitis; I48.0 Paroxysmal atrial fibrillation; J45.909 Unspecified asthma, uncomplicated; I25.10 Atherosclerotic heart disease of native coronary artery without angina pectoris; M35.3 Polymyalgia rheumatica
CPT/HCPCS: 23430; 29827; G8918; 64415; C1713; J0689; J1100; J1885; J2405; J2704; J3010; J7120